=== PATIENT | male | born 1990 | race Caucasian/White ===

== ENCOUNTER 2016-06-08 | Emergency (ER) | payer SELFPAY ==
--- NOTE | 2016-06-08 22:46 | ED ---
General Adult HPI - General Chief complaint: Wound/Laceration Stated complaint: thumb lac Time Seen by Provider: 06/08/16 22:34 Source: patient, RN notes reviewed Mode of arrival: ambulatory Limitations: no limitations - History of Present Illness Initial comments: This is a 25-year-old male who presents with a laceration to the left thumb. Patient states this happened today at work. 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 Patient states he is up-to-date on his tetanus shot. Patient states he was worried because there was a lot of bleeding, but patient was able to get the bleeding to stop. Patient denies any numbness/weakness or tingling. Patient is still able to move the left thumb and complains of mild pain to the tip of the left thumb. Patient denies any recent fever, chills, shortness breath, chest pain, abdominal pain, nausea/vomiting/diarrhea, back pain, hematuria, headache, or visual changes, or any other complaints. - Related Data Home Medications Medication Instructions Recorded Confirmed Cetirizine HCl [Zyrtec] 10 mg PO BID 07/23/15 06/08/16 Previous Rx's Medication Instructions Recorded Albuterol Inhaler [Ventolin Hfa 2 puff INHALATION RT-Q6H PRN #1 02/06/15 Inhaler] inhaler Cephalexin [Keflex] 500 mg PO Q12HR 5 Days 06/08/16 Allergies Allergy/AdvReac Type Severity Reaction Status Date / Time lamotrigine [From Lamictal] Allergy Rash/Hives Verified 06/08/16 22:40 soy Allergy RASH AND Verified 06/08/16 22:40 GI SYMPTOMS Review of Systems ROS Statement: Those systems with pertinent positive or pertinent negative responses have been documented in the HPI. ROS Other: All systems not noted in ROS Statement are negative. Past Medical History Past Medical History: Asthma, GERD/Reflux, Skin Disorder Additional Past Medical History / Comment(s): 07/23/15 Pt presented to [facility] ER with suicidal thoughts and ideation x 2 days. He is admitted with clinical impression of alcohol intoxication, depression, suicidal ideation, acute pancreatitis, pneumonia. 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 He is seen by Dr. Zarco and therapist Brock Gurrola. He lives with his grandparents. He is normally independent. He drives. Smoking Status: Current every day smoker Past Alcohol Use History: None Reported Additional Past Alcohol Use History / Comment(s): He is a smoker of one half to one pack per day for 12 years. He smokes marijuana 2 times a week. He has used cocaine and heroin and other street drugs in the past on a sporadic basis but states none in the past few months. He has had problems with alcohol abuse/ binging but states now he drinks every other month or so. Past Drug Use History: Marijuana Additional Drug Use History / Comment(s): States he smokes marijuana a counple times a week. Hx of cocaine and heroin and other street drug use sporadically but states none in past few months. - Past Family History Father Additional Family Medical History / Comment(s): Father is alive at age 49 with history of alcoholism and drug addiction. Patient does not have any relationship with him. grandfather diabetic. mom and grandfather have HTN. brother htn Mother Additional Family Medical History / Comment(s): Mother is alive at age 44. She has history of coronary artery disease with previous AL, bipolar disorder and borderline personality. Patient has no contact with his mother. Brother(s) Additional Family Medical History / Comment(s): Patient has 1 brother that is 21 years old and one sister 23 years old both have anxiety. Patient does not have any children. General Exam - General Exam Comments Initial Comments: General: The patient is awake and alert, in no distress, and does not appear acutely ill. Neck: The neck is supple, there is no tenderness or JVD. Cardiovascular: There is a regular rate and rhythm. No murmur, rub or gallop is appreciated. Respiratory: Lungs are clear to auscultation, respirations are non-labored, breath sounds are equal. No wheezes, stridor, rales, or rhonchi. Musculoskeletal: Full range of motion, strength 5/5 in Sensation intact. Capillary refill is normal at less than 2 seconds. Radial pulses are 2+ bilaterally. Neurological: A&O x 3. CN II-XII intact, There are no obvious motor or sensory deficits. Coordination appears grossly intact. Speech is normal. Skin: There is an approximately 0.5 cm puncture wound to the tip of the left thumb distal to the DIP joint. Puncture is very superficial. Skin is warm and dry and no rashes or lesions are noted. Psychiatric: Normal mood and affect. Limitations: no limitations Course Vital Signs 06/08/16 22:39 Temperature 98.0 F Pulse Rate 61 Respiratory 18 Rate Blood Pressure 124/78 O2 Sat by Pulse 100 Oximetry Medical Decision Making - Medical Decision Making This is a 25-year-old male presents with puncture wound to the left thumb. On physical exam there is an approximately 0.5 cm puncture wound of the tip of the left thumb distal to the DIP joint. The wound was cleansed with normal saline. There is no foreign body. Patient is up-to-date on his tetanus shot. I discussed x-ray to rule out foreign body or damage to bone, but patient refused x-ray. Patient states scissors came out of the thumb as a whole with no defect noted to the scissors. Discussed that Neosporin can be applied to the wound and to keep the wound clean and dry. Discussed return parameters. Discussed the patient will be put on a short course of Keflex to prevent infection. Discussed [id number] Tylenol or Motrin as needed for any pain. Discussed that patient should follow up with PCP in one to 2 days or return to the [facility] for any worsening symptoms or for any further concerns. Patient was receptive to this plan and patient will be discharged home. Disposition Clinical Impression: Puncture wound of thumb, left Disposition: HOME SELF-CARE Condition: Good Instructions: Puncture Wound (ED) Additional Instructions: Please keep area clean and dry. Please apply Neosporin to the wound and keep wound covered at work. Please finish entire course of antibiotics. Please use [id number] Tylenol and Motrin as needed for any pain. Please use medication as discussed. Please follow-up with family doctor in the next 2 days of symptoms have not improved. Please return to emergency room if the symptoms increase or worsen or for any other concerns. Prescriptions: Cephalexin [Keflex] 500 mg PO Q12HR 5 Days Referrals: Chung Conn DO [Primary Care Provider] - 1-2 days Time of Disposition: 22:51
== END 2016-06-08 22:58 | disposition home or self-care (01) ==
CPT/HCPCS: 99282

== ENCOUNTER 2016-07-04 18:48 | Emergency (ER) | payer SELFPAY ==
[2016-07-04 18:52] VITALS: BP 134/80; PULSE 70; RESP 20; TEMP 98
[2016-07-04] MEDS ORDERED: diphenhydrAMINE 50 MG CAP PO STA (19:02)
[2016-07-04] MEDS ORDERED: predniSONE 50 MG TAB PO STA (19:03)
[2016-07-04] MEDS ORDERED: CEPHALEXIN 500MG STARTER PACK 4 CAP BTL PO STA (19:05)
[2016-07-04] MEDS ORDERED: ACET/COD 300 MG/30 MG STARTER PACK 6 TAB BTL PO STA (19:07)
--- NOTE | 2016-07-04 19:16 | ED ---
Skin/Abscess/FB HPI - General Chief complaint: Skin/Abscess/Foreign Body Stated complaint: rash Time Seen by Provider: 07/04/16 18:53 Source: patient, RN notes reviewed, old records reviewed Mode of arrival: ambulatory Limitations: no limitations - History of Present Illness Initial comments: Patient is a 25 year old male with chief complaint of an acute exacerbation of his chronic eczema for 2 days. Patient reports that he has had eczema for as long as he can remember. He states that his skin is extremely pruritic and it is painful. Patient states that he has received all childhood vaccinations. Patient reports he usually gets 1-2 acute exacerbations a year. He reports that it is over his arms, legs, trunk and back. He also reports that it invades his scalp. Patient states he has not seen a anesthesiologist/physician before and this can usually clear up with systemic steroids, antibiotics, and steroid creams. Patient states he has tried to use Eucerin cream however it is beyond that point at this time. He states he can not afford to go to the anesthesiologist/physician at this time. He denies fever, chills, cough, headache, chest pain, shortness of breath, nausea, vomiting, and abdominal pain. - Related Data Home Medications Medication Instructions Recorded Confirmed Cetirizine HCl [Zyrtec] 10 mg PO BID 07/23/15 07/04/16 Previous Rx's Medication Instructions Recorded Albuterol Inhaler [Ventolin Hfa 2 puff INHALATION RT-Q6H PRN #1 02/06/15 Inhaler] inhaler Cephalexin [Keflex] 500 mg PO Q6HR #40 cap 07/04/16 Triamcinolone 0.1% Cream [Kenalog] 1 applic TOPICAL TID #1 tube 07/04/16 predniSONE 50 mg PO DAILY #7 tab 07/04/16 Allergies Allergy/AdvReac Type Severity Reaction Status Date / Time lamotrigine [From Lamictal] Allergy Rash/Hives Verified 07/04/16 18:52 soy Allergy RASH AND Verified 07/04/16 18:52 GI SYMPTOMS Review of Systems ROS Statement: Those systems with pertinent positive or pertinent negative responses have been documented in the HPI. ROS Other: All systems not noted in ROS Statement are negative. Past Medical History Past Medical History: Asthma, GERD/Reflux, Skin Disorder Additional Past Medical History / Comment(s): 07/23/15 Pt presented to [facility] ER with suicidal thoughts and ideation x 2 days. He is admitted with clinical impression of alcohol intoxication, depression, suicidal ideation, acute pancreatitis, pneumonia. 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 He is seen by Dr. Zarco and therapist Brock Gurrola. He lives with his grandparents. He is normally independent. He drives. Smoking Status: Current every day smoker Past Alcohol Use History: None Reported Additional Past Alcohol Use History / Comment(s): He is a smoker of one half to one pack per day for 12 years. He smokes marijuana 2 times a week. He has used cocaine and heroin and other street drugs in the past on a sporadic basis but states none in the past few months. He has had problems with alcohol abuse/ binging but states now he drinks every other month or so. Past Drug Use History: None Reported Additional Drug Use History / Comment(s): States he smokes marijuana a counple times a week. Hx of cocaine and heroin and other street drug use sporadically but states none in past few months. - Past Family History Father Additional Family Medical History / Comment(s): Father is alive at age 49 with history of alcoholism and drug addiction. Patient does not have any relationship with him. grandfather diabetic. mom and grandfather have HTN. brother htn Mother Additional Family Medical History / Comment(s): Mother is alive at age 44. She has history of coronary artery disease with previous AR, bipolar disorder and borderline personality. Patient has no contact with his mother. Brother(s) Additional Family Medical History / Comment(s): Patient has 1 brother that is 21 years old and one sister 23 years old both have anxiety. Patient does not have any children. General Exam Limitations: no limitations General appearance: alert, in no apparent distress Head exam: Present: atraumatic, normocephalic, normal inspection Eye exam: Present: normal appearance, PERRL, EOMI. Absent: scleral icterus, conjunctival injection, periorbital swelling ENT exam: Present: normal exam, mucous membranes moist Neck exam: Present: normal inspection. Absent: tenderness, meningismus, lymphadenopathy Respiratory exam: Present: normal lung sounds bilaterally. Absent: respiratory distress, wheezes, rales, rhonchi, stridor Cardiovascular Exam: Present: regular rate, normal rhythm, normal heart sounds. Absent: systolic murmur, diastolic murmur, rubs, gallop, clicks GI/Abdominal exam: Present: soft, normal bowel sounds. Absent: distended, tenderness, guarding, rebound, rigid Extremities exam: Present: normal inspection, full ROM, normal capillary refill. Absent: tenderness, pedal edema, joint swelling, calf tenderness Back exam: Present: normal inspection Neurological exam: Present: alert, oriented X3, CN II-XII intact Psychiatric exam: Present: normal affect, normal mood Skin exam: Present: warm, dry, intact, rash ( has significant diffuse eczema throughout entire body.), erythema (erythema over entire trunk abdomen. Patient reports this is a typical flare up for his eczema. ). Absent: normal color Course Vital Signs 07/04/16 18:50 Temperature 98.0 F Pulse Rate 70 Respiratory 20 Rate Blood Pressure 134/80 O2 Sat by Pulse 99 Oximetry Medical Decision Making - Medical Decision Making Patient is a 25 year old male with acute diffuse exacerbation of chronic eczema. Patient has rash over trunk, arms, and legs. Patient will be given steroids, triamicinolone cream, bactroban cream, and keflex. PAtient given initial doses in the EC. PAtient also given benadryl and tylenol 3 starter pack for the pain. Patient reports he has new insurance soon and needs to see the anesthesiologist/physician. Patient advised to follow up with PCP, and to return to the [facility] if alarming signs or symptoms occur. Disposition Clinical Impression: Eczema Disposition: HOME SELF-CARE Condition: Good Instructions: Eczema (ED) Additional Instructions: Patient instructed to complete one week of steroids and use Rich emollient creams. Patient advised to follow up with primary care provider is well as symptoms continue persist. Return to the [facility] if any alarming signs or symptoms occur. Prescriptions: Cephalexin [Keflex] 500 mg PO Q6HR #40 cap Triamcinolone 0.1% Cream [Kenalog] 1 applic TOPICAL TID #1 tube predniSONE 50 mg PO DAILY #7 tab Referrals: Chung Conn DO [Primary Care Provider] - 1-2 days Time of Disposition: 19:08
[2016-07-04] MEDS ORDERED: MUPIROCIN CALCIUM 2% CREAM 15 GM TUBE TOPICAL SCH (20:00)
== END 2016-07-04 19:37 | disposition home or self-care (01) ==
LOC: EC 18:48
DX: L30.9 Dermatitis, unspecified (principal); F17.200 Nicotine dependence, unspecified, uncomplicated; F12.90 Cannabis use, unspecified, uncomplicated; Z88.8 Allergy status to other drugs, medicaments and biological substances; Z91.018 Allergy to other foods; Z79.899 Other long term (current) drug therapy
CPT/HCPCS: 99282; J7512

== ENCOUNTER 2016-08-02 02:58 | Emergency (ER) | payer SELFPAY ==
[2016-08-02 03:08] VITALS: BP 155/63; PULSE 71; RESP 18; TEMP 98.6
[2016-08-02] MEDS ORDERED: predniSONE 50 MG TAB PO STA (03:18)
[2016-08-02] MEDS ORDERED: CEPHALEXIN 500MG STARTER PACK 4 CAP BTL PO STA (03:19)
--- NOTE | 2016-08-02 03:22 | ED ---
Skin/Abscess/FB HPI - General Chief complaint: Skin/Abscess/Foreign Body Stated complaint: rash Time Seen by Provider: 08/02/16 03:06 Source: patient Mode of arrival: ambulatory Limitations: no limitations - History of Present Illness Initial comments: Patient is a 25-year-old male chief complaint of acute exacerbation of chronic eczema for approximately 1 day. Patient reports that he's had eczema for a long as he can remember. He states that his skin is truly pruritic and painful. He states that he is received on vaccinations and reports that he gets a few exacerbations a year. He was treated proximally one month ago for similar exacerbation. He states that is mainly over his back and abdomen at this time. He reports that he does occasionally go up his neck. He states that he is currently seeing a tool and die maker level five in August was also used multiple normally and creams. Patient denies any fever or chills, chest pain, nausea or vomiting. - Related Data Home Medications Medication Instructions Recorded Confirmed Cetirizine HCl [Zyrtec] 10 mg PO BID 07/23/15 08/02/16 Previous Rx's Medication Instructions Recorded Albuterol Inhaler [Ventolin Hfa 2 puff INHALATION RT-Q6H PRN #1 02/06/15 Inhaler] inhaler Cephalexin [Keflex] 500 mg PO Q6HR #28 cap 08/02/16 Triamcinolone 0.5% Cream [Kenalog 1 applic TOPICAL BID #90 gm 08/02/16 0.5% Cream] predniSONE 50 mg PO DAILY #6 tab 08/02/16 Allergies Allergy/AdvReac Type Severity Reaction Status Date / Time lamotrigine [From Lamictal] Allergy Rash/Hives Verified 08/02/16 03:08 soy Allergy RASH AND Verified 08/02/16 03:08 GI SYMPTOMS Review of Systems ROS Statement: Those systems with pertinent positive or pertinent negative responses have been documented in the HPI. ROS Other: All systems not noted in ROS Statement are negative. 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 He is seen by Dr. Zarco and therapist Brock Gurrola. He lives with his grandparents. He is normally independent. He drives. Smoking Status: Current every day smoker Past Alcohol Use History: None Reported Additional Past Alcohol Use History / Comment(s): He is a smoker of one half to one pack per day for 12 years. He smokes marijuana 2 times a week. He has used cocaine and heroin and other street drugs in the past on a sporadic basis but states none in the past few months. He has had problems with alcohol abuse/ binging but states now he drinks every other month or so. Past Drug Use History: None Reported Additional Drug Use History / Comment(s): States he smokes marijuana a counple times a week. Hx of cocaine and heroin and other street drug use sporadically but states none in past few months. - Past Family History Father Additional Family Medical History / Comment(s): Father is alive at age 49 with history of alcoholism and drug addiction. Patient does not have any relationship with him. grandfather diabetic. mom and grandfather have HTN. brother htn Mother Additional Family Medical History / Comment(s): Mother is alive at age 44. She has history of coronary artery disease with previous DC, bipolar disorder and borderline personality. Patient has no contact with his mother. Brother(s) Additional Family Medical History / Comment(s): Patient has 1 brother that is 21 years old and one sister 23 years old both have anxiety. Patient does not have any children. General Exam - General Exam Comments Initial Comments: Pleasant 25-year-old male. No acute distress. Limitations: no limitations General appearance: alert, in no apparent distress Head exam: Present: atraumatic, normocephalic, normal inspection Eye exam: Present: normal appearance, PERRL, EOMI. Absent: scleral icterus, conjunctival injection, periorbital swelling ENT exam: Present: normal exam, mucous membranes moist Neck exam: Present: normal inspection. Absent: tenderness, meningismus, lymphadenopathy Respiratory exam: Present: normal lung sounds bilaterally. Absent: respiratory distress, wheezes, rales, rhonchi, stridor Cardiovascular Exam: Present: regular rate, normal rhythm, normal heart sounds. Absent: systolic murmur, diastolic murmur, rubs, gallop, clicks GI/Abdominal exam: Present: soft, normal bowel sounds. Absent: distended, tenderness, guarding, rebound, rigid Extremities exam: Present: normal inspection, full ROM, normal capillary refill. Absent: tenderness, pedal edema, joint swelling, calf tenderness Back exam: Present: normal inspection Neurological exam: Present: alert, oriented X3, CN II-XII intact Psychiatric exam: Present: normal affect, normal mood Skin exam: Present: warm, dry, intact, normal color, rash (Patient has a significant erythematous. Rash is consistent with his chronic eczema over his back, chest and abdomen.) Course Vital Signs 08/02/16 03:06 Temperature 98.6 F Pulse Rate 71 Respiratory 18 Rate Blood Pressure 155/63 O2 Sat by Pulse 98 Oximetry Medical Decision Making - Medical Decision Making Patient is a 25-year-old male chief complaint of acute exacerbation of chronic eczema. Patient was given a dose of prednisone, and Keflex starter pack in the emergency department. Patient reports to take a Benadryl at home. Patient will be given the prescriptions for Keflex and prednisone. I did advise patient to follow-up soon with the tool and die maker level five. Patient also be given a prescription for 0.5 mg of triamcinolone cream. Patient reports that he will follow-up with primary care provider or return to emergency department if any worsening signs or symptoms occur. Patient understands treatment plan will comply. Disposition Clinical Impression: Eczema Disposition: HOME SELF-CARE Condition: Good Instructions: Eczema (ED) Additional Instructions: Patient advised to continue to dose and Benadryl. Complete antibiotic and steroid prescription as directed. Patient also advised to apply cream instructed. Follow-up with tool and die maker level five as soon as possible. Prescriptions: Cephalexin [Keflex] 500 mg PO Q6HR #28 cap Triamcinolone 0.5% Cream [Kenalog 0.5% Cream] 1 applic TOPICAL BID #90 gm predniSONE 50 mg PO DAILY #6 tab Referrals: Chung Conn DO [Primary Care Provider] - 1-2 days Time of Disposition: 03:19
== END 2016-08-02 03:39 | disposition home or self-care (01) ==
LOC: EC 02:58
DX: L30.9 Dermatitis, unspecified (principal); Z79.899 Other long term (current) drug therapy; Z88.8 Allergy status to other drugs, medicaments and biological substances; Z91.018 Allergy to other foods; F17.200 Nicotine dependence, unspecified, uncomplicated; J30.1 Allergic rhinitis due to pollen
CPT/HCPCS: 99282 ×2; J7512

== ENCOUNTER 2016-09-20 03:19 | Emergency (ER) | payer OTHER ==
[2016-09-20 03:24] VITALS: RESP 18
[2016-09-20] MEDS ORDERED: ALPRAZolam 0.5 MG TAB PO STA (07:22)
[2016-09-20] MEDS: ALBUTEROL NEBULIZED 2.5 MG/3 ML INHALATION STA ×2 (07:31→07:33)
--- NOTE | 2016-09-20 08:15 | ED ---
Psych HPI - General Source: patient, police, EMS Mode of arrival: EMS Limitations: no limitations - History of Present Illness MD Complaint: suicidal ideation, feels depressed -: days(s) Associated Psychiatric Symptoms: depression, suicidal ideation, auditory hallucinations History of same: Yes Quality: getting worse Improves With: none Worsens With: none Associated Symptoms: denies other symptoms <Jabari Fernandez - Last Filed: 09/20/16 08:12> <Kayode Gurrola - Last Filed: 09/20/16 16:40> - General Chief Complaint: Psychiatric Symptoms Stated Complaint: Mental Health Time Seen by Provider: 09/20/16 03:42 - History of Present Illness Initial Comments: Patient is 25-year-old man brought by [employer] [facility] to be evaluated after he expressed to them that he was having suicidal thoughts. The patient admits to same, as well as racing thoughts. (Jabari Fernandez) - Related Data Home Medications Medication Instructions Recorded Confirmed Cetirizine HCl [Zyrtec] 10 mg PO BID 07/23/15 09/20/16 Previous Rx's Medication Instructions Recorded Albuterol Inhaler [Ventolin Hfa 2 puff INHALATION RT-Q6H PRN #1 02/06/15 Inhaler] inhaler Allergies Allergy/AdvReac Type Severity Reaction Status Date / Time lamotrigine [From Lamictal] Allergy Rash/Hives Verified 09/20/16 07:48 soy Allergy RASH AND Verified 09/20/16 07:48 GI SYMPTOMS Review of Systems ROS Other: All systems not noted in ROS Statement are negative. Respiratory: Denies: cough, dyspnea Cardiovascular: Denies: chest pain, palpitations, syncope Gastrointestinal: Denies: abdominal pain, vomiting, diarrhea Genitourinary: Denies: dysuria, hematuria Musculoskeletal: Denies: back pain Skin: Denies: rash Neurological: Denies: headache, weakness, numbness Psychiatric: Reports: depression, auditory hallucinations, suicidal thoughts. Denies: visual hallucinations, homicidal thoughts <Jabari Fernandez - Last Filed: 09/20/16 08:12> ROS Other: All systems not noted in ROS Statement are negative. <Kayode Gurrola - Last Filed: 09/20/16 16:40> ROS Statement: Those systems with pertinent positive or pertinent negative responses have been documented in the HPI. 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 He is seen by Dr. Zarco and therapist Brock Gurrola. He lives with his grandparents. He is normally independent. He drives. Smoking Status: Current every day smoker Past Alcohol Use History: Heavy Additional Past Alcohol Use History / Comment(s): He is a smoker of one half to one pack per day for 12 years. He smokes marijuana 2 times a week. He has used cocaine and heroin and other street drugs in the past on a sporadic basis but states none in the past few months. He has had problems with alcohol abuse/ binging but states now he drinks every other month or so. Past Drug Use History: Cocaine, Marijuana Additional Drug Use History / Comment(s): States he smokes marijuana a counple times a week. Hx of cocaine and heroin and other street drug use sporadically but states none in past few months. - Past Family History Father Additional Family Medical History / Comment(s): Father is alive at age 49 with history of alcoholism and drug addiction. Patient does not have any relationship with him. grandfather diabetic. mom and grandfather have HTN. brother htn Mother Additional Family Medical History / Comment(s): Mother is alive at age 44. She has history of coronary artery disease with previous [place], bipolar disorder and borderline personality. Patient has no contact with his mother. Brother(s) Additional Family Medical History / Comment(s): Patient has 1 brother that is 21 years old and one sister 23 years old both have anxiety. Patient does not have any children. <Jabari Fernandez - Last Filed: 09/20/16 08:12> General Exam Limitations: no limitations General appearance: alert, in no apparent distress Head exam: Present: atraumatic, normocephalic Respiratory exam: Present: normal lung sounds bilaterally. Absent: respiratory distress, wheezes, rales, rhonchi, stridor Cardiovascular Exam: Present: regular rate, normal rhythm, normal heart sounds. Absent: systolic murmur, diastolic murmur, rubs, gallop GI/Abdominal exam: Present: soft. Absent: distended, tenderness, guarding, rebound Back exam: Present: normal inspection. Absent: CVA tenderness (R), CVA tenderness (L) Neurological exam: Present: alert, normal gait Psychiatric exam: Present: depressed, suicidal ideation. Absent: agitated, anxious, flat affect, manic, homicidal ideation Skin exam: Present: warm, dry, intact, normal color. Absent: rash <Jabari Fernandez - Last Filed: 09/20/16 08:12> Medical Decision Making <Jabari Fernandez - Last Filed: 09/20/16 08:12> - Lab Data Result diagrams: 09/20/16 10:46 09/20/16 10:46 <Kayode Gurrola - Last Filed: 09/20/16 16:40> - Medical Decision Making Patient was seen again by mental health services and now recommends discharge. They did arrange follow-up for him. Patient reevaluated by myself, Dr. Gurrola. Patient resting comfortably in bed. Patient does contract for safety and denies suicidal ideation. Patient is comfortable with discharge. (Kayode Gurrola) - Lab Data Lab Results 09/20/16 09/20/16 09/20/16 Range/Units 03:29 03:29 10:46 WBC (3.8-10.6) k/uL RBC (4.30-5.90) m/uL Hgb (13.0-17.5) gm/dL Hct (39.0-53.0) % MCV (80.0-100.0) fL MCH (25.0-35.0) pg MCHC (31.0-37.0) g/dL RDW (11.5-15.5) % Plt Count (150-450) k/uL Neutrophils % % Lymphocytes % % Monocytes % % Eosinophils % % Basophils % % Neutrophils # (1.3-7.7) k/uL Lymphocytes # (1.0-4.8) k/uL Monocytes # (0-1.0) k/uL Eosinophils # (0-0.7) k/uL Basophils # (0-0.2) k/uL Sodium 145 (137-145) mmol/L Potassium 4.1 (3.5-5.1) mmol/L Chloride 108 H (98-107) mmol/L Carbon Dioxide 28 (22-30) mmol/L Anion Gap 9 mmol/L BUN 9 (9-20) mg/dL Creatinine 0.77 (0.66-1.25) mg/dL Est GFR (MDRD) Af Amer >60 (>60 ml/min/1.73 sqM) Est GFR (MDRD) Non-Af >60 (>60 ml/min/1.73 sqM) Glucose 99 (74-99) mg/dL Calcium 9.6 (8.4-10.2) mg/dL Total Bilirubin 0.4 (0.2-1.3) mg/dL AST 24 (17-59) U/L ALT 25 (21-72) U/L Alkaline Phosphatase 69 (38-126) U/L Total Protein 6.5 (6.3-8.2) g/dL Albumin 4.0 (3.5-5.0) g/dL Urine Color Light Yellow Urine Appearance Clear (Clear) Urine pH 5.0 (5.0-8.0) Ur Specific Alex 1.005 (1.001-1.035) Urine Protein Negative (Negative) Urine Glucose (UA) Negative (Negative) Urine Ketones Negative (Negative) Urine Blood Negative (Negative) Urine Nitrite Negative (Negative) Urine Bilirubin Negative (Negative) Urine Urobilinogen <2.0 (<2.0) mg/dL Ur Leukocyte Esterase Negative (Negative) Urine Opiates Screen Not Detected (NotDetected) Ur Oxycodone Screen Not Detected (NotDetected) Urine Methadone Screen Not Detected (NotDetected) Ur Propoxyphene Screen Not Detected (NotDetected) Ur Barbiturates Screen Not Detected (NotDetected) U Tricyclic Antidepress Not Detected (NotDetected) Ur Phencyclidine Scrn Not Detected (NotDetected) Ur Amphetamines Screen Not Detected (NotDetected) U Methamphetamines Scrn Not Detected (NotDetected) U Benzodiazepines Scrn Not Detected (NotDetected) Urine Cocaine Screen Detected H (NotDetected) U Marijuana (THC) Screen Detected H (NotDetected) 09/20/16 Range/Units 10:46 WBC 7.9 (3.8-10.6) k/uL RBC 4.55 (4.30-5.90) m/uL Hgb 14.7 (13.0-17.5) gm/dL Hct 43.0 (39.0-53.0) % MCV 94.4 (80.0-100.0) fL MCH 32.3 (25.0-35.0) pg MCHC 34.2 (31.0-37.0) g/dL RDW 12.8 (11.5-15.5) % Plt Count 246 (150-450) k/uL Neutrophils % 65 % Lymphocytes % 22 % Monocytes % 6 % Eosinophils % 3 % Basophils % 1 % Neutrophils # 5.2 (1.3-7.7) k/uL Lymphocytes # 1.8 (1.0-4.8) k/uL Monocytes # 0.5 (0-1.0) k/uL Eosinophils # 0.3 (0-0.7) k/uL Basophils # 0.1 (0-0.2) k/uL Sodium (137-145) mmol/L Potassium (3.5-5.1) mmol/L Chloride (98-107) mmol/L Carbon Dioxide (22-30) mmol/L Anion Gap mmol/L BUN (9-20) mg/dL Creatinine (0.66-1.25) mg/dL Est GFR (MDRD) Af Amer (>60 ml/min/1.73 sqM) Est GFR (MDRD) Non-Af (>60 ml/min/1.73 sqM) Glucose (74-99) mg/dL Calcium (8.4-10.2) mg/dL Total Bilirubin (0.2-1.3) mg/dL AST (17-59) U/L ALT (21-72) U/L Alkaline Phosphatase (38-126) U/L Total Protein (6.3-8.2) g/dL Albumin (3.5-5.0) g/dL Urine Color Urine Appearance (Clear) Urine pH (5.0-8.0) Ur Specific Alex (1.001-1.035) Urine Protein (Negative) Urine Glucose (UA) (Negative) Urine Ketones (Negative) Urine Blood (Negative) Urine Nitrite (Negative) Urine Bilirubin (Negative) Urine Urobilinogen (<2.0) mg/dL Ur Leukocyte Esterase (Negative) Urine Opiates Screen (NotDetected) Ur Oxycodone Screen (NotDetected) Urine Methadone Screen (NotDetected) Ur Propoxyphene Screen (NotDetected) Ur Barbiturates Screen (NotDetected) U Tricyclic Antidepress (NotDetected) Ur Phencyclidine Scrn (NotDetected) Ur Amphetamines Screen (NotDetected) U Methamphetamines Scrn (NotDetected) U Benzodiazepines Scrn (NotDetected) Urine Cocaine Screen (NotDetected) U Marijuana (THC) Screen (NotDetected) Disposition <Jabari Fernandez - Last Filed: 09/20/16 08:12> <Kayode Gurrola - Last Filed: 09/20/16 16:40> Clinical Impression: Depression Disposition: HOME SELF-CARE Condition: Stable Instructions: Depression (ED), Suicide Prevention for Adults (ED) Additional Instructions: Follow up with [facility] as planned. Follow-up with your primary care physician in the next day or 2 for recheck. Return for thoughts of harming yourself, worsening symptoms or other concerns. Referrals: Chung Conn DO [Primary Care Provider] - 1-2 days
[2016-09-20 11:00] LABS: Basophils # (A) 0.1 k/uL (0-0.2); Basophils % (A) 1 %; CH 32.4; CHCM 34.4; Eosinophils # (A) 0.3 k/uL (0-0.7); Eosinophils % (A) 3 %; HDW 2.26; HGB 14.7 gm/dL (13.0-17.5); Luc # (Auto) 0.18; Luc % (Auto) 2; Lymphocytes # (A) 1.8 k/uL (1.0-4.8); Lymphocytes % (A) 22 %; MCH 32.3 pg (25.0-35.0); MCHC 34.2 g/dL (31.0-37.0); MCV 94.4 fL (80.0-100.0); Mean Platelet Volume 7.3; Monocytes # (A) 0.5 k/uL (0-1.0); Monocytes % (A) 6 %; Neutrophils # (A) 5.2 k/uL (1.3-7.7); Neutrophils % (A) 65 %; RBC 4.55 m/uL (4.30-5.90); RDW 12.8 % (11.5-15.5); WBC 7.9 k/uL (3.8-10.6); WBC (Perox) 8.13
[2016-09-20 11:06] LABS: Appearance,Urine Clear (Clear); Bilirubin,Urine Negative (Negative); Glucose,Urine (UA) Negative (Negative); Ketones,Urine Negative (Negative); Leukocyte Esterase,Urine Negative (Negative); Nitrite,Urine Negative (Negative); Protein,Urine Negative (Negative); Specific Gravity,Urine 1.005 (1.001-1.035); UA Billing (MACRO vs. MICRO) CHEM; Urobilinogen,Urine <2.0 mg/dL (<2.0)
[2016-09-20 11:17] LABS: ALT 25 U/L (21-72); AST 24 U/L (17-59); Alkaline Phosphatase 69 U/L (38-126); Anion Gap 9 mmol/L; Blood Urea Nitrogen 9 mg/dL (9-20); Calcium 9.6 mg/dL (8.4-10.2); Carbon Dioxide 28 mmol/L (22-30); Chloride 108 mmol/L (98-107); Glucose 99 mg/dL (74-99); Non-African American GFR(MDRD) >60 (>60 ml/min/1.73 sqM); Potassium 4.1 mmol/L (3.5-5.1); Sodium 145 mmol/L (137-145); Total Bilirubin 0.4 mg/dL (0.2-1.3); Total Protein 6.5 g/dL (6.3-8.2)
[2016-09-20 16:44] VITALS: BP 147/87; PULSE 88; TEMP 98.4
== END 2016-09-20 16:45 | disposition home or self-care (01) ==
LOC: EC 03:19
DX: F31.9 Bipolar disorder, unspecified (principal); F60.3 Borderline personality disorder; F41.9 Anxiety disorder, unspecified; F17.200 Nicotine dependence, unspecified, uncomplicated; Z79.899 Other long term (current) drug therapy; Z91.018 Allergy to other foods; Z88.8 Allergy status to other drugs, medicaments and biological substances; Z87.2 Personal history of diseases of the skin and subcutaneous tissue
CPT/HCPCS: 36415; 80053; 80306; 81003; 82075; 85025; 94640; 99285

== ENCOUNTER 2017-01-16 20:43 | Inpatient (IN) | payer OTHER ==
--- NOTE | 2017-01-16 21:56 | ED ---
General Adult HPI - General Chief complaint: Psychiatric Symptoms Stated complaint: Mental Health Time Seen by Provider: 01/16/17 21:55 Source: patient, RN notes reviewed, old records reviewed Mode of arrival: ambulatory Limitations: no limitations - History of Present Illness Initial comments: This is a 18-year-old male ER for evaluation. This patient presents for evaluation and second himself desires. Patient has not attempted suicide. No drugs or alcohol abuse - Related Data Home Medications Medication Instructions Recorded Confirmed Cetirizine HCl [Zyrtec] 10 mg PO BID 07/23/15 01/16/17 Albuterol Inhaler [Ventolin Hfa 2 puff INHALATION RT-Q6H PRN 01/16/17 01/16/17 Inhaler] Triamcinolone 0.1% Ointment 1 applic TOPICAL TID PRN 01/16/17 01/16/17 [Kenalog 0.1% Ointment] Allergies Allergy/AdvReac Type Severity Reaction Status Date / Time lamotrigine [From Lamictal] Allergy Rash/Hives Verified 09/20/16 07:48 soy Allergy RASH AND Verified 09/20/16 07:48 GI SYMPTOMS Review of Systems ROS Statement: Those systems with pertinent positive or pertinent negative responses have been documented in the HPI. ROS Other: All systems not noted in ROS Statement are negative. Past Medical History Past Medical History: Asthma, GERD/Reflux, Skin Disorder Additional Past Medical History / Comment(s): Other HX: Eczema, hayfever, left cornea ulcer healed, gastric ulcer History of Any Multi-Drug Resistant Organisms: None Reported Additional Past Surgical History / Comment(s): EGD, corneal biopsy left - Past Anesthesia/Blood Transfusion Reactions: No Reported Reaction Past Psychological History: Anxiety, Bipolar, Depression Smoking Status: Current every day smoker Past Alcohol Use History: Heavy Past Drug Use History: Cocaine, Marijuana - Past Family History Father Additional Family Medical History / Comment(s): Father is alive at age 49 with history of alcoholism and drug addiction. Patient does not have any relationship with him. grandfather diabetic. mom and grandfather have HTN. brother htn Mother Additional Family Medical History / Comment(s): Mother is alive at age 44. She has history of coronary artery disease with previous [place], bipolar disorder and borderline personality. Patient has no contact with his mother. Brother(s) Additional Family Medical History / Comment(s): Patient has 1 brother that is 21 years old and one sister 23 years old both have anxiety. Patient does not have any children. General Exam Limitations: no limitations General appearance: alert, in no apparent distress Head exam: Present: atraumatic, normocephalic, normal inspection Eye exam: Present: normal appearance, PERRL, EOMI. Absent: scleral icterus, conjunctival injection, periorbital swelling ENT exam: Present: normal exam, mucous membranes moist Neck exam: Present: normal inspection. Absent: tenderness, meningismus, lymphadenopathy Respiratory exam: Present: normal lung sounds bilaterally. Absent: respiratory distress, wheezes, rales, rhonchi, stridor Cardiovascular Exam: Present: regular rate, normal rhythm, normal heart sounds. Absent: systolic murmur, diastolic murmur, rubs, gallop, clicks GI/Abdominal exam: Present: soft, normal bowel sounds. Absent: distended, tenderness, guarding, rebound, rigid Extremities exam: Present: normal inspection, full ROM, normal capillary refill. Absent: tenderness, pedal edema, joint swelling, calf tenderness Back exam: Present: normal inspection Neurological exam: Present: alert, oriented X3, CN II-XII intact Psychiatric exam: Present: normal affect, normal mood Skin exam: Present: warm, dry, intact, normal color. Absent: rash Course Vital Signs 01/16/17 01/17/17 21:45 00:54 Temperature 98.5 F Pulse Rate 75 95 Respiratory 18 18 Rate Blood Pressure 147/93 137/89 O2 Sat by Pulse 100 96 Oximetry - Reevaluation(s) Reevaluation #1: 01/16/17 21:56 Patient medically clear for psychiatric evaluation Medical Decision Making - Medical Decision Making 26 male to the ED for evaluation of psychiatric disease, patient will be admitted for psychiatric evaluation and treatment - Lab Data Result diagrams: 01/17/17 08:43 01/17/17 08:43 Lab Results 01/16/17 Range/Units 23:34 Urine Opiates Screen Not Detected (NotDetected) Ur Oxycodone Screen Not Detected (NotDetected) Urine Methadone Screen Not Detected (NotDetected) Ur Propoxyphene Screen Not Detected (NotDetected) Ur Barbiturates Screen Not Detected (NotDetected) U Tricyclic Antidepress Not Detected (NotDetected) Ur Phencyclidine Scrn Not Detected (NotDetected) Ur Amphetamines Screen Not Detected (NotDetected) U Methamphetamines Scrn Not Detected (NotDetected) U Benzodiazepines Scrn Not Detected (NotDetected) Urine Cocaine Screen Not Detected (NotDetected) U Marijuana (THC) Screen Not Detected (NotDetected) Disposition Clinical Impression: Alcohol intoxication, Suicidal ideation Disposition: TRANSFER TO PSYCH HOSP/UNIT Condition: Fair
[2017-01-16] MEDS ORDERED: LORazepam 1 MG TAB PO STA (23:34)
[2017-01-17] MEDS ORDERED: MAGNESIUM HYDROXIDE 2,400 MG/10 ML CUP PO PRN (01:12)
[2017-01-17] MEDS ORDERED: MAG HYDROX/AL HYDROX/SIMETH 30 ML CUP PO PRN (01:12)
[2017-01-17] MEDS ORDERED: ACETAMINOPHEN TAB 325 MG TAB PO PRN (01:12)
[2017-01-17] MEDS ORDERED: LORATADINE 10 MG TAB PO PRN (01:23)
[2017-01-17] MEDS: NICOTINE 14MG/24HR PATCH TRANSDERM SCH ×2 (08:17→10:30)
[2017-01-17] MEDS: LORazepam 1 MG TAB PO SCH ×2 (08:18→20:36)
[2017-01-17] MEDS: TRIAMCINOLONE ACET 0.1% OINTMENT 15 GM TUBE TOPICAL PRN ×2 (08:29→14:45)
[2017-01-17] MEDS: ALBUTEROL INHALER 60 PUFF/8 GM INHALER INHALATION PRN ×4 (09:14→21:08)
[2017-01-17 09:49] LABS: Basophils # (A) 0.1 k/uL (0-0.2); Basophils % (A) 1 %; CH 33.2; CHCM 33.7; Eosinophils # (A) 0.4 k/uL (0-0.7); Eosinophils % (A) 6 %; HDW 2.18; HGB 15.7 gm/dL (13.0-17.5); Luc % (Auto) 2; Lymphocytes # (A) 1.2 k/uL (1.0-4.8); Lymphocytes % (A) 22 %; MCH 31.7 pg (25.0-35.0); MCV 99.1 fL (80.0-100.0); Mean Platelet Volume 8.1; Monocytes # (A) 0.3 k/uL (0-1.0); Monocytes % (A) 6 %; Neutrophils # (A) 3.5 k/uL (1.3-7.7); Neutrophils % (A) 63 %; RBC 4.95 m/uL (4.30-5.90); WBC 5.7 k/uL (3.8-10.6); WBC (Perox) 5.45
[2017-01-17 09:51] LABS: ALT 34 U/L (21-72); AST 28 U/L (17-59); Alkaline Phosphatase 73 U/L (38-126); Anion Gap 8 mmol/L; Blood Urea Nitrogen 6 mg/dL (9-20); Calcium 8.8 mg/dL (8.4-10.2); Carbon Dioxide 27 mmol/L (22-30); Chloride 102 mmol/L (98-107); Glucose 107 mg/dL (74-99); Non-African American GFR(MDRD) >60 (>60 ml/min/1.73 sqM); Potassium 4.2 mmol/L (3.5-5.1); Sodium 137 mmol/L (137-145); Total Bilirubin 0.6 mg/dL (0.2-1.3); Total Protein 6.4 g/dL (6.3-8.2)
[2017-01-17 09:58] LABS: Appearance,Urine Clear (Clear); Bilirubin,Urine Negative (Negative); Glucose,Urine (UA) Negative (Negative); Ketones,Urine Negative (Negative); Leukocyte Esterase,Urine Negative (Negative); Nitrite,Urine Negative (Negative); PH, Urine 7.5 (5.0-8.0); Protein,Urine Trace (Negative); Specific Gravity,Urine 1.016 (1.001-1.035); UA Billing (MACRO vs. MICRO) CHEM; Urobilinogen,Urine <2.0 mg/dL (<2.0)
[2017-01-17] MEDS: buPROPion XL 300 MG TAB.ER.24H PO SCH (13:31)
[2017-01-17] MEDS: OLANZapine 2.5 MG TAB PO SCH ×3 (13:31→20:36)
[2017-01-17] MEDS: PRAZOSIN 1 MG CAP PO SCH ×2 (13:31→20:36)
--- NOTE | 2017-01-17 14:51 | P.MDCNMH ---
History of Present Illness H&P Date: 01/17/17 Chief Complaint: Suicidal ideation 26-year-old male with past medical history significant for mild persistent asthma, GERD, bipolar disorder. Patient presented to the emergency department due to overwhelming emotions and suicidal ideation. He reported that he is going through a breakup quit his job and has been drinking heavily for the past month or 2. Then he decided to quit "cold turkey" 5 days ago. He reported going through withdrawal symptoms he was shaky and had a seizure 2 days after his last drink. However due to the overwhelming emotions and suicidal ideations with a plan on overdosing on the old pills he decided to perform his grandfather who brought him to the hospital seeking help. He reports some history of suicidal ideation in the past with multiple attempts usually with overdosing and he did not want to go through that again. Otherwise, currently he reports no symptoms of alcohol withdrawal, he feels that he is more stable now. Patient also reports history of mild persistent asthma for which he uses nebulized albuterol every day and night. He is not on any other inhalers. He denies any emergency department visits for asthma exacerbations. He denies any history of intubation, denies any chronic cough. He also reports self mutilating behavior which usually distract him and help him focus instead of having the suicidal ideation and the overwhelming emotions. He used to hit objects to inflict pain or even cut his skin, but now always doing as using cigarettes to burn his skin. Review of Systems Constitutional: Patient reports no fever, no chills, no night sweating, no significant weight changes Eyes: Patient reports no visual changes, no eye pain ENT: Patient reports no ear pain, no rhinorrhea, no sore throat Cardiovascular: Patient reports no chest pain, no exertional dyspnea, no peripheral leg edema, no orthopnea, no paroxysmal nocturnal dyspnea Respiratory:Patient reports no cough, no shortness of breath. Occasional wheezing for which he uses albuterol inhaler Gastrointestinal: Patient reports no diarrhea, no constipation, no nausea no vomiting, no abdominal pain Genitourinary: Patient reports no dysuria, no hematuria, no changes in urinary habits, no genital lesions Musculoskeletal: Patient reports no muscle pain, no joint pain Psychiatric: Patient reports depressed mood , suicidal ideation, and anxiety Endocrine: Patient reports no heat intolerance, no cold intolerance, no excessive thirst, no polyuria Neurological: Patient reports no focal neurologic deficits, no weakness, no numbness, no tingling Hem/Lymphatic: Patient reports no bleeding tendency, no bruising, no swollen lymph glands Allergic/Immun: Patient reports no recent allergic reactions Skin: Patient reports no ulcers. Patient reports flareup of his eczema Past Medical History Past Medical History: Asthma, GERD/Reflux, Skin Disorder Additional Past Medical History / Comment(s): Other HX: Eczema, hayfever, left cornea ulcer healed, gastric ulcer History of Any Multi-Drug Resistant Organisms: None Reported Additional Past Surgical History / Comment(s): EGD, corneal biopsy left - Past Anesthesia/Blood Transfusion Reactions: No Reported Reaction Past Psychological History: Anxiety, Bipolar, Depression Smoking Status: Current every day smoker Past Alcohol Use History: Heavy Additional Past Alcohol Use History / Comment(s): Most recent drink was 5 days ago where he decided to quit "cold turkey" Past Drug Use History: Cocaine, Marijuana Additional Drug Use History / Comment(s): Admits to current marijuana use. He also admits to using cocaine and other drugs in the past but nothing recent - Past Family History Father Additional Family Medical History / Comment(s): Father is alive at age 49 with history of alcoholism and drug addiction. Patient does not have any relationship with him. grandfather diabetic. mom and grandfather have HTN. brother htn Mother Additional Family Medical History / Comment(s): Mother is alive at age 44. She has history of coronary artery disease with previous [place], bipolar disorder and borderline personality. Patient has no contact with his mother. Brother(s) Additional Family Medical History / Comment(s): Patient has 1 brother that is 21 years old and one sister 23 years old both have anxiety. Patient does not have any children. Medications and Allergies Home Medications and Allergies Comment(s): He reports that he's been off psych medications for over a year now and he's been doing well Home Medications Medication Instructions Recorded Confirmed Type Cetirizine HCl [Zyrtec] 10 mg PO BID 07/23/15 01/16/17 History Albuterol Inhaler [Ventolin Hfa 2 puff INHALATION RT-Q6H PRN 01/16/17 01/16/17 History Inhaler] Triamcinolone 0.1% Ointment 1 applic TOPICAL TID PRN 01/16/17 01/16/17 History [Kenalog 0.1% Ointment] Allergies Allergy/AdvReac Type Severity Reaction Status Date / Time lamotrigine [From Lamictal] Allergy Rash/Hives Verified 09/20/16 07:48 soy Allergy RASH AND Verified 09/20/16 07:48 GI SYMPTOMS Physical Exam Vitals: Vital Signs Temp Pulse Pulse Resp BP BP Pulse Ox 01/17/17 01:36 97.5 F L 90 16 153/73 97 01/17/17 00:54 95 18 137/89 96 01/16/17 21:45 98.5 F 75 18 147/93 100 Intake and Output 01/16/17 01/17/17 01/17/17 22:59 06:59 14:59 Other: Weight 65.771 kg 71.532 kg Constitutional: Not in acute distress, pleasant, conversant, vital signs stable Eyes: Pupils equal round reactive to light, anicteric sclerae, moist conjunctivae ENMT: Normocephalic, atraumatic, oropharynx clear, no erythema/exudate Neck: Supple, FORM, no palpable thyromegally Lymphatics: no palpable cervical or supraclavicular lymph nodes Respiratory: Clear to auscultation bilaterally, no wheezes, no crackles, no rhonchi, clear to percussion, normal respiratory effort without use of accessory muscles Cardiovascular: Regular rate and rhythm, no murmurs, no gallops, no rubs, no peripheral edema , no JVD, no carotid bruits, peripheral pulses palpable and equal over bilateral radial arteries and dorsalis pedis arteries Abdomen: Bowel sounds positive, soft, no tenderness to palpation, no palpable masses, no palpable hepatosplenomegally, no abdominal wall hernias Skin: Unremarkable temperature, tone, and turgor, no induration or subcutaneous nodule. there is diffuse erythematus rash and skin dryness over the right forearm and upper chest, there are multiple (counted 3) cigarette burning lesions over his left forearm (self inflicted injuries) Extremities: No digital cyanosis, ischemia or clubbing, no calf muscle tenderness bilaterally, unremarkable gait , grossly intact active range of motion of both upper and lower extremities Psych: Alert, oriented to place, person and date, recent and remote memory intact, appropriate mood and affect, intact judgment , patient has good insight of his problems Neurologic: Cranial nerves II-XII grossly intact, no focal sensory deficits to touch, Deep tendon reflexes brisk over bilateral knees Cranial Nerve Examination - Cranial Nerves Cranial Nerve II- Optic: Intact Cranial Nerve III- Oculomotor: Intact Cranial Nerve IV- Trochlear: Intact Cranial Nerve V- Trigeminal: Intact Cranial Nerve - Abducens: Intact Cranial Nerve VII- Facial: Intact Cranial Nerve VIII- Auditory: Intact Cranial Nerve IX- Glossopharyngeal: Intact Cranial Nerve X- Vagus: Intact Cranial Nerve XI- Accessory: Intact Cranial Nerve XII- Hypoglossal: Intact Results Results: labs reviewed CBC & Chem 7: 01/17/17 08:43 01/17/17 08:43 Labs: Abnormal Lab Results - Last 24 Hours (Table) 01/17/17 01/17/17 Range/Units 08:43 09:20 BUN 6 L (9-20) mg/dL Glucose 107 H (74-99) mg/dL Urine Protein Trace H (Negative) Assessment and Plan (1) Mild persistent asthma Narrative/Plan: Duonebs PRN counseled to avoid smoking and smoke exposure Status: Chronic (2) Eczema Narrative/Plan: Acute flare up triamcinolone 0.1% PRN TID Status: Acute (3) Tobacco dependence Narrative/Plan: counseled to quit smoking patient indicated that he is not ready for that Nicotine replacement therapy offered Status: Chronic (4) Alcohol abuse Narrative/Plan: Patient admits to heavy ingestion of alcohol over the past 2 months on a daily basis for at least 12 X12 ounce beers , or a pint of liquor Patient decided to quit without seeking medical help. His last drink was 5 days ago Patient went through withdrawal symptoms at home and he reports convulsive seizure once 2 days after his most recent drink Alcohol withdrawal symptoms usually last for 4-5 days after last drink Continue with monitoring with seizure precautions and CIWA scale Patient counseled to abstain from alcohol Status: Acute (5) Depression Narrative/Plan: management per psych Status: Acute (6) Suicidal ideation Narrative/Plan: Management per psych, suicide precautions Status: Acute (7) DVT prophylaxis Narrative/Plan: low risk patient is ambulatory Status: Acute (8) GERD (gastroesophageal reflux disease) Narrative/Plan: Patient reports no active symptoms of acid reflux Status: Chronic
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
[2017-01-18] MEDS: buPROPion XL 300 MG TAB.ER.24H PO SCH (09:40)
[2017-01-18] MEDS: NICOTINE 14MG/24HR PATCH TRANSDERM SCH (09:40)
[2017-01-18] MEDS: OLANZapine 2.5 MG TAB PO SCH ×3 (09:40→20:46)
[2017-01-18] MEDS: LORazepam 1 MG TAB PO SCH ×2 (09:40→21:45)
[2017-01-18] MEDS: PRAZOSIN 1 MG CAP PO SCH ×2 (09:40→21:45)
[2017-01-18] MEDS: TRIAMCINOLONE ACET 0.1% OINTMENT 80 GM TUBE TOPICAL PRN ×3 (09:41→22:24)
[2017-01-18] MEDS: ALBUTEROL INHALER 60 PUFF/8 GM INHALER INHALATION PRN ×3 (09:43→19:22)
[2017-01-18] MEDS: LORATADINE 10 MG TAB PO PRN (12:11)
--- NOTE | 2017-01-18 16:04 | PN ---
DATE OF SERVICE: 01/18/17 CHIEF COMPLAINT: The patient was distressed. He had suicide thoughts with a plan to overdose. He had been drinking regularly until five days prior to admission. INTERVAL HISTORY: The patient has been doing fair. He had a quiet evening last night. The patient says that he slept fair. He slept only about three or four hours last night. He wondered about an increase in his medications. Today he has been up and about. He has been attending groups and has been appropriate. He will socialize with others. He says today that his mood is better and he feels a little calmer. He says though that he still has quite a bit of anxiety and he wonders though if his medications could be adjusted. The patient says that he is more hopeful. He has not had change in his general health. He tolerates psychotropic medications. MENTAL STATUS: The patient gave fairly good eye contact. He was a little restless. Speech was clear He answered questions with direct responses. He had a somewhat anxious affect though not significantly so. His mood was quiet. He did not appear to be significantly distress. ASSESSMENT: We will continue the current diagnosis and treatment plan. We will continue psychotropic medications the same. I discussed with the patient that he needs to give medications more time. In addition, we discussed that he should use the walking program to help calm some of the anxiety that he does have. We discussed that as he has done better in the day with better control of anxiety, it is likely to help him get into a better sleep pattern at night. We will continue to focus on stabilization and discharge planning. LOLY
[2017-01-19 06:33] VITALS: RESP 16
[2017-01-19] MEDS: ALBUTEROL INHALER 60 PUFF/8 GM INHALER INHALATION PRN ×3 (08:54→21:00)
[2017-01-19] MEDS: NICOTINE 14MG/24HR PATCH TRANSDERM SCH (09:20)
[2017-01-19] MEDS: buPROPion XL 300 MG TAB.ER.24H PO SCH (09:20)
[2017-01-19] MEDS: LORazepam 1 MG TAB PO SCH (09:20)
[2017-01-19] MEDS: PRAZOSIN 1 MG CAP PO SCH ×2 (09:20→20:48)
[2017-01-19] MEDS: OLANZapine 2.5 MG TAB PO SCH (09:20)
[2017-01-19] MEDS ORDERED: BACITRACIN OINT 1 EACH PACKET TOPICAL ONE (09:23)
[2017-01-19] MEDS: LORATADINE 10 MG TAB PO PRN (10:16)
[2017-01-19] MEDS: OLANZapine 5 MG TAB PO SCH ×2 (16:15→20:48)
[2017-01-19] MEDS: TRIAMCINOLONE ACET 0.1% OINTMENT 80 GM TUBE TOPICAL PRN (21:55)
[2017-01-19] MEDS ORDERED: hydrOXYzine PAMOATE 25 MG CAP PO STA (22:10)
[2017-01-20 06:37] VITALS: BP 121/71; PULSE 73; TEMP 97.8
[2017-01-20] MEDS ORDERED: predniSONE 50 MG TAB PO STA (08:52)
[2017-01-20] MEDS: ALBUTEROL INHALER 60 PUFF/8 GM INHALER INHALATION PRN (08:57)
[2017-01-20] MEDS ORDERED: SULFAMETHOX-TMP 800-160MG 1 EACH TAB PO SCH (09:00)
[2017-01-20] MEDS: OLANZapine 5 MG TAB PO SCH (09:20)
[2017-01-20] MEDS: buPROPion XL 300 MG TAB.ER.24H PO SCH (09:20)
[2017-01-20] MEDS: PRAZOSIN 1 MG CAP PO SCH (09:21)
[2017-01-20] MEDS: NICOTINE 14MG/24HR PATCH TRANSDERM SCH (09:22)
--- NOTE | 2017-01-20 09:43 | PN ---
DATE OF SERVICE: 01/19/2017 CHIEF COMPLAINT: The patient was distressed. He had suicide thoughts with a plan to overdose. He had been drinking regularly and fell five days prior to admission. INTERVAL HISTORY: The patient has been doing fair. He had a quiet evening last night. He slept fairly well. Today he has been up and about. He presents at times in a superficially bright mood. He will interact with others. On the other hand, he acknowledges mood swings with periods where he gets quite down and distressed. He has some insight into the idea that he likely continue to struggle with early withdrawal symptoms. He feels that he has gained benefit and feels supported in the group session. He acknowledges feeling a lot of stress around the idea of discharge and mainly with what he needs to do to get back into better function. He is not able to continue job and left that recently because of the distress he was experiencing. He does seem to have gained some insight around the idea that he needs to maintain abstinence from alcohol. He has been cooperative. He has not had change in his general health. He tolerates his psychotropic medications. MENTAL STATUS: The patient gives fair eye contact. Psychomotor activity was restless. Speech was clear. He answered questions with brief responses. His affect was somewhat anxious. His mood was quiet. He did not appear to be significantly depressed or distress. ASSESSMENT: I will continue the current diagnosis and treatment plan. I will continue psychotropic medications the same. The patient has been making progress. We had extensive discussion regarding discharge planning and will aim to discharge the patient Tuesday. LOLY
--- NOTE | 2017-01-20 11:14 | P.PN ---
Subjective Principal diagnosis: Rash Patient is a 26-year-old male with past medical history mild persistent asthma, eczema, and depression the treated in the mental health unit for suicidal ideation. We're asked to reevaluate the patient for worsening rash. Patient states that he had been drinking prior to coming to the hospital and had bumped his left lower extremity, he is concerned with an area of swelling and redness. He states started a couple of days ago. He complains of pain that is worse with walking. He believes his area that he bumped. He also complains that his eczema is worsening and spreading. Involving his torso and eat. He states limits typically this that he is a dose of oral steroids with a taper of over 2 weeks' duration. He states that he is having an increase in itch with this rash. Objective - Vital Signs Vital signs: Vital Signs Temp 97.8 F 01/20/17 06:36 Pulse 73 01/20/17 06:36 Resp 16 01/20/17 06:36 BP 121/71 01/20/17 06:36 Pulse Ox 97 01/17/17 01:36 - Exam General: non toxic, no distress, appears at stated age Derm: Multiple areas of erythematous slightly raised lesion with convalescent and scale and crust over chest, back, arms and lower extremities, left calf with area of erythema and induration associated with warmth and swelling, no fluctuant area noted no lesions Head: atraumatic, normocephalic, symmetric Eyes: EOMI, no lid lag, anicteric sclera ENT: no post nasal drip, no thrush Mouth: no lip lesion, mucus membranes moist Cardiovascular: S1S2 reg, no murmur, positive posterior tibial pulse bilateral, Lungs: CTA bilateral, no rhonchi, no rales , no accessory muscle use Ext: no gross muscle atrophy, no edema, no contractures Neuro: CN II-XI grossly intact, no focal neuro deficits Psych: Alert, oriented, appropriate affect - Labs CBC & Chem 7: 01/17/17 08:43 01/17/17 08:43 Assessment and Plan (1) Cellulitis and abscess of left leg Narrative/Plan: Bactrim DS twice daily for 5 days, first dose here and prescription for duration left on chart, follow with PCP in 3-5 days Status: Acute (2) Acute eczema Narrative/Plan: Steroid taper over 15 days. Start with prednisone 50 mg daily the patient states this is his typical dose, he will follow with his primary care physician or acid plant helper should this not resolve his acute flair of eczema Status: Acute (3) Acute eczema Status: Deleted
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
== END 2017-01-20 10:42 | disposition home or self-care (01) | DRG 885 ==
LOC: EC 20:43 → 3MHU 01-17 00:46
PROVIDERS: ADMIT Psychiatry & Neurology Psychiatry; ATTEND Psychiatry & Neurology Psychiatry
DX: F33.2 Major depressive disorder, recurrent severe without psychotic features (principal); R45.851 Suicidal ideations; L02.416 Cutaneous abscess of left lower limb; F10.239 Alcohol dependence with withdrawal, unspecified; L03.116 Cellulitis of left lower limb; G40.409 Other generalized epilepsy and epileptic syndromes, not intractable, without status epilepticus; F17.200 Nicotine dependence, unspecified, uncomplicated; F12.90 Cannabis use, unspecified, uncomplicated; K21.9 Gastro-esophageal reflux disease without esophagitis; F43.10 Post-traumatic stress disorder, unspecified; J45.30 Mild persistent asthma, uncomplicated; J30.1 Allergic rhinitis due to pollen; L30.9 Dermatitis, unspecified; Z79.899 Other long term (current) drug therapy; Z87.11 Personal history of peptic ulcer disease; Z91.5 Personal history of self-harm; Z62.810 Personal history of physical and sexual abuse in childhood; Z88.8 Allergy status to other drugs, medicaments and biological substances; Z91.018 Allergy to other foods
CPT/HCPCS: 80053; 80306; 81003; 82075; 84443; 85025; 94640; 99285

== ENCOUNTER 2018-11-03 16:59 | Emergency (ER) | payer OTHER ==
[2018-11-03 17:09] VITALS: BP 141/82; PULSE 79; RESP 18; TEMP 99
--- NOTE | 2018-11-03 17:50 | ED ---
General Adult HPI - General Chief complaint: Upper Respiratory Infection Stated complaint: congestion Time Seen by Provider: 11/03/18 17:16 Source: patient Mode of arrival: ambulatory Limitations: no limitations - History of Present Illness Initial comments: Patient is a 27-year-old male presenting to emergency department with a cough. Patient reports he was treated 3 weeks ago for pneumonia with a Z-Jose Angel which he finished a about 12 days ago. Patient reports improvement in his cough except the last 2 days he noticed a dry cough. Patient reports having ALLERGIES causing nasal congestion, eczema and asthma flareup. Patient reports not using an inhaler for his asthma because he can't afford it. Patient denies any nausea, vomiting, diarrhea, headaches, fever, night sweats or chills. Patient denies taking any medication to alleviate the symptoms. Patient has continued smoking through his illness - Related Data Home Medications Medication Instructions Recorded Confirmed Cetirizine HCl [Zyrtec] 10 mg PO BID 07/23/15 01/16/17 Albuterol Inhaler [Ventolin Hfa 2 puff INHALATION RT-Q6H PRN 01/16/17 01/16/17 Inhaler] Triamcinolone 0.1% Ointment 1 applic TOPICAL TID PRN 01/16/17 01/16/17 [Kenalog 0.1% Ointment] Previous Rx's Medication Instructions Recorded Nicotine 14Mg/24Hr Patch [Habitrol] 1 patch TRANSDERM DAILY patch 01/20/17 OLANZapine [ZyPREXA] 5 mg PO TID #90 tab 01/20/17 Prazosin [Minipress] 1 mg PO BID #60 cap 01/20/17 Sulfamethox-Tmp 800-160Mg [Bactrim 1 each PO BID #60 tab 01/20/17 DS 800-160 mg] buPROPion XL [Wellbutrin XL] 300 mg PO DAILY #30 tab 01/20/17 Albuterol Nebulized [Ventolin 2.5 mg INHALATION Q4H PRN #25 nebu 11/03/18 Nebulized] Azithromycin [Zithromax] 500 mg PO DAILY #5 tab 11/03/18 Triamcinolone 0.1% Cream [Kenalog 1 applicatio TOPICAL BID #15 gram 11/03/18 0.1% Cream] methylPREDNISolone [Medrol Dose 4 mg PO DIRECTED #1 pack 11/03/18 Pack] Allergies Allergy/AdvReac Type Severity Reaction Status Date / Time lamotrigine [From Lamictal] Allergy Rash/Hives Verified 11/03/18 17:10 peanut Allergy Rash/Hives Verified 11/03/18 17:10 eggs Allergy Rash/Hives Uncoded 11/03/18 17:10 Review of Systems ROS Statement: Those systems with pertinent positive or pertinent negative responses have been documented in the HPI. ROS Other: All systems not noted in ROS Statement are negative. Past Medical History Past Medical History: Asthma, GERD/Reflux, Skin Disorder Additional Past Medical History / Comment(s): Other HX: Eczema, hayfever, left cornea ulcer healed, gastric ulcer History of Any Multi-Drug Resistant Organisms: None Reported Additional Past Surgical History / Comment(s): EGD, corneal biopsy left - Past Anesthesia/Blood Transfusion Reactions: No Reported Reaction Past Psychological History: Anxiety, Bipolar, Depression Smoking Status: Current every day smoker Past Alcohol Use History: Occasional Past Drug Use History: Cocaine, Marijuana - Past Family History Father Additional Family Medical History / Comment(s): Father is alive at age 49 with history of alcoholism and drug addiction. Patient does not have any relationship with him. grandfather diabetic. mom and grandfather have HTN. brother htn Mother Additional Family Medical History / Comment(s): Mother is alive at age 44. She has history of coronary artery disease with previous [place], bipolar disorder and borderline personality. Patient has no contact with his mother. Brother(s) Additional Family Medical History / Comment(s): Patient has 1 brother that is 21 years old and one sister 23 years old both have anxiety. Patient does not have any children. General Exam Limitations: no limitations General appearance: alert, in no apparent distress Head exam: Present: atraumatic, normocephalic, normal inspection Eye exam: Present: normal appearance, PERRL, EOMI Pupils: Present: normal accommodation ENT exam: Present: mucous membranes moist, TM's normal bilaterally, normal external ear exam Neck exam: Present: normal inspection, full ROM. Absent: tenderness, lymphadenopathy Respiratory exam: Present: wheezes (Bilateral in all lung mireles) Cardiovascular Exam: Present: regular rate, normal rhythm, normal heart sounds Extremities exam: Present: normal inspection, full ROM Neurological exam: Present: alert, oriented X3 Psychiatric exam: Present: normal affect, normal mood Skin exam: Present: warm, dry, other (Eczema on forehead upper and lower extremities.) Course Vital Signs 11/03/18 17:07 Temperature 99.0 F Pulse Rate 79 Respiratory 18 Rate Blood Pressure 141/82 O2 Sat by Pulse 98 Oximetry Medical Decision Making - Medical Decision Making Patient is a 27-year-old male presenting to emergency Department with a cough. Chest x-ray shows clearing of lungs compares to previous imaging. Patient will be discharged with a Z-Jose Angel, Medrol Dosepak, albuterol and topical steroids for eczema. Patient advised to follow with primary care. Patient advised to return to emergency department if symptoms worsen. Case discussed with physician.I counseled the patient for smoking cessation for greater than 3 minutes Disposition Clinical Impression: Common cold Disposition: HOME SELF-CARE Condition: Stable Additional Instructions: Please take prescribed medication as directed. Please follow up primary care. Please return to emergency department if symptoms worsen. Please stop smoking. Prescriptions: Triamcinolone 0.1% Cream [Kenalog 0.1% Cream] 1 applicatio TOPICAL BID #15 gram methylPREDNISolone [Medrol Dose Pack] 4 mg PO DIRECTED #1 pack Albuterol Nebulized [Ventolin Nebulized] 2.5 mg INHALATION Q4H PRN #25 nebu PRN Reason: difficulty in breathing Azithromycin [Zithromax] 500 mg PO DAILY #5 tab Is patient prescribed a controlled substance at d/c from ED?: No Referrals: None,Stated [Primary Care Provider] - 1-2 days Time of Disposition: 19:04
--- NOTE | 2018-11-03 18:13 | XR ---
EXAMINATION TYPE: XR chest 2V DATE OF EXAM: 11/03/2018 COMPARISON: 07/23/2015 HISTORY: Cough TECHNIQUE: Frontal and lateral views of the chest are obtained. FINDINGS: Heart and mediastinum are normal. Lungs are clear. Diaphragm is normal. Bony thorax is int act. IMPRESSION: Normal chest. There is clearing of the minimal density lateral right lung base compared to old exam.
== END 2018-11-03 19:14 | disposition home or self-care (01) ==
LOC: EC 16:59
DX: J00 Acute nasopharyngitis [common cold] (principal); J45.909 Unspecified asthma, uncomplicated; F17.200 Nicotine dependence, unspecified, uncomplicated; Z79.899 Other long term (current) drug therapy; Z88.8 Allergy status to other drugs, medicaments and biological substances; Z91.010 Allergy to peanuts; Z91.012 Allergy to eggs
CPT/HCPCS: 71046; 99283

== ENCOUNTER 2018-11-03 22:38 | Emergency (ER) | payer OTHER ==
[2018-11-03 22:45] VITALS: RESP 18
--- NOTE | 2018-11-03 23:00 | ED ---
Overdose HPI - General Chief Complaint: Overdose Stated Complaint: Overdose Time Seen by Provider: 11/03/18 22:46 Source: EMS, RN notes reviewed, old records reviewed Mode of arrival: EMS Limitations: no limitations - History of Present Illness Initial Comments: This is a 27-year-old male the ER for evaluation for overdose, patient's girlfriend did give him aerosol or inhaled Narcan, patient awake and alert upon arrival. Patient's brought in by EMS, and other drug or alcohol abuse. Patient has had history of heroin use, states she's recently relapsed. Denies thoughts of suicide or homicide MD Complaint: accidental overdose -: minutes(s) Intent: other (Wanted to get high) How Overdose Was Discovered: family/friend present at time Context: Intentional Overdose: drug/ETOH problems Context: Accidental Overdose: wanted to get high Treatments Prior to Arrival: narcan - Related Data Home Medications Medication Instructions Recorded Confirmed Cetirizine HCl [Zyrtec] 10 mg PO BID 07/23/11/03/18 Albuterol Inhaler [Ventolin Hfa 2 puff INHALATION RT-Q6H PRN 01/16/17 11/03/18 Inhaler] Albuterol Nebulized [Ventolin 2.5 mg INHALATION RT-Q4H PRN 11/03/18 11/03/18 Nebulized] Previous Rx's Medication Instructions Recorded Azithromycin [Zithromax] 500 mg PO DAILY #5 tab 11/03/18 methylPREDNISolone [Medrol Dose 4 mg PO DIRECTED #1 pack 11/03/18 Pack] Allergies Allergy/AdvReac Type Severity Reaction Status Date / Time lamotrigine [From Lamictal] Allergy Rash/Hives Verified 11/03/18 23:10 peanut Allergy Rash/Hives Verified 11/03/18 23:10 eggs Allergy Rash/Hives Uncoded 11/03/18 17:10 Review of Systems ROS Statement: Those systems with pertinent positive or pertinent negative responses have been documented in the HPI. ROS Other: All systems not noted in ROS Statement are negative. Past Medical History Past Medical History: Asthma, Dialysis, GERD/Reflux, Pneumonia, Skin Disorder Additional Past Medical History / Comment(s): Other HX: Eczema, hayfever, left cornea ulcer healed, gastric ulcer History of Any Multi-Drug Resistant Organisms: None Reported Additional Past Surgical History / Comment(s): EGD, corneal biopsy left - Past Anesthesia/Blood Transfusion Reactions: No Reported Reaction Past Psychological History: Anxiety, Bipolar, Depression Smoking Status: Current every day smoker Past Alcohol Use History: Occasional Past Drug Use History: Cocaine, Heroin, Marijuana - Past Family History Father Additional Family Medical History / Comment(s): Father is alive at age 49 with history of alcoholism and drug addiction. Patient does not have any relationship with him. grandfather diabetic. mom and grandfather have HTN. brother htn Mother Additional Family Medical History / Comment(s): Mother is alive at age 44. She has history of coronary artery disease with previous [place], bipolar disorder and borderline personality. Patient has no contact with his mother. Brother(s) Additional Family Medical History / Comment(s): Patient has 1 brother that is 21 years old and one sister 23 years old both have anxiety. Patient does not have any children. General Exam Limitations: no limitations General appearance: alert, in no apparent distress Head exam: Present: atraumatic, normocephalic, normal inspection Eye exam: Present: normal appearance, PERRL, EOMI. Absent: scleral icterus, conjunctival injection, periorbital swelling ENT exam: Present: normal exam, mucous membranes moist Neck exam: Present: normal inspection. Absent: tenderness, meningismus, lymphadenopathy Respiratory exam: Present: normal lung sounds bilaterally. Absent: respiratory distress, wheezes, rales, rhonchi, stridor Cardiovascular Exam: Present: regular rate, normal rhythm, normal heart sounds. Absent: systolic murmur, diastolic murmur, rubs, gallop, clicks GI/Abdominal exam: Present: soft, normal bowel sounds. Absent: distended, tenderness, guarding, rebound, rigid Extremities exam: Present: normal inspection, full ROM, normal capillary refill. Absent: tenderness, pedal edema, joint swelling, calf tenderness Back exam: Present: normal inspection Neurological exam: Present: alert, oriented X3, CN II-XII intact Psychiatric exam: Present: normal affect, normal mood Skin exam: Present: warm, dry, intact, normal color. Absent: rash Course Vital Signs 11/03/18 11/03/18 22:40 23:29 Temperature 98.8 F 97.9 F Pulse Rate 104 H 89 Respiratory 18 18 Rate Blood Pressure 117/82 94/64 O2 Sat by Pulse 94 L 95 Oximetry - Reevaluation(s) Reevaluation #1: Medical records reviewed Patient remains awake alert without difficulty Medical Decision Making - Medical Decision Making 27 male the ER for evaluation of heroin overdose which was resolved by patient's girlfriend. Patient still with no symptoms. Awake and alert without complaint. Patient can be discharged home Disposition Clinical Impression: Drug ingestion, Drug overdose, Poisoning by opiate or related narcotic Disposition: HOME SELF-CARE Condition: Good Instructions (If sedation given, give patient instructions): Opioid Use Disorder (ED) Is patient prescribed a controlled substance at d/c from ED?: No Referrals: None,Stated [Primary Care Provider] - 1-2 days
[2018-11-03] MEDS ORDERED: ONDANSETRON 4 MG/2 ML VIAL IVP STA (23:11)
[2018-11-03 23:31] VITALS: BP 94/64; PULSE 89; TEMP 97.9
== END 2018-11-03 23:35 | disposition home or self-care (01) ==
LOC: EC 22:38
DX: T40.601A Poisoning by unspecified narcotics, accidental (unintentional), initial encounter (principal); J45.909 Unspecified asthma, uncomplicated; F17.200 Nicotine dependence, unspecified, uncomplicated; Z79.899 Other long term (current) drug therapy; Z88.8 Allergy status to other drugs, medicaments and biological substances; Z91.010 Allergy to peanuts; Z91.012 Allergy to eggs
CPT/HCPCS: 99284 ×2; 96374 ×2; 99283; 71046; J2405

== ENCOUNTER 2019-01-11 23:54 | Emergency (ER) | payer OTHER ==
[2019-01-12] MEDS ORDERED: LORazepam 2 MG/ML INJ IM STA (00:34)
[2019-01-12] MEDS: ZIPRASIDONE 20 MG VIAL IM STA ×2 (00:41→00:44)
[2019-01-12 00:42] LABS: Amphetamine Screen,Urine Not Detected (NotDetected); Barbiturate Screen,Urine Not Detected (NotDetected); Benzodiazepines Screen,Urine Not Detected (NotDetected); Cocaine Screen,Urine Not Detected (NotDetected); Methadone Screen, Urine Not Detected (NotDetected); Opiate Screen,Urine Not Detected (NotDetected); Oxycodone Screen, Urine Not Detected (NotDetected); Phencyclidine Screen,Urine Not Detected (NotDetected); Tricyclic Antidepressant,Urine Not Detected (NotDetected); Urn Cannabinoid Scrn Not Detected (NotDetected)
--- NOTE | 2019-01-12 00:50 | ED ---
Psych HPI - General Source: patient, police, RN notes reviewed Mode of arrival: ambulatory - History of Present Illness MD Complaint: suicidal ideation, feels depressed, other <Tito Cash - Last Filed: 01/12/19 00:50> <Richard Dill - Last Filed: 01/12/19 11:09> - General Chief Complaint: Psychiatric Symptoms Stated Complaint: Mental Health Time Seen by Provider: 01/11/19 23:56 - History of Present Illness Initial Comments: This is a 28-year-old male history depression who was brought in by police because of depression and suicidal ideation. Patient admitted to drinking a couple beers tonight. He states she's been feeling very depressed over last week or so he is seeking help. He does not seem to have a plan for how he would hurt himself he does state he is suicidal. No reports of trauma no fevers chills nausea vomiting sweats or other symptoms patient denies any drugs other than alcohol use. (Tito Cash) - Related Data Home Medications Medication Instructions Recorded Confirmed Triamcinolone 0.1% Ointment 1 applic TOPICAL BID 01/12/19 01/12/19 [Kenalog 0.1% Ointment] Allergies Allergy/AdvReac Type Severity Reaction Status Date / Time egg Allergy Rash/Hives Verified 01/12/19 07:46 lamotrigine [From Lamictal] Allergy Rash/Hives Verified 01/12/19 07:46 peanut Allergy Rash/Hives Verified 01/12/19 07:46 ziprasidone [From Geodon] Allergy Rash/Hives Verified 01/12/19 07:46 Review of Systems ROS Other: All systems not noted in ROS Statement are negative. <Tito Cash - Last Filed: 01/12/19 00:50> ROS Other: All systems not noted in ROS Statement are negative. <Richard Dill - Last Filed: 01/12/19 11:09> ROS Statement: Those systems with pertinent positive or pertinent negative responses have been documented in the HPI. Past Medical History Past Medical History: Asthma, Dialysis, GERD/Reflux, Pneumonia, Skin Disorder Additional Past Medical History / Comment(s): Other HX: Eczema, hayfever, left cornea ulcer healed, gastric ulcer History of Any Multi-Drug Resistant Organisms: None Reported Additional Past Surgical History / Comment(s): EGD, corneal biopsy left - Past Anesthesia/Blood Transfusion Reactions: No Reported Reaction Past Psychological History: Anxiety, Bipolar, Depression Smoking Status: Current every day smoker Past Alcohol Use History: Occasional Past Drug Use History: Cocaine, Heroin, Marijuana - Past Family History Father Additional Family Medical History / Comment(s): Father is alive at age 49 with history of alcoholism and drug addiction. Patient does not have any relationship with him. grandfather diabetic. mom and grandfather have HTN. brother htn Mother Additional Family Medical History / Comment(s): Mother is alive at age 44. She has history of coronary artery disease with previous [place], bipolar disorder and borderline personality. Patient has no contact with his mother. Brother(s) Additional Family Medical History / Comment(s): Patient has 1 brother that is 21 years old and one sister 23 years old both have anxiety. Patient does not have any children. <Tito Cash - Last Filed: 01/12/19 00:50> General Exam Limitations: no limitations General appearance: alert, appears intoxicated Head exam: Present: atraumatic, normocephalic, normal inspection Eye exam: Present: normal appearance, PERRL, EOMI. Absent: scleral icterus, conjunctival injection, periorbital swelling ENT exam: Present: normal exam, mucous membranes moist Neck exam: Present: normal inspection. Absent: tenderness, meningismus, lymphadenopathy Respiratory exam: Present: normal lung sounds bilaterally. Absent: respiratory distress, wheezes, rales, rhonchi, stridor Cardiovascular Exam: Present: normal rhythm, tachycardia, normal heart sounds. Absent: systolic murmur, diastolic murmur, rubs, gallop, clicks GI/Abdominal exam: Present: soft, normal bowel sounds. Absent: distended, tenderness, guarding, rebound, rigid Extremities exam: Present: normal inspection, full ROM, normal capillary refill. Absent: tenderness, pedal edema, joint swelling, calf tenderness Back exam: Present: normal inspection Neurological exam: Present: alert, oriented X3, CN II-XII intact. Absent: motor sensory deficit Psychiatric exam: Present: depressed, manic, suicidal ideation Skin exam: Present: warm, dry, intact, normal color. Absent: rash <Tito Cash Filed: 01/12/19 00:50> - General Exam Comments Initial Comments: This a well-developed sec appearing male who is awake alert with the smell of alcohol conjoiners on his breath (Tito Cash) Course <ShaileshTito - Last Filed: 01/12/19 00:50> Vital Signs 01/11/19 01/12/19 01/12/19 23:59 03:00 04:00 Temperature 96.3 F L Pulse Rate 109 H Respiratory 18 16 17 Rate Blood Pressure 174/109 O2 Sat by Pulse 96 Oximetry 01/12/19 01/12/19 06:00 07:00 Temperature 97.2 F L Pulse Rate 92 Respiratory 15 16 Rate Blood Pressure 114/78 O2 Sat by Pulse 97 Oximetry - Reevaluation(s) Reevaluation #1: 01/12/19 00:51 the patient is endorsed to Dr. Lopez at our shift change (Tito Cash) Medical Decision Making <Richard Dill - Last Filed: 01/12/19 11:09> - Medical Decision Making 28 male to be admitted for psychiatric evaluation and treatment (Richard Dill) - Lab Data Lab Results 01/12/19 Range/Units 00:04 Urine Opiates Screen Not Detected (NotDetected) Ur Oxycodone Screen Not Detected (NotDetected) Urine Methadone Screen Not Detected (NotDetected) Ur Propoxyphene Screen Not Detected (NotDetected) Ur Barbiturates Screen Not Detected (NotDetected) U Tricyclic Antidepress Not Detected (NotDetected) Ur Phencyclidine Scrn Not Detected (NotDetected) Ur Amphetamines Screen Not Detected (NotDetected) U Methamphetamines Scrn Not Detected (NotDetected) U Benzodiazepines Scrn Not Detected (NotDetected) Urine Cocaine Screen Not Detected (NotDetected) U Marijuana (THC) Screen Not Detected (NotDetected) Disposition <Tito Cash - Last Filed: 01/12/19 00:50> Is patient prescribed a controlled substance at d/c from ED?: No <Richard Dill - Last Filed: 01/12/19 11:09> Clinical Impression: Alcohol intoxication, Depression, Suicidal ideation Disposition: TRANSFER TO PSYCH HOSP/UNIT Condition: Fair Referrals: None,Stated [Primary Care Provider] - 1-2 days
[2019-01-12 07:03] VITALS: TEMP 97.2
[2019-01-12 12:43] LABS: Appearance,Urine Clear (Clear); Bilirubin,Urine Negative (Negative); Blood,Urine Negative (Negative); Color,Urine Colorless; Glucose,Urine (UA) Negative (Negative); Ketones,Urine Negative (Negative); Leukocyte Esterase,Urine Negative (Negative); Nitrite,Urine Negative (Negative); PH, Urine 5.5 (5.0-8.0); Protein,Urine Negative (Negative); Specific Gravity,Urine 1.004 (1.001-1.035); Urobilinogen,Urine <2.0 mg/dL (<2.0)
[2019-01-12 12:48] LABS: HCT 48.5 % (39.0-53.0); HGB 16.4 gm/dL (13.0-17.5); MCH 32.2 pg (25.0-35.0); MCHC 33.8 g/dL (31.0-37.0); MCV 95.1 fL (80.0-100.0); Mean Platelet Volume 7.2; Platelet Count 291 k/uL (150-450); RDW 12.1 % (11.5-15.5); WBC 6.1 k/uL (3.8-10.6)
[2019-01-12 13:09] LABS: ALT 24 U/L (21-72); AST 33 U/L (17-59); African American GFR (CKD) >90 (>60 ml/min/1.73 sqM); Albumin 4.6 g/dL (3.5-5.0); Alkaline Phosphatase 67 U/L (38-126); Anion Gap 10 mmol/L; Blood Urea Nitrogen 9 mg/dL (9-20); Calcium 9.6 mg/dL (8.4-10.2); Carbon Dioxide 24 mmol/L (22-30); Chloride 108 mmol/L (98-107); Glucose 111 mg/dL (74-99); Potassium 4.5 mmol/L (3.5-5.1); Sodium 142 mmol/L (137-145); Total Bilirubin 0.4 mg/dL (0.2-1.3); Total Protein 7.3 g/dL (6.3-8.2)
[2019-01-12] MEDS ORDERED: LORazepam 1 MG TAB PO STA (17:41)
[2019-01-12 17:51] VITALS: BP 128/79; PULSE 78; RESP 18
== END 2019-01-12 17:49 ==
LOC: EC 23:54
DX: F31.30 Bipolar disorder, current episode depressed, mild or moderate severity, unspecified (principal); R45.851 Suicidal ideations; F10.129 Alcohol abuse with intoxication, unspecified; R00.0 Tachycardia, unspecified; F17.200 Nicotine dependence, unspecified, uncomplicated; Z88.8 Allergy status to other drugs, medicaments and biological substances; Z91.010 Allergy to peanuts; Z91.012 Allergy to eggs; Z79.52 Long term (current) use of systemic steroids; Z87.2 Personal history of diseases of the skin and subcutaneous tissue; Z81.8 Family history of other mental and behavioral disorders; Z81.1 Family history of alcohol abuse and dependence; Z53.20 Procedure and treatment not carried out because of patient's decision for unspecified reasons
CPT/HCPCS: 82075; 36415; 80053; 85027; 81003; 80306; 99285; 96372; J2060

== ENCOUNTER 2019-01-26 19:40 | Emergency (ER) | payer OTHER ==
--- NOTE | 2019-01-26 20:02 | ED ---
Psych HPI - General Source: patient, EMS, RN notes reviewed Mode of arrival: EMS Limitations: no limitations <Wilman Dent - Last Filed: 01/26/19 20:00> <Richard Forman - Last Filed: 01/27/19 10:29> - General Stated Complaint: Mental Health Time Seen by Provider: 01/26/19 19:43 - History of Present Illness Initial Comments: 28-year-old male presents emergency Department with chief complaint of depression, suicidal patient. Patient states she's been drinking alcohol today. Patient states that he has a history of depression. He does not want to discuss his plan to harm herself. Patient denies any physical complaints. Patient does have a history of psychiatric disorders. Patient denies any current drug use. Patient has a history of drug use. (Wilman Dent) - Related Data Home Medications Medication Instructions Recorded Confirmed Triamcinolone 0.1% Ointment 1 applic TOPICAL BID 01/12/19 01/26/19 [Kenalog 0.1% Ointment] Albuterol Inhaler [Ventolin Hfa 2 puff INHALATION RT-Q4H PRN 01/26/19 01/26/19 Inhaler] Asenapine Maleate [Saphris] 10 mg SL BID 01/26/19 01/26/19 Gabapentin [Neurontin] 300 mg PO TID 01/26/19 01/26/19 Melatonin 5 mg PO HS 01/26/19 01/26/19 amLODIPine [Norvasc] 5 mg PO DAILY 01/26/19 01/26/19 Allergies Allergy/AdvReac Type Severity Reaction Status Date / Time egg Allergy Rash/Hives Verified 01/12/19 07:46 lamotrigine [From Lamictal] Allergy Rash/Hives Verified 01/12/19 07:46 peanut Allergy Rash/Hives Verified 01/12/19 07:46 ziprasidone [From Geodon] Allergy Rash/Hives Verified 01/12/19 07:46 Review of Systems ROS Other: All systems not noted in ROS Statement are negative. <Wilman Dent - Last Filed: 01/26/19 20:00> ROS Other: All systems not noted in ROS Statement are negative. <Richard Forman - Last Filed: 01/27/19 10:29> ROS Statement: Those systems with pertinent positive or pertinent negative responses have been documented in the HPI. Past Medical History Past Medical History: Asthma, Dialysis, GERD/Reflux, Pneumonia, Skin Disorder Additional Past Medical History / Comment(s): Other HX: Eczema, hayfever, left cornea ulcer healed, gastric ulcer History of Any Multi-Drug Resistant Organisms: None Reported Additional Past Surgical History / Comment(s): EGD, corneal biopsy left - Past Anesthesia/Blood Transfusion Reactions: No Reported Reaction Past Psychological History: Anxiety, Bipolar, Depression Smoking Status: Current every day smoker Past Alcohol Use History: Occasional Past Drug Use History: Cocaine, Heroin, Marijuana - Past Family History Father Additional Family Medical History / Comment(s): Father is alive at age 49 with history of alcoholism and drug addiction. Patient does not have any relationship with him. grandfather diabetic. mom and grandfather have HTN. brother htn Mother Additional Family Medical History / Comment(s): Mother is alive at age 44. She has history of coronary artery disease with previous [place], bipolar disorder and borderline personality. Patient has no contact with his mother. Brother(s) Additional Family Medical History / Comment(s): Patient has 1 brother that is 21 years old and one sister 23 years old both have anxiety. Patient does not have any children. <Wilman Dent M - Last Filed: 01/26/19 20:00> General Exam General appearance: alert, in no apparent distress Head exam: Present: atraumatic, normocephalic, normal inspection Eye exam: Present: normal appearance, PERRL, EOMI. Absent: scleral icterus, conjunctival injection, periorbital swelling ENT exam: Present: normal exam, mucous membranes moist Neck exam: Present: normal inspection. Absent: tenderness, meningismus, lymphadenopathy Respiratory exam: Present: normal lung sounds bilaterally. Absent: respiratory distress, wheezes, rales, rhonchi, stridor Cardiovascular Exam: Present: regular rate, normal rhythm, normal heart sounds. Absent: systolic murmur, diastolic murmur, rubs, gallop, clicks GI/Abdominal exam: Present: soft, normal bowel sounds. Absent: distended, tenderness, guarding, rebound, rigid Neurological exam: Present: alert, oriented X3, CN II-XII intact Skin exam: Present: warm, dry, intact, normal color. Absent: rash <Wilman Dent - Last Filed: 01/26/19 20:00> Course Vital Signs 01/26/19 01/27/19 19:56 04:19 Temperature 97.9 F 98.1 F Pulse Rate 94 99 Respiratory 18 19 Rate Blood Pressure 118/75 129/80 O2 Sat by Pulse 94 L 96 Oximetry Medical Decision Making <Richard Forman - Last Filed: 01/27/19 10:29> - Medical Decision Making EPS evaluated the patient and determined that the patient could follow-up as an outpatient. Patient agreed with this. (Richard Forman) - Lab Data Lab Results 01/26/19 Range/Units Unknown Urine Opiates Screen Not Detected (NotDetected) Ur Oxycodone Screen Not Detected (NotDetected) Urine Methadone Screen Not Detected (NotDetected) Ur Propoxyphene Screen Not Detected (NotDetected) Ur Barbiturates Screen Not Detected (NotDetected) U Tricyclic Antidepress Not Detected (NotDetected) Ur Phencyclidine Scrn Not Detected (NotDetected) Ur Amphetamines Screen Not Detected (NotDetected) U Methamphetamines Scrn Not Detected (NotDetected) U Benzodiazepines Scrn Not Detected (NotDetected) Urine Cocaine Screen Not Detected (NotDetected) U Marijuana (THC) Screen Not Detected (NotDetected) Disposition <Wilman Dent Allison - Last Filed: 01/26/19 20:00> Is patient prescribed a controlled substance at d/c from ED?: No Time of Disposition: 10:29 <Richard Forman - Last Filed: 01/27/19 10:29> Clinical Impression: Situational depression Disposition: HOME SELF-CARE Condition: Good Instructions (If sedation given, give patient instructions): Depression (ED) Referrals: None,Stated [Primary Care Provider] - 1-2 days
[2019-01-26 20:44] LABS: Amphetamine Screen,Urine Not Detected (NotDetected); Barbiturate Screen,Urine Not Detected (NotDetected); Benzodiazepines Screen,Urine Not Detected (NotDetected); Cocaine Screen,Urine Not Detected (NotDetected); Methadone Screen, Urine Not Detected (NotDetected); Opiate Screen,Urine Not Detected (NotDetected); Oxycodone Screen, Urine Not Detected (NotDetected); Phencyclidine Screen,Urine Not Detected (NotDetected); Tricyclic Antidepressant,Urine Not Detected (NotDetected); Urn Cannabinoid Scrn Not Detected (NotDetected)
[2019-01-27 10:36] VITALS: BP 123/68; PULSE 73; RESP 16; TEMP 97.9
== END 2019-01-27 10:34 | disposition home or self-care (01) ==
LOC: EC 19:40
DX: F43.21 Adjustment disorder with depressed mood (principal); R45.851 Suicidal ideations; J45.909 Unspecified asthma, uncomplicated; F31.9 Bipolar disorder, unspecified; F41.9 Anxiety disorder, unspecified; F17.200 Nicotine dependence, unspecified, uncomplicated; Z88.8 Allergy status to other drugs, medicaments and biological substances; Z91.010 Allergy to peanuts; Z91.012 Allergy to eggs; Z79.52 Long term (current) use of systemic steroids; Z79.899 Other long term (current) drug therapy; Z87.2 Personal history of diseases of the skin and subcutaneous tissue; Z81.8 Family history of other mental and behavioral disorders
CPT/HCPCS: 80306; 82075; 99285

== ENCOUNTER 2019-03-13 21:55 | Inpatient (IN) | payer MEDICAID, OTHER ==
[~2019-03-13 21:55] MED LIST: THIAMINE 100 MG TAB PO SCH
[2019-03-13] MEDS ORDERED: NICOTINE 21MG/24HR PATCH TRANSDERM STA (22:31)
[2019-03-13] MEDS ORDERED: LORazepam 2 MG/ML INJ IV PRN ×3 (22:40)
[2019-03-13] MEDS ORDERED: THIAMINE 100 MG/ML 2 ML VIAL IM STA (22:40)
[2019-03-13] MEDS ORDERED: LORazepam 2 MG/ML INJ IM PRN ×3 (22:43)
--- NOTE | 2019-03-13 23:13 | ED ---
Psych HPI - General Chief Complaint: Psychiatric Symptoms Stated Complaint: suicidal Time Seen by Provider: 03/13/19 22:08 Source: patient Mode of arrival: ambulatory - History of Present Illness Initial Comments: This patient is a 28-year-old man who presents with complaint that he is feeling very depressed and having suicidal thoughts. The patient states that he has had issues with depression going back for years. He states he had been released from the hospital earlier this summer and was doing well for a number of weeks but now is off his medications and feels like he is getting worse. In addition he has had some stressors related the family. MD Complaint: suicidal ideation, feels depressed -: year(s) Associated Psychiatric Symptoms: depression, suicidal ideation History of same: Yes Quality: getting worse Improves With: medication Worsens With: none Context: recent alcohol abuse, not taking psychiatric medications Associated Symptoms: denies other symptoms - Related Data Home Medications Medication Instructions Recorded Confirmed Albuterol Inhaler [Ventolin Hfa 2 puff INHALATION RT-Q4H PRN 01/26/19 03/14/19 Inhaler] Cetirizine HCl [Zyrtec] 10 mg PO DAILY 03/13/19 03/14/19 Allergies Allergy/AdvReac Type Severity Reaction Status Date / Time lamotrigine [From Lamictal] Allergy Rash/Hives Verified 03/14/19 07:54 ziprasidone [From Geodon] Allergy Rash/Hives Verified 03/14/19 07:54 Review of Systems ROS Statement: Those systems with pertinent positive or pertinent negative responses have been documented in the HPI. ROS Other: All systems not noted in ROS Statement are negative. Constitutional: Denies: fever, chills Respiratory: Denies: cough, dyspnea Cardiovascular: Denies: chest pain, palpitations, edema Gastrointestinal: Denies: abdominal pain, nausea, vomiting Genitourinary: Denies: dysuria, hematuria Musculoskeletal: Denies: back pain Skin: Denies: rash Neurological: Denies: headache Psychiatric: Reports: depression, suicidal thoughts. Denies: auditory hallucinations, visual hallucinations, homicidal thoughts Past Medical History Past Medical History: Asthma, Dialysis, GERD/Reflux, Pneumonia, Skin Disorder Additional Past Medical History / Comment(s): Other HX: Eczema, hayfever, left cornea ulcer healed, gastric ulcer History of Any Multi-Drug Resistant Organisms: None Reported Additional Past Surgical History / Comment(s): EGD, corneal biopsy left - Past Anesthesia/Blood Transfusion Reactions: No Reported Reaction Past Psychological History: Anxiety, Bipolar, Depression Smoking Status: Current every day smoker Past Alcohol Use History: Occasional Past Drug Use History: Cocaine, Heroin, Marijuana - Past Family History Father Additional Family Medical History / Comment(s): Father is alive at age 49 with history of alcoholism and drug addiction. Patient does not have any relationship with him. grandfather diabetic. mom and grandfather have HTN. brother htn Mother Additional Family Medical History / Comment(s): Mother is alive at age 44. She has history of coronary artery disease with previous [place], bipolar disorder and borderline personality. Patient has no contact with his mother. Brother(s) Additional Family Medical History / Comment(s): Patient has 1 brother that is 21 years old and one sister 23 years old both have anxiety. Patient does not have any children. General Exam Limitations: no limitations General appearance: alert, appears intoxicated, anxious Head exam: Present: atraumatic, normocephalic Eye exam: Present: normal appearance. Absent: scleral icterus, conjunctival injection Respiratory exam: Present: normal lung sounds bilaterally. Absent: respiratory distress, wheezes, rales, rhonchi, stridor Cardiovascular Exam: Present: normal rhythm, tachycardia, normal heart sounds. Absent: systolic murmur, diastolic murmur, rubs, gallop GI/Abdominal exam: Present: soft. Absent: distended, tenderness, guarding, rebound, rigid, mass Extremities exam: Present: normal inspection, normal capillary refill. Absent: pedal edema, calf tenderness Neurological exam: Present: alert Psychiatric exam: Present: depressed, anxious, suicidal ideation. Absent: agitated, flat affect, manic, homicidal ideation Skin exam: Present: warm, dry, intact Course Vital Signs 03/13/19 03/14/19 22:01 07:16 Temperature 97.8 F 97.6 F Pulse Rate 115 H 98 Respiratory 22 18 Rate Blood Pressure 119/66 120/68 O2 Sat by Pulse 97 99 Oximetry Medical Decision Making - Lab Data Result diagrams: 03/14/19 08:03 03/14/19 08:03 Disposition Clinical Impression: Suicidal ideation, Mood disorder Disposition: TRANSFER TO PSYCH HOSP/UNIT Condition: Fair
[2019-03-14] MEDS ORDERED: predniSONE 50 MG TAB PO STA (06:53)
[2019-03-14] MEDS ORDERED: LORATADINE 10 MG TAB PO STA (06:53)
[2019-03-14] MEDS ORDERED: MAG HYDROX/AL HYDROX/SIMETH 30 ML CUP PO PRN (07:20)
[2019-03-14] MEDS ORDERED: MAGNESIUM HYDROXIDE 2,400 MG/10 ML CUP PO PRN (07:20)
[2019-03-14] MEDS ORDERED: LORazepam 2 MG/ML INJ IM PRN (07:26)
[2019-03-14 07:54] VITALS: BMI 28.2
[2019-03-14] MEDS ORDERED: diphenhydrAMINE 25 MG CAP PO PRN (08:13)
[2019-03-14 08:48] LABS: Basophils # (A) 0.1 k/uL (0-0.2); Basophils % (A) 2 %; Eosinophils # (A) 0.3 k/uL (0-0.7); Eosinophils % (A) 6 %; HCT 47.7 % (39.0-53.0); HGB 15.5 gm/dL (13.0-17.5); Lymphocytes # (A) 1.5 k/uL (1.0-4.8); Lymphocytes % (A) 27 %; MCHC 32.5 g/dL (31.0-37.0); MCV 98.7 fL (80.0-100.0); Mean Platelet Volume 7.6; Monocytes # (A) 0.4 k/uL (0-1.0); Monocytes % (A) 8 %; Neutrophils # (A) 3.2 k/uL (1.3-7.7); Neutrophils % (A) 56 %; Platelet Count 264 k/uL (150-450); RBC 4.84 m/uL (4.30-5.90); RDW 12.3 % (11.5-15.5); WBC 5.7 k/uL (3.8-10.6)
[2019-03-14 08:49] LABS: ALT 27 U/L (21-72); AST 30 U/L (17-59); African American GFR (CKD) >90 (>60 ml/min/1.73 sqM); Albumin 4.4 g/dL (3.5-5.0); Alkaline Phosphatase 78 U/L (38-126); Anion Gap 7 mmol/L; Bilirubin, Delta 0.1 mg/dL (0.0-0.2); Bilirubin,Unconjugated 0.3 mg/dL (0.0-1.1); Blood Urea Nitrogen 13 mg/dL (9-20); Calcium 9.5 mg/dL (8.4-10.2); Carbon Dioxide 29 mmol/L (22-30); Chloride 105 mmol/L (98-107); Cholesterol 164 mg/dL (<200); Glucose 93 mg/dL (74-99); HDL Cholesterol 69 mg/dL (40-60); LDL Cholesterol,Calculated 78 mg/dL (0-99); Potassium 4.5 mmol/L (3.5-5.1); Sodium 141 mmol/L (137-145); Total Bilirubin 0.4 mg/dL (0.2-1.3); Total Protein 7.1 g/dL (6.3-8.2); Triglycerides 86 mg/dL (<150)
[2019-03-14] MEDS: NICOTINE 21MG/24HR PATCH TRANSDERM SCH (08:58)
[2019-03-14] MEDS ORDERED: LORazepam 1 MG TAB PO SCH (09:00)
[2019-03-14] MEDS ORDERED: hydrOXYzine PAMOATE 25 MG CAP PO PRN (11:55)
[2019-03-14] MEDS: FAMOTIDINE 20 MG TAB PO SCH (12:41)
[2019-03-14] MEDS: predniSONE 20 MG TAB PO SCH (12:42)
[2019-03-14] MEDS: ALBUTEROL INHALER 60 PUFF/8 GM INHALER INHALATION PRN (12:42)
[2019-03-14] MEDS: THIAMINE 100 MG TAB PO SCH (12:42)
[2019-03-14] MEDS: HYDROCORTISONE 1% CREAM 30 GM TUBE TOPICAL PRN ×2 (12:43→20:47)
[2019-03-14] MEDS: LORazepam 1 MG TAB PO PRN ×4 (12:48→20:47)
--- NOTE | 2019-03-14 15:18 | P.HP ---
Psychiatric H&P - . H&P Date: 03/14/19 History & Physical: Allergies Allergy/AdvReac Type Severity Reaction Status Date / Time lamotrigine From Lamictal Allergy Rash/Hives Verified 03/14/19 07:54 ziprasidone From Geodon Allergy Rash/Hives Verified 03/14/19 07:54 Vital Signs Temp 97.9 F 03/14/19 07:40 Pulse 104 H 03/14/19 13:00 Resp 16 03/14/19 07:40 BP 132/87 03/14/19 13:00 Pulse Ox 99 03/14/19 07:16 Intake & Output 03/13/19 03/14/19 03/14/19 18:59 06:59 18:59 Weight 90.718 kg Laboratory Last Values WBC 5.7 k/uL (3.8-10.6) 03/14/19 08:03 RBC 4.84 m/uL (4.30-5.90) 03/14/19 08:03 Hgb 15.5 gm/dL (13.0-17.5) 03/14/19 08:03 Hct 47.7 % (39.0-53.0) 03/14/19 08:03 MCV 98.7 fL (80.0-100.0) 03/14/19 08:03 MCH 32.0 pg (25.0-35.0) 03/14/19 08:03 MCHC 32.5 g/dL (31.0-37.0) 03/14/19 08:03 RDW 12.3 % (11.5-15.5) 03/14/19 08:03 Plt Count 264 k/uL (150-450) 03/14/19 08:03 Neutrophils % 56 % 03/14/19 08:03 Lymphocytes % 27 % 03/14/19 08:03 Monocytes % 8 % 03/14/19 08:03 Eosinophils % 6 % 03/14/19 08:03 Basophils % 2 % 03/14/19 08:03 Neutrophils # 3.2 k/uL (1.3-7.7) 03/14/19 08:03 Lymphocytes # 1.5 k/uL (1.0-4.8) 03/14/19 08:03 Monocytes # 0.4 k/uL (0-1.0) 03/14/19 08:03 Eosinophils # 0.3 k/uL (0-0.7) 03/14/19 08:03 Basophils # 0.1 k/uL (0-0.2) 03/14/19 08:03 Sodium 141 mmol/L (137-145) 03/14/19 08:03 Potassium 4.5 mmol/L (3.5-5.1) 03/14/19 08:03 Chloride 105 mmol/L (98-107) 03/14/19 08:03 Carbon Dioxide 29 mmol/L (22-30) 03/14/19 08:03 Anion Gap 7 mmol/L 03/14/19 08:03 BUN 13 mg/dL (9-20) 03/14/19 08:03 Creatinine 0.78 mg/dL (0.66-1.25) 03/14/19 08:03 Est GFR (CKD-EPI)AfAm >90 (>60 ml/min/1.73 sqM) 03/14/19 08:03 Est GFR (CKD-EPI)NonAf >90 (>60 ml/min/1.73 sqM) 03/14/19 08:03 Glucose 93 mg/dL (74-99) 03/14/19 08:03 Calcium 9.5 mg/dL (8.4-10.2) 03/14/19 08:03 Total Bilirubin 0.4 mg/dL (0.2-1.3) 03/14/19 08:03 Conjugated Bilirubin 0.0 mg/dL (0.0-0.3) 03/14/19 08:03 Unconjugated Bilirubin 0.3 mg/dL (0.0-1.1) 03/14/19 08:03 Delta Bilirubin 0.1 mg/dL (0.0-0.2) 03/14/19 08:03 AST 30 U/L (17-59) 03/14/19 08:03 ALT 27 U/L (21-72) 03/14/19 08:03 Alkaline Phosphatase 78 U/L (38-126) 03/14/19 08:03 Total Protein 7.1 g/dL (6.3-8.2) 03/14/19 08:03 Albumin 4.4 g/dL (3.5-5.0) 03/14/19 08:03 Triglycerides 86 mg/dL (<150) 03/14/19 08:03 Cholesterol 164 mg/dL (<200) 03/14/19 08:03 LDL Cholesterol, Calc 78 mg/dL (0-99) 03/14/19 08:03 HDL Cholesterol 69 mg/dL (40-60) H 03/14/19 08:03 TSH 1.360 mIU/L (0.465-4.680) 03/14/19 08:03 03/14/19 15:05 IDENTIFYING DATA: Patient is a 28-year-old male who has a history of bipolar disorder and chronic alcohol use who currently lives with his grandparents is and 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 for mental health reasons related to depression. Patient states that shortly after being discharged after running out of his medications he did not fill them again and began becoming suicidal and an increase in his depression. Patient stated that he had plans to overdose or drown himself in the river. He states that he's been having multiple stressors in the family recently. He states that he's been "self-medicating with alcohol" and claims to be drinking approximately 10 beers a day with 1 pint or a fifth of whiskey at night for sleep. He states that he has gone through alcohol withdrawals in the past and has had seizures, and even experience visual hallucinations. He states that at this time he has mild tremors and some anxiety related to the alcohol withdrawal. He claims that he's been diagnosed w ith borderline and bipolar disorder in the past and when asked about previous manic history he states that he has had several including risk taking behavior, promiscuity,'s excessive spending. Patient claims that this time his sleep is decreased sleeping approximately 3-4 hours a night which are broken. She admits to ongoing depression for many years. Patient denies any suicidal or homicidal ideations intent or plan. At this time patient denies any auditory or visual hallucinations. Patient denies any flight of ideas racing thoughts and increased in goal directed behavior. Patient admits to using occasional cocaine approximately one time a month. He states that he smokes cigarettes approximately 2 packs per day. PAST PSYCHIATRIC HISTORY: Patient states that he states that he's been diagnosed with borderline and bipolar disorder. Patient has had multiple hospitalizations in the past was previously discharged from [facility] in [place] in January of this summer. Patient's last admission to the mental health unit was on 01/20. He states that he was supposed to follow-up with [facility] however did not go to his appointments. Patient claims that he has been on Abilify which caused him to be compulsive, also tried work salty which also did not help him. He states that he's been on Seroquel which has not helped him. Patient admitted to overdosing on lithium a year ago and also hanging himself at age 9. PMH: Asthma, eczema and GERD ALLERGIES: as per EMR CHEMICAL DEPENDENCY HISTORY: as per HPI FAMILY PSYCHIATRIC/SUBSTANCE USE HISTORY: He states that his mother had schizophrenia and his father suffer from depression SOCIAL HISTORY: Claims that he was born and raised in [facility] and was raised by his grandparents. He states that his mom could not care for him. He claims that he did finish high school and did some college. 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 MENTAL STATUS EXAM: General Appearance: Patient appears to be stated age is alert, pleasant, and cooperative. Patient appears anxious, poor hygiene and poor grooming. Behavior: Patient is seated however appears to be restless and anxious Speech: Patient's speech is fluent and nonpressured. Mood/Affect: Patient reports their mood is depressed, affect is congruent and constricted. Suicidality/Homicidality: Patient denies having any suicidal or homicidal ideation intent or plan. Perceptions: Patient denies any auditory or visual hallucinations. Though content/process: There is no evidence of any delusional thought content and thought process is linear and goal-directed. Memory and concentration: AOX3, grossly intact for the purposes of this session. Can spell "WORLD" backwards Judgment and insight: Poor STRENGTHS/WEAKNESSES: strength is that patient has a job and stable housing. Weaknesses that patient has poor insight is impulsive INTELLECT: average IMPRESSIONS: Bipolar disorder, currently depressed History of borderline personality disorder Alcohol use disorder moderate-severe, currently in withdrawal Cocaine abuse Nicotine dependence PLAN: -Patient is admitted under voluntary status to MHU for stabilization of psychiatric symptoms and safety. Patient signed adult voluntary form and medication consent and is placed in patient's chart. -Medications : Will start patient on with 40 mg nightly with dinner for mood stabilization/depression. Will start patient on scheduled Librium 25 mg 4 times a day for alcohol withdrawal. Trazodone 100 mg nightly for insomnia and mood. -Ativan PRN for alcohol withdrawal. CIWA every 4 hours. -Started thiamine, MVM for etoh use -Patient was counselled on substance abuse and desired to cut back on use -Patient was informed of the risks, benefits and side effects of the medication and patient verbally consented to taking the medications. Patient signed med consent form and was placed in chart. -NRT - nicotine patch - on board for discharge planning 03/14/19 15:17
[2019-03-14] MEDS: chlordiazePOXIDE 25 MG CAP PO SCH ×3 (15:19→20:47)
[2019-03-14] MEDS: MULTIVITAMINS, THERA 1 EACH TAB PO SCH (15:19)
--- NOTE | 2019-03-14 16:26 | P.HPMEDMHU ---
History of Present Illness H&P Date: 03/14/19 (delayed charting seen at 1140) Chief Complaint: depression Patient is a 28-year-old male past medical history of eczema, gastritis, and asthma as well as depression and bipolar disorder who presented to the ER with suicidal ideation. He was subsequently admitted to the mental health unit and we are asked to perform history and physical. Patient seen and examined at bedside. He reports that his eczema has flared. He typically takes triamcinolone cream twice a day. He often requires prednisone taper starting at 50 mg and slowly tapering down. He reports that he has no taper he gets rebound eczema that is worse. He also reports some wheezing and shortness of breath that got better after he laid down. He typically uses albuterol inhaler once the morning and once at night at home. He has a history of gastritis and typically takes Zantac, although he has not been taking it recently. He denies any fevers, runny nose, stuffy nose, or cough. He denies any unusual nausea, vomiting, or diarrhea. He reports daily alcohol intake of 10-13 beers with 1 pint or fifth of hard alcohol daily. He does have a history of alcohol withdrawals and reports that he had alcohol withdrawal seizure approximately 8-12 months ago. He denies ever needing to be in the ICU or on life support for his alcohol withdrawals. He reports that he's been treated with Precedex, serax, and Librium in the past for alcohol withdrawals. He deneis any other illicit substances. He has depression and insomnia. He also reports that he has needed dialysis in the past secondary to lithium overdose. Review of Systems Pertinent positives and negatives as discussed in HPI, a complete review of systems was performed and all other systems are negative. Past Medical History Past Medical History: Asthma, Dialysis, GERD/Reflux, Skin Disorder Additional Past Medical History / Comment(s): Other HX: Eczema, hayfever, left cornea ulcer healed, gastric ulcer History of Any Multi-Drug Resistant Organisms: None Reported Additional Past Surgical History / Comment(s): EGD, corneal biopsy left - Past Anesthesia/Blood Transfusion Reactions: No Reported Reaction Past Psychological History: Anxiety, Bipolar, Depression Additional Psychological History / Comment(s): Borderline personality disorder and was told yesterday that he has schizotypal which he states then made him start thinking about suicide. He is seen by Dr. Zarco and therapist Brock Gurrola. He lives with his grandparents. He is normally independent. He drives. Smoking Status: Current every day smoker Past Alcohol Use History: Abuse Additional Drug Use History / Comment(s): hx of marajuana, heroin, and cocaine - Past Family History Father Additional Family Medical History / Comment(s): Father is alive at age 49 with history of alcoholism and drug addiction. Patient does not have any relationship with him. grandfather diabetic. mom and grandfather have HTN. brother htn Mother Additional Family Medical History / Comment(s): Mother is alive at age 44. She has history of coronary artery disease with previous SC, bipolar disorder and borderline personality. Patient has no contact with his mother. Brother(s) Additional Family Medical History / Comment(s): Patient has 1 brother that is 21 years old and one sister 23 years old both have anxiety. Patient does not have any children. Medications and Allergies Home Medications Medication Instructions Recorded Confirmed Type Albuterol Inhaler [Ventolin Hfa 2 puff INHALATION RT-Q4H PRN 01/26/19 03/14/19 History Inhaler] Cetirizine HCl [Zyrtec] 10 mg PO DAILY 03/13/19 03/14/19 History Allergies Allergy/AdvReac Type Severity Reaction Status Date / Time lamotrigine [From Lamictal] Allergy Rash/Hives Verified 03/14/19 07:54 ziprasidone [From Geodon] Allergy Rash/Hives Verified 03/14/19 07:54 Physical Exam Osteopathic Statement: *. No significant issues noted on an osteopathic structural exam other than those noted in the History and Physical/Consult. Vitals: Vital Signs Temp Pulse Pulse Resp BP BP Pulse Ox 03/14/19 15:15 95 139/87 03/14/19 13:00 104 H 132/87 03/14/19 09:00 97 140/89 03/14/19 07:40 97.9 F 86 16 129/95 03/14/19 07:16 97.6 F 98 18 120/68 99 03/13/19 22:01 97.8 F 115 H 22 119/66 97 General: non toxic, no distress, appears at stated age, normal weight Derm: multiple area of erythema with excoriation with skin sloughing and pealing no drainage- over neck/arm/shins/chest/back. no unusual ecchymoses, warm, dry Head: atraumatic, normocephalic, symmetric Eyes: EOMI, no lid lag, anicteric sclera, pupils equal round reactive to light ENT: Nose and ears atraumatic, no thrush, no pharyngeal erythema Neck: No thyromegaly, no cervical lymphadenopathy, trachea midline, supple Mouth: no lip lesion, mucus membranes moist Cardiovascular: S1S2 reg, no murmur, positive posterior tibial pulse bilateral, no edema, capillary refill less than 2 seconds Lungs: CTA bilateral, no rhonchi, no rales , no accessory muscle use Abdominal: soft, nontender to palpation, no guarding, no appreciable organomegaly, normal bowel sounds Ext: no gross muscle atrophy, muscle strength 5 out of 5 in all 4 extremities grossly, no contractures, Neuro: CN II-XI grossly intact, light touch intact all 4 extremities, finger to nose within normal limits, Psych: Alert, oriented, anxious unable sit still, difficulty concentrating Cranial Nerve Examination - Cranial Nerves Cranial Nerve II- Optic: Intact Cranial Nerve III- Oculomotor: Intact Cranial Nerve IV- Trochlear: Intact Cranial Nerve V- Trigeminal: Intact Cranial Nerve - Abducens: Intact Cranial Nerve VII- Facial: Intact Cranial Nerve VIII- Auditory: Intact Cranial Nerve IX- Glossopharyngeal: Intact Cranial Nerve X- Vagus: Intact Cranial Nerve XI- Accessory: Intact Cranial Nerve XII- Hypoglossal: Intact Results CBC & Chem 7: 03/14/19 08:03 03/14/19 08:03 Labs: Abnormal Lab Results - Last 24 Hours (Table) 03/14/19 Range/Units 08:03 HDL Cholesterol 69 H (40-60) mg/dL Thrombosis Risk Factor Assmnt - DVT/VTE Prophylaxis DVT/VTE Prophylaxis: Low risk, early ambulation encouraged - Choose All That Apply Any of the Below Risk Factors Present?: No Other Risk Factors: No Other congenital or acquired thrombophilia - If yes, enter type in comment: No Thrombosis Risk Factor Assessment Level: Very Low Risk Assessment and Plan Assessment: Severe eczema - prednisone oral, hydrocortisone topical - benadryl for itching, patient asking for Vistaril to help instead, nursing will check with psych Alcohol abuse with impending withdrawal -Continue with Ativan -Thiamine, folic acid Tobacco abuse -Cessation -Nicotine replacement Asthma - resume home albuterol GERD with hx of ulcer - pepcid Depression, bipolar disorder - your psych management Thank you for allowing us to participate in the care of this patient. We will follow peripherally. Do not hesitate to contact us with questions. Someone can be reached from the [facility] hospitalist group at all hours of the day at [phone].
[2019-03-14] MEDS: LURASIDONE 40 MG TAB PO SCH (17:04)
[2019-03-14] MEDS: traZODone HCL 100 MG TAB PO SCH (20:47)
[2019-03-15] MEDS: LORazepam 1 MG TAB PO PRN ×2 (04:18→10:41)
[2019-03-15] MEDS: NICOTINE 21MG/24HR PATCH TRANSDERM SCH (07:50)
[2019-03-15] MEDS: FAMOTIDINE 20 MG TAB PO SCH (07:50)
[2019-03-15] MEDS: predniSONE 20 MG TAB PO SCH (07:51)
[2019-03-15] MEDS: chlordiazePOXIDE 25 MG CAP PO SCH ×4 (07:51→20:43)
[2019-03-15] MEDS: THIAMINE 100 MG TAB PO SCH (07:51)
[2019-03-15] MEDS: MULTIVITAMINS, THERA 1 EACH TAB PO SCH (07:51)
[2019-03-15] MEDS: FOLIC ACID 1 MG TAB PO SCH (07:52)
[2019-03-15] MEDS: LORATADINE 10 MG TAB PO SCH (07:52)
[2019-03-15] MEDS: HYDROCORTISONE 1% CREAM 30 GM TUBE TOPICAL PRN (09:28)
[2019-03-15] MEDS ORDERED: LORazepam 1 MG TAB PO PRN (11:19)
[2019-03-15] MEDS ORDERED: LORazepam 2 MG/ML INJ IM PRN (11:19)
--- NOTE | 2019-03-15 11:22 | P.PN ---
Progress Note - Text Progress Note Date: 03/15/19 Interval History: Patient was seen today during group and was agreeable to speak to tag writer in the office. Patient states that his anxiety has improved while being on the Librium and denies any tremors at this time however does state that he continues to crave alcohol. He states that he continues to feel overwhelmed and depressed and claims that he feels hopeless about his medications and his outlook on life. Patient claims that she's had lots of trials of different medications and states that "I just go out and drink again" which starts his downward spiral. 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 Patient states that he has been struggling with suicidal thoughts and impulse problems for many years and claims that he feels only ECT can help him. Patient states that he slept better last night on the trazodone and thanks tag writer. At this time patient denies any suicidal or homical ideations, intent or plan. Patient denies any auditory, visual hallucinations and denies any paranoia or delusions. Patient denies any side effects from the medications and has been compliant with meds. Mental Status Exam: General Appearance: Patient appears to be stated age is alert, pleasant, and cooperative. Patient appears less anxious today, poor hygiene and poor grooming. Behavior: Patient is seated however appears to be less restless and anxious Speech: Patient's speech is fluent and nonpressured. Mood/Affect: Patient reports their mood is depressed, affect is congruent and constricted. Suicidality/Homicidality: Patient denies having any suicidal or homicidal ideation intent or plan. Perceptions: Patient denies any auditory or visual hallucinations. Though content/process: There is no evidence of any delusional thought content and thought process is linear and goal-directed. Memory and concentration: AOX3, grossly intact for the purposes of this session. Judgment and insight: Poor, improving mildly Assessment Bipolar disorder, currently depressed History of borderline personality disorder Alcohol use disorder moderate-severe, currently in withdrawal Cocaine abuse Nicotine dependence Plan: -Patient continues to meet criteria for inpatient psychiatric admission for symptom stabilization and safety. Patient has signed adult voluntary form and medication consent and was placed in patient's chart. -Medications: We'll continue with Latuda 40 mg nightly with dinner for mood stabilization/depression with plan to titrate up. Continue with scheduled Librium 25 mg 4 times a day for alcohol withdrawal. Continue with trazodone 100 mg nightly for insomnia and mood. -thiamine, MVM for etoh use -Ativan PRN for alcohol withdrawal. CIWA every 4 hours. Vital signs were stable except for tachycardia this morning. We'll continue to monitor. -NRT - nicotine patch -SW on board for discharge planning. We'll encourage substance use rehab upon discharge.
[2019-03-15] MEDS ORDERED: hydrOXYzine PAMOATE 25 MG CAP PO PRN (14:23)
[2019-03-15] MEDS: LURASIDONE 40 MG TAB PO SCH (17:35)
[2019-03-15] MEDS: traZODone HCL 100 MG TAB PO SCH (20:43)
[2019-03-15] MEDS: TRIAMCINOLONE 0.1% CREAM 80 GM TUBE TOPICAL SCH (20:44)
[2019-03-15] MEDS: ALBUTEROL INHALER 60 PUFF/8 GM INHALER INHALATION PRN (21:04)
[2019-03-16] MEDS: ALBUTEROL INHALER 60 PUFF/8 GM INHALER INHALATION PRN (06:00)
[2019-03-16] MEDS: FAMOTIDINE 20 MG TAB PO SCH (09:07)
[2019-03-16] MEDS: NICOTINE 21MG/24HR PATCH TRANSDERM SCH (09:07)
[2019-03-16] MEDS: chlordiazePOXIDE 25 MG CAP PO SCH (09:07)
[2019-03-16] MEDS: TRIAMCINOLONE 0.1% CREAM 80 GM TUBE TOPICAL SCH ×2 (09:08→21:15)
[2019-03-16] MEDS: predniSONE 20 MG TAB PO SCH (09:08)
[2019-03-16] MEDS: MULTIVITAMINS, THERA 1 EACH TAB PO SCH (09:08)
[2019-03-16] MEDS: THIAMINE 100 MG TAB PO SCH (09:08)
[2019-03-16] MEDS: LORATADINE 10 MG TAB PO SCH (09:08)
[2019-03-16] MEDS: FOLIC ACID 1 MG TAB PO SCH (09:08)
[2019-03-16] MEDS ORDERED: traZODone HCL 100 MG TAB PO PRN (09:47)
[2019-03-16] MEDS ORDERED: LORazepam 1 MG TAB PO PRN (09:49)
[2019-03-16] MEDS ORDERED: LORazepam 2 MG/ML INJ IM PRN (09:49)
[2019-03-16] MEDS ORDERED: hydrOXYzine PAMOATE 25 MG CAP PO PRN (11:53)
--- NOTE | 2019-03-16 11:57 | P.PN ---
Progress Note - Text Progress Note Date: 03/16/19 Interval History: Patient was seen today wandering the hallways near the nurse's station and was agreeable to speak to rewriter in the office. Patient states that his anxiety and depression are continuing to persist. Patient states that "I'm over the alcohol" however now states that his anxiety and mood from his bipolar and borderline personality "is coming out". Patient states that he feels hopeless about his medications and his outlook on his life and states that "I just need to play a game to get out of here of telling you that I feel better" patient claims that he would like to have his medications changed and states that the Latuda is not helping him. Patient claimed that she would like to be put back on Seroquel and lithium which helped him in the past. He states that he continues to feel overwhelmed being on the unit and would rather go home at times and "keep on drinking". Patient continues to think in absolutes and is concrete, often catastrophizing. Patient states that he did not sleep well last night. At this time patient denies any suicidal or homical ideations, intent or plan. Patient denies any auditory, visual hallucinations and denies any paranoia or delusions. Patient denies any side effects from the medications and has been compliant with meds. Mental Status Exam: General Appearance: Patient appears to be stated age is alert, directable. Patient appears to be more anxious today and irritable, poor hygiene and poor grooming. Behavior: Patient is seated however appears to be more restless and anxious. Speech: Patient's speech is fluent and nonpressured. Mood/Affect: Patient reports their mood is depressed, affect is congruent and constricted. Suicidality/Homicidality: Patient denies having any suicidal or homicidal ideation intent or plan. Perceptions: Patient denies any auditory or visual hallucinations. Though content/process: There is no evidence of any delusional thought content and thought process is linear and goal-directed. Catastrophizing, all or none thinking. Memory and concentration: AOX3, grossly intact for the purposes of this session. Judgment and insight: Poor, improving mildly Assessment Bipolar disorder, currently depressed History of borderline personality disorder Alcohol use disorder moderate-severe, currently in withdrawal Cocaine abuse Nicotine dependence Plan: -Patient continues to meet criteria for inpatient psychiatric admission for symptom stabilization and safety. Patient has signed adult voluntary form and medication consent and was placed in patient's chart. -Medications: We'll discontinue Latuda at patient's request. We'll start Seroquel 150 mg daily at bedtime for mood stabilization/insomnia. Will start lithium 300 mg twice a day for mood stabilization/suicidality. Will decrease scheduled Librium 20 mg 3 times a day for alcohol withdrawal, with plan to titrate down to 20 mg daily on Tuesday and discontinue after that. Switched trazodone to 100 mg PRN nightly for insomnia and mood. -thiamine, MVM for etoh use -Added ropinirole 0.25 mg daily at bedtime for restless leg syndrome -Ativan PRN for alcohol withdrawal. CIWA every 8 hours. Vital signs were stable. We'll continue to monitor and this can be discontinued over the weekend. -NRT - nicotine patch -SW on board for discharge planning. We'll encourage substance use rehab upon discharge.
[2019-03-16] MEDS ORDERED: QUEtiapine 50 MG TAB PO SCH (21:00)
[2019-03-16] MEDS: LITHIUM CARBONATE 300 MG CAP PO SCH (21:14)
[2019-03-17] MEDS: FAMOTIDINE 20 MG TAB PO SCH (09:22)
[2019-03-17] MEDS: NICOTINE 21MG/24HR PATCH TRANSDERM SCH (09:22)
[2019-03-17] MEDS: predniSONE 20 MG TAB PO SCH (09:23)
[2019-03-17] MEDS: LORATADINE 10 MG TAB PO SCH (09:23)
[2019-03-17] MEDS: FOLIC ACID 1 MG TAB PO SCH (09:23)
[2019-03-17] MEDS: LITHIUM CARBONATE 300 MG CAP PO SCH ×2 (09:23→21:00)
[2019-03-17] MEDS: THIAMINE 100 MG TAB PO SCH (09:23)
[2019-03-17] MEDS: MULTIVITAMINS, THERA 1 EACH TAB PO SCH (09:23)
[2019-03-17] MEDS: TRIAMCINOLONE 0.1% CREAM 80 GM TUBE TOPICAL SCH ×2 (09:26→21:01)
[2019-03-17] MEDS: ALBUTEROL INHALER 60 PUFF/8 GM INHALER INHALATION PRN (09:26)
--- NOTE | 2019-03-17 18:54 | P.PN ---
Progress Note - Text Progress Note Date: 03/17/19 IDENTIFICATION DATA: 28-year-old male admitted to MHU with worsening symptoms of depression. INTERVAL HISTORY: Patient was seen today. He reports feeling sad, with low energy levels and low motivation. He also reports poor sleep and claims he needs higher doses of seroq uel. He reports being complaint with his prescribed medications. Denies side effects. MENTAL STATUS EXAMINATION: 28-year old male, appears stated age in fair grooming and hygine. Is alert and oriented 4. Mood is reported as sad and affect is constricted. Speech and thought processes are linear and goal directed. thought content is negative for suicidal or homicidal ideation. Denies auditory and visual hallucinations. insight and judgment are improving Assessment Bipolar disorder, currently depressed History of borderline personality disorder Alcohol use disorder moderate-severe, currently in withdrawal Cocaine abuse Nicotine dependence Plan: Will increase the dose of seroquel from 150mg po qhs to 200mg po qhs for insomnia Will start him on wellbutrin 100mg po qdaily for depression. Continue lithium 300mg po bid for mood instability Continue with Librium taper Patient meets criteria for inpatient hospitalization due to his severity of depression and mood instability
[2019-03-17] MEDS: QUEtiapine 200 MG TAB PO SCH (21:00)
[2019-03-18] MEDS: NICOTINE 21MG/24HR PATCH TRANSDERM SCH (08:45)
[2019-03-18] MEDS: buPROPion SR 100 MG TABLET.ER PO SCH (08:46)
[2019-03-18] MEDS: FAMOTIDINE 20 MG TAB PO SCH (08:47)
[2019-03-18] MEDS: MULTIVITAMINS, THERA 1 EACH TAB PO SCH (08:47)
[2019-03-18] MEDS: LITHIUM CARBONATE 300 MG CAP PO SCH ×2 (08:47→22:53)
[2019-03-18] MEDS: predniSONE 20 MG TAB PO SCH (08:47)
[2019-03-18] MEDS: FOLIC ACID 1 MG TAB PO SCH (08:47)
[2019-03-18] MEDS: LORATADINE 10 MG TAB PO SCH (08:47)
[2019-03-18] MEDS: THIAMINE 100 MG TAB PO SCH (08:47)
[2019-03-18] MEDS: TRIAMCINOLONE 0.1% CREAM 80 GM TUBE TOPICAL SCH ×2 (10:04→22:53)
--- NOTE | 2019-03-18 15:08 | P.PN ---
Progress Note - Text Progress Note Date: 03/18/19 IDENTIFICATION DATA: 28-year-old male admitted to MHU with worsening symptoms of depression. INTERVAL HISTORY: Patient was seen today. He rates his depression as 6/10, but says he is hopeful that things will get better for him. He reports feeling anxious at times and c laims to have left the group due to feeling anxious. He reports tolerating medications well with out any side effects. MENTAL STATUS EXAMINATION: 28-year old male, appears stated age in fair grooming and hygine. Is alert and oriented 4. Mood is reported as sad and affect is constricted. Speech and thought processes are linear and goal directed. thought content is negative for suicidal or homicidal ideation. Denies auditory and visual hallucinations. insight and judgment are improving Assessment Bipolar disorder, currently depressed History of borderline personality disorder Alcohol use disorder moderate-severe, currently in withdrawal Cocaine abuse Nicotine dependence Plan: Continue seroquel 200mg po qhs for insomnia Continue wellbutrin 100mg po qdaily for depression. Continue lithium 300mg po bid for mood instability Continue with Librium taper Patient meets criteria for inpatient treatment for depression and anxiety
[2019-03-18] MEDS: QUEtiapine 200 MG TAB PO SCH (22:53)
[2019-03-19] MEDS: FAMOTIDINE 20 MG TAB PO SCH (09:18)
[2019-03-19] MEDS: NICOTINE 21MG/24HR PATCH TRANSDERM SCH (09:18)
[2019-03-19] MEDS: buPROPion SR 100 MG TABLET.ER PO SCH (09:18)
[2019-03-19] MEDS: TRIAMCINOLONE 0.1% CREAM 80 GM TUBE TOPICAL SCH ×2 (09:19→21:15)
[2019-03-19] MEDS: THIAMINE 100 MG TAB PO SCH (09:19)
[2019-03-19] MEDS: MULTIVITAMINS, THERA 1 EACH TAB PO SCH (09:19)
[2019-03-19] MEDS: LORATADINE 10 MG TAB PO SCH (09:19)
[2019-03-19] MEDS: predniSONE 20 MG TAB PO SCH (09:19)
[2019-03-19] MEDS: LITHIUM CARBONATE 300 MG CAP PO SCH ×2 (09:19→21:14)
[2019-03-19] MEDS: FOLIC ACID 1 MG TAB PO SCH (09:19)
--- NOTE | 2019-03-19 11:55 | P.PN ---
Progress Note - Text Progress Note Date: 03/19/19 Interval History: Patient was seen today participating in group and was agreeable to speak to shira paulino in the office. Patient states that his anxiety and depression are starting to improve and he feels more "calm" today. Patient states that he had a fair weekend and claims that the medication are started to help him. He states that the Wellbutrin has really helped him in the past and he has been on 150 mg daily. He also stated that he is sleeping really well on Seroquel 200 mg and would like to continue this dose. Patient claims that he feels more hopeful for the future. He denies any irritability today. Patient is thinking in absolutes less often and however catastrophizing at times. At this time patient denies any suicidal or homical ideations, intent or plan. Patient denies any auditory, visual hallucinations and denies any paranoia or delusions. Patient denies any side effects from the medications and has been compliant with meds. Mental Status Exam: General Appearance: Patient appears to be stated age is alert, directable. Patient appears to be less anxious and irritable today, fair hygiene and poor grooming. Behavior: Patient is seated calmly, no agitation. Speech: Patient's speech is fluent and nonpressured. Mood/Affect: Patient reports their mood is mildly improving, affect is congruent and constricted. Suicidality/Homicidality: Patient denies having any suicidal or homicidal ideation intent or plan. Perceptions: Patient denies any auditory or visual hallucinations. Though content/process: There is no evidence of any delusional thought content and thought process is linear and goal-directed. Memory and concentration: AOX3, grossly intact for the purposes of this session. Judgment and insight: Poor, improving mildly Assessment Bipolar disorder, currently depressed History of borderline personality disorder Alcohol use disorder moderate-severe, currently in withdrawal Cocaine abuse Nicotine dependence Plan: -Patient continues to meet criteria for inpatient psychiatric admission for symptom stabilization and safety. Patient has signed adult voluntary form and medication consent and was placed in patient's chart. -Medications: We'll continue with Seroquel 200 mg daily at bedtime for mood stabilization/insomnia. Will continue with lithium 300 mg twice a day for mood stabilization/suicidality. [place] level tomorrow morning before a.m. dose. Discontinued all CIWA and withdrawal medications. Continue with trazodone to 100 mg PRN nightly for insomnia and mood. Increased Wellbutrin to 150 mg daily for mood. -thiamine, MVM for etoh use -Continue with ropinirole 0.25 mg daily at bedtime for restless leg syndrome -NRT - nicotine patch -SW on board for discharge planning. We'll encourage substance use rehab upon discharge. Likely discharge in 1-2 days.
[2019-03-19] MEDS: ALBUTEROL INHALER 60 PUFF/8 GM INHALER INHALATION PRN (19:06)
[2019-03-19] MEDS: QUEtiapine 200 MG TAB PO SCH (21:14)
[2019-03-20 07:06] VITALS: BP 109/59; PULSE 67; RESP 18; TEMP 97.6
[2019-03-20] MEDS: FAMOTIDINE 20 MG TAB PO SCH (08:09)
[2019-03-20] MEDS: buPROPion SR 150 MG TABLET.ER PO SCH (08:09)
[2019-03-20] MEDS: THIAMINE 100 MG TAB PO SCH ×2 (08:09→08:10)
[2019-03-20] MEDS: LORATADINE 10 MG TAB PO SCH (08:09)
[2019-03-20] MEDS: NICOTINE 21MG/24HR PATCH TRANSDERM SCH (08:09)
[2019-03-20] MEDS: predniSONE 10 MG TAB PO SCH (08:09)
[2019-03-20] MEDS: MULTIVITAMINS, THERA 1 EACH TAB PO SCH (08:10)
[2019-03-20] MEDS: TRIAMCINOLONE 0.1% CREAM 80 GM TUBE TOPICAL SCH ×2 (08:10→21:43)
[2019-03-20] MEDS: FOLIC ACID 1 MG TAB PO SCH (08:10)
[2019-03-20] MEDS: LITHIUM CARBONATE 300 MG CAP PO SCH ×2 (08:10→20:15)
--- NOTE | 2019-03-20 10:28 | P.PN ---
Progress Note - Text Progress Note Date: 03/20/19 Interval History: Patient was seen today participating in group and was agreeable to speak to shira paulino in the office. Patient states that his anxiety and depression improving and he feels more "stable" today and appeared to be more future oriented. 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 Patient also claimed that he has been to rehab before and claims that did not help him and states that when he is on his medications he does not feel the need to drink alcohol. Patient states that he has no overnight complaints claims of the medications are helping him. He also stated that he is sleeping well on Seroquel 200 mg and would like to continue this dose. He denies any irritability today. At this time patient denies any suicidal or homical ideations, intent or plan. Patient denies any auditory, visual hallucinations and denies any paranoia or delusions. Patient denies any side effects from the medications and has been compliant with meds. Mental Status Exam: General Appearance: Patient appears to be stated age is alert, directable. Patient appears to be less anxious and irritable today, fair hygiene and poor grooming. Behavior: Patient is seated calmly, no agitation. Speech: Patient's speech is fluent and nonpressured. Mood/Affect: Patient reports their mood is mildly improving, affect is congruent Suicidality/Homicidality: Patient denies having any suicidal or homicidal ideation intent or plan. Perceptions: Patient denies any auditory or visual hallucinations. Though content/process: There is no evidence of any delusional thought content and thought process is linear and goal-directed. Memory and concentration: AOX3, grossly intact for the purposes of this session. Judgment and insight: Fair, improving mildly Assessment Bipolar disorder, currently depressed History of borderline personality disorder Alcohol use disorder moderate-severe, currently in withdrawal Cocaine abuse Nicotine dependence Plan: -Patient continues to meet criteria for inpatient psychiatric admission for symptom stabilization and safety. Patient has signed adult voluntary form and medication consent and was placed in patient's chart. -Medications: We'll continue with Seroquel 200 mg daily at bedtime for mood stabilization/insomnia. Will continue with lithium 300 mg twice a day for mood stabilization/suicidality. [place] level 0.2 today. Discontinued trazodone. Continue with Wellbutrin to 150 mg daily for mood. Started on naltrexone 50 mg daily for alcohol cravings. -thiamine, MVM for etoh use -Continue with ropinirole 0.25 mg daily at bedtime for restless leg syndrome -NRT - nicotine patch -SW on board for discharge planning. Patient declined substance use rehab at this time. Likely discharge tomorrow.
[2019-03-20] MEDS: NALTREXONE HCL 50 MG TAB PO SCH (10:32)
[2019-03-20 10:54] LABS: Appearance,Urine Clear (Clear); Bilirubin,Urine Negative (Negative); Blood,Urine Negative (Negative); Color,Urine Yellow; Glucose,Urine (UA) Negative (Negative); Ketones,Urine Negative (Negative); Leukocyte Esterase,Urine Negative (Negative); Nitrite,Urine Negative (Negative); PH, Urine 6.5 (5.0-8.0); Protein,Urine Negative (Negative); Specific Gravity,Urine 1.015 (1.001-1.035); Urobilinogen,Urine <2.0 mg/dL (<2.0)
[2019-03-20] MEDS ORDERED: predniSONE 20 MG TAB PO SCH (11:52)
[2019-03-20 17:58] LABS: Urine Alcohol Negative (Negative); Urine Barbiturate Negative (Negative); Urine Cocaine Negative (Negative); Urine Methadone Negative (Negative); Urine Opiates Negative (Negative); Urine Phencyclidine Negative (Negative)
[2019-03-20] MEDS: QUEtiapine 200 MG TAB PO SCH (20:15)
[2019-03-20] MEDS: ALBUTEROL INHALER 60 PUFF/8 GM INHALER INHALATION PRN (21:43)
[2019-03-21] MEDS: NICOTINE 21MG/24HR PATCH TRANSDERM SCH (08:54)
[2019-03-21] MEDS: FAMOTIDINE 20 MG TAB PO SCH (08:55)
[2019-03-21] MEDS: LORATADINE 10 MG TAB PO SCH (08:55)
[2019-03-21] MEDS: FOLIC ACID 1 MG TAB PO SCH (08:55)
[2019-03-21] MEDS: LITHIUM CARBONATE 300 MG CAP PO SCH (08:55)
[2019-03-21] MEDS: NALTREXONE HCL 50 MG TAB PO SCH (08:56)
[2019-03-21] MEDS: buPROPion SR 150 MG TABLET.ER PO SCH (08:56)
[2019-03-21] MEDS: TRIAMCINOLONE 0.1% CREAM 80 GM TUBE TOPICAL SCH (08:56)
[2019-03-21] MEDS: MULTIVITAMINS, THERA 1 EACH TAB PO SCH (08:56)
[2019-03-21] MEDS: predniSONE 10 MG TAB PO SCH (08:56)
--- NOTE | 2019-03-21 09:57 | P.DS ---
Providers Date of admission: 03/14/19 07:08 Expected date of discharge: 03/21/19 Attending physician: Chung Norton MD Consults: 03/14/19 07:20 Consult Physician Routine Consulting Provider: Merlin Anglin Consult Reason/Comments: H&P and medical managment Do you want consulting provider notified?: Already Contacted Primary care physician: Stated None - Discharge Diagnosis(es) (1) Bipolar depression Current Visit: Yes Status: Acute Priority: High (2) Borderline personality disorder Current Visit: Yes Status: Acute Priority: Medium (3) Alcohol use disorder, severe, dependence Current Visit: Yes Status: Acute Priority: Medium (4) Cocaine abuse Current Visit: Yes Status: Acute Priority: Medium (5) Nicotine dependence Current Visit: Yes Status: Acute Priority: Low Hospital Course: Admission HPI: Patient is a 28-year-old male who has a history of bipolar disorder and chronic alcohol use who currently lives with his grandparents is and 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 Patient presented to the hospital after recently being discharged in January [facility] for mental health reasons related to depression. Patient states that shortly after being discharged after running out of his medications he did not fill them again and began becoming suicidal and an increase in his depression. Patient stated that he had plans to overdose or drown himself in the river. He states that he's been having multiple stressors in the family recently. He states that he's been "self- medicating with alcohol" and claims to be drinking approximately 10 beers a day with 1 pint or a fifth of whiskey at night for sleep. He states that he has gone through alcohol withdrawals in the past and has had seizures, and even experience visual hallucinations. He states that at this time he has mild tremors and some anxiety related to the alcohol withdrawal. He claims that he's been diagnosed with borderline and bipolar disorder in the past and when asked about previous manic history he states that he has had several including risk taking behavior, promiscuity,'s excessive spending. Patient claims that this time his sleep is decreased sleeping approximately 3-4 hours a night which are broken. She admits to ongoing depression for many years. Patient denies any suicidal or homicidal ideations intent or plan. At this time patient denies any auditory or visual hallucinations. Patient denies any flight of ideas racing thoughts and increased in goal directed behavior. Patient admits to using occasional cocaine approximately one time a month. He states that he smokes cigarettes approximately 2 packs per day. Hospital course: Upon admission to the unit patient was initially anxious, depressed and having suicidal ideations. Patient was however directable and agreeable to commence treatment. Patient got along well with other patients on the unit and followed unit protocol. Patient was initially going through alcohol detoxification and required Librium taper along with CIWA and Ativan when necessary. Patient was compliant with the medications and denied any side effects throughout hospital course. Patient was started on Latuda however after 2 days of taking 40 mg, patient claimed that he felt the medication was not helping him and making him feel more anxious and requested to have this medication discontinued. Patient was then started on Seroquel and titrated up to 200 mg daily at bedtime for mood stabilization/insomnia. Patient was also started on lithium and titrated up to 300 mg every morning +600 mg nightly for mood stabilization. Patient did have a lithium level drawn prior to the dose increase and was 0.2. Patient was on trazodone however that medication was discontinued as patient preferred Seroquel. Patient was also started on Wellbutrin and titrated up to 150 mg daily for mood. Patient was also started on naltrexone 50 mg daily for alcohol cravings. Patient spoke of his stressors and engaged in therapy both group and individual. Patient was also seen by medical team for history and physical exam. Throughout the course of the hospitalization patient gradually improved with regards to mood, anxiety, sleep and became future oriented with improved insight and judgment. On the day of discharge patient denied any suicidal or homicidal ideations intent or plan denied any auditory or visual hallucinations. Patient endorsed wanting to live for his health and family. 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 Patient denied any paranoia and did not endorse any delusions. Patient does have a significant history of substance abuse and was counseled on abstaining from all substances including alcohol and marijuana. Patient declined wanting to go to substance use rehab and elected to continue on naltrexone by mouth until being seen by [facility] and wanted to be put on the Vivitrol injections which she claimed has helped him the most in the past along with therapy. Patient was also counseled on the medications and need for regular compliance and was encouraged to follow-up with their outpatient appointment for mental health and also for primary care. Prior to discharge a family meeting will be arranged by clinical social work therapist to answer any questions and ensure safety upon discharge. Mental status exam: General Appearance: Patient appears to be stated age is alert, pleasant, and cooperative. Patient is in no acute distress and has fair hygiene and grooming Behavior: Patient is calmly seated without any agitated behavior. Speech: Patient's speech is fluent and nonpressured. Mood/Affect: Patient reports their mood is "much better", affect is congruent and euthymic. Suicidality/Homicidality: Patient denies having any suicidal or homicidal ideation intent or plan. Perceptions: Patient denies any auditory or visual hallucinations. Though content/process: There is no evidence of any delusional thought content and thought process is linear and goal-directed. Memory and concentration: AOX3, grossly intact for the purposes of this session. Can spell "WORLD" backwards correctly. Judgment and insight: fair, improved Impression: Bipolar disorder, currently depressed Borderline personality disorder Alcohol use disorder, severe Cocaine abuse Nicotine dependence Plan: -Continue with discharge today as patient has improved and stabilized psychiatrically and is not currently an imminent threat to himself and/or others. -Continue medications: Seroquel 200 mg nightly for mood stabilization/insomnia, lithium 300 mg daily +600 mg nightly for mood stabilization/suicidality, Wellbutrin 150 mg daily for mood, naltrexone 50 mg daily for alcohol cravings. -Patient was counseled on the need for medication compliance and appropriate follow-up at mental health and also primary care for medical issues. Patient verbalized understanding and agreed. -Social work to arrange for and conduct family meeting to ensure safety upon discharge and answer any questions/concerns. Social work also to arrange for patients follow up appointments with [facility] along with follow up with primary care provider. -Patient counseled on abstaining from recreational drugs and marijuana and alcohol. Was informed/educated on the adverse effects on their physical and mental health. Patient verbally understood and agreed. Patient elected not to go to rehab and wanted to continue on oral naltrexone for alcohol cravings and to be switched onto the Vivitrol injections by his doctor at [facility]. -Patient was instructed to return to the hospital or seek immediate medical care if their psychiatric or medical systems do worsen or reoccur. Patient Condition at Discharge: Stable Plan - Discharge Summary Discharge Rx Participant: No New Discharge Prescriptions: New Folic Acid 1 mg PO DAILY tab Nicotine 21Mg/24Hr Patch [Habitrol] 1 patch TRANSDERM DAILY 14 Days patch Triamcinolone 0.1% Cream [Kenalog 0.1% Cream] 1 applic TOPICAL BID applic [place] Carbonate 300 mg PO DAILY [address] [place] Carbonate 600 mg PO HS 28 Days capsule Multivitamins, Thera [Multivitamin (formulary)] 1 each PO DAILY tab Famotidine [Pepcid] 40 mg PO DAILY tab rOPINIRole HCL [Requip] 0.25 mg PO HS 28 Days tab Naltrexone HCl [Revia] 50 mg PO DAILY 28 Days tab QUEtiapine [SEROquel] 200 mg PO HS 28 Days tab Thiamine [Vitamin B-1] 100 mg PO DAILY tab buPROPion SR [Wellbutrin SR] 150 mg PO DAILY 28 Days tablet.er Continue Albuterol Inhaler [Ventolin Hfa Inhaler] 2 puff INHALATION RT-Q4H PRN PRN Reason: Shortness Of Breath Cetirizine HCl [Zyrtec] 10 mg PO DAILY Discharge Medication List Albuterol Inhaler [Ventolin Hfa Inhaler] 2 puff INHALATION RT-Q4H PRN 01/26/19 [History] Cetirizine HCl [Zyrtec] 10 mg PO DAILY 03/13/19 [History] Famotidine [Pepcid] 40 mg PO DAILY tab 03/21/19 [Rx] Folic Acid 1 mg PO DAILY tab 03/21/19 [Rx] [place] Carbonate 300 mg PO DAILY 28 Days cap 03/21/19 [Rx] [place] Carbonate 600 mg PO HS 28 Days capsule 03/21/19 [Rx] Multivitamins, Thera [Multivitamin (formulary)] 1 each PO DAILY tab 03/21/19 [Rx] Naltrexone HCl [Revia] 50 mg PO DAILY 28 Days tab 03/21/19 [Rx] Nicotine 21Mg/24Hr Patch [Habitrol] 1 patch TRANSDERM DAILY 14 Days patch 03/21/19 [Rx] QUEtiapine [SEROquel] 200 mg PO HS 28 Days tab 03/21/19 [Rx] Thiamine [Vitamin B-1] 100 mg PO DAILY tab 03/21/19 [Rx] Triamcinolone 0.1% Cream [Kenalog 0.1% Cream] 1 applic TOPICAL BID applic 03/21/19 [Rx] buPROPion SR [Wellbutrin SR] 150 mg PO DAILY 28 Days tablet.er 03/21/19 [Rx] rOPINIRole HCL [Requip] 0.25 mg PO HS 28 Days tab 03/21/19 [Rx] Follow up Appointment(s)/Referral(s): [facility] [Outside] - 03/27/19 11:15 am (03-27-19 @ 11:15 with Ade Denton 04-03-19 @ 3:15 (2 hour appointment) with Ade Denton 04-06-19 @ 1:[address] Padron ) [facility]] - 1 Week Patient Instructions/Handouts: Suicide Prevention (DC) Activity/Diet/Wound Care/Special Instructions: Activity and diet as tolerated. No guns or weapons in the home. Refrain from Alcohol and street drugs not prescribed by your physician/s. Take all medications as prescribed, and attend your scheduled follow up appointments for psychiatric after care. If in need of medication refills, please to your primary care physician, or your out patient psychiatric provider. If in crisis please call , or go the nearest ER for an evaluation. Discharge Disposition: HOME SELF-CARE
[2019-03-23] MEDS ORDERED: predniSONE 10 MG TAB PO SCH (11:52)
== END 2019-03-21 12:38 | disposition home or self-care (01) | DRG 897 ==
LOC: EC 21:55 → 3MHU 03-14 07:08
PROVIDERS: ADMIT Psychiatry & Neurology Psychiatry; ATTEND Psychiatry & Neurology Psychiatry
DX: F10.239 Alcohol dependence with withdrawal, unspecified (principal); F31.30 Bipolar disorder, current episode depressed, mild or moderate severity, unspecified; R45.851 Suicidal ideations; F14.10 Cocaine abuse, uncomplicated; F17.210 Nicotine dependence, cigarettes, uncomplicated; F60.3 Borderline personality disorder; F41.9 Anxiety disorder, unspecified; G47.00 Insomnia, unspecified; J45.909 Unspecified asthma, uncomplicated; K21.9 Gastro-esophageal reflux disease without esophagitis; Z79.899 Other long term (current) drug therapy; Z81.3 Family history of other psychoactive substance abuse and dependence; Z81.8 Family history of other mental and behavioral disorders; Z82.49 Family history of ischemic heart disease and other diseases of the circulatory system; Z87.11 Personal history of peptic ulcer disease; L30.9 Dermatitis, unspecified
CPT/HCPCS: 80053; 80061; 80178; 80306; 81003; 82075; 82248; 83036; 84443; 85025; 96372; 99285

== ENCOUNTER → 2019-06-07 | Outpatient (CLI) | payer OTHER ==
[2019-06-07 14:36] LABS: Basophils # (A) 0.1 k/uL (0-0.2); Basophils % (A) 1 %; Eosinophils # (A) 0.1 k/uL (0-0.7); Eosinophils % (A) 2 %; HCT 44.7 % (39.0-53.0); HGB 15.3 gm/dL (13.0-17.5); Lymphocytes # (A) 1.5 k/uL (1.0-4.8); Lymphocytes % (A) 17 %; MCH 32.1 pg (25.0-35.0); MCHC 34.1 g/dL (31.0-37.0); Mean Platelet Volume 8.3; Monocytes # (A) 0.4 k/uL (0-1.0); Monocytes % (A) 4 %; Neutrophils # (A) 6.8 k/uL (1.3-7.7); Neutrophils % (A) 76 %; Platelet Count 268 k/uL (150-450); RBC 4.76 m/uL (4.30-5.90); RDW 11.4 % (11.5-15.5)
[2019-06-07 18:40] LABS: T4, Free (Free Thyroxine) 1.1 ng/dL (0.80-1.80)
[2019-06-07 18:43] LABS: Anion Gap 4.7 mmol/L (4.00-12.00); Carbon Dioxide 25.3 mmol/L (21.6-31.8); Lithium 0.4 mmol/L (0.5-1.2); Potassium 4.6 mmol/L (3.5-5.5)
== END | disposition home or self-care (01) ==
LOC: LABWHC1 13:37
PROVIDERS: ATTEND Psychiatry & Neurology Psychiatry
DX: F31.81 Bipolar II disorder (principal)
CPT/HCPCS: 36415; 80051; 80178; 84439; 84443; 85025

== ENCOUNTER → 2019-06-20 | Outpatient (CLI) | payer OTHER ==
[2019-06-20 13:05] LABS: Basophils # (A) 0.1 k/uL (0-0.2); Basophils % (A) 3 %; Eosinophils % (A) 1 %; HCT 44.8 % (39.0-53.0); HGB 15.1 gm/dL (13.0-17.5); Lymphocytes # (A) 0.8 k/uL (1.0-4.8); Lymphocytes % (A) 14 %; MCH 31.9 pg (25.0-35.0); MCHC 33.7 g/dL (31.0-37.0); MCV 94.9 fL (80.0-100.0); Monocytes # (A) 0.4 k/uL (0-1.0); Monocytes % (A) 8 %; Neutrophils % (A) 73 %; Platelet Count 199 k/uL (150-450); RBC 4.72 m/uL (4.30-5.90); RDW 11.5 % (11.5-15.5); WBC 5.5 k/uL (3.8-10.6)
[2019-06-20 18:42] LABS: African American GFR (CKD) 93.5 (60.0-200.0); Non-African American GFR(CKD) 80.7 (60.0-200.0)
[2019-06-20 20:30] LABS: Hepatitis B Surface AB- Quant 3.5 mIU/mL; Hepatitis B Surface Antibody Non-Reactive (Non-Reactive); Hepatitis B Surface Antigen Non-Reactive (Non-Reactive); Hepatitis C IgG Antibody Non-Reactive (Non-Reactive)
== END | disposition home or self-care (01) ==
LOC: LABWHC1 12:25
PROVIDERS: ATTEND Nurse Practitioner Family
DX: L20.89 Other atopic dermatitis (principal)
CPT/HCPCS: 36415; 82565; 84450; 84460; 84520; 85025; 86480; 86706; 86803; 87340

== ENCOUNTER 2019-11-22 22:35 | Inpatient (IN) | payer MEDICAID, OTHER ==
[2019-11-22] MEDS ORDERED: NICOTINE 21MG/24HR PATCH TRANSDERM STA (23:11)
[2019-11-22 23:19] LABS: Amphetamine Screen,Urine Not Detected (NotDetected); Barbiturate Screen,Urine Not Detected (NotDetected); Benzodiazepines Screen,Urine Not Detected (NotDetected); Cocaine Screen,Urine Not Detected (NotDetected); Methadone Screen, Urine Not Detected (NotDetected); Opiate Screen,Urine Not Detected (NotDetected); Oxycodone Screen, Urine Not Detected (NotDetected); Phencyclidine Screen,Urine Not Detected (NotDetected); Tricyclic Antidepressant,Urine Not Detected (NotDetected); Urn Cannabinoid Scrn Not Detected (NotDetected)
--- NOTE | 2019-11-22 23:58 | ED ---
Psych HPI <Jabari Fernandez - Last Filed: 11/23/19 02:14> - General Source: patient Mode of arrival: ambulatory <Amairani Brennan - Last Filed: 11/26/19 16:05> - General Chief Complaint: Psychiatric Symptoms Stated Complaint: Mental Health Time Seen by Provider: 11/22/19 22:40 - History of Present Illness Initial Comments: Patient is a 29-year-old male past medical history of bipolar disorder, depression and presents emergency Department with reported suicidal ideations. Patient states that for the past several weeks he has been extremely depressed and constipating suicide. He has a plan to take a bunch of his medications. States that he has not a. He has been drinking daily and abusing benzodiazepines. Also reports to burning himself in his groin as a form of self-harm. He follows up with [facility] however has not seen them in some time. Does report multiple hospitalizations for psychiatric stabilization. Denies basilia icidal ideations or hallucinations (Amairani Brennan) - Related Data Home Medications Medication Instructions Recorded Confirmed Albuterol Inhaler (Mhu) [Ventolin 2 puff INHALATION RT-Q4H PRN 01/26/19 11/23/19 Hfa Inhaler (Mhu)] Cetirizine HCl [Zyrtec] 10 mg PO DAILY 03/13/19 11/23/19 Dupilumab [Dupixent] 11/24/19 Previous Rx's Medication Instructions Recorded Famotidine [Pepcid] 40 mg PO DAILY tab 03/21/19 Folic Acid 1 mg PO DAILY tab 03/21/19 [place] Carbonate 300 mg PO DAILY 28 Days cap 03/21/19 [place] Carbonate 600 mg PO HS 28 Days capsule 03/21/19 Multivitamins, Thera [Multivitamin 1 each PO DAILY tab 03/21/19 (formulary)] Naltrexone HCl [Revia] 50 mg PO DAILY 28 Days tab 03/21/19 Nicotine 21Mg/24Hr Patch [Habitrol] 1 patch TRANSDERM DAILY 14 Days 03/21/19 patch QUEtiapine [SEROquel] 200 mg PO HS 28 Days tab 03/21/19 Thiamine [Vitamin B-1] 100 mg PO DAILY tab 03/21/19 Triamcinolone 0.1% Cream [Kenalog 1 applic TOPICAL BID applic 10/16/19 0.1% Cream] buPROPion SR [Wellbutrin SR] 150 mg PO DAILY 28 Days tablet.er 03/21/19 rOPINIRole HCL [Requip] 0.25 mg PO HS 28 Days tab 03/21/19 Allergies Allergy/AdvReac Type Severity Reaction Status Date / Time lamotrigine [From Lamictal] Allergy Unknown Rash/Hives Verified 11/23/19 04:25 ziprasidone [From Geodon] Allergy Unknown Rash/Hives Verified 11/23/19 04:25 peanut Allergy Rash/Hives Verified 11/23/19 11:25 egg AdvReac Nausea & Verified 11/23/19 11:25 Vomiting & Diarrhea Review of Systems ROS Other: All systems not noted in ROS Statement are negative. <Jabari Fernandez - Last Filed: 11/23/19 02:14> ROS Other: All systems not noted in ROS Statement are negative. <Amairani Brennan - Last Filed: 11/26/19 16:05> ROS Statement: Those systems with pertinent positive or pertinent negative responses have been documented in the HPI. Past Medical History Past Medical History: Asthma, Dialysis, GERD/Reflux, Pneumonia, Skin Disorder Additional Past Medical History / Comment(s): Other HX: Eczema, hayfever, left cornea ulcer healed, gastric ulcer History of Any Multi-Drug Resistant Organisms: None Reported Additional Past Surgical History / Comment(s): EGD, corneal biopsy left - Past Anesthesia/Blood Transfusion Reactions: No Reported Reaction Past Psychological History: Anxiety, Bipolar, Depression Smoking Status: Current every day smoker Past Alcohol Use History: Occasional Past Drug Use History: Cocaine, Heroin, Marijuana - Past Family History Father Additional Family Medical History / Comment(s): Father is alive at age 49 with history of alcoholism and drug addiction. Patient does not have any rela tionship with him. grandfather diabetic. mom and grandfather have HTN. brother htn Mother Additional Family Medical History / Comment(s): Mother is alive at age 44. She has history of coronary artery disease with previous OK, bipolar disorder and borderline personality. Patient has no contact with his mother. Brother(s) Additional Family Medical History / Comment(s): Patient has 1 brother that is 21 years old and one sister 23 years old both have anxiety. Patient does not have any children. <Amairani Brennan - Last Filed: 11/26/19 16:05> General Exam Limitations: no limitations General appearance: alert, in no apparent distress Head exam: Present: atraumatic, normocephalic, normal inspection Eye exam: Present: normal appearance, PERRL, EOMI. Absent: scleral icterus, conjunctival injection, periorbital swelling ENT exam: Present: normal exam, mucous membranes moist Neck exam: Present: normal inspection. Absent: tenderness, meningismus, lymphadenopathy Respiratory exam: Present: normal lung sounds bilaterally. Absent: respiratory distress, wheezes, rales, rhonchi, stridor Cardiovascular Exam: Present: regular rate, normal rhythm, normal heart sounds. Absent: systolic murmur, diastolic murmur, rubs, gallop, clicks GI/Abdominal exam: Present: soft, normal bowel sounds. Absent: distended, tenderness, guarding, rebound, rigid Extremities exam: Present: normal inspection, full ROM, normal capillary refill. Absent: tenderness, pedal edema, joint swelling, calf tenderness Back exam: Present: normal inspection Neurological exam: Present: alert, oriented X3, CN II-XII intact Psychiatric exam: Present: depressed, other (Pressure and anxious speech) Skin exam: Present: warm, dry, normal color, other (1.5 cm circular wound right groin consistent with burn). Absent: rash <Amairani Brennan - Last Filed: 11/26/19 16:05> Course <Jabari Fernandez - Last Filed: 11/23/19 02:14> Vital Signs 11/22/19 11/23/19 22:38 03:30 Temperature 98.4 F 98.3 F Pulse Rate 98 77 Respiratory 20 16 Rate Blood Pressure 156/98 167/99 O2 Sat by Pulse 97 99 Oximetry - Reevaluation(s) Reevaluation #1: 11/23/19 02:14 I saw the patient and interviewed him for the purpose of filing the clinical certification. (Jabari Fernandez) Medical Decision Making - Lab Data Result diagrams: 11/23/19 01:34 11/23/19 01:34 <Jabari Fernandez - Last Filed: 11/23/19 02:14> - Lab Data Result diagrams: 11/23/19 01:34 11/23/19 01:34 <Amairani Brennan - Last Filed: 11/26/19 16:05> - Medical Decision Making Upon arrival the patient is placed in room 13. A thorough history and physical exam is performed. Patient's alcohol level of 0.042. He does provide a urine sample. Patient is medically cleared for EPS evaluation. We are currently awaiting the recommendations (Amairani Brennan) - Lab Data Lab Results 11/22/19 11/22/19 11/23/19 Range/Units 22:50 22:50 01:34 WBC 9.2 (3.8-10.6) k/uL RBC 5.14 (4.30-5.90) m/uL Hgb 16.2 (13.0-17.5) gm/dL Hct 50.4 (39.0-53.0) % MCV 98.0 (80.0-100.0) fL MCH 31.6 (25.0-35.0) pg MCHC 32.2 (31.0-37.0) g/dL RDW 12.1 (11.5-15.5) % Plt Count 278 (150-450) k/uL Neutrophils % 80 % Lymphocytes % 14 % Monocytes % 4 % Eosinophils % 2 % Basophils % 1 % Neutrophils # 7.3 (1.3-7.7) k/uL Lymphocytes # 1.3 (1.0-4.8) k/uL Monocytes # 0.3 (0-1.0) k/uL Eosinophils # 0.1 (0-0.7) k/uL Basophils # 0.1 (0-0.2) k/uL Sodium (137-145) mmol/L Potassium (3.5-5.1) mmol/L Chloride (98-107) mmol/L Carbon Dioxide (22-30) mmol/L Anion Gap mmol/L BUN (9-20) mg/dL Creatinine (0.66-1.25) mg/dL Est GFR (CKD-EPI)AfAm (>60 ml/min/1.73 sqM) Est GFR (CKD-EPI)NonAf (>60 ml/min/1.73 sqM) Glucose (74-99) mg/dL Calcium (8.4-10.2) mg/dL Urine Color Colorless Urine Appearance Clear (Clear) Urine pH 5.5 (5.0-8.0) Ur Specific [place] 1.004 (1.001-1.035) Urine Protein Negative (Negative) Urine Glucose (UA) Negative (Negative) Urine Ketones Negative (Negative) Urine Blood Negative (Negative) Urine Nitrite Negative (Negative) Urine Bilirubin Negative (Negative) Urine Urobilinogen <2.0 (<2.0) mg/dL Ur Leukocyte Esterase Negative (Negative) Urine Opiates Screen Not Detected (NotDetected) Ur Oxycodone Screen Not Detected (NotDetected) Urine Methadone Screen Not Detected (NotDetected) Ur Propoxyphene Screen Not Detected (NotDetected) Ur Barbiturates Screen Not Detected (NotDetected) U Tricyclic Antidepress Not Detected (NotDetected) Ur Phencyclidine Scrn Not Detected (NotDetected) Ur Amphetamines Screen Not Detected (NotDetected) U Methamphetamines Scrn Not Detected (NotDetected) U Benzodiazepines Scrn Not Detected (NotDetected) Urine Cocaine Screen Not Detected (NotDetected) U Marijuana (THC) Screen Not Detected (NotDetected) 11/23/19 Range/Units 01:34 WBC (3.8-10.6) k/uL RBC (4.30-5.90) m/uL Hgb (13.0-17.5) gm/dL Hct (39.0-53.0) % MCV (80.0-100.0) fL MCH (25.0-35.0) pg MCHC (31.0-37.0) g/dL RDW (11.5-15.5) % Plt Count (150-450) k/uL Neutrophils % % Lymphocytes % % Monocytes % % Eosinophils % % Basophils % % Neutrophils # (1.3-7.7) k/uL Lymphocytes # (1.0-4.8) k/uL Monocytes # (0-1.0) k/uL Eosinophils # (0-0.7) k/uL Basophils # (0-0.2) k/uL Sodium 137 (137-145) mmol/L Potassium 4.1 (3.5-5.1) mmol/L Chloride 106 (98-107) mmol/L Carbon Dioxide 19 L (22-30) mmol/L Anion Gap 12 mmol/L BUN 8 L (9-20) mg/dL Creatinine 0.63 L (0.66-1.25) mg/dL Est GFR (CKD-EPI)AfAm >90 (>60 ml/min/1.73 sqM) Est GFR (CKD-EPI)NonAf >90 (>60 ml/min/1.73 sqM) Glucose 106 H (74-99) mg/dL Calcium 10.1 (8.4-10.2) mg/dL Urine Color Urine Appearance (Clear) Urine pH (5.0-8.0) Ur Specific [place] (1.001-1.035) Urine Protein (Negative) Urine Glucose (UA) (Negative) Urine Ketones (Negative) Urine Blood (Negative) Urine Nitrite (Negative) Urine Bilirubin (Negative) Urine Urobilinogen (<2.0) mg/dL Ur Leukocyte Esterase (Negative) Urine Opiates Screen (NotDetected) Ur Oxycodone Screen (NotDetected) Urine Methadone Screen (NotDetected) Ur Propoxyphene Screen (NotDetected) Ur Barbiturates Screen (NotDetected) U Tricyclic Antidepress (NotDetected) Ur Phencyclidine Scrn (NotDetected) Ur Amphetamines Screen (NotDetected) U Methamphetamines Scrn (NotDetected) U Benzodiazepines Scrn (NotDetected) Urine Cocaine Screen (NotDetected) U Marijuana (THC) Screen (NotDetected) Disposition <Jabari Fernandez - Last Filed: 11/23/19 02:14> <Amairani Brennan - Last Filed: 11/26/19 16:05> Clinical Impression: Suicidal ideation, Tobacco dependence, Mood disorder Disposition: ADMITTED IP TO THIS HOSP Condition: Fair
[2019-11-23 01:41] LABS: Basophils # (A) 0.1 k/uL (0-0.2); Basophils % (A) 1 %; Eosinophils # (A) 0.1 k/uL (0-0.7); Eosinophils % (A) 2 %; HCT 50.4 % (39.0-53.0); HGB 16.2 gm/dL (13.0-17.5); Lymphocytes # (A) 1.3 k/uL (1.0-4.8); Lymphocytes % (A) 14 %; MCH 31.6 pg (25.0-35.0); MCHC 32.2 g/dL (31.0-37.0); Mean Platelet Volume 8.3; Monocytes # (A) 0.3 k/uL (0-1.0); Monocytes % (A) 4 %; Neutrophils # (A) 7.3 k/uL (1.3-7.7); Neutrophils % (A) 80 %; Platelet Count 278 k/uL (150-450); RBC 5.14 m/uL (4.30-5.90); RDW 12.1 % (11.5-15.5); WBC 9.2 k/uL (3.8-10.6)
[2019-11-23 01:42] LABS: Appearance,Urine Clear (Clear); Bilirubin,Urine Negative (Negative); Blood,Urine Negative (Negative); Color,Urine Colorless; Glucose,Urine (UA) Negative (Negative); Ketones,Urine Negative (Negative); Leukocyte Esterase,Urine Negative (Negative); Nitrite,Urine Negative (Negative); PH, Urine 5.5 (5.0-8.0); Protein,Urine Negative (Negative); Specific Gravity,Urine 1.004 (1.001-1.035); Urobilinogen,Urine <2.0 mg/dL (<2.0)
[2019-11-23 01:53] LABS: African American GFR (CKD) >90 (>60 ml/min/1.73 sqM); Anion Gap 12 mmol/L; Blood Urea Nitrogen 8 mg/dL (9-20); Calcium 10.1 mg/dL (8.4-10.2); Carbon Dioxide 19 mmol/L (22-30); Chloride 106 mmol/L (98-107); Glucose 106 mg/dL (74-99); Non-African American GFR(CKD) >90 (>60 ml/min/1.73 sqM); Potassium 4.1 mmol/L (3.5-5.1); Sodium 137 mmol/L (137-145)
[2019-11-23] MEDS ORDERED: LORazepam 1 MG TAB PO STA (02:40)
[2019-11-23] MEDS ORDERED: MAG HYDROX/AL HYDROX/SIMETH 30 ML CUP PO PRN (04:15)
[2019-11-23] MEDS ORDERED: ZIPRASIDONE 20 MG VIAL IM PRN (04:15)
[2019-11-23] MEDS ORDERED: LORazepam 1 MG TAB PO PRN (04:15)
[2019-11-23] MEDS ORDERED: MAGNESIUM HYDROXIDE 2,400 MG/10 ML CUP PO PRN (04:15)
[2019-11-23] MEDS ORDERED: LORazepam 2 MG/ML INJ IM PRN (04:42)
[2019-11-23 07:44] LABS: Albumin 4.6 g/dL (3.5-5.0); Bilirubin,Unconjugated 0.8 mg/dL (0.0-1.1); Total Bilirubin 0.8 mg/dL (0.2-1.3); Total Protein 7.4 g/dL (6.3-8.2)
[2019-11-23] MEDS: ALBUTEROL INHALER 60 PUFF/8 GM INHALER (MHU) INHALATION PRN (08:49)
[2019-11-23] MEDS ORDERED: NICOTINE 7MG/24HR PATCH TRANSDERM SCH (09:00)
[2019-11-23 10:57] LABS: Hemoglobin A1C 5.1 % (4.0-6.0)
[2019-11-23] MEDS: buPROPion XL 150 MG TAB.ER.24H PO SCH (11:24)
[2019-11-23] MEDS: LORATADINE 10 MG TAB PO SCH (11:48)
--- NOTE | 2019-11-23 11:52 | P.HP ---
Psychiatric H&P - . H&P Date: 11/23/19 History & Physical: Allergies Allergy/AdvReac Type Severity Reaction Status Date / Time lamotrigine From Lamictal Allergy Unknown Rash/Hives Verified 11/23/19 04:25 ziprasidone From Geodon Allergy Unknown Rash/Hives Verified 11/23/19 04:25 Vital Signs Temp 98.6 F 11/23/19 03:47 Pulse 77 11/23/19 03:30 Resp 18 11/23/19 03:47 BP 150/101 11/23/19 03:47 Pulse Ox 98 11/23/19 03:47 Intake & Output 11/22/19 11/23/19 11/23/19 18:59 06:59 18:59 Weight 98.293 kg Laboratory Last Values WBC 9.2 k/uL (3.8-10.6) 11/23/19 01:34 RBC 5.14 m/uL (4.30-5.90) 11/23/19 01:34 Hgb 16.2 gm/dL (13.0-17.5) 11/23/19 01:34 Hct 50.4 % (39.0-53.0) 11/23/19 01:34 MCV 98.0 fL (80.0-100.0) 11/23/19 01:34 MCH 31.6 pg (25.0-35.0) 11/23/19 01:34 MCHC 32.2 g/dL (31.0-37.0) 11/23/19 01:34 RDW 12.1 % (11.5-15.5) 11/23/19 01:34 Plt Count 278 k/uL (150-450) 11/23/19 01:34 Neutrophils % 80 % 11/23/19 01:34 Lymphocytes % 14 % 11/23/19 01:34 Monocytes % 4 % 11/23/19 01:34 Eosinophils % 2 % 11/23/19 01:34 Basophils % 1 % 11/23/19 01:34 Neutrophils # 7.3 k/uL (1.3-7.7) 11/23/19 01:34 Lymphocytes # 1.3 k/uL (1.0-4.8) 11/23/19 01:34 Monocytes # 0.3 k/uL (0-1.0) 11/23/19 01:34 Eosinophils # 0.1 k/uL (0-0.7) 11/23/19 01:34 Basophils # 0.1 k/uL (0-0.2) 11/23/19 01:34 Sodium 137 mmol/L (137-145) 11/23/19 01:34 Potassium 4.1 mmol/L (3.5-5.1) 11/23/19 01:34 Chloride 106 mmol/L (98-107) 11/23/19 01:34 Carbon Dioxide 19 mmol/L (22-30) L 11/23/19 01:34 Anion Gap 12 mmol/L 11/23/19 01:34 BUN 8 mg/dL (9-20) L 11/23/19 01:34 Creatinine 0.63 mg/dL (0.66-1.25) L 11/23/19 01:34 Est GFR (CKD-EPI)AfAm >90 (>60 ml/min/1.73 sqM) 11/23/19 01:34 Est GFR (CKD-EPI)NonAf >90 (>60 ml/min/1.73 sqM) 11/23/19 01:34 Glucose 106 mg/dL (74-99) H 11/23/19 01:34 Calcium 10.1 mg/dL (8.4-10.2) 11/23/19 01:34 Total Bilirubin 0.8 mg/dL (0.2-1.3) 11/23/19 07:13 Conjugated Bilirubin 0.0 mg/dL (0.0-0.3) 11/23/19 07:13 Unconjugated Bilirubin 0.8 mg/dL (0.0-1.1) 11/23/19 07:13 Delta Bilirubin 0.0 mg/dL (0.0-0.2) 11/23/19 07:13 AST 112 U/L (17-59) H 11/23/19 07:13 ALT 187 U/L (4-49) H 11/23/19 07:13 Alkaline Phosphatase 72 U/L (38-126) 11/23/19 07:13 Total Protein 7.4 g/dL (6.3-8.2) 11/23/19 07:13 Albumin 4.6 g/dL (3.5-5.0) 11/23/19 07:13 Triglycerides 60 mg/dL (<150) 11/23/19 07:13 Cholesterol 247 mg/dL (<200) H 11/23/19 07:13 LDL Cholesterol, Calc 92 mg/dL (0-99) 11/23/19 07:13 HDL Cholesterol 143 mg/dL (40-60) H 11/23/19 07:13 TSH 3.690 mIU/L (0.465-4.680) 11/23/19 07:13 Urine Color Colorless 11/22/19 22:50 Urine Appearance Clear (Clear) 11/22/19 22:50 Urine pH 5.5 (5.0-8.0) 11/22/19 22:50 Ur Specific [place] 1.004 (1.001-1.035) 11/22/19 22:50 Urine Protein Negative (Negative) 11/22/19 22:50 Urine Glucose (UA) Negative (Negative) 11/22/19 22:50 Urine Ketones Negative (Negative) 11/22/19 22:50 Urine Blood Negative (Negative) 11/22/19 22:50 Urine Nitrite Negative (Negative) 11/22/19 22:50 Urine Bilirubin Negative (Negative) 11/22/19 22:50 Urine Urobilinogen <2.0 mg/dL (<2.0) 11/22/19 22:50 Ur Leukocyte Esterase Negative (Negative) 11/22/19 22:50 Urine Opiates Screen Not Detected (NotDetected) 11/22/19 22:50 Ur Oxycodone Screen Not Detected (NotDetected) 11/22/19 22:50 Urine Methadone Screen Not Detected (NotDetected) 11/22/19 22:50 Ur Propoxyphene Screen Not Detected (NotDetected) 11/22/19 22:50 Ur Barbiturates Screen Not Detected (NotDetected) 11/22/19 22:50 U Tricyclic Antidepress Not Detected (NotDetected) 11/22/19 22:50 Ur Phencyclidine Scrn Not Detected (NotDetected) 11/22/19 22:50 Ur Amphetamines Screen Not Detected (NotDetected) 11/22/19 22:50 U Methamphetamines Scrn Not Detected (NotDetected) 11/22/19 22:50 U Benzodiazepines Scrn Not Detected (NotDetected) 11/22/19 22:50 Urine Cocaine Screen Not Detected (NotDetected) 11/22/19 22:50 U Marijuana (THC) Screen Not Detected (NotDetected) 11/22/19 22:50 11/23/19 10:35 IDENTIFYING DATA: Patient is a 29-year-old male who has a history of bipolar disorder, BPD and chronic polysubstance abuse who currently lives with his grandparents is and 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 HPI: Patient presented to the hospital yesterday with complaints of suicidal thoughts depression for the past few weeks. Patient apparently had a plan to overdose on medications and claims that he's been drinking daily and abusing benzodiazepines as per ER report. Patient also spoke about burning himself and is growing as a form of self-harm. Patient had a negative UDS and liver function tests were elevated prior to admission to the mental health unit. Patient was agreeable to speak with sql report writer in the office today and appeared to have a expansive affect and was somewhat irritable and hyperverbal during conversation. He states that he relapsed on drinking in August 2019 and states that he was drinking up to a 12 pack of beer or a half gallon of liquor daily. He states that the main trigger was due to the virus pandemic as he was fu rloughed as a toll service observer and was not working. He claims that he tried to follow-up at [facility] however states that he didn't like their advice to help him with detox and attempted to search for other ways to detox himself off of alcohol and began abusing benzodiazepines and buying them off the street. He states that he has been trying to get sober since then and has been impulsive and labile and having "long bouts of susannah" where he describes spending a lot of money on Botox and juvederm. He claims that his sleep is poor approximately 2 hours a night and states that he would wake up crying at times. He states that his mood is "all over the place". At this time he denies any suicidal or homicidal ideations intent or plan and denies any auditory or visual hallucinations. He does not endorse any paranoia. He states that he is drinking alcohol as noted above, smoking marijuana occasionally and abusing Ativan, Klonopin and Xanax off the street almost daily. He states that he smokes cigarettes daily. PAST PSYCHIATRIC HISTORY: Patient states that he states that he's been diagnosed with borderline and bipolar disorder. Patient has had multiple hospitalizations in the past and was last admitted to the mental health unit in 03/2019. He states that he was supposed to follow-up with [facility] however did not go to his appointments. Patient has been on several different mood stabilizing medic ations in the past and has been off of his medications for several weeks now. Patient admitted to overdosing and other suicide attempts approximately 2-3 times in the past. PMH: Asthma, eczema and GERD ALLERGIES: as per EMR CHEMICAL DEPENDENCY HISTORY: as per HPI FAMILY PSYCHIATRIC/SUBSTANCE USE HISTORY: He states that his mother had schizophrenia and his father suffer from depression SOCIAL HISTORY: Claims that he was born and raised in [facility] and was raised by his grandparents. He states that his mom could not care for him. He claims that he did finish high school and did some college. 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 MENTAL STATUS EXAM: General Appearance: Patient appears to be stated age is alert, directable and attempts to be cooperative. Patient appears anxious, poor hygiene and poor grooming. Behavior: Patient is seated however appears to be restless and anxious. Her level at times. Speech: Patient's speech is fluent and nonpressured. Mood/Affect: Patient reports their mood is "all over the place", affect is congruent and labile Suicidality/Homicidality: Patient denies having any suicidal or homicidal ideation intent or plan. Perceptions: Patient denies any auditory or visual hallucinations. Though content/process: There is no evidence of any delusional thought content and thought process is linear and goal-directed. Memory and concentration: AOX3, grossly intact for the purposes of this session. Can spell "WORLD" backwards Judgment and insight: Poor STRENGTHS/WEAKNESSES: strength is that patient has a job and stable housing. Weaknesses that patient has poor insight is impulsive INTELLECT: average IMPRESSIONS: Bipolar disorder, mixed features Borderline personality disorder Alcohol use disorder moderate-severe, currently in withdrawal Cannabis use disorder Benzodiazepine abuse Nicotine dependence PLAN: -Patient is admitted under involuntary status to [facility]HU for stabilization of psychiatric symptoms and safety. A second certification was completed and along with petition will be filed for court. -Medications : Will start patient on Librium taper 20 mg 3 times a day for alcohol withdrawal and plan to titrate down. Patient was agreeable to take trazodone 100 mg daily at bedtime for insomnia/mood, this can be titrated up as needed over the weekend. Patient also agreeable to start lithium 450 mg daily with plan to titrate up as needed for mood stabilization. Wellbutrin 150 mg daily for mood. -Ativan and Geodon PRN for agitation/aggression -Started thiamine, MVM for etoh use -CIWA protocol with Ativan PRN for ETOH withdrawal -Patient was counselled on substance abuse and desired to cut back on use. Patient states that he is considering inpatient rehab at this time -Patient was informed of the risks, benefits and side effects of the medication and patient verbally consented to taking the medications. Patient signed med consent form and was placed in chart. -Internal Medicine consult to perform medical evaluation and physical. -NRT - nicotine patch -SW on board for discharge planning. Encourage patient to participate in groups to work on coping skills. farmworker bulbs to give patient number for inpatient rehab. 11/23/19 11:42
[2019-11-23] MEDS: LITHIUM CARBONATE ER 450 MG TABLET.ER PO SCH (12:32)
[2019-11-23] MEDS: FOLIC ACID 1 MG TAB PO SCH (12:32)
[2019-11-23] MEDS: THIAMINE 100 MG TAB PO SCH (12:33)
[2019-11-23] MEDS: MULTIVITAMINS, THERA 1 EACH TAB PO SCH (12:33)
--- NOTE | 2019-11-23 14:23 | P.HPMEDMHU ---
History of Present Illness H&P Date: 11/23/19 Chief Complaint: depression Patient is a 29 yo CM with eczema, tobacco abuse, and GERD who was admitted to the [facility] for depression. Patient seen and examined at bedside. He c/o worsening of his eczema. itching and stuffy nose sine admission. No other complaints at this time and has been eating and drinking normally. He reports that he has been drinking up to 0.5 L of alcohol daily and has been having to drink to treat withdrawal symptoms. Review of Systems All systems: negative Ears, nose, mouth and throat: Reports nasal congestion, Reports sinus pressure Past Medical History Past Medical History: Asthma, GERD/Reflux, Pneumonia, Skin Disorder Additional Past Medical History / Comment(s): Other HX: Eczema, hayfever, left cornea ulcer healed, gastric ulcer, dailysis X 1 due to overdose no hx of kidney failure History of Any Multi-Drug Resistant Organisms: None Reported Additional Past Surgical History / Comment(s): EGD, corneal biopsy left - Past Anesthesia/Blood Transfusion Reactions: No Reported Reaction Past Psychological History: Anxiety, Bipolar, Depression Additional Psychological History / Comment(s): Borderline personality disorder and was told yesterday that he has schizotypal which he states then made him start thinking about suicide. He is seen by Dr. Zarco and therapist Brock Gurrola. He lives with his grandparents. He is normally independent. He drives. Smoking Status: Current every day smoker Past Alcohol Use History: Occasional Additional Past Alcohol Use History / Comment(s): Most recent drink was 5 days ago where he decided to quit "cold turkey" Past Drug Use History: Cocaine, Heroin, Marijuana Additional Drug Use History / Comment(s): hx of marajuana, heroin, and cocaine Additional History: Smokes 1 pack daily, ETOH daily from up to 1/2 gallon of hard alcohol daily, - Past Family History Father Additional Family Medical History / Comment(s): Father is alive at age 49 with history of alcoholism and drug addiction. Patient does not have any relationsh ip with him. grandfather diabetic. mom and grandfather have HTN. brother htn Mother Additional Family Medical History / Comment(s): Mother is alive at age 44. She has history of coronary artery disease with previous MO, bipolar disorder and borderline personality. Patient has no contact with his mother. Brother(s) Additional Family Medical History / Comment(s): Patient has 1 brother that is 21 years old and one sister 23 years old both have anxiety. Patient does not have any children. Medications and Allergies Home Medications Medication Instructions Recorded Confirmed Type Albuterol Inhaler (Mhu) [Ventolin 2 puff INHALATION RT-Q4H PRN 01/26/19 11/23/19 History Hfa Inhaler (Mhu)] Cetirizine HCl [Zyrtec] 10 mg PO DAILY 03/13/19 11/23/19 History Famotidine [Pepcid] 40 mg PO DAILY tab 03/21/19 11/23/19 Rx Folic Acid 1 mg PO DAILY tab 03/21/19 11/23/19 Rx Beatty Carbonate 300 mg PO DAILY 28 Days cap 03/21/19 11/23/19 Rx Beatty Carbonate 600 mg PO HS 28 Days capsule 03/21/19 11/23/19 Rx Multivitamins, Thera [Multivitamin 1 each PO DAILY tab 03/21/19 11/23/19 Rx (formulary)] Naltrexone HCl [Revia] 50 mg PO DAILY 28 Days tab 03/21/19 11/23/19 Rx Nicotine 21Mg/24Hr Patch [Habitrol] 1 patch TRANSDERM DAILY 14 Days 03/21/19 11/23/19 Rx patch QUEtiapine [SEROquel] 200 mg PO HS 28 Days tab 03/21/19 11/23/19 Rx Thiamine [Vitamin B-1] 100 mg PO DAILY tab 03/21/19 11/23/19 Rx Triamcinolone 0.1% Cream [Kenalog 1 applic TOPICAL BID applic 03/21/19 11/23/19 Rx 0.1% Cream] buPROPion SR [Wellbutrin SR] 150 mg PO DAILY 28 Days tablet.er 03/21/19 11/23/19 Rx rOPINIRole HCL [Requip] 0.25 mg PO HS 28 Days tab 03/21/19 11/23/19 Rx Allergies Allergy/AdvReac Type Severity Reaction Status Date / Time lamotrigine [From Lamictal] Allergy Unknown Rash/Hives Verified 11/23/19 04:25 ziprasidone [From Geodon] Allergy Unknown Rash/Hives Verified 11/23/19 04:25 peanut Allergy Rash/Hives Verified 11/23/19 11:25 egg AdvReac Nausea & Verified 11/23/19 11:25 Vomiting & Diarrhea Physical Exam Osteopathic Statement: *. No significant issues noted on an osteopathic structural exam other than those noted in the History and Physical/Consult. Vitals: Vital Signs Temp Pulse Pulse Resp BP BP BP 11/23/19 11:30 95 20 149/93 11/23/19 03:47 98.6 F 18 150/101 11/23/19 03:30 98.3 F 77 16 167/99 11/22/19 22:38 98.4 F 98 20 156/98 Pulse Ox 11/23/19 11:30 11/23/19 03:47 98 11/23/19 03:30 99 11/22/19 22:38 97 Intake and Output 11/22/19 11/23/19 11/23/19 22:59 06:59 14:59 Other: Weight 95.254 kg 98.293 kg General: non toxic, no distress, disheveled, appears at stated age Derm: warm, dry Head: atraumatic, normocephalic, symmetric Eyes: EOMI, no lid lag, anicteric sclera, pupils equal round reactive to light ENT: Nose and ears atraumatic, no thrush, no pharyngeal erythema Neck: No thyromegaly, no cervical lymphadenopathy, trachea midline, supple Mouth: no lip lesion, mucus membranes moist Cardiovascular: S1S2 reg, no murmur, positive posterior tibial pulse bilateral, no edema, capillary refill less than 2 seconds Lungs: CTA bilateral, no rhonchi, no rales , no accessory muscle use Abdominal: soft, nontender to palpation, no guarding, no appreciable organomegally, normal bowel sounds Ext: no gross muscle atrophy, muscle strength 5 out of 5 in all 4 extremities grossly, no contractures, Neuro: CN II-XI grossly intact, light touch intact all 4 extremities Psych: Alert, oriented, normal affect Cranial Nerve Examination - Cranial Nerves Cranial Nerve II- Optic: Intact Cranial Nerve III- Oculomotor: Intact Cranial Nerve IV- Trochlear: Intact Cranial Nerve V- Trigeminal: Intact Cranial Nerve - Abducens: Intact Cranial Nerve VII- Facial: Intact Cranial Nerve VIII- Auditory: Intact Cranial Nerve IX- Glossopharyngeal: Intact Cranial Nerve X- Vagus: Intact Cranial Nerve XI- Accessory: Intact Cranial Nerve XII- Hypoglossal: Intact Results CBC & Chem 7: 11/23/19 01:34 11/23/19 01:34 Labs: Abnormal Lab Results - Last 24 Hours (Table) 11/23/19 11/23/19 Range/Units 01:34 07:13 Carbon Dioxide 19 L (22-30) mmol/L BUN 8 L (9-20) mg/dL Creatinine 0.63 L (0.66-1.25) mg/dL Glucose 106 H (74-99) mg/dL AST 112 H (17-59) U/L ALT 187 H (4-49) U/L Cholesterol 247 H (<200) mg/dL HDL Cholesterol 143 H (40-60) mg/dL Assessment and Plan Assessment: Allergic rhinitis - flonase - claritin ETOH abuse - Ativan and librium - Thiamine, folate Tobacco abuse - cessation - nicotine replacement Bipolar disorder - your psych management
[2019-11-23] MEDS ORDERED: QUEtiapine 200 MG TAB PO SCH (21:00)
[2019-11-23] MEDS: traZODone HCL 100 MG TAB PO SCH (21:14)
[2019-11-24] MEDS: LORazepam 1 MG TAB PO PRN (00:27)
[2019-11-24] MEDS: ACETAMINOPHEN TAB 325 MG TAB PO PRN ×2 (03:32→12:21)
[2019-11-24] MEDS ORDERED: LITHIUM CARBONATE ER 450 MG TABLET.ER PO SCH (09:00)
[2019-11-24] MEDS: LORATADINE 10 MG TAB PO SCH (09:17)
[2019-11-24] MEDS: LITHIUM CARBONATE ER 450 MG TABLET.ER PO SCH (09:17)
[2019-11-24] MEDS: buPROPion XL 150 MG TAB.ER.24H PO SCH (09:17)
[2019-11-24] MEDS: FOLIC ACID 1 MG TAB PO SCH (09:17)
[2019-11-24] MEDS: THIAMINE 100 MG TAB PO SCH (09:18)
[2019-11-24] MEDS: NICOTINE 21MG/24HR PATCH TRANSDERM SCH (09:18)
[2019-11-24] MEDS: MULTIVITAMINS, THERA 1 EACH TAB PO SCH (09:18)
[2019-11-24] MEDS ORDERED: FOLIC ACID 1 MG TAB PO SCH (12:00)
[2019-11-24] MEDS ORDERED: THIAMINE 100 MG TAB PO SCH (12:00)
--- NOTE | 2019-11-24 16:43 | P.PN ---
Progress Note - Text Progress Note Date: 11/24/19 Interval history: Patient reports that he didn't even sleep an hour last night. States he was just transitioned from Seroquel to trazodone starting last night. He feels like his withdrawal symptoms are doing even better and it's just very mild right now. He describes his mood is doing pretty good. Mental status exam: He is alert and cooperative with the interview. His speech is fluent, not rapid or pressured. His thought processes are organized. His mood he describes as "pretty good." He does not verbalize any thoughts of harm to self or others. No evidence of psychosis or agitation. Plan: We'll add melatonin to see if this can help with sleep at night. Maintain other current psychotropic medications. We'll continue to monitor for any medication side effects and monitor his ongoing response to treatment.
[2019-11-24] MEDS: traZODone HCL 100 MG TAB PO SCH (23:41)
[2019-11-24] MEDS: MELATONIN 3 MG TABLET PO SCH (23:41)
[2019-11-25] MEDS ORDERED: DUPILUMAB 300 MG SQ SCH ×2 (09:00)
[2019-11-25] MEDS: buPROPion XL 150 MG TAB.ER.24H PO SCH (09:21)
[2019-11-25] MEDS: NICOTINE 21MG/24HR PATCH TRANSDERM SCH (09:21)
[2019-11-25] MEDS: LITHIUM CARBONATE ER 450 MG TABLET.ER PO SCH (09:22)
[2019-11-25] MEDS: THIAMINE 100 MG TAB PO SCH (09:22)
[2019-11-25] MEDS: LORATADINE 10 MG TAB PO SCH (09:22)
[2019-11-25] MEDS: FOLIC ACID 1 MG TAB PO SCH (09:22)
[2019-11-25] MEDS: MULTIVITAMINS, THERA 1 EACH TAB PO SCH (09:22)
--- NOTE | 2019-11-25 13:15 | P.PN ---
Progress Note - Text Progress Note Date: 11/25/19 Interval history: Patient seen in [facility] [place] today. He reports that he slept about 6 hours last night which was better. He does not seem to verbalize any adverse psychotropic medication side effects. As noted today that his AST and ALT were elevated on 11/23/2019. Patient makes reference to being interested in starting back on Antabuse and naltrexone. He does describe mood improvement. Mental status exam: He is alert and cooperative with the interview. His speech is fluent, not rapid or pressured. Thought processes are organized. His mood he describes is doing better. He does not verbalize any thoughts of harm to self or others. No evidence of psychosis or agitation. Plan: Patient will be maintained on current psychotropic medication regimen. Continue to monitor for any medication side effects monitor his ongoing response to treatment. We'll recheck ALT and AST tomorrow.
[2019-11-25] MEDS: ALBUTEROL INHALER 60 PUFF/8 GM INHALER (MHU) INHALATION PRN (16:54)
[2019-11-26] MEDS: LORazepam 1 MG TAB PO PRN (00:24)
[2019-11-26] MEDS: MELATONIN 3 MG TABLET PO SCH ×2 (00:24→21:52)
[2019-11-26] MEDS: traZODone HCL 100 MG TAB PO SCH ×2 (00:24→21:52)
[2019-11-26 06:40] VITALS: RESP 16
[2019-11-26 08:47] LABS: ALT 189 U/L (4-49); AST 71 U/L (17-59)
[2019-11-26] MEDS: NICOTINE 21MG/24HR PATCH TRANSDERM SCH (08:54)
[2019-11-26] MEDS: LORATADINE 10 MG TAB PO SCH (08:55)
[2019-11-26] MEDS: THIAMINE 100 MG TAB PO SCH (08:55)
[2019-11-26] MEDS: MULTIVITAMINS, THERA 1 EACH TAB PO SCH (08:55)
[2019-11-26] MEDS: buPROPion XL 150 MG TAB.ER.24H PO SCH (08:55)
[2019-11-26] MEDS: LITHIUM CARBONATE ER 450 MG TABLET.ER PO SCH ×2 (08:55→19:59)
[2019-11-26] MEDS: FOLIC ACID 1 MG TAB PO SCH (08:55)
[2019-11-26] MEDS ORDERED: NALTREXONE HCL 50 MG TAB PO SCH (09:15)
--- NOTE | 2019-11-26 09:23 | P.PN ---
Progress Note - Text Progress Note Date: 11/26/19 Interval History: Patient was seen wandering the hallways and was directable and agreeable to elisa guerra with rfp writer in the office. Patient claims that he is still having some seasonal ALLERGIES and was requesting to be on Zyrtec however claims that is not available in the hospital. He claims that he is awaiting the Flonase that was prescribed to him. He states that he is feeling better with regards his mood and feeling less "all over the place". He was requesting to go up higher on his lithium today and also his trazodone. Patient and rfp writer also discussed his results of his hepatic function tests showing minimal improvement and the need for repeat testing tomorrow. He states that he stopped mildly better yesterday however the day before did not sleep much at all. He states that he is going to some groups and trying to participate as best as he can. He continues to decline rehab however would like to be on naltrexone and Antabuse eventually for his alcohol use disorder. At this time patient denies any suicidal or homical ideations, intent or plan. Patient denies any auditory, visual hallucinations and denies any paranoia or delusions. Patient denies any side effects from the medications and has been compliant with meds. Mental Status Exam: General Appearance: Patient appears to be stated age is alert, directable and attempts to be cooperative. Patient has improving hygiene and grooming. Behavior: Patient is seated however appears to be cooperative today. Speech: Patient's speech is fluent and nonpressured. Mood/Affect: Patient reports their mood is "a bit better", affect is congruent and labile Suicidality/Homicidality: Patient denies having any suicidal or homicidal ideation intent or plan. Perceptions: Patient denies any auditory or visual hallucinations. Though content/process: There is no evidence of any delusional thought content and thought process is linear and goal-directed. More future oriented. Memory and concentration: AOX3, grossly intact for the purposes of this session. Judgment and insight: Poor, improving mildly. Assessment Bipolar disorder, mixed features Borderline personality disorder Alcohol use disorder moderate-severe, currently in withdrawal Cannabis use disorder Benzodiazepine abuse Nicotine dependence Plan: -Patient continues to meet criteria for inpatient psychiatric admission for symptom stabilization and safety. Patient is currently under involuntary status and awaiting deferral and court date. Patient has signed a medication consent form and placed in chart. -Medications: We'll discontinue Librium at this time. Increase trazodone to 200 mg nightly for insomnia/mood. Continue with melatonin 3 mg at night for sleep. Increased lithium to 450 mg twice a day for mood stabilization. Continue with Wellbutrin 150 mg daily for mood. -CIWA protocol with Ativan PRN for ETOH withdrawal -When necessary Ativan and Geodon for agitation/aggression. -NRT - nicotine patch -SW on board for discharge planning. Encouraged the patient to participate in milieu. At this time patient is declining inpatient substance rehab and wants to go home with outpatient follow-up and a meetings in the community.
[2019-11-26] MEDS: FLUTICASONE 50MCG/SPRAY NASAL 16GM EA NOSTRIL PRN (11:18)
[2019-11-27] MEDS: NICOTINE 21MG/24HR PATCH TRANSDERM SCH (08:35)
[2019-11-27] MEDS: LORATADINE 10 MG TAB PO SCH (08:35)
[2019-11-27] MEDS: MULTIVITAMINS, THERA 1 EACH TAB PO SCH (08:36)
[2019-11-27] MEDS: LITHIUM CARBONATE ER 450 MG TABLET.ER PO SCH ×2 (08:36→21:02)
[2019-11-27] MEDS: THIAMINE 100 MG TAB PO SCH (08:36)
[2019-11-27] MEDS: FOLIC ACID 1 MG TAB PO SCH (08:36)
[2019-11-27] MEDS: buPROPion XL 150 MG TAB.ER.24H PO SCH (08:36)
[2019-11-27 09:14] LABS: Albumin 4.6 g/dL (3.5-5.0); Bilirubin, Delta 0.1 mg/dL (0.0-0.2); Bilirubin,Unconjugated 0.7 mg/dL (0.0-1.1); Total Bilirubin 0.8 mg/dL (0.2-1.3); Total Protein 7.2 g/dL (6.3-8.2)
--- NOTE | 2019-11-27 10:18 | P.PN ---
Progress Note - Text Progress Note Date: 11/27/19 Interval History: Patient was seen in group this morning and was directable and agreeable to speak with show card writer in the office. Patient claims that he is feeling better on the current medications and states that he does not have any more anxiety at this time. He spoke about his new partner who he spends most of his time with an claims that he does not drink or do any drugs at all which is a good influence on him. He states that his mood has been getting better on the current medications and was thankful for them. We reviewed patient's liver function tests which came back this morning which showed an improvement in his AST/ALT. \\He claims that he has been going to groups and trying to participate as best as he can and claims that he is getting good feedback from others. He states that he was able to sleep much better last night on the increased dose of trazodone. At this time patient denies any suicidal or homical ideations, intent or plan. Patient denies any auditory, visual hallucinations and denies any paranoia or delusions. Patient denies any side effects from the medications and has been compliant with meds. Mental Status Exam: General Appearance: Patient appears to be stated age is alert, directable and attempts to be cooperative. Patient has improving hygiene and grooming. Behavior: Patient is seated however appears to be cooperative today. Speech: Patient's speech is fluent and nonpressured. Mood/Affect: Patient reports their mood is "better", affect is congruent Suicidality/Homicidality: Patient denies having any suicidal or homicidal ideation intent or plan. Perceptions: Patient denies any auditory or visual hallucinations. Though content/process: There is no evidence of any delusional thought content and thought process is linear and goal-directed. More future oriented. Memory and concentration: AOX3, grossly intact for the purposes of this session. Judgment and insight: improving mildly. Assessment Bipolar disorder, mixed features Borderline personality disorder Alcohol use disorder moderate-severe, currently in withdrawal Cannabis use disorder Benzodiazepine abuse Nicotine dependence Plan: -Patient continues to meet criteria for inpatient psychiatric admission for symptom stabilization and safety. Patient is currently under involuntary status and awaiting deferral and court date. Patient has signed a medication consent form and placed in chart. -Medications: Continue with trazodone to 200 mg nightly for insomnia/mood. Continue with melatonin 3 mg at night for sleep. Continue with lithium to 450 mg twice a day for mood stabilization. Continue with Wellbutrin 150 mg daily for mood. -Will check lithium level tomorrow morning prior to discharge. -When necessary Jackeline and Riccardo for agitation/aggression. -NRT - nicotine patch -SW on board for discharge planning. Encouraged the patient to participate in milieu. At this time patient is declining inpatient substance rehab and wants to go home with outpatient follow-up and a meetings in the community. Likely discharge tomorrow morning after lithium level is checked.
[2019-11-27] MEDS: FLUTICASONE 50MCG/SPRAY NASAL 16GM EA NOSTRIL PRN (19:52)
[2019-11-27] MEDS: MELATONIN 3 MG TABLET PO SCH (23:03)
[2019-11-27] MEDS: traZODone HCL 100 MG TAB PO SCH (23:03)
[2019-11-28 06:51] VITALS: BP 102/60; PULSE 67; TEMP 97.7
[2019-11-28] MEDS: buPROPion XL 150 MG TAB.ER.24H PO SCH (08:23)
[2019-11-28] MEDS: LORATADINE 10 MG TAB PO SCH (08:23)
[2019-11-28] MEDS: FOLIC ACID 1 MG TAB PO SCH (08:23)
[2019-11-28] MEDS: LITHIUM CARBONATE ER 450 MG TABLET.ER PO SCH (08:23)
[2019-11-28] MEDS: MULTIVITAMINS, THERA 1 EACH TAB PO SCH (08:23)
[2019-11-28] MEDS: NICOTINE 21MG/24HR PATCH TRANSDERM SCH (08:23)
[2019-11-28] MEDS: THIAMINE 100 MG TAB PO SCH (08:24)
--- NOTE | 2019-11-28 09:25 | P.DS ---
Providers Date of admission: 11/23/19 03:19 Expected date of discharge: 11/28/19 Attending physician: Chung Norton MD Consults: 11/23/19 04:15 Consult Physician Routine Consulting Provider: Merlin Anglin Consult Reason/Comments: For H & P for Medical Follow Up Do you want consulting provider notified?: Yes Primary care physician: [facility] Diagnosis(es) (1) Bipolar disorder, curr episode mixed, severe, w/o psychotic features Current Visit: Yes Status: Acute Priority: High (2) Borderline personality disorder Current Visit: Yes Status: Acute Priority: Medium (3) Alcohol use disorder, severe, dependence Current Visit: Yes Status: Acute Priority: Medium (4) Cannabis abuse Current Visit: Yes Status: Acute Priority: Low (5) Benzodiazepine abuse Current Visit: Yes Status: Acute Priority: Medium (6) Nicotine dependence Current Visit: Yes Status: Acute Priority: Low Hospital Course: Admission HPI: Patient is a 29-year-old male who has a history of bipolar disorder, BPD and chronic polysubstance abuse who currently lives with his grandparents is and 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 Patient presented to the hospital yesterday with complaints of suicidal thoughts depression for the past few weeks. Patient apparently had a plan to overdose on medications and claims that he's been drinking daily and abusing benzodiazepines as per ER report. Patient also spoke about burning himself and is growing as a form of self-harm. Patient had a negative UDS and liver function tests were elevated prior to admission to the mental health unit. Patient was agreeable to speak with ad writer in the office today and appeared to have a expansive affect and was somewhat irritable and hyperverbal during conversation. He states that he relapsed on drinking in August 2019 and states that he was drinking up to a 12 pack of beer or a half gallon of liquor daily. 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 He claims that he tried to follow-up at [facility] however states that he didn't like their advice to help him with detox and attempted to search for other ways to detox himself off of alcohol and began abusing benzodiazepines and buying them off the street. He states that he has been trying to get sober since then and has been impulsive and labile and having "long bouts of susannah" where he describes spending a lot of money on Botox and juvederm. He claims that his sleep is poor approximately 2 hours a night and states that he would wake up crying at times. He states that his mood is "all over the place". At this time he denies any suicidal or homicidal ideations intent or plan and denies any auditory or visual hallucinations. He does not endorse any paranoia. He states that he is drinking alcohol as noted above, smoking marijuana occasionally and abusing Ativan, Klonopin and Xanax off the street almost daily. He states that he smokes cigarettes daily. Hospital course: Upon admission to the unit patient was initially exhibiting signs of susannah or anxiety and emotional lability. Patient was brought in on a petition and certification and second certification was completed by ad writer and patient ended up deferring court and agreeing to treatment. Patient got along well with other patients on the unit and followed unit protocol. Patient was compliant with the medications and denied any side effects throughout hospital course. Patient was started on trazodone and titrate up to a dose of 20 mg nightly for insomnia/mood, melatonin 3 mg nightly for sleep, lithium was increased to a dose of 450 mg twice a day for mood stabilization, Wellbutrin was continued at 150 mg daily for mood. Patient was previously on naltrexone 50 mg by mouth daily for alcohol cravings and wanted to be restarted on it. Patient was placed on a Librium taper and CIWA protocol for alcohol withdrawal. Patient spoke of his stressors and engaged in therapy both group and individual. Patient was also seen by medical team for history and physical exam. Patient initially had elevated liver functions tests which were repeated and showed steady improvem ent. Patient's lithium level on day of discharge 11/28/2019 was 0.3. Throughout the course of the hospitalization patient gradually improved with regards to mood lability, anxiety, sleep and became future oriented with improved insight and judgment. On the day of discharge patient denied any suicidal or homicidal ideations intent or plan denied any auditory or visual hallucinations. Patient endorsed wanting to live for his future and his family. The patient denied any access to guns or weapons. Patient denied any paranoia and did not endorse any delusions. Patient does have a significant history of substance abuse and was counseled on abstaining from all substances including alcohol and marijuana. Patient was offered however declined inpatient substance-abuse rehab as patient wanted to go back on naltrexone for alcohol cravings and go to AA meetings in the community and follow up with [facility]. Patient was also counseled on the medications and need for regular compliance and was encouraged to follow-up with their outpatient appointment for mental health and also for primary care. Prior to discharge a family meeting will be arranged by web content & social media manager to answer any questions and ensure safety upon discharge. Mental status exam: General Appearance: Patient appears to be stated age is alert, pleasant, and cooperative. Patient is in no acute distress and has fair hygiene and grooming Behavior: Patient is calmly seated without any agitated behavior. Cooperative. Speech: Patient's speech is fluent and nonpressured. Mood/Affect: Patient reports their mood is "much better", affect is congruent and euthymic. Suicidality/Homicidality: Patient denies having any suicidal or homicidal ideation intent or plan. Perceptions: Patient denies any auditory or visual hallucinations. Though content/process: There is no evidence of any delusional thought content and thought process is linear and goal-directed. more future oriented Memory and concentration: AOX3, grossly intact for the purposes of this session. Can spell "WORLD" backwards correctly. Judgment and insight: Improved with guarded prognosis Impression: Bipolar disorder, mixed episode without psychotic features Borderline personality disorder Alcohol use disorder, severe dependence Cannabis abuse Benzodiazepine abuse Nicotine dependence Plan: -Continue with discharge today as patient has improved and stabilized psychiatrically and is not currently an imminent threat to himself and/or others. Due to patient's impulsivity, and polysubstance abuse patient will remain a high risk for potential self-harm or harm to others chronically. -Continue medications: Continue with lithium 450 mg twice a day for mood stabilization, naltrexone 50 mg daily for alcohol cravings, trazodone 200 mg nightly for insomnia/mood, melatonin 3 mg nightly for sleep, Wellbutrin 150 mg daily for mood. -Patient to follow-up with [facility] for a repeat lithium level in 1-2 weeks and also repeat liver functions tests in 1 to 2 weeks as an outpatient. -Patient was counseled on the need for medication compliance and appropriate follow-up at mental health and also primary care for medical issues. Patient verbalized understanding and agreed. -Social work to arrange for and conduct family meeting to ensure safety upon discharge and answer any questions/concerns. Social work also to arrange for patients follow up appointments with [facility] for psychiatric care along with follow up with primary care provider. -Patient counseled on abstaining from recreational drugs and marijuana and alcohol. Was informed/educated on the adverse effects on their physical and mental health. Patient verbally agreed and understood. Patient was offered substance abuse treatment however declined at this time. -Patient was instructed to return to the hospital or seek immediate medical care if their psychiatric or medical symptoms do worsen or reoccur. Allergies Allergy/AdvReac Type Severity Reaction Status Date / Time lamotrigine [From Lamictal] Allergy Unknown Rash/Hives Verified 11/23/19 04:25 ziprasidone [From Geodon] Allergy Unknown Rash/Hives Verified 11/23/19 04:25 peanut Allergy Rash/Hives Verified 11/23/19 11:25 egg AdvReac Nausea & Verified 11/23/19 11:25 Vomiting & Diarrhea Laboratory Results WBC 9.2 k/uL (3.8-10.6) 11/23/19 01:34 RBC 5.14 m/uL (4.30-5.90) 11/23/19 01:34 Hgb 16.2 gm/dL (13.0-17.5) 11/23/19 01:34 Hct 50.4 % (39.0-53.0) 11/23/19 01:34 MCV 98.0 fL (80.0-100.0) 11/23/19 01:34 MCH 31.6 pg (25.0-35.0) 11/23/19 01:34 MCHC 32.2 g/dL (31.0-37.0) 11/23/19 01:34 RDW 12.1 % (11.5-15.5) 11/23/19 01:34 Plt Count 278 k/uL (150-450) 11/23/19 01:34 Neutrophils % 80 % 11/23/19 01:34 Lymphocytes % 14 % 11/23/19 01:34 Monocytes % 4 % 11/23/19 01:34 Eosinophils % 2 % 11/23/19 01:34 Basophils % 1 % 11/23/19 01:34 Neutrophils # 7.3 k/uL (1.3-7.7) 11/23/19 01:34 Lymphocytes # 1.3 k/uL (1.0-4.8) 11/23/19 01:34 Monocytes # 0.3 k/uL (0-1.0) 11/23/19 01:34 Eosinophils # 0.1 k/uL (0-0.7) 11/23/19 01:34 Basophils # 0.1 k/uL (0-0.2) 11/23/19 01:34 Sodium 137 mmol/L (137-145) 11/23/19 01:34 Potassium 4.1 mmol/L (3.5-5.1) 11/23/19 01:34 Chloride 106 mmol/L (98-107) 11/23/19 01:34 Carbon Dioxide 19 mmol/L (22-30) L 11/23/19 01:34 Anion Gap 12 mmol/L 11/23/19 01:34 BUN 8 mg/dL (9-20) L 11/23/19 01:34 Creatinine 0.63 mg/dL (0.66-1.25) L 11/23/19 01:34 Est GFR (CKD-EPI)AfAm >90 (>60 ml/min/1.73 sqM) 11/23/19 01:34 Est GFR (CKD-EPI)NonAf >90 (>60 ml/min/1.73 sqM) 11/23/19 01:34 Glucose 106 mg/dL (74-99) H 11/23/19 01:[address] Glu mg/dL 100 11/23/19 07:13 Hemoglobin A1c 5.1 % (4.0-6.0) 11/23/19 07:13 Calcium 10.1 mg/dL (8.4-10.2) 11/23/19 01:34 Total Bilirubin 0.8 mg/dL (0.2-1.3) 11/27/19 08:33 Conjugated Bilirubin 0.0 mg/dL (0.0-0.3) 11/27/19 08:33 Unconjugated Bilirubin 0.7 mg/dL (0.0-1.1) 11/27/19 08:33 Delta Bilirubin 0.1 mg/dL (0.0-0.2) 11/27/19 08:33 AST 47 U/L (17-59) 11/27/19 08:33 ALT 145 U/L (4-49) H 11/27/19 08:33 Alkaline Phosphatase 63 U/L (38-126) 11/27/19 08:33 Total Protein 7.2 g/dL (6.3-8.2) 11/27/19 08:33 Albumin 4.6 g/dL (3.5-5.0) 11/27/19 08:33 Triglycerides 60 mg/dL (<150) 11/23/19 07:13 Cholesterol 247 mg/dL (<200) H 11/23/19 07:13 LDL Cholesterol, Calc 92 mg/dL (0-99) 11/23/19 07:13 HDL Cholesterol 143 mg/dL (40-60) H 11/23/19 07:13 Vitamin D 25-Hydroxy 13.7 ng/mL (30.0-100.0) L 11/23/19 07:13 TSH 3.690 mIU/L (0.465-4.680) 11/23/19 07:13 Urine Color Colorless 11/22/19 22:50 Urine Appearance Clear (Clear) 11/22/19 22:50 Urine pH 5.5 (5.0-8.0) 11/22/19 22:50 Ur Specific Girard 1.004 (1.001-1.035) 11/22/19 22:50 Urine Protein Negative (Negative) 11/22/19 22:50 Urine Glucose (UA) Negative (Negative) 11/22/19 22:50 Urine Ketones Negative (Negative) 11/22/19 22:50 Urine Blood Negative (Negative) 11/22/19 22:50 Urine Nitrite Negative (Negative) 11/22/19 22:50 Urine Bilirubin Negative (Negative) 11/22/19 22:50 Urine Urobilinogen <2.0 mg/dL (<2.0) 11/22/19 22:50 Ur Leukocyte Esterase Negative (Negative) 11/22/19 22:50 Urine Opiates Screen Not Detected (NotDetected) 11/22/19 22:50 Ur Oxycodone Screen Not Detected (NotDetected) 11/22/19 22:50 Urine Methadone Screen Not Detected (NotDetected) 11/22/19 22:50 Ur Propoxyphene Screen Not Detected (NotDetected) 11/22/19 22:50 Ur Barbiturates Screen Not Detected (NotDetected) 11/22/19 22:50 U Tricyclic Antidepress Not Detected (NotDetected) 11/22/19 22:50 Ur Phencyclidine Scrn Not Detected (NotDetected) 11/22/19 22:50 Ur Amphetamines Screen Not Detected (NotDetected) 11/22/19 22:50 U Methamphetamines Scrn Not Detected (NotDetected) 11/22/19 22:50 U Benzodiazepines Scrn Not Detected (NotDetected) 11/22/19 22:50 Urine Cocaine Screen Not Detected (NotDetected) 11/22/19 22:50 U Marijuana (THC) Screen Not Detected (NotDetected) 11/22/19 22:50 Vital Signs Temp 97.7 F 11/28/19 06:24 Pulse 67 11/28/19 06:24 Resp 16 11/28/19 06:24 BP 102/60 11/28/19 06:24 Pulse Ox 97 11/26/19 15:53 Patient Condition at Discharge: Stable Plan - Discharge Summary New Discharge Prescriptions: New Fluticasone Nasal [place] [Flonase Nasal [place]] 2 spray EA NOSTRIL DAILY PRN 30 Days spr PRN Reason: Allergy Symptoms Folic Acid 1 mg PO DAILY 30 Days tab Nicotine 21Mg/24Hr Patch [Habitrol] 1 patch TRANSDERM DAILY 14 Days patch Melatonin 3 mg PO HS 30 Days tablet Multivitamins, Thera [Multivitamin (formulary)] 1 each PO DAILY 30 Days tab traZODone HCL 200 mg PO HS 30 Days tab Acetaminophen Tab [Tylenol] 650 mg PO Q4HR PRN tab PRN Reason: Pain/Discomfort buPROPion XL [Wellbutrin XL] 150 mg PO DAILY 30 Days tab.er.24h [place] Carbonate ER [Lithobid] 450 mg PO BID 30 Days tablet.er Continue Albuterol Inhaler (Mhu) [Ventolin Hfa Inhaler (Mhu)] 2 puff INHALATION RT-Q4H PRN PRN Reason: Shortness Of Breath Cetirizine HCl [Zyrtec] 10 mg PO DAILY Dupilumab [Dupixent] Naltrexone HCl [Revia] 50 mg PO DAILY 30 Days tab Thiamine [Vitamin B-1] 100 mg PO DAILY 30 Days tab Discontinued Folic Acid 1 mg PO DAILY tab Nicotine 21Mg/24Hr Patch [Habitrol] 1 patch TRANSDERM DAILY 14 Days patch Triamcinolone 0.1% Cream [Kenalog 0.1% Cream] 1 applic TOPICAL BID applic [place] Carbonate 300 mg PO DAILY 28 Days cap [place] Carbonate 600 mg PO HS 28 Days capsule Multivitamins, Thera [Multivitamin (formulary)] 1 each PO DAILY tab Famotidine [Pepcid] 40 mg PO DAILY tab rOPINIRole HCL [Requip] 0.25 mg PO HS 28 Days tab QUEtiapine [SEROquel] 200 mg PO HS 28 Days tab buPROPion SR [Wellbutrin SR] 150 mg PO DAILY 28 Days tablet.er Discharge Medication List Albuterol Inhaler (Mhu) [Ventolin Hfa Inhaler (u)] 2 puff INHALATION RT-Q4H PRN 01/26/19 [History] Cetirizine HCl [Zyrtec] 10 mg PO DAILY 03/13/19 [History] Dupilumab [Dupixent] 11/24/19 [History] Acetaminophen Tab [Tylenol] 650 mg PO Q4HR PRN tab 11/28/19 [Rx] Fluticasone Nasal [place] [Flonase Nasal [place]] 2 spray EA NOSTRIL DAILY PRN 30 Days spr 11/28/19 [Rx] Folic Acid 1 mg PO DAILY 30 Days tab 11/28/19 [Rx] [place] Carbonate ER [Lithobid] 450 mg PO BID 30 Days tablet.er 11/28/19 [Rx] Melatonin 3 mg PO HS 30 Days tablet 11/28/19 [Rx] Multivitamins, Thera [Multivitamin (formulary)] 1 each PO DAILY 30 Days tab 11/28/19 [Rx] Naltrexone HCl [Revia] 50 mg PO DAILY 30 Days tab 11/28/19 [Rx] Nicotine 21Mg/24Hr Patch [Habitrol] 1 patch TRANSDERM DAILY 14 Days patch 11/28/19 [Rx] Thiamine [Vitamin B-1] 100 mg PO DAILY 30 Days tab 11/28/19 [Rx] buPROPion XL [Wellbutrin XL] 150 mg PO DAILY 30 Days tab.er.24h 11/28/19 [Rx] traZODone HCL 200 mg PO HS 30 Days tab 11/28/19 [Rx] Follow up Appointment(s)/Referral(s): [facility] [Outside] - 11/30/19 9:00 am (w/ [place] by phone ) [facility] [Primary Care Provider] - 1-2 days Patient Instructions/Handouts: Mood Disorders (DC), Help Prevent Suicide (DC) Activity/Diet/Wound Care/Special Instructions: Activity and diet as tolerated. Avoid the use of street drugs and alcohol. Take all medications as prescribed. When you are in need of refills on your medications please contact your medical provider and/or outpatient psychiatrist to have this done. Please go to scheduled outpatient appointment for aftercare treatment. If symptoms return or become worse, call the crisis line at and/or go to the nearest emergency room for evaluation. Discharge Disposition: HOME SELF-CARE
== END 2019-11-28 12:31 | disposition home or self-care (01) | DRG 885 ==
LOC: EC 22:35 → 3MHU 11-23 03:19
PROVIDERS: ADMIT Psychiatry & Neurology Psychiatry; ATTEND Psychiatry & Neurology Psychiatry
DX: F31.63 Bipolar disorder, current episode mixed, severe, without psychotic features (principal); R45.851 Suicidal ideations; F10.239 Alcohol dependence with withdrawal, unspecified; F41.9 Anxiety disorder, unspecified; F60.3 Borderline personality disorder; G47.00 Insomnia, unspecified; J45.909 Unspecified asthma, uncomplicated; F12.10 Cannabis abuse, uncomplicated; F13.10 Sedative, hypnotic or anxiolytic abuse, uncomplicated; F17.210 Nicotine dependence, cigarettes, uncomplicated; Y90.2 Blood alcohol level of 40-59 mg/100 ml; Z79.899 Other long term (current) drug therapy; Z81.3 Family history of other psychoactive substance abuse and dependence; Z81.8 Family history of other mental and behavioral disorders; Z82.49 Family history of ischemic heart disease and other diseases of the circulatory system; Z87.11 Personal history of peptic ulcer disease; F11.11 Opioid abuse, in remission; F14.11 Cocaine abuse, in remission; L30.9 Dermatitis, unspecified; Z87.01 Personal history of pneumonia (recurrent); Z81.1 Family history of alcohol abuse and dependence; Z83.3 Family history of diabetes mellitus; Z88.8 Allergy status to other drugs, medicaments and biological substances; Z91.012 Allergy to eggs; Z91.010 Allergy to peanuts
CPT/HCPCS: 36415; 80048; 80061; 80076; 80178; 80306; 81003; 82075; 82306; 83036; 84443; 84450; 84460; 85025; 99285

== ENCOUNTER 2020-02-09 16:12 | Emergency (ER) | payer OTHER ==
[2020-02-09 16:20] VITALS: BP 168/95; PULSE 64; RESP 18; TEMP 98.5
--- NOTE | 2020-02-09 16:48 | ED ---
URI HPI - General Chief Complaint: Upper Respiratory Infection Stated Complaint: SOB Time Seen by Provider: 02/09/20 16:15 Source: patient Mode of arrival: ambulatory Limitations: no limitations - History of Present Illness Initial Comments: Patient is a 29-year-old male with past medical history of asthma who presents emergency Department with reported cough, shortness of breath and sore throat for the past day. Patient states he's been using his inhaler as directed and reports he is kept his symptoms under control however he followed up at 2 of his coworkers tested positive for Covid and therefore he wanted to be safe and be tested. He denies any fevers. No nausea or vomiting. Denies any chest pain. No abdominal pain. No changes in his bowel or bladder habits. Has never been on life support for his breathing. Patient recently finished a steroid taper. 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 - Related Data Home Medications Medication Instructions Recorded Confirmed Albuterol Inhaler (Mhu) [Ventolin 2 puff INHALATION RT-Q4H PRN 01/26/19 11/23/19 Hfa Inhaler (Mhu)] Cetirizine HCl [Zyrtec] 10 mg PO DAILY 03/13/19 11/23/19 Dupilumab [Dupixent Syringe] 11/24/19 Previous Rx's Medication Instructions Recorded Acetaminophen Tab [Tylenol] 650 mg PO Q4HR PRN tab 11/28/19 Fluticasone Nasal [place] [Flonase 2 spray EA NOSTRIL DAILY PRN 30 11/28/19 Nasal [place]] Days spr Folic Acid 1 mg PO DAILY 30 Days tab 11/28/19 [place] Carbonate ER [Lithobid] 450 mg PO BID 30 Days tablet.er 11/28/19 Melatonin 3 mg PO HS 30 Days tablet 11/28/19 Multivitamins, Thera [Multivitamin 1 each PO DAILY 30 Days tab 11/28/19 (formulary)] Naltrexone HCl [Revia] 50 mg PO DAILY 30 Days tab 11/28/19 Nicotine 21Mg/24Hr Patch [Habitrol] 1 patch TRANSDERM DAILY 14 Days 11/28/19 patch Thiamine [Vitamin B-1] 100 mg PO DAILY 30 Days tab 11/28/19 buPROPion XL [Wellbutrin XL] 150 mg PO DAILY 30 Days tab.er.24h 11/28/19 traZODone HCL 200 mg PO HS 30 Days tab 11/28/19 Allergies Allergy/AdvReac Type Severity Reaction Status Date / Time lamotrigine [From Lamictal] Allergy Unknown Rash/Hives Verified 02/09/20 16:17 ziprasidone [From Geodon] Allergy Unknown Rash/Hives Verified 02/09/20 16:17 peanut Allergy Rash/Hives Verified 02/09/20 16:17 egg AdvReac Nausea & Verified 02/09/20 16:17 Vomiting & Diarrhea Review of Systems ROS Statement: Those systems with pertinent positive or pertinent negative responses have been documented in the HPI. ROS Other: All systems not noted in ROS Statement are negative. Past Medical History Past Medical History: Asthma, Dialysis, GERD/Reflux, Pneumonia, Skin Disorder Additional Past Medical History / Comment(s): Other HX: Eczema, hayfever, left cornea ulcer healed, gastric ulcer History of Any Multi-Drug Resistant Organisms: None Reported Additional Past Surgical History / Comment(s): EGD, corneal biopsy left - Past Anesthesia/Blood Transfusion Reactions: No Reported Reaction Past Psychological History: Anxiety, Bipolar, Depression Smoking Status: Current every day smoker Past Alcohol Use History: None Reported Past Drug Use History: None Reported, Cocaine, Heroin, Marijuana - Past Family History Father Additional Family Medical History / Comment(s): Father is alive at age 49 with history of alcoholism and drug addiction. Patient does not have any relationship with him. grandfather diabetic. mom and grandfather have HTN. brother htn Mother Additional Family Medical History / Comment(s): Mother is alive at age 44. She has history of coronary artery disease with previous HI, bipolar disorder and borderline personality. Patient has no contact with his mother. Brother(s) Additional Family Medical History / Comment(s): Patient has 1 brother that is 21 years old and one sister 23 years old both have anxiety. Patient does not have any children. General Exam Limitations: no limitations General appearance: alert, in no apparent distress Head exam: Present: atraumatic, normocephalic, normal inspection Eye exam: Present: normal appearance, PERRL, EOMI. Absent: scleral icterus, conjunctival injection, periorbital swelling ENT exam: Present: normal exam, mucous membranes moist Neck exam: Present: normal inspection. Absent: tenderness, meningismus, lymphadenopathy Respiratory exam: Present: wheezes (mild wheeze at the apex of both lungs). Absent: respiratory distress, rales, rhonchi, stridor Cardiovascular Exam: Present: regular rate, normal rhythm, normal heart sounds. Absent: systolic murmur, diastolic murmur, rubs, gallop, clicks GI/Abdominal exam: Present: soft, normal bowel sounds. Absent: distended, tenderness, guarding, rebound, rigid Extremities exam: Present: normal inspection, full ROM, normal capillary refill. Absent: tenderness, pedal edema, joint swelling, calf tenderness Back exam: Present: normal inspection Neurological exam: Present: alert, oriented X3, CN II-XII intact Psychiatric exam: Present: normal affect, normal mood Skin exam: Present: warm, dry, intact, normal color. Absent: rash Course Vital Signs 02/09/20 16:17 Temperature 98.5 F Pulse Rate 64 Respiratory 18 Rate Blood Pressure 168/95 O2 Sat by Pulse 98 Oximetry Medical Decision Making - Medical Decision Making Upon arrival patient is placed into room 24. Thorough history and physical exam was performed. patient does have some mild wheezing in his lung. I did recommend a chest x-ray however patient refused. Patient is only requesting a Covid test. Swab was performed. I did recommend patient quarentine until his test results come back. Keep using his inhaler. Follow-up with his doctor within 2-4 days. Return him for any new or worsening symptoms. Patient agreed and was discharged home in stable condition - Lab Data Lab Results 02/09/20 Range/Units 16:46 Coronavirus (PCR) Not Detected (Not Detected) Disposition Clinical Impression: Cough Disposition: HOME SELF-CARE Condition: Stable Instructions (If sedation given, give patient instructions): Upper Respiratory Infection (ED) Additional Instructions: Please quarantine until the results of your Covid come back. Return to the ER for any new or worsening symptoms Is patient prescribed a controlled substance at d/c from ED?: No Referrals: [facility] [Primary Care Provider] - 1-2 days Time of Disposition: 16:48
== END 2020-02-09 16:57 | disposition home or self-care (01) ==
LOC: EC 16:12
DX: R05 Cough (principal); R06.2 Wheezing; R06.02 Shortness of breath; F17.200 Nicotine dependence, unspecified, uncomplicated; Z20.828 Contact with and (suspected) exposure to other viral communicable diseases; Z79.51 Long term (current) use of inhaled steroids; Z88.8 Allergy status to other drugs, medicaments and biological substances; Z91.010 Allergy to peanuts; Z91.012 Allergy to eggs; Z87.09 Personal history of other diseases of the respiratory system
CPT/HCPCS: 99284; U0003

== ENCOUNTER → 2021-09-02 | Outpatient (CLI) | payer OTHER ==
--- NOTE | 2021-09-03 08:56 | US ---
EXAMINATION TYPE: US venous doppler duplex UE BI DATE OF EXAM: 09/02/2021 COMPARISON: NONE CLINICAL HISTORY: 30-year-old male M79.629 PAIN IN UPPER ARM. Bilateral pain for the past 2-3 weeks SIDE PERFORMED: Bilateral arms TECHNIQUE: Grayscale, color doppler, spectral doppler imaging performed of the deep veins of the upp er extremities. FINDINGS: There is normal flow, compressibility and vascular waveforms. Right Arm: Negative for DVT Left Arm: Negative for DVT IMPRESSION: No evidence for DVT within the bilateral upper extremities.
== END | disposition home or self-care (01) ==
LOC: RADUSWWP 15:35
PROVIDERS: ATTEND Family Medicine
DX: M79.629 Pain in unspecified upper arm (principal)
CPT/HCPCS: 93970

== ENCOUNTER 2022-10-31 19:22 | Inpatient (IN) | payer MEDICAID, OTHER ==
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
[2022-10-31 20:33] LABS: Basophils % (A) 0 %; Eosinophils # (A) 0.4 k/uL (0-0.7); Eosinophils % (A) 3 %; HCT 43.9 % (39.0-53.0); HGB 14.8 gm/dL (13.0-17.5); Lymphocytes # (A) 1.3 k/uL (1.0-4.8); Lymphocytes % (A) 12 %; MCH 31.8 pg (25.0-35.0); MCHC 33.7 g/dL (31.0-37.0); MCV 94.4 fL (80.0-100.0); Monocytes # (A) 0.7 k/uL (0-1.0); Monocytes % (A) 7 %; Neutrophils # (A) 7.9 k/uL (1.3-7.7); Neutrophils % (A) 75 %; Platelet Count 234 k/uL (150-450); RBC 4.65 m/uL (4.30-5.90); RDW 12.3 % (11.5-15.5); WBC 10.5 k/uL (3.8-10.6)
[2022-10-31 20:42] LABS: ALT 23 U/L (4-49); AST 27 U/L (17-59); African American GFR (CKD) >90 (>60 ml/min/1.73 sqM); Albumin 4.1 g/dL (3.5-5.0); Alkaline Phosphatase 70 U/L (38-126); Anion Gap 10 mmol/L; Blood Urea Nitrogen 8 mg/dL (9-20); Calcium 9.3 mg/dL (8.4-10.2); Carbon Dioxide 25 mmol/L (22-30); Chloride 102 mmol/L (98-107); Glucose 96 mg/dL (74-99); Lithium 0.2 mmol/L; Non-African American GFR(CKD) >90 (>60 ml/min/1.73 sqM); Potassium 4.6 mmol/L (3.5-5.1); Sodium 137 mmol/L (137-145); Total Bilirubin 0.3 mg/dL (0.2-1.3); Total Protein 6.7 g/dL (6.3-8.2)
[2022-10-31] MEDS ORDERED: SULFAMETHOX-TMP 800-160MG 1 EACH TAB PO STA (20:45)
[2022-10-31] MEDS ORDERED: IBUPROFEN 600 MG TAB PO STA (20:46)
[2022-10-31 20:47] LABS: Amphetamine Screen,Urine Not Detected (NotDetected); Barbiturate Screen,Urine Not Detected (NotDetected); Benzodiazepines Screen,Urine Detected (NotDetected); Cocaine Screen,Urine Not Detected (NotDetected); Methadone Screen, Urine Not Detected (NotDetected); Opiate Screen,Urine Not Detected (NotDetected); Oxycodone Screen, Urine Not Detected (NotDetected); Phencyclidine Screen,Urine Not Detected (NotDetected); Tricyclic Antidepressant,Urine Not Detected (NotDetected); Urn Cannabinoid Scrn Not Detected (NotDetected)
[2022-10-31] MEDS ORDERED: NICOTINE 21MG/24HR PATCH TRANSDERM STA (22:18)
[2022-11-01] MEDS ORDERED: QUEtiapine 100 MG TAB PO STA (00:26)
[2022-11-01] MEDS ORDERED: QUEtiapine 25 MG TAB PO STA (00:26)
[2022-11-01] MEDS: SULFAMETHOX-TMP 800-160MG 1 EACH TAB PO SCH ×2 (08:22→20:38)
[2022-11-01] MEDS ORDERED: LORazepam 1 MG TAB PO STA (11:51)
[2022-11-01] MEDS ORDERED: ALBUTEROL HFA INHALER INHALATION PRN (14:37)
[2022-11-01] MEDS ORDERED: LORazepam 2 MG/ML INJ IM PRN (14:38)
[2022-11-01] MEDS ORDERED: MAGNESIUM HYDROXIDE 2,400 MG/10 ML CUP PO PRN (14:38)
[2022-11-01] MEDS ORDERED: LORazepam 1 MG TAB PO PRN (14:38)
[2022-11-01] MEDS ORDERED: MAG HYDROX/AL HYDROX/SIMETH 30 ML CUP PO PRN (14:38)
[2022-11-01] MEDS ORDERED: IBUPROFEN 600 MG TAB PO PRN (14:38)
[2022-11-01] MEDS ORDERED: ACETAMINOPHEN TAB 325 MG TAB PO PRN (14:38)
--- NOTE | 2022-11-01 19:10 | P.MDCNMH ---
<Mani Vazquez - Last Filed: 11/01/22 18:58> History of Present Illness H&P Date: 11/01/22 History of Presenting Illness: Patient is a very pleasant 31-year-old male with a past medical history of asthm a, eczema, alcoholism, anxiety, depression, and bipolar disorder. Patient also reports history of IV drug abuse with cocaine last used 2 years ago and heroin last used 5 years ago. Patient reports recent use of marijuana and methamphetamines but reports being clean for 57 days and last used alcohol 5 days ago. Patient currently admitted to inpatient psychiatric unit secondary to suicidal ideations and we have been consulted for medical H&P. Patient seen and fully evaluated in mental health unit. Patient ambulatory with a steady gait without any noted difficulties. Patient with dressings to bilateral biceps covering crusted over lesions/blisters and patient has small boil in right axillary region as well. Patient reports history of MRSA and did have a wound culture obtained in the emergency department and was started on Bactrim 800/160 mg tablets twice daily. Otherwise patient reports eczema flareup on arms and denies having any other complaints at this time. Patient currently denies having any headache, lightheadedness, dizziness, chest pain, palpitations, shortness of breath, abdominal pain, nausea, vomiting, or experiencing any numbness/tingling/weakness in his extremities. Patient reports smoking 2 packs of cigarettes daily. Review of systems: Pertinent positives and negatives as discussed in HPI, a complete review of systems was performed and all other systems are negative. Physical exam: Vital signs reviewed and stable. General: Nontoxic, no distress and appears stated age. Derm: Skin warm and dry, normal coloration for ethnicity. Crusted over lesions/b listers and patient has small boil in right axillary region as well. Head: Atraumatic, normocephalic and symmetric. Eyes: EOMs intact, no lid lag, and anicteric sclera Mouth: no lip lesions, mucus membranes moist Cardiovascular: regular rate and rhythm with normal S1S2, no murmur, positive posterior tibial pulses bilaterally, and cap refill < 2 seconds. Lungs: Respirations even, regular, and unlabored on room air. Lungs CTA bilaterally, no rhonchi, no rales, no wheezing, and no accessory muscle usage. Abdominal: soft, nontender to palpation, no guarding, no appreciable organomegaly Ext: ROM intact. No gross muscle atrophy, no edema, no contractures Neuro: Speech clear, face symmetrical and CN II-XII grossly intact with no noted focal neuro deficits Psych: Alert and oriented to person, place, time, and situation. Appropriate and pleasant affect. Assessment and Plan of Care: Skin lesions -Wound cultures obtained currently pending. Recommend continuing with Bactrim 800/160 mg tablets every 12 hours 10 days pending culture and sensitivity report. Wound care Symptomatic care and pain management. Eczema flare Order placed for Triacinolone cream 3 times daily. Asthma Continue with Ventolin inhaler 4 times daily as needed for shortness of breath and/or wheezing. Suicidal ideations Anxiety and depression Bipolar disorder Provide safe and supportive care. Suicide precautions to be in place. Management per primary admitting psychiatric team. Thank you for allowing us to participate in the care of this pleasant patient. Do not hesitate to contact us with questions. Someone can be reached from the [facility] all hours of the day at [phone] or via [employer]. Patient was seen independently by Nurse Practitioner. This document was prepared using [employer] dictation software. Please allow for errors in family practice md while rare they do occur. Past Medical History Past Medical History: Asthma, Dialysis, GERD/Reflux, Pneumonia, Skin Disorder Additional Past Medical History / Comment(s): Other HX: Eczema, hayfever, left cornea ulcer healed, gastric ulcer History of Any Multi-Drug Resistant Organisms: None Reported Additional Past Surgical History / Comment(s): EGD, corneal biopsy left - Past Anesthesia/Blood Transfusion Reactions: No Reported Reaction Past Psychological History: Anxiety, Bipolar, Depression Additional Psychological History / Comment(s): Borderline personality disorder and was told yesterday that he has schizotypal which he states then made him start thinking about suicide. He is seen by Dr. Zarco and therapist Brock Gurrola. He lives with his grandparents. He is normally independent. He drives. Smoking Status: Current every day smoker Past Alcohol Use History: None Reported Additional Past Alcohol Use History / Comment(s): Most recent drink was 5 days ago where he decided to quit "cold turkey" Past Drug Use History: None Reported, Cocaine, Heroin, Marijuana Additional Drug Use History / Comment(s): hx of marajuana, heroin, and cocaine - Past Family History Father Additional Family Medical History / Comment(s): Father is alive at age 49 with history of alcoholism and drug addiction. Patient does not have any relationship with him. grandfather diabetic. mom and grandfather have HTN. brother htn Mother Additional Family Medical History / Comment(s): Mother is alive at age 44. She has history of coronary artery disease with previous PR, bipolar disorder and borderline personality. Patient has no contact with his mother. Brother(s) Additional Family Medical History / Comment(s): Patient has 1 brother that is 21 years old and one sister 23 years old both have anxiety. Patient does not have any children. Medications and Allergies Home Medications Medication Instructions Recorded Confirmed Type Albuterol Inhaler [Ventolin Hfa 2 puff INHALATION RT-QID PRN 01/26/19 10/31/22 History Inhaler] Folic Acid 1 mg PO DAILY 30 Days tab 11/28/19 10/31/22 Rx ARIPiprazole [Abilify] 10 mg PO HS 10/31/22 10/31/22 History [place] Carbonate ER [Lithobid] 450 mg PO DAILY 10/31/22 10/31/22 History Multivitamins, Thera [Multivitamin 1 tab PO DAILY 10/31/22 10/31/22 History (formulary)] QUEtiapine [SEROquel] 25 mg PO HS 10/31/22 10/31/22 History QUEtiapine [SEROquel] 100 mg PO HS 10/31/22 10/31/22 History Vortioxetine Hydrobromide 20 mg PO DAILY 10/31/22 10/31/22 History [Trintellix] traZODone HCL [Desyrel] 100 mg PO HS 10/31/22 10/31/22 History Allergies Allergy/AdvReac Type Severity Reaction Status Date / Time lamotrigine [From Lamictal] Allergy Unknown Rash/Hives Verified 11/01/22 16:05 ziprasidone [From Geodon] Allergy Unknown Rash/Hives Verified 11/01/22 16:05 peanut Allergy Rash/Hives Verified 11/01/22 16:05 egg AdvReac Nausea & Verified 11/01/22 16:05 Vomiting & Diarrhea Physical Exam Vitals: Vital Signs Temp Pulse Pulse Resp BP BP Pulse Ox 11/01/22 15:45 98.1 F 70 20 128/94 11/01/22 07:46 97.9 F 84 16 134/76 98 10/31/22 19:43 98.4 F 90 20 141/64 98 Intake and Output 11/01/22 11/01/22 11/01/22 06:59 14:59 22:59 Other: Weight 69.4 kg Cranial Nerve Examination - Cranial Nerves Cranial Nerve II- Optic: Intact Cranial Nerve III- Oculomotor: Intact Cranial Nerve IV- Trochlear: Intact Cranial Nerve V- Trigeminal: Intact Cranial Nerve - Abducens: Intact Cranial Nerve VII- Facial: Intact Cranial Nerve VIII- Auditory: Intact Cranial Nerve IX- Glossopharyngeal: Intact Cranial Nerve X- Vagus: Intact Cranial Nerve XI- Accessory: Intact Cranial Nerve XII- Hypoglossal: Intact Results CBC & Chem 7: 10/31/22 20:22 10/31/22 20:22 Labs: Abnormal Lab Results - Last 24 Hours (Table) 10/31/22 10/31/22 10/31/22 Range/Units 20:22 20:22 20:22 Neutrophils # 7.9 H (1.3-7.7) k/uL BUN 8 L (9-20) mg/dL U Benzodiazepines Scrn Detected H (NotDetected) Microbiology - Last 24 Hours (Table) 10/31/22 20:20 Wound Culture - Preliminary Arm - Right 10/31/22 20:20 Anaerobic Culture - Preliminary Arm - Right <Purnima Graves A - Last Filed: 11/02/22 07:42> History of Present Illness Mani Vazquez NP rendered care for this patient independently, reviewed the findings and plan as documented in the note above. I did not physically speak with or examine the patient on this date. Physical Exam Osteopathic Statement: *. No significant issues noted on an osteopathic structural exam other than those noted in the History and Physical/Consult. Vitals: Vital Signs Temp Pulse Pulse Resp BP BP Pulse Ox 11/01/22 15:45 98.1 F 70 20 128/94 11/01/22 07:46 97.9 F 84 16 134/76 98 Intake and Output 11/01/22 11/02/22 11/02/22 22:59 06:59 14:59 Other: Weight 69.4 kg Results CBC & Chem 7: 10/31/22 20:22 05/28/23 20:22 Labs: Microbiology - Last 24 Hours (Table) 10/31/22 20:20 Wound Culture - Preliminary Arm - Right 10/31/22 20:20 Anaerobic Culture - Preliminary Arm - Right
[2022-11-01] MEDS: TRIAMCINOLONE 0.1% CREAM 80 GM TUBE TOPICAL SCH (20:22)
[2022-11-01] MEDS: QUEtiapine 100 MG TAB PO SCH (20:38)
[2022-11-01] MEDS: traZODone HCL 100 MG TAB PO SCH (20:39)
[2022-11-01] MEDS ORDERED: ARIPiprazole 10 MG TAB PO SCH (21:00)
[2022-11-01] MEDS ORDERED: QUEtiapine 25 MG TAB PO SCH (21:00)
[2022-11-02] MEDS: LITHIUM CARBONATE ER 450 MG TABLET.ER PO SCH (08:26)
[2022-11-02] MEDS: TRIAMCINOLONE 0.1% CREAM 80 GM TUBE TOPICAL SCH ×3 (08:26→20:48)
[2022-11-02] MEDS: NICOTINE 14MG/24HR PATCH TRANSDERM SCH (08:26)
[2022-11-02] MEDS: FOLIC ACID 1 MG TAB PO SCH (08:26)
[2022-11-02] MEDS: MULTIVITAMINS, THERA 1 EACH TAB PO SCH (08:26)
[2022-11-02] MEDS: SULFAMETHOX-TMP 800-160MG 1 EACH TAB PO SCH ×2 (08:26→20:32)
[2022-11-02] MEDS ORDERED: VORTIOXETINE HYDROBROMIDE 20 MG TABLET PO SCH (09:00)
--- NOTE | 2022-11-02 13:04 | P.HP ---
Psychiatric H&P - . H&P Date: 11/02/22 History & Physical: Allergies Allergy/AdvReac Type Severity Reaction Status Date / Time lamotrigine [From Lamictal] Allergy Unknown Rash/Hives Verified 11/01/22 16:05 ziprasidone [From Geodon] Allergy Unknown Rash/Hives Verified 11/01/22 16:05 peanut Allergy Rash/Hives Verified 11/01/22 16:05 egg AdvReac Nausea & Verified 11/01/22 16:05 Vomiting & Diarrhea Vital Signs Temp 98.1 F 11/01/22 15:45 Pulse 70 11/01/22 15:45 Resp 20 11/01/22 15:45 BP 128/94 11/01/22 15:45 Pulse Ox 98 11/01/22 07:46 FiO2 Intake & Output 11/01/22 11/02/22 11/02/22 18:59 06:59 18:59 Weight 69.4 kg Laboratory Last Values WBC 10.5 k/uL (3.8-10.6) 10/31/22 20:22 RBC 4.65 m/uL (4.30-5.90) 10/31/22 20:22 Hgb 14.8 gm/dL (13.0-17.5) 10/31/22 20:22 Hct 43.9 % (39.0-53.0) 10/31/22 20:22 MCV 94.4 fL (80.0-100.0) 10/31/22 20:22 MCH 31.8 pg (25.0-35.0) 10/31/22 20:22 MCHC 33.7 g/dL (31.0-37.0) 10/31/22 20:22 RDW 12.3 % (11.5-15.5) 10/31/22 20:22 Plt Count 234 k/uL (150-450) 10/31/22 20:22 MPV 8.0 10/31/22 20:22 Neutrophils % 75 % 10/31/22 20:22 Lymphocytes % 12 % 10/31/22 20:22 Monocytes % 7 % 10/31/22 20:22 Eosinophils % 3 % 10/31/22 20: Basophils % 0 % 10/31/22 20:22 Neutrophils # 7.9 k/uL (1.3-7.7) H 10/31/22 20:22 Lymphocytes # 1.3 k/uL (1.0-4.8) 10/31/22 20:22 Monocytes # 0.7 k/uL (0-1.0) 10/31/22 20:22 Eosinophils # 0.4 k/uL (0-0.7) 10/31/22 20:22 Basophils # 0.0 k/uL (0-0.2) 10/31/22 20:22 Sodium 137 mmol/L (137-145) 10/31/22 20:22 Potassium 4.6 mmol/L (3.5-5.1) 10/31/22 20:22 Chloride 102 mmol/L (98-107) 10/31/22 20:22 Carbon Dioxide 25 mmol/L (22-30) 10/31/22 20:22 Anion Gap 10 mmol/L 10/31/22 20:22 BUN 8 mg/dL (9-20) L 10/31/22 20:22 Creatinine 0.82 mg/dL (0.66-1.25) 10/31/22 20:22 Est GFR (CKD-EPI)AfAm >90 (>60 ml/min/1.73 sqM) 10/31/22 20:22 Est GFR (CKD-EPI)NonAf >90 (>60 ml/min/1.73 sqM) 10/31/22 20:22 Glucose 96 mg/dL (74-99) 10/31/22 20:22 Calcium 9.3 mg/dL (8.4-10.2) 10/31/22 20:22 Total Bilirubin 0.3 mg/dL (0.2-1.3) 10/31/22 20:22 AST 27 U/L (17-59) 10/31/22 20:22 ALT 23 U/L (4-49) 10/31/22 20:22 Alkaline Phosphatase 70 U/L (38-126) 10/31/22 20:22 Total Protein 6.7 g/dL (6.3-8.2) 10/31/22 20:22 Albumin 4.1 g/dL (3.5-5.0) 10/31/22 20:22 TSH 0.792 mIU/L (0.465-4.680) 11/02/22 11:13 Urine Opiates Screen Not Detected (NotDetected) 10/31/22 20:22 Ur Oxycodone Screen Not Detected (NotDetected) 10/31/22 20:22 Urine Methadone Screen Not Detected (NotDetected) 10/31/22 20:22 Ur Propoxyphene Screen Not Detected (NotDetected) 10/31/22 20:22 Ur Barbiturates Screen Not Detected (NotDetected) 10/31/22 20:22 U Tricyclic Antidepress Not Detected (NotDetected) 10/31/22 20:22 Ur Phencyclidine Scrn Not Detected (NotDetected) 10/31/22 20:22 Ur Amphetamines Screen Not Detected (NotDetected) 10/31/22 20:22 U Methamphetamines Scrn Not Detected (NotDetected) 10/31/22 20:22 U Benzodiazepines Scrn Detected (NotDetected) H 10/31/22 20:22 Harrod 0.2 mmol/L 10/31/22 20:22 Urine Cocaine Screen Not Detected (NotDetected) 10/31/22 20:22 U Marijuana (THC) Screen Not Detected (NotDetected) 10/31/22 20:22 Influenza Type A (PCR) Not Detected (Not Detectd) 10/31/22 22:21 Influenza Type B (PCR) Not Detected (Not Detectd) 10/31/22 22:21 RSV (PCR) Not Detected (Not Detectd) 10/31/22 22:21 SARS-CoV-2 (PCR) Not Detected (Not Detectd) 10/31/22 22:21 11/02/22 13:04 IDENTIFYING DATA: Patient is a , unemployed, 31-year-old male with significant history of bipolar disorder, borderline personality disorder, and methamphetamine use disorder presented to her hospital on 10/31/2022 for bipolar symptoms. HPI: Patient presented to the hospital on 10/23/2022, presenting to the hospital for worsening bipolar symptoms and medication adjustments. The patient states that he was at [facility] for inpatient substance use rehabilitation from 09/05 to 10/09 in order to stop using methamphetamines. He states that during his rehab stay, he did experience significant symptoms of depression and hypomania and felt that his medications were not "working for me." The patient reports that he has been experiencing significant symptoms of depression including frequent crying spells, anhedonia, decreased appetite, decreased sexual drive, and suicidal ideation. He does report a previous attempt at suicide back by overdosing on Tylenol. He also reports worsening sleep and anxiety. The patient does report significant symptoms of hypomania including excessive energy (3 days no sleep), hypersexual episodes, impulsivity, aggressiveness, and pressured speech. The patient does not report any significant history of auditory or visual hallucinations. He denies any paranoia or other delusions. He does report general suspicion of others but attributes this to his PTSD and borderline personality disorder. Currently, he is denying any suicidal or homicidal ideation, intention, and/or plan. PAST PSYCHIATRIC HISTORY: Patient states that he has previous diagnoses of borderline personality disorder, bipolar 2 disorder, alcohol abuse, and methamphetamine use disorder. His current home medications include Abilify, Seroquel, trazodone, lithium, and Trintellix. The patient's last inpatient psychiatric admission was in November 2019. He is currently not open with any outpatient treatment however states that he plans to continue treatment with [facility]. He reports one prior attempt at suicide by overdose. PMH: Eczema and asthma ALLERGIES: Allergies Allergy/AdvReac Type Severity Reaction Status Date / Time lamotrigine [From Lamictal] Allergy Unknown Rash/Hives Verified 11/01/22 16:05 ziprasidone [From Geodon] Allergy Unknown Rash/Hives Verified 11/01/22 16:05 peanut Allergy Rash/Hives Verified 11/01/22 16:05 egg AdvReac Nausea & Verified 11/01/22 16:05 Vomiting & Diarrhea CHEMICAL DEPENDENCY HISTORY: The patient reports that he smokes 2 packs per day of tobacco. He states that he has been sober from alcohol since this past Tuesday however he has binge episodes of "benders." He reports that he would be sober for many months then have a week of drinking excessively up to 24 beers per day. He denies any history of withdrawal. The patient does report a history of methamphetamine abuse with his last use being in September of this year. He was using IV methamphetamines. He denies any marijuana use. FAMILY PSYCHIATRIC/SUBSTANCE USE HISTORY: No reported history SOCIAL HISTORY: Patient was born and raised in [place], [place]. He is however his currently lives insomnia. He was deported from [place]. He has no children. He currently lives with his grandparents in [place]. He denies any current legal issues aside from being on probation [place] however he is unable to return to [place] anyway. He reports nauseous of income. He attended [employer]. MENTAL STATUS EXAM: General Appearance: Patient appears to be stated age is alert, directable, and attempts to cooperate. Patient appears to have fair hygiene and grooming. Dyed blonde hair. Nose ring. Behavior: Patient is seated without any agitated behavior. Eye contact is appropriate. Speech: Patient's speech is fluent and nonpressured. Hyperverbal and slightly pressured. Mood/Affect: Patient reports their mood is "all over the place," affect is congruent and expansive. Suicidality/Homicidality: Patient reports no current suicidal or homicidal ideation. Perceptions: Patient denies any visual hallucinations and denies any auditory hallucinations Though content/process: Flight of ideas. Memory and concentration: AOX3, grossly intact for the purposes of this session. Can spell "WORLD" backwards Judgment and insight: Fair STRENGTHS/WEAKNESSES: Strength is that the patient is resilient. Weakness is that the patient has a history of substance abuse, prior attempts at suicide, and is impulsive. INTELLECT: average IMPRESSIONS: Bipolar 2 disorder, mixed episode Borderline personality disorder Methamphetamine use disorder, in early remission Alcohol use disorder Tobacco use disorder PLAN: -Patient is admitted under voluntary status to [facility] for stabilization of psychiatric symptoms and safety. Patient signed adult voluntary form and medication consent and is placed in patient's chart. -Medications : Discontinue Abilify and decrease Seroquel to 100 mg at bedtime. We will start the patient on Clozaril 25 mg by mouth at bedtime as per patient preference in order to address treatment resistant bipolar disorder, suicidal thoughts, mood. The risks, benefits, and treatment alternatives were discussed with the patient at length. He wishes to be on Clozaril. Continue lithium 450 mg by mouth daily for mood stabilization Continue trazodone 100 mg by mouth at bedtime for insomnia Discontinue Trintellix -ENROLLED IN CLOZAPINE REMS -Ativan PRN for agitation/aggression -Patient was counselled on substance abuse and desired to cut back on use -Patient was informed of the risks, benefits and side effects of the medication and patient verbally consented to taking the medications. Patient signed med consent form and was placed in chart. -Internal Medicine consult to perform medical evaluation and physical. -NRT - nicotine patch -EKG ordered. CBC with differential was reviewed and is appropriate. -SW on board for discharge planning. Encourage patient to participate in groups to work on coping skills.
[2022-11-02 15:59] LABS: Chol/HDL Ratio 2.49 Ratio; LDL Cholesterol,Calculated 68.8 mg/dL (0.0-131.0); VLDL Calculation 16.82 mg/dL (5.00-40.00)
[2022-11-02] MEDS: traZODone HCL 100 MG TAB PO SCH (20:31)
[2022-11-02] MEDS: QUEtiapine 100 MG TAB PO SCH (20:48)
[2022-11-02] MEDS ORDERED: cloZAPine 25 MG TAB PO SCH (21:00)
[2022-11-03] MEDS: NICOTINE 14MG/24HR PATCH TRANSDERM SCH ×2 (07:56→18:10)
[2022-11-03] MEDS: FOLIC ACID 1 MG TAB PO SCH (07:57)
[2022-11-03] MEDS: MULTIVITAMINS, THERA 1 EACH TAB PO SCH (07:57)
[2022-11-03] MEDS: LITHIUM CARBONATE ER 450 MG TABLET.ER PO SCH (07:57)
[2022-11-03] MEDS: TRIAMCINOLONE 0.1% CREAM 80 GM TUBE TOPICAL SCH ×3 (07:58→20:39)
[2022-11-03] MEDS: SULFAMETHOX-TMP 800-160MG 1 EACH TAB PO SCH ×2 (07:59→20:10)
[2022-11-03] MEDS ORDERED: buPROPion XL 150 MG TAB.ER.24H PO STA (09:40)
--- NOTE | 2022-11-03 10:21 | P.PN ---
Progress Note - Text Progress Note Date: 11/03/22 Interval History: Patient was seen wandering the hallways and was directable and agreeable to speak with ghost writer in the office. Patient reports that he is feeling better and is tolerating his Clozaril well. He is currently denying any suicidal or homicidal ideation, intention,/or plan. He does not report any auditory or visual hallucinations. He denies any paranoia or other delusions. He has been in adherent with his medications and is not endorsing any significant side effects at this time. He reports no self harming urges. He reports no medical issues or concerns. Mental Status Exam: General Appearance: Patient appears to be stated age is alert, directable, and cooperative. Behavior: Patient is calmly seated without any agitated behavior. Speech: Patient's speech is fluent and nonpressured. Mood/Affect: Mood is improving mildly, affect is congruent and constricted. Suicidality/Homicidality: Patient denies having any suicidal or homicidal ideation intent or plan. Perceptions: Patient denies any visual hallucinations and denies any auditory hallucinations Though content/process: There is no evidence of any delusional thought content and thought process is linear and goal-directed. Memory and concentration: AOX3, grossly intact for the purposes of this session Judgment and insight: Improving mildly Vital Signs Temp 98.1 F 11/03/22 06:32 Pulse 90 11/03/22 06:32 Resp 13 11/03/22 06:32 BP 119/65 11/03/22 06:32 Pulse Ox 98 11/01/22 07:46 FiO2 Laboratory Results - Last 24 Hours 11/02/22 11/02/22 11:13 11:[address] Glu mg/dL 108 Hemoglobin A1c 5.4 Triglycerides 84.10 Cholesterol 143.00 LDL Cholesterol, Calc 68.8 VLDL Cholesterol, Calc 16.82 HDL Cholesterol 57.40 Cholesterol/HDL Ratio 2.49 TSH 0.792 Assessment Bipolar 2 disorder, mixed episode Borderline personality disorder Methamphetamine use disorder, in early remission Alcohol use disorder Tobacco use disorder Plan: -Patient continues to meet criteria for inpatient psychiatric admission for symptom stabilization and safety. Patient has signed adult voluntary form and medication consent and was placed in patient's chart. -Medications: Discontinue Seroquel. Increase Clozaril to 50 mg at bedtime for mood stabilization. Continue lithium 450 mg by mouth daily for mood stabilization Continue trazodone 100 mg by mouth at bedtime for insomnia -When necessary Ativan for agitation/aggression. -NRT - nicotine patch -SW on board for discharge planning. Encouraged the patient to participate in milieu.
[2022-11-03] MEDS: traZODone HCL 100 MG TAB PO SCH (20:10)
[2022-11-03] MEDS ORDERED: cloZAPine 25 MG TAB PO SCH (21:00)
[2022-11-04 07:00] VITALS: BP 110/62; PULSE 71; RESP 16; TEMP 97.5
[2022-11-04] MEDS: NICOTINE 14MG/24HR PATCH TRANSDERM SCH (08:12)
[2022-11-04] MEDS: SULFAMETHOX-TMP 800-160MG 1 EACH TAB PO SCH (08:13)
[2022-11-04] MEDS: LITHIUM CARBONATE ER 450 MG TABLET.ER PO SCH (08:13)
[2022-11-04] MEDS: FOLIC ACID 1 MG TAB PO SCH (08:13)
[2022-11-04] MEDS: MULTIVITAMINS, THERA 1 EACH TAB PO SCH (08:13)
[2022-11-04] MEDS: TRIAMCINOLONE 0.1% CREAM 80 GM TUBE TOPICAL SCH (08:14)
[2022-11-04] MEDS ORDERED: buPROPion XL 150 MG TAB.ER.24H PO SCH (09:00)
--- NOTE | 2022-11-04 11:36 | P.DS ---
Providers Date of admission: 11/01/22 14:23 He was seen today November 04, 2022 prior to his discharge. He was seen on Nov [address] Ortiz yesterday. He has mintained his progress after his medications were adjuted He admitted he has had an alcohol dependence problem and wanted to have Vivitrol (naltrexone ) depot Rx prior to his dischage. He talked about how he benefited from the Rehabilitation program for his alcohol use. He did not se sporadic MDMA as his problem. He was adherent to his current Rx: wellbutrin, Trazodone, clozaril and lithium. [place] and Clozaril were emphased during the discharge session. Rx medications were reconciled for his discharge package. MSE: he was pleasant and slightly restless over his discharge: he indicated he had a transportation arranged at 11 am. and reassured me that [facility] would continue to follow him upon discharge. His d/c plan was discussed at the team meeting. Affect: slightly anxious, congruent with though content. range of affect: normal range No hallucinations or deluson, no suicidal or homicidal ideation. Cog. oriented. intact judgement Discharge Diagnosis: schizoaffective disorder in partial remission . Discharge Plan as [facility] clinic follow up. Rx given Attending physician: Shailesh Ortiz MD Consults: 11/01/22 14:38 Consult Physician Routine Consulting Provider: [facility] Consult Reason/Comments: H&P and medical and wounds on bilateral upper arms Do you want consulting provider notified?: Yes Primary care physician: Stated None Patient Condition at Discharge: Stable Plan - Discharge Summary Discharge Rx Participant: No New Discharge Prescriptions: New traZODone HCL [Desyrel] 100 mg PO HS 30 Days #30 tab cloZAPine [Clozaril] 50 mg PO HS 30 Days #60 tab Changed [place] Carbonate ER [Lithobid] 450 mg PO DAILY 30 Days #30 tab Discontinued Albuterol Inhaler [Ventolin Hfa Inhaler] 2 puff INHALATION RT-QID PRN PRN Reason: Shortness Of Breath Folic Acid 1 mg PO DAILY 30 Days tab Vortioxetine Hydrobromide [Trintellix] 20 mg PO DAILY ARIPiprazole [Abilify] 10 mg PO HS QUEtiapine [SEROquel] 100 mg PO HS QUEtiapine [SEROquel] 25 mg PO HS traZODone HCL [Desyrel] 100 mg PO HS Multivitamins, Thera [Multivitamin (formulary)] 1 tab PO DAILY Discharge Medication List [place] Carbonate ER [Lithobid] 450 mg PO DAILY 30 Days #30 tab 11/04/22 [Rx] cloZAPine [Clozaril] 50 mg PO HS 30 Days #60 tab 11/04/22 [Rx] traZODone HCL [Desyrel] 100 mg PO HS 30 Days #30 tab 11/04/22 [Rx] Follow up Appointment(s)/Referral(s): [facility] [Outside] - 11/05/22 2:00 pm (11/05/2022 2:00PM - 3:00PM ANILA CEDILLO 11/08/2022 8:00AM - 8:30AM TISH LEON ) None,Stated [Primary Care Provider] - 1-2 days Activity/Diet/Wound Care/Special Instructions: Avoid the use of street drugs and alcohol. Take all medications as prescribed. When you are in need of refills on your medications, please contact your medical provider and/or outpatient psychiatrist to have this done. Please go to scheduled outpatient appointments for aftercare treatment. If symptoms return or become worse, call the crisis line at and/or go to the nearest emergency room for evaluation. Discharge/Stand Alone Forms: BRITTANI Kendall
== END 2022-11-04 12:08 | disposition home or self-care (01) | DRG 753 ==
LOC: EC 19:22 → 3MHU 11-01 14:23
PROVIDERS: ADMIT Psychiatry & Neurology Psychiatry; ATTEND Psychiatry & Neurology Psychiatry
DX: F31.81 Bipolar II disorder (principal); F60.3 Borderline personality disorder; F90.9 Attention-deficit hyperactivity disorder, unspecified type; F15.11 Other stimulant abuse, in remission; B95.62 Methicillin resistant Staphylococcus aureus infection as the cause of diseases classified elsewhere; I10 Essential (primary) hypertension; L02.411 Cutaneous abscess of right axilla; L02.212 Cutaneous abscess of back [any part, except buttock and flank]; L02.414 Cutaneous abscess of left upper limb; L02.413 Cutaneous abscess of right upper limb; F17.210 Nicotine dependence, cigarettes, uncomplicated; L30.9 Dermatitis, unspecified; Z20.822 Contact with and (suspected) exposure to COVID-19; J45.909 Unspecified asthma, uncomplicated; F43.10 Post-traumatic stress disorder, unspecified; R45.851 Suicidal ideations; Z81.3 Family history of other psychoactive substance abuse and dependence; Z87.11 Personal history of peptic ulcer disease; Z87.01 Personal history of pneumonia (recurrent); K21.9 Gastro-esophageal reflux disease without esophagitis; Z87.19 Personal history of other diseases of the digestive system; Z63.72 Alcoholism and drug addiction in family; Z91.012 Allergy to eggs; Z91.010 Allergy to peanuts; T22.012A Burn of unspecified degree of left forearm, initial encounter; X08.8XXA Exposure to other specified smoke, fire and flames, initial encounter
CPT/HCPCS: 36415; 80053; 80061; 80178; 80306; 82075; 83036; 84443; 85025; 87070; 87075; 87077; 87186; 87205; 87636; 93005; 99285

== ENCOUNTER 2023-09-25 17:39 | Emergency (ER) | payer OTHER ==
[2023-09-25 18:18] VITALS: RESP 18; TEMP 96
[2023-09-25 19:10] LABS: Appearance,Urine Clear (Clear); Bilirubin,Urine Negative (Negative); Blood,Urine Negative (Negative); Color,Urine Colorless; Glucose,Urine (UA) Negative (Negative); Ketones,Urine Negative (Negative); Leukocyte Esterase,Urine Negative (Negative); Nitrite,Urine Negative (Negative); PH, Urine 5.5 (5.0-8.0); Protein,Urine Negative (Negative); Specific Gravity,Urine 1.005 (1.001-1.035); Urobilinogen,Urine <2.0 mg/dL (<2.0)
[2023-09-25 19:11] LABS: Basophils # (A) 0.1 k/uL (0-0.2); Basophils % (A) 1 %; Eosinophils # (A) 0.2 k/uL (0-0.7); Eosinophils % (A) 2 %; HCT 45.3 % (39.0-53.0); HGB 15.1 gm/dL (13.0-17.5); Lymphocytes # (A) 1.9 k/uL (1.0-4.8); Lymphocytes % (A) 24 %; MCHC 33.4 g/dL (31.0-37.0); MCV 98.8 fL (80.0-100.0); Mean Platelet Volume 7.7; Monocytes # (A) 0.4 k/uL (0-1.0); Monocytes % (A) 5 %; Neutrophils # (A) 5.4 k/uL (1.3-7.7); Neutrophils % (A) 67 %; Platelet Count 317 k/uL (150-450); RBC 4.58 m/uL (4.30-5.90); RDW 11.6 % (11.5-15.5); WBC 8.1 k/uL (3.8-10.6)
--- NOTE | 2023-09-25 19:22 | ED ---
General Adult HPI - General Chief complaint: Abdominal Pain Stated complaint: Abd pain Source: patient, RN notes reviewed, old records reviewed Mode of arrival: ambulatory Limitations: no limitations - History of Present Illness Initial comments: 32-year-old presenting for evaluation of fatigue. Patient was sent from urgent care for evaluation of light-colored stool and concern for liver issue. Patient is abstaining from methamphetamine. He states he has been sober for jorge luis roximately 1 month. He had symptoms of fatigue since that time. No fever. No vomiting. He reports 1 month history of right upper quadrant discomfort. He also admits to drinking vodka daily. - Related Data Previous Rx's Medication Instructions Recorded Hydrocortisone Cream 1 applic TOPICAL BID PRN each 08/10/22 [Hydrocortisone 1% Cream] ARIPiprazole [Abilify] 10 mg PO HS 14 Days #14 tab 08/17/22 Albuterol Inhaler [Ventolin Hfa 2 puff INHALATION RT-QID PRN #1 08/17/22 Inhaler] each Folic Acid 1 mg PO DAILY 14 Days #14 tab 08/17/22 Penrose Carbonate ER [Lithobid] 450 mg PO DAILY 14 Days #14 tab 08/17/22 Loratadine [Claritin] 10 mg PO DAILY PRN tab 08/17/22 Multivitamins, Thera [Multivitamin 1 each PO DAILY 14 Days #14 tab 08/17/22 (formulary)] Naltrexone Microspheres [Vivitrol] 380 mg IM QMONTHLY #1 08/17/22 Nicotine 14Mg/24Hr Patch [Habitrol] 1 patch TRANSDERM DAILY 14 Days 08/17/22 #14 patch QUEtiapine [SEROquel] 25 mg PO HS 14 Days #14 tab 08/17/22 QUEtiapine [SEROquel] 100 mg PO HS 14 Days #14 tab 08/17/22 Thiamine [Vitamin B-1] 100 mg PO DAILY 14 Days #14 tab 08/17/22 Triamcinolone 0.1% Cream [Kenalog 1 applic TOPICAL BID 30 Days #1 08/17/22 0.1% Cream] each Vortioxetine Hydrobromide 20 mg PO DAILY 14 Days #14 tab 08/17/22 [Trintellix] hydrOXYzine pamoate [Vistaril] 50 mg PO BID PRN 14 Days #56 cap 08/17/22 Penrose Carbonate ER [Lithobid] 450 mg PO DAILY 30 Days #30 tab 11/04/22 buPROPion XL [Wellbutrin XL] 150 mg PO DAILY 30 Days #30 tab 11/04/22 cloZAPine [Clozaril] 50 mg PO HS 30 Days #60 tab 11/04/22 traZODone HCL [Desyrel] 100 mg PO HS 30 Days #30 tab 11/04/22 Allergies Allergy/AdvReac Type Severity Reaction Status Date / Time lamotrigine [From Lamictal] Allergy Unknown Rash/Hives Verified 09/25/23 18:15 ziprasidone [From Geodon] Allergy Unknown Rash/Hives Verified 09/25/23 18:15 peanut Allergy Rash/Hives Verified 09/25/23 18:15 egg AdvReac Nausea & Verified 09/25/23 18:15 Vomiting & Diarrhea Review of Systems ROS Statement: Those systems with pertinent positive or pertinent negative responses have been documented in the HPI. ROS Other: All systems not noted in ROS Statement are negative. Past Medical History Past Medical History: Asthma, Dialysis, GERD/Reflux, Pneumonia, Skin Disorder Additional Past Medical History / Comment(s): Other HX: Eczema, hayfever, left cornea ulcer healed, gastric ulcer History of Any Multi-Drug Resistant Organisms: None Reported Past Surgical History: No Surgical Hx Reported Additional Past Surgical History / Comment(s): EGD, corneal biopsy left - Past Anesthesia/Blood Transfusion Reactions: No Reported Reaction Past Psychological History: ADD/ADHD, Anxiety, Bipolar, Depression, Panic Dis order, PTSD Past Alcohol Use History: Heavy, None Reported, Occasional Past Drug Use History: Cocaine, Heroin, Marijuana, Methamphetamine, None Report ed - Past Family History Father Additional Family Medical History / Comment(s): Father is alive at age 49 with history of alcoholism and drug addiction. Patient does not have any relationship with him. grandfather diabetic. mom and grandfather have HTN. brother htn Mother Additional Family Medical History / Comment(s): Mother is alive at age 44. She has history of coronary artery disease with previous [place], bipolar disorder and borderline personality. Patient has no contact with his mother. Brother(s) Additional Family Medical History / Comment(s): Patient has 1 brother that is 21 years old and one sister 23 years old both have anxiety. Patient does not have any children. General Exam Limitations: no limitations General appearance: alert, in no apparent distress Head exam: Present: atraumatic, normocephalic Eye exam: Present: normal appearance, PERRL ENT exam: Present: normal exam Respiratory exam: Present: normal lung sounds bilaterally. Absent: respiratory distress, wheezes Cardiovascular Exam: Present: regular rate, normal rhythm GI/Abdominal exam: Present: soft. Absent: distended, tenderness, guarding, rebound Neurological exam: Present: alert, oriented X3 Skin exam: Present: warm, dry, intact Course Vital Signs 09/25/23 18:09 Temperature 96 F L Pulse Rate 102 H Respiratory 18 Rate Blood Pressure 147/87 O2 Sat by Pulse 99 Oximetry Medical Decision Making - Medical Decision Making Was pt. sent in by a medical professional or institution (, [facility], COMPLIANCE REVIEWER, urgent care, hospital, or detention...) When possible be specific @ -No Did you speak to anyone other than the patient for history (EMS, parent, family, police, friend...)? What history was obtained from this source @ -No Did you review nursing and triage notes (agree or disagree)? Why? @ -I reviewed and agree with nursing and triage notes Were old charts reviewed (outside hosp., previous admission, EMS record, old EKG, old radiological studies, urgent care reports/EKG's, detention records)? Report findings @ -No old charts were reviewed Differential Diagnosis (differential Abdominal Pain Men: Appendicitis, cholecystitis, diverticulosis, ischemic bowel, pancreatitis, hepatitis, UTI, gastroenteritis, AAA, incarcerated hernia, bowel obstruction, constipation, inflammatory bowel, hepatitis, peptic ulcer disease, splenic infarction, perforated viscus, testicular torsion, this is not meant to be an all-inclusive list EKG interpreted by me (3pts min.). @ -As above X-rays interpreted by me (1pt min.). @ -None done CT interpreted by me (1pt min.). @ -None done U/S interpreted by me (1pt. min.). @ -None done What testing was considered but not performed or refused? (CT, X-rays, U/S, labs)? Why? @ -None What meds were considered but not given or refused? Why? @ -None Did you discuss the management of the patient with other professionals (professionals i.e. Dr., PA, COMPLIANCE REVIEWER, lab, RT, psych nurse, child welfare social worker, revenue agent, teacher, staff weapons officer, casework manager)? Give summary @ -No Was smoking cessation discussed for >3mins.? @ -No Was critical care preformed (if so, how long)? @ -No Were there social determinants of health that impacted care today? How? (Homelessness, low income, unemployed, alcoholism, drug addiction, transportation, low edu. Level, literacy, decrease access to med. care, nursing home, rehab)? @ -No Was there de-escalation of care discussed even if they declined (Discuss DNR or withdrawal of care, Hospice)? DNR status @ -No What co-morbidities impacted this encounter? (DM, HTN, Smoking, COPD, CAD, Cancer, CVA, ARF, Chemo, Hep., AIDS, mental health diagnosis, sleep apnea, morbid obesity)? @ -[Alcohol abuse, methamphetamine abuse Was patient admitted / discharged? Hospital course, mention meds given and route, prescriptions, significant lab abnormalities, going to OR and other pertinent info. @ -32-year-old male with chief complaint of fatigue and abnormal stool color. Patient is a daily drinker. He has a normal CBC, normal CMP, no hyperbilirubinemia, normal liver enzymes, normal urinalysis. I do feel this patient is stable for outpatient workup regarding his complaints with primary care provider. Parameters discussed. Undiagnosed new problem with uncertain prognosis? @ -No Drug Therapy requiring intensive monitoring for toxicity (Heparin, Nitro, Insulin, Cardizem)? @ -No Were any procedures done? @ -No Diagnosis/symptom? @ -Fatigue Acute, or Chronic, or Acute on Chronic? @ -Chronic Uncomplicated (without systemic symptoms) or Complicated (systemic symptoms)? @ -Default Side effects of treatment? @ -No Exacerbation, Progression, or Severe Exacerbation? @ -No Poses a threat to life or bodily function? How? (Chest pain, [place], [place], pneumonia, PE, COPD, DKA, ARF, appy, cholecystitis, CVA, Diverticulitis, Homicidal, Suicidal, threat to staff... and all critical care pts) @ -No - Lab Data Result diagrams: 09/25/23 18:50 09/25/23 18:50 Lab Results 09/25/23 09/25/23 09/25/23 Range/Units 18:50 18:50 18:50 WBC 8.1 (3.8-10.6) k/uL RBC 4.58 (4.30-5.90) m/uL Hgb 15.1 (13.0-17.5) gm/dL Hct 45.3 (39.0-53.0) % MCV 98.8 (80.0-100.0) fL MCH 33.0 (25.0-35.0) pg MCHC 33.4 (31.0-37.0) g/dL RDW 11.6 (11.5-15.5) % Plt Count 317 (150-450) k/uL MPV 7.7 Neutrophils % 67 % Lymphocytes % 24 % Monocytes % 5 % Eosinophils % 2 % Basophils % 1 % Neutrophils # 5.4 (1.3-7.7) k/uL Lymphocytes # 1.9 (1.0-4.8) k/uL Monocytes # 0.4 (0-1.0) k/uL Eosinophils # 0.2 (0-0.7) k/uL Basophils # 0.1 (0-0.2) k/uL PT 9.6 L (10.0-12.5) sec INR 0.8 (<1.2) APTT 21.8 L (22.0-30.0) sec Sodium (137-145) mmol/L Potassium (3.5-5.1) mmol/L Chloride (98-107) mmol/L Carbon Dioxide (22-30) mmol/L Anion Gap mmol/L BUN (9-20) mg/dL Creatinine (0.66-1.25) mg/dL Est GFR (CKD-EPI)AfAm (>60 ml/min/1.73 sqM) Est GFR (CKD-EPI)NonAf (>60 ml/min/1.73 sqM) Glucose (74-99) mg/dL Calcium (8.4-10.2) mg/dL Magnesium (1.6-2.3) mg/dL Total Bilirubin (0.2-1.3) mg/dL AST (17-59) U/L ALT (4-49) U/L Alkaline Phosphatase (38-126) U/L Total Protein (6.3-8.2) g/dL Albumin (3.5-5.0) g/dL Urine Color Colorless Urine Appearance Clear (Clear) Urine pH 5.5 (5.0-8.0) Ur Specific [place] 1.005 (1.001-1.035) Urine Protein Negative (Negative) Urine Glucose (UA) Negative (Negative) Urine Ketones Negative (Negative) Urine Blood Negative (Negative) Urine Nitrite Negative (Negative) Urine Bilirubin Negative (Negative) Urine Urobilinogen <2.0 (<2.0) mg/dL Ur Leukocyte Esterase Negative (Negative) 09/25/23 Range/Units 18:50 WBC (3.8-10.6) k/uL RBC (4.30-5.90) m/uL Hgb (13.0-17.5) gm/dL Hct (39.0-53.0) % MCV (80.0-100.0) fL MCH (25.0-35.0) pg MCHC (31.0-37.0) g/dL RDW (11.5-15.5) % Plt Count (150-450) k/uL MPV Neutrophils % % Lymphocytes % % Monocytes % % Eosinophils % % Basophils % % Neutrophils # (1.3-7.7) k/uL Lymphocytes # (1.0-4.8) k/uL Monocytes # (0-1.0) k/uL Eosinophils # (0-0.7) k/uL Basophils # (0-0.2) k/uL PT (10.0-12.5) sec INR (<1.2) APTT (22.0-30.0) sec Sodium 140 (137-145) mmol/L Potassium 4.1 (3.5-5.1) mmol/L Chloride 108 H (98-107) mmol/L Carbon Dioxide 23 (22-30) mmol/L Anion Gap 9 mmol/L BUN 14 (9-20) mg/dL Creatinine 0.83 (0.66-1.25) mg/dL Est GFR (CKD-EPI)AfAm >90 (>60 ml/min/1.73 sqM) Est GFR (CKD-EPI)NonAf >90 (>60 ml/min/1.73 sqM) Glucose 75 (74-99) mg/dL Calcium 10.1 (8.4-10.2) mg/dL Magnesium 2.0 (1.6-2.3) mg/dL Total Bilirubin 0.3 (0.2-1.3) mg/dL AST 49 (17-59) U/L ALT 43 (4-49) U/L Alkaline Phosphatase 85 (38-126) U/L Total Protein 7.0 (6.3-8.2) g/dL Albumin 4.5 (3.5-5.0) g/dL Urine Color Urine Appearance (Clear) Urine pH (5.0-8.0) Ur Specific [place] (1.001-1.035) Urine Protein (Negative) Urine Glucose (UA) (Negative) Urine Ketones (Negative) Urine Blood (Negative) Urine Nitrite (Negative) Urine Bilirubin (Negative) Urine Urobilinogen (<2.0) mg/dL Ur Leukocyte Esterase (Negative) Disposition Clinical Impression: Methamphetamine abuse, Fatigue Disposition: HOME SELF-CARE Condition: Fair Instructions (If sedation given, give patient instructions): Fatigue (ED) Is patient prescribed a controlled substance at d/c from ED?: No Referrals: [facility] [Primary Care Provider] - 1-2 days Time of Disposition: 20:32
[2023-09-25 19:28] LABS: ALT 43 U/L (4-49); AST 49 U/L (17-59); African American GFR (CKD) >90 (>60 ml/min/1.73 sqM); Albumin 4.5 g/dL (3.5-5.0); Alkaline Phosphatase 85 U/L (38-126); Anion Gap 9 mmol/L; Blood Urea Nitrogen 14 mg/dL (9-20); Calcium 10.1 mg/dL (8.4-10.2); Carbon Dioxide 23 mmol/L (22-30); Chloride 108 mmol/L (98-107); Glucose 75 mg/dL (74-99); Non-African American GFR(CKD) >90 (>60 ml/min/1.73 sqM); Potassium 4.1 mmol/L (3.5-5.1); Sodium 140 mmol/L (137-145); Total Bilirubin 0.3 mg/dL (0.2-1.3)
[2023-09-25 19:39] LABS: INR 0.8 (<1.2); Prothrombin Time 9.6 sec (10.0-12.5)
[2023-09-25 19:55] LABS: Partial Thromboplastin Time 21.8 sec (22.0-30.0)
[2023-09-25 20:47] VITALS: BP 134/87; PULSE 95
== END 2023-09-25 20:49 | disposition home or self-care (01) ==
LOC: EC 17:39
DX: R53.83 Other fatigue (principal); F15.10 Other stimulant abuse, uncomplicated; F12.90 Cannabis use, unspecified, uncomplicated; F14.90 Cocaine use, unspecified, uncomplicated; Z91.010 Allergy to peanuts; Z91.012 Allergy to eggs; Z88.8 Allergy status to other drugs, medicaments and biological substances
CPT/HCPCS: 36415; 80053; 81003; 83735; 85025; 85610; 85730; 99284

== ENCOUNTER 2024-06-04 11:09 | Inpatient (IN) | payer MEDICAID, OTHER ==
--- NOTE | 2024-06-04 11:31 | ED ---
Psych HPI - General Source: patient, RN notes reviewed Mode of arrival: ambulatory <Esperanza Christine - Last Filed: 06/04/24 11:28> <Amairani Brennan - Last Filed: 06/05/24 17:57> - General Chief Complaint: Psychiatric Symptoms Stated Complaint: Mental health eval Time Seen by Provider: 06/04/24 11:28 - History of Present Illness Initial Comments: Quick [id number] male presenting for mental health evaluation. States he is withdrawing from meth, last use was 4 days ago. States he is experiencing depression, anxiety, agitation, and several episodes of psychosis. States when his symptoms get severe, he does have suicidal ideation. Denies homicidal ideation. Denies hallucination. States he usually takes Zyprexa and clonidine however is out of these medications. (Esperanza Christine) 33-year-old male presents the emergency department reporting to depression, agitation and suicidal ideations. Patient states that he is withdrawing from methamphetamines. He last used 4 days ago. Since he stopped using he is now hearing voices, feeling depressed and having thoughts of self-harm. Patient denies attempting to harm himself. No homicidal ideations. Patient has been on several regimens for medication for his history of mental health and substance abuse. Reports that he felt clonidine and Zyprexa helped him the most. He did have a couple tablets of this medication left over for which she took but now he is completely out. He does admit to some hard lumps in his left upper extremity which have been there for significant period of time. He denies any acute redness or swelling. 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, precipitating or modifying factors (Amairani Brennan) - Related Data Home Medications Medication Instructions Recorded Confirmed Cetirizine HCl [Zyrtec] 10 mg PO DAILY 06/04/24 06/04/24 cloNIDine HCL [Catapres] 0.1 mg PO DAILY PRN 06/04/24 06/04/24 Allergies Allergy/AdvReac Type Severity Reaction Status Date / Time lamotrigine [From Lamictal] Allergy Unknown Rash/Hives Verified 06/04/24 22:44 ziprasidone [From Geodon] Allergy Unknown Rash/Hives Verified 06/04/24 22:44 peanut Allergy Rash/Hives Verified 06/04/24 22:44 egg AdvReac Nausea & Verified 06/04/24 22:44 Vomiting & Diarrhea haloperidol [From Haldol] AdvReac tardive Verified 06/04/24 22:44 dyskinesia Review of Systems ROS Other: All systems not noted in ROS Statement are negative. <Esperanza Christine - Last Filed: 06/04/24 11:28> ROS Other: All systems not noted in ROS Statement are negative. <Amairani Brennan - Last Filed: 06/05/24 17:57> ROS Statement: Those systems with pertinent positive or pertinent negative responses have been documented in the HPI. Past Medical History Past Medical History: Asthma, Dialysis, GERD/Reflux, Pneumonia, Skin Disorder Additional Past Medical History / Comment(s): Other HX: Eczema, hayfever, left cornea ulcer healed, gastric ulcer History of Any Multi-Drug Resistant Organisms: None Reported Past Surgical History: No Surgical Hx Reported Additional Past Surgical History / Comment(s): EGD, corneal biopsy left - Past Anesthesia/Blood Transfusion Reactions: No Reported Reaction Past Psychological History: ADD/ADHD, Anxiety, Bipolar, Depression, Panic Diso rder, PTSD Smoking Status: Current every day smoker Past Alcohol Use History: None Reported Past Drug Use History: None Reported - Past Family History Father Additional Family Medical History / Comment(s): Father is alive at age 49 with history of alcoholism and drug addiction. Patient does not have any relationship with him. grandfather diabetic. mom and grandfather have HTN. brother htn Mother Additional Family Medical History / Comment(s): Mother is alive at age 44. She has history of coronary artery disease with previous [place], bipolar disorder and borderline personality. Patient has no contact with his mother. Brother(s) Additional Family Medical History / Comment(s): Patient has 1 brother that is 21 years old and one sister 23 years old both have anxiety. Patient does not have any children. <Esperanza Christine - Last Filed: 06/04/24 11:28> General Exam Limitations: no limitations <ChristineEsperanza - Last Filed: 06/04/24 11:28> General appearance: alert, in no apparent distress Head exam: Present: atraumatic, normocephalic, normal inspection Eye exam: Present: normal appearance, PERRL, EOMI. Absent: scleral icterus, conjunctival injection, periorbital swelling ENT exam: Present: normal exam, mucous membranes moist Neck exam: Present: normal inspection. Absent: tenderness, meningismus, lymphadenopathy Respiratory exam: Present: normal lung sounds bilaterally. Absent: respiratory distress, wheezes, rales, rhonchi, stridor Cardiovascular Exam: Present: regular rate, normal rhythm, normal heart sounds. Absent: systolic murmur, diastolic murmur, rubs, gallop, clicks GI/Abdominal exam: Present: soft, normal bowel sounds. Absent: distended, tenderness, guarding, rebound, rigid Extremities exam: Present: normal inspection, full ROM, normal capillary refill. Absent: tenderness, pedal edema, joint swelling, calf tenderness Back exam: Present: normal inspection Neurological exam: Present: alert, oriented X3, CN II-XII intact Psychiatric exam: Present: anxious Skin exam: Present: warm, dry, intact, normal color. Absent: rash <Amairani Brennan - Last Filed: 06/05/24 17:57> - General Exam Comments Initial Comments: Visual Physical Exam Vital signs reviewed General: Well-appearing, nontoxic, no acute distress. Head: Normocephalic, atraumatic Eyes: PERRLA, EOMI ENT: Airway patent Chest: Nonlabored breathing Skin: No visual rash, normal skin tone Neuro: Alert and oriented 3 Musculoskeletal: No gross abnormalities (Esperanza Christine) Course Vital Signs 06/04/24 11:12 Temperature 98.2 F Pulse Rate 87 Respiratory 16 Rate Blood Pressure 124/77 O2 Sat by Pulse 98 Oximetry Medical Decision Making <Esperanza Christine - Last Filed: 06/04/24 11:28> - Lab Data Result diagrams: 06/04/24 13:10 06/04/24 13:10 <Amairani Brennan - Last Filed: 06/05/24 17:57> - Medical Decision Making I completed the quick note portion of this chart signed Esperanza Christine PA-C (Esperanza Christine) Was pt. sent in by a medical professional or institution (KINDRA Celis, APPLICATIONS PROGRAMMER ANALYST, urgent care, hospital, or custodial...) When possible be specific @ -No Did you speak to anyone other than the patient for history (EMS, parent, family, police, friend...)? What history was obtained from this source @ -No Did you review nursing and triage notes (agree or disagree)? Why? @ -I reviewed and agree with nursing and triage notes Were old charts reviewed (outside hosp., previous admission, EMS record, old EKG, old radiological studies, urgent care reports/EKG's, custodial records)? Report findings @ -No old charts were reviewed Differential Diagnosis (chest pain, altered mental status, abdominal pain women, abdominal pain men, vaginal bleeding, weakness, fever, dyspnea, syncope, headache, dizziness, GI bleed, back pain, seizure, CVA, palpatations, mental health, musculoskeletal)? @ -Differential Mental Health Depression, anxiety, bipolar, psychosis, schizophrenia, borderline personality, situational depression, adjustment disorder, behavioral disorder, brain tumor, malingering, substance abuse, encephalopathy, medication reaction, dementia, hypothyroidism, degenerative neurologic disorder, lupus.... This is not meant to be all-inclusive list EKG interpreted by me (3pts min.). @ -Not done X-rays interpreted by me (1pt min.). @ -None done CT interpreted by me (1pt min.). @ -None done U/S interpreted by me (1pt. min.). @ -Yes and demonstrates superficial thrombophlebitis What testing was considered but not performed or refused? (CT, X-rays, U/S, labs)? Why? @ -None What meds were considered but not given or refused? Why? @ -None Did you discuss the management of the patient with other professionals (professionals i.e. , PA, APPLICATIONS PROGRAMMER ANALYST, lab, RT, psych nurse, social studies teacher, hot mill observer, teacher, juvenile corrections officer, case reviewer)? Give summary @ -Spoke with EPS nurse who does want to admit the patient Was smoking cessation discussed for >3mins.? @ -No Was critical care preformed (if so, how long)? @ -No Were there social determinants of health that impacted care today? How? (Homelessness, low income, unemployed, alcoholism, drug addiction, transportation, low edu. Level, literacy, decrease access to med. care, care home, rehab)? @ -No Was there de-escalation of care discussed even if they declined (Discuss DNR or withdrawal of care, Hospice)? DNR status @ -No What co-morbidities impacted this encounter? (DM, HTN, Smoking, COPD, CAD, Cancer, CVA, ARF, Chemo, Hep., AIDS, mental health diagnosis, sleep apnea, morbid obesity)? @ -Methamphetamine abuse Was patient admitted / discharged? Hospital course, mention meds given and route, prescriptions, significant lab abnormalities, going to OR and other pertinent info. @ -Upon arrival patient seen and evaluated in hallway 20. Thorough history and physical exam was performed. Laboratory studies are conducted. Ultrasound was performed. Patient is medically cleared. He is evaluated by EPS. They do want to admit the patient. Patient will be admitted to 3 . He was agreeable to admission Undiagnosed new problem with uncertain prognosis? @ -No Drug Therapy requiring intensive monitoring for toxicity (Heparin, Nitro, Insulin, Cardizem)? @ -No Were any procedures done? @ -No Diagnosis/symptom? @ -Acute depression with suicidal ideations, methamphetamine withdrawal, history of depression, superficial thrombophlebitis left upper extremity Acute, or Chronic, or Acute on Chronic? @ -Acute Uncomplicated (without systemic symptoms) or Complicated (systemic symptoms)? @ -Complicated Side effects of treatment? @ -No Exacerbation, Progression, or Severe Exacerbation? @ -No Poses a threat to life or bodily function? How? (Chest pain, [place], [place], pneumonia, PE, COPD, DKA, ARF, appy, cholecystitis, CVA, Diverticulitis, Homicidal, Suicidal, threat to staff... and all critical care pts) @ -Yes as patient is feeling suicidal (Amairani Brennan) - Lab Data Lab Results 06/04/24 06/04/24 06/04/24 Range/Units 13:10 13:10 13:37 WBC 9.7 (3.8-10.6) k/uL RBC 5.08 (4.30-5.90) m/uL Hgb 16.0 (13.0-17.5) gm/dL Hct 47.7 (39.0-53.0) % MCV 94.0 (80.0-100.0) fL MCH 31.5 (25.0-35.0) pg MCHC 33.6 (31.0-37.0) g/dL RDW 12.4 (11.5-15.5) % Plt Count 291 (150-450) k/uL MPV 7.4 Neutrophils % 71 % Lymphocytes % 16 % Monocytes % 4 % Eosinophils % 8 % Basophils % 1 % Neutrophils # 6.9 (1.3-7.7) k/uL Lymphocytes # 1.6 (1.0-4.8) k/uL Monocytes # 0.4 (0-1.0) k/uL Eosinophils # 0.7 (0-0.7) k/uL Basophils # 0.1 (0-0.2) k/uL Sodium 136 L (137-145) mmol/L Potassium 4.1 (3.5-5.1) mmol/L Chloride 103 (98-107) mmol/L Carbon Dioxide 25 (22-30) mmol/L Anion Gap 8 mmol/L BUN 13 (9-20) mg/dL Creatinine 0.83 (0.66-1.25) mg/dL Est GFR (CKD-EPI)AfAm >90 (>60 ml/min/1.73 sqM) Est GFR (CKD-EPI)NonAf >90 (>60 ml/min/1.73 sqM) Glucose 128 H (74-99) mg/dL Calcium 9.4 (8.4-10.2) mg/dL Total Bilirubin 0.1 L (0.2-1.3) mg/dL AST 25 (17-59) U/L ALT 27 (4-49) U/L Alkaline Phosphatase 81 (38-126) U/L Total Protein 6.6 (6.3-8.2) g/dL Albumin 4.5 (3.5-5.0) g/dL Urine Opiates Screen Not Detected (NotDetected) Ur Oxycodone Screen Not Detected (NotDetected) Urine Methadone Screen Not Detected (NotDetected) Ur Barbiturates Screen Not Detected (NotDetected) U Tricyclic Antidepress Not Detected (NotDetected) Ur Phencyclidine Scrn Not Detected (NotDetected) Ur Amphetamines Screen Detected H (NotDetected) U Methamphetamines Scrn Detected H (NotDetected) U Benzodiazepines Scrn Not Detected (NotDetected) Urine Cocaine Screen Not Detected (NotDetected) U Marijuana (THC) Screen Not Detected (NotDetected) SARS-CoV-2 (PCR) (Not Detectd) 06/04/24 Range/Units 21:14 WBC (3.8-10.6) k/uL RBC (4.30-5.90) m/uL Hgb (13.0-17.5) gm/dL Hct (39.0-53.0) % MCV (80.0-100.0) fL MCH (25.0-35.0) pg MCHC (31.0-37.0) g/dL RDW (11.5-15.5) % Plt Count (150-450) k/uL MPV Neutrophils % % Lymphocytes % % Monocytes % % Eosinophils % % Basophils % % Neutrophils # (1.3-7.7) k/uL Lymphocytes # (1.0-4.8) k/uL Monocytes # (0-1.0) k/uL Eosinophils # (0-0.7) k/uL Basophils # (0-0.2) k/uL Sodium (137-145) mmol/L Potassium (3.5-5.1) mmol/L Chloride (98-107) mmol/L Carbon Dioxide (22-30) mmol/L Anion Gap mmol/L BUN (9-20) mg/dL Creatinine (0.66-1.25) mg/dL Est GFR (CKD-EPI)AfAm (>60 ml/min/1.73 sqM) Est GFR (CKD-EPI)NonAf (>60 ml/min/1.73 sqM) Glucose (74-99) mg/dL Calcium (8.4-10.2) mg/dL Total Bilirubin (0.2-1.3) mg/dL AST (17-59) U/L ALT (4-49) U/L Alkaline Phosphatase (38-126) U/L Total Protein (6.3-8.2) g/dL Albumin (3.5-5.0) g/dL Urine Opiates Screen (NotDetected) Ur Oxycodone Screen (NotDetected) Urine Methadone Screen (NotDetected) Ur Barbiturates Screen (NotDetected) U Tricyclic Antidepress (NotDetected) Ur Phencyclidine Scrn (NotDetected) Ur Amphetamines Screen (NotDetected) U Methamphetamines Scrn (NotDetected) U Benzodiazepines Scrn (NotDetected) Urine Cocaine Screen (NotDetected) U Marijuana (THC) Screen (NotDetected) SARS-CoV-2 (PCR) Not Detected (Not Detectd) Disposition <Esperanza Christine - Last Filed: 06/04/24 11:28> Is patient prescribed a controlled substance at d/c from ED?: No Time of Disposition: 21:09 Decision to Admit Reason: Admit from EC Decision Date: 06/04/24 Decision Time: 21:09 <Amairani Brennan - Last Filed: 06/05/24 17:57> Clinical Impression: Methamphetamine abuse, Depression Disposition: TRANSFER TO PSYCH HOSP/UNIT Condition: Stable
[2024-06-04 13:43] LABS: Basophils # (A) 0.1 k/uL (0-0.2); Basophils % (A) 1 %; Eosinophils # (A) 0.7 k/uL (0-0.7); Eosinophils % (A) 8 %; HCT 47.7 % (39.0-53.0); Lymphocytes # (A) 1.6 k/uL (1.0-4.8); Lymphocytes % (A) 16 %; MCH 31.5 pg (25.0-35.0); MCHC 33.6 g/dL (31.0-37.0); Mean Platelet Volume 7.4; Monocytes # (A) 0.4 k/uL (0-1.0); Monocytes % (A) 4 %; Neutrophils # (A) 6.9 k/uL (1.3-7.7); Neutrophils % (A) 71 %; Platelet Count 291 k/uL (150-450); RBC 5.08 m/uL (4.30-5.90); RDW 12.4 % (11.5-15.5); WBC 9.7 k/uL (3.8-10.6)
[2024-06-04 13:56] LABS: ALT 27 U/L (4-49); AST 25 U/L (17-59); African American GFR (CKD) >90 (>60 ml/min/1.73 sqM); Albumin 4.5 g/dL (3.5-5.0); Alkaline Phosphatase 81 U/L (38-126); Anion Gap 8 mmol/L; Blood Urea Nitrogen 13 mg/dL (9-20); Calcium 9.4 mg/dL (8.4-10.2); Carbon Dioxide 25 mmol/L (22-30); Chloride 103 mmol/L (98-107); Glucose 128 mg/dL (74-99); Non-African American GFR(CKD) >90 (>60 ml/min/1.73 sqM); Potassium 4.1 mmol/L (3.5-5.1); Sodium 136 mmol/L (137-145); Total Bilirubin 0.1 mg/dL (0.2-1.3); Total Protein 6.6 g/dL (6.3-8.2)
[2024-06-04] MEDS: LORazepam 1 MG TAB PO STA ×2 (14:22→19:09)
[2024-06-04] MEDS: ONDANSETRON ODT 4 MG TAB PO STA (14:22)
[2024-06-04 14:44] LABS: Amphetamine Screen,Urine Detected (NotDetected); Barbiturate Screen,Urine Not Detected (NotDetected); Benzodiazepines Screen,Urine Not Detected (NotDetected); Cocaine Screen,Urine Not Detected (NotDetected); Methadone Screen, Urine Not Detected (NotDetected); Opiate Screen,Urine Not Detected (NotDetected); Oxycodone Screen, Urine Not Detected (NotDetected); Phencyclidine Screen,Urine Not Detected (NotDetected); Tricyclic Antidepressant,Urine Not Detected (NotDetected); Urn Cannabinoid Scrn Not Detected (NotDetected)
--- NOTE | 2024-06-04 17:49 | US ---
EXAMINATION TYPE: US venous doppler duplex UE LT DATE OF EXAM: 06/04/2024 COMPARISON: US 2021 CLINICAL INDICATION: Male, 33 years old with history of injection site pain; Patient states injection site pain. No hx DVT. not on thinners TECHNIQUE: Grayscale, color Doppler and spectral Doppler imaging of the upper extremity. SIDE PERFORMED: Left FINDINGS: Left Arm: No evidence of DVT. There are echoes seen within the cephalic vein within the forearm. This area is not compressible Grayscale, color doppler, spectral doppler imaging performed of the deep veins of the upper extremiti es. IMPRESSION: 1. No deep venous thrombosis left upper extremity. 2. Note is made of superficial thrombus within the cephalic vein is noncompressible. [facility], , 06/04/2024 5:46 PM
[2024-06-04] MEDS ORDERED: MAG HYDROX/AL HYDROX/SIMETH 355 ML BOTTLE PO PRN (22:37)
[2024-06-04] MEDS ORDERED: IBUPROFEN 600 MG TAB PO PRN (22:37)
[2024-06-04] MEDS ORDERED: MAGNESIUM HYDROXIDE 2,400 MG/30 ML CUP PO PRN (22:37)
[2024-06-04] MEDS ORDERED: LORazepam 2 MG/ML INJ IM PRN (22:37)
[2024-06-04] MEDS ORDERED: ACETAMINOPHEN TAB 325 MG TAB PO PRN (22:37)
[2024-06-04 23:00] LABS: Appearance,Urine Clear (Clear); Bilirubin,Urine Negative (Negative); Blood,Urine Negative (Negative); Color,Urine Colorless; Glucose,Urine (UA) Negative (Negative); Ketones,Urine Negative (Negative); Leukocyte Esterase,Urine Negative (Negative); Nitrite,Urine Negative (Negative); PH, Urine 6.5 (5.0-8.0); Protein,Urine Negative (Negative); Specific Gravity,Urine 1.011 (1.001-1.035); Urobilinogen,Urine <2.0 mg/dL (<2.0)
[2024-06-05] MEDS: diphenhydrAMINE 50 MG CAP PO PRN (00:03)
[2024-06-05] MEDS: ALBUTEROL INHALER 60 PUFF/8 GM INHALER (MHU) INHALATION PRN (00:04)
[2024-06-05] MEDS: NICOTINE 14MG/24HR PATCH TRANSDERM SCH (08:13)
[2024-06-05 09:57] LABS: ALT 31 U/L (4-49); AST 29 U/L (17-59); Albumin 4.2 g/dL (3.5-5.0); Alkaline Phosphatase 58 U/L (38-126); Bilirubin,Unconjugated 0.3 mg/dL (0.0-1.1); Total Bilirubin 0.3 mg/dL (0.2-1.3); Total Protein 6.4 g/dL (6.3-8.2)
[2024-06-05] MEDS: OLANZapine 5 MG TAB PO SCH (10:34)
[2024-06-05] MEDS: cloNIDine HCL 0.1 MG TAB PO SCH (10:34)
--- NOTE | 2024-06-05 13:57 | P.HP ---
Psychiatric H&P - . History & Physical: IDENTIFYING DATA: Patient is a 33 year old man with a history of borderline p ersonality disorder and methamphetamine abuse who presented to the ER with suicidal ideation. HPI: Per EPS Assessment: "Pt presents voluntary to EC /c c/o suicidal ideation /c a plan to overdose on methamphetamine "if I don't get help." Pt denies HI and no delusional thoughts verbalized. Pt states he does have visual hallucinations; "I see red lights and ghosts." Pt states "I'm having paranoia, anxiety and psychomotor agitation. I feel like I'm having grief on steroids. I'm having suicidal thoughts because of my symptoms of withdrawal. If I don't get help my only options are committing suicide or relapsing on meth and dying. Using meth is exacerbating my mental health symptoms and it's scary." Pt states he cannot contract for safety if discharged from EC. Pt is willing to sign in AFV." Piotr Niño is a 33 year old man with a history of borderline personality disorder, methamphetamine abuse, history of alcohol use disorder, and history of bipolar disorder who presented to the ER with suicidal ideation. Mr. Niño shared that he has been withdrawing from methamphetamine since his last use on 05/31/2024 and has experienced an increase in depression, anxiety, and paranoia during that time. The intensity of the symptoms was worsening which contributed to the suicidal ideation that he had on presentation and led him to come into the emergency department. His longest period of sobriety was 5 months and took place this year following inpatient treatment in [place] ([facility]; 30 day program) and was discharged on 12/09/23 to a three-quarter [place] in [place]. He left that program after one month but remained in [place]. He returned to [place] in March 2024 and subsequently relapsed and returned to daily methamphetamine use. He reports using approximately 1 g of methamphetamine per day. He denies current use of other illicit substances or drinking alcohol but alcohol has been an issue in the past, and of note, April [facility] note suggests he was drinking 1 pint every 2-3 days. He smokes 2 packs of cigarettes per day. Regarding his symptoms he notes having difficulty sleeping feeling lots of guilty feelings, decreased energy, increased appetite, and hallucinations. Hallucinations tend to occur during withdrawal and he reports experiencing auditory and visual hallucinations, though he did not want to elaborate on the details. In addition to the symptoms he describes having nightmares and intrusive thoughts of previously distressing experiences. He does at times feel he is re-experiencing previous traumas. He has had several panic attacks in the last few days and describes experiencing anxiety which for him is restlessness, rumination, and over thinking. Per review of [facility] records he has previously had a history of manic symptoms where he was "productive, restless, and impulsive." Mr. Niño has previously found the combination of Zyprexa and Remeron helpful. While he did experience weight gain on Zyprexa he felt that it has been most effective in addressing the paranoia that he experiences during withdrawal and at times after. Additionally he was on Wellbutrin at 1 point but this medication made him feel more anxious. And we discussed that he found more benefit from clonidine than he did propranolol. He has not been on his medication recently. He is still engaged with [facility] his last appointment there was in April 2024. PAST PSYCHIATRIC HISTORY: Patient has a history of borderline personality disorder, bipolar disorder, methamphetamine abuse, alcohol use disorder. Multiple prior inpatient admissions, last at this hospital was in October 2022 following an intentional overdose with acetaminophen. He has had four total suicide attempts (3 intentional OD and 1 hanging; this was interrupted). He is presently engaged in care through [facility], last seen on 04/26/24. Recently prescribed Rexulti and Clonidine but discontinued the Rexulti due to not being effective and has not been taking clonidine. Feels olanzapine, mirtazapine, and clonidine are helpful. Wellbutrin contributed to more anxiety. Has previously been in CBT and DBT and found therapy helpful. PMH: Denies having any chronic medical problems. CHEMICAL DEPENDENCY HISTORY: Methamphetamine (1 gram/day), tobacco (2ppd), alcohol (denies current use but April 2024 [facility] note suggests 1 pint every 2-3 days) FAMILY PSYCHIATRIC/SUBSTANCE USE HISTORY: Denies family history of suicide. SOCIAL HISTORY: Completed 10th grade and a [employer] program. Presently resides with his grandparents and works part-time at [employer]. Briefly worked in the [employer] industry. Currently from partner who resides in [place]. Patient has a history of charges related to IPV in [place] and was deported, unable to return. Denies having access to firearms. Allergies Allergy/AdvReac Type Severity Reaction Status Date / Time lamotrigine from Lamictal Allergy Unknown Rash/Hives Verified 06/04/24 22:44 ziprasidone from Geodon Allergy Unknown Rash/Hives Verified 06/04/24 22:44 peanut Allergy Rash/Hives Verified 06/04/24 22:44 egg AdvReac Nausea & Verified 06/04/24 22:44 Vomiting & Diarrhea haloperidol from Haldol AdvReac tardive Verified 06/04/24 22:44 dyskinesia Vital Signs Temp 97.9 F 06/04/24 23:50 Pulse 91 06/04/24 23:50 Resp 16 06/04/24 23:50 BP 125/77 06/04/24 23:50 Pulse Ox 95 06/04/24 23:50 FiO2 Intake & Output 06/04/24 06/05/24 06/05/24 18:59 06:59 18:59 Weight 86.183 kg 86.183 kg Laboratory Last Values WBC 9.7 k/uL (3.8-10.6) 06/04/24 13:10 RBC 5.08 m/uL (4.30-5.90) 06/04/24 13:10 Hgb 16.0 gm/dL (13.0-17.5) 06/04/24 13:10 Hct 47.7 % (39.0-53.0) 06/04/24 13:10 MCV 94.0 fL (80.0-100.0) 06/04/24 13:10 MCH 31.5 pg (25.0-35.0) 06/04/24 13:10 MCHC 33.6 g/dL (31.0-37.0) 06/04/24 13:10 RDW 12.4 % (11.5-15.5) 06/04/24 13:10 Plt Count 291 k/uL (150-450) 06/04/24 13:10 MPV 7.4 06/04/24 13:10 Neutrophils % 71 % 06/04/24 13:10 Lymphocytes % 16 % 06/04/24 13:10 Monocytes % 4 % 06/04/24 13:10 Eosinophils % 8 % 06/04/24 13:10 Basophils % 1 % 06/04/24 13:10 Neutrophils # 6.9 k/uL (1.3-7.7) 06/04/24 13:10 Lymphocytes # 1.6 k/uL (1.0-4.8) 06/04/24 13:10 Monocytes # 0.4 k/uL (0-1.0) 06/04/24 13:10 Eosinophils # 0.7 k/uL (0-0.7) 06/04/24 13:10 Basophils # 0.1 k/uL (0-0.2) 06/04/24 13:10 Sodium 136 mmol/L (137-145) L 06/04/24 13:10 Potassium 4.1 mmol/L (3.5-5.1) 06/04/24 13:10 Chloride 103 mmol/L (98-107) 06/04/24 13:10 Carbon Dioxide 25 mmol/L (22-30) 06/04/24 13:10 Anion Gap 8 mmol/L 06/04/24 13:10 BUN 13 mg/dL (9-20) 06/04/24 13:10 Creatinine 0.83 mg/dL (0.66-1.25) 06/04/24 13:10 Est GFR (CKD-EPI)AfAm >90 (>60 ml/min/1.73 sqM) 06/04/24 13:10 Est GFR (CKD-EPI)NonAf >90 (>60 ml/min/1.73 sqM) 06/04/24 13:10 Glucose 128 mg/dL (74-99) H 06/04/24 13:10 Calcium 9.4 mg/dL (8.4-10.2) 06/04/24 13:10 Total Bilirubin 0.1 mg/dL (0.2-1.3) L 06/04/24 13:10 AST 25 U/L (17-59) 06/04/24 13:10 ALT 27 U/L (4-49) 06/04/24 13:10 Alkaline Phosphatase 81 U/L (38-126) 06/04/24 13:10 Total Protein 6.6 g/dL (6.3-8.2) 06/04/24 13:10 Albumin 4.5 g/dL (3.5-5.0) 06/04/24 13:10 Urine Color Colorless 06/04/24 22:49 Urine Appearance Clear (Clear) 06/04/24 22:49 Urine pH 6.5 (5.0-8.0) 06/04/24 22:49 Ur Specific [place] 1.011 (1.001-1.035) 06/04/24 22:49 Urine Protein Negative (Negative) 06/04/24 22:49 Urine Glucose (UA) Negative (Negative) 06/04/24 22:49 Urine Ketones Negative (Negative) 06/04/24 22:49 Urine Blood Negative (Negative) 06/04/24 22:49 Urine Nitrite Negative (Negative) 06/04/24 22:49 Urine Bilirubin Negative (Negative) 06/04/24 22:49 Urine Urobilinogen <2.0 mg/dL (<2.0) 06/04/24 22:49 Ur Leukocyte Esterase Negative (Negative) 06/04/24 22:49 Urine Opiates Screen Not Detected (NotDetected) 06/04/24 13:37 Ur Oxycodone Screen Not Detected (NotDetected) 06/04/24 13:37 Urine Methadone Screen Not Detected (NotDetected) 06/04/24 13:37 Ur Barbiturates Screen Not Detected (NotDetected) 06/04/24 13:37 U Tricyclic Antidepress Not Detected (NotDetected) 06/04/24 13:37 Ur Phencyclidine Scrn Not Detected (NotDetected) 06/04/24 13:37 Ur Amphetamines Screen Detected (NotDetected) H 06/04/24 13:37 U Methamphetamines Scrn Detected (NotDetected) H 06/04/24 13:37 U Benzodiazepines Scrn Not Detected (NotDetected) 06/04/24 13:37 Urine Cocaine Screen Not Detected (NotDetected) 06/04/24 13:37 U Marijuana (THC) Screen Not Detected (NotDetected) 06/04/24 13:37 SARS-CoV-2 (PCR) Not Detected (Not Detectd) 06/04/24 21:14 MENTAL STATUS EXAM: General Appearance: Patient appears to be stated age is alert, directable, and attempts to cooperate. Patient appears to have fair hygiene and grooming. Very little eye contact; eyes remain closed during visit. Wearing glasses. Multiple tattoos on extremities. Behavior: Patient is seated without any aggressive behavior. Some fidgeting and restlessness, psychomotor agitation. Speech: Patient's speech is fluent and nonpressured. Mood/Affect: Patient reports their mood is "depressed, anxious, paranoid", affect is congruent and constricted. Suicidality/Homicidality: Patient denies having any homicidal ideation, intent, or plan. Denies any suicidal ideation, intent, or plan at present. Perceptions: Patient endorses visual hallucinations and auditory hallucinations Though content/process: There is no evidence of any overtly delusional thought content and thought process is linear and goal-directed. Memory and concentration: AOX3, grossly intact for the purposes of this session. Able to recall recent and remote events with reasonable accuracy. Judgment and insight: Impaired STRENGTHS/WEAKNESSES: strength is that patient is resilient. Weakness is that patient has poor judgment and is impulsive INTELLECT: Average IMPRESSIONS: Piotr Niño is a 33 year old man with a history of methamphetamine abuse, borderline PD, bipolar disorder, and prior suicide attempts who presented to the ER with suicidal ideation and worsening mood/anxiety symptoms in the context of methamphetamine withdrawal. He last used several days ago and has been off psychiatric medication for an extended period of time. We discussed his experiences with medication and identified a plan of care to adequately address his current symptoms. Additionally, we will continue to explore inpatient rehab, though at present Mr. Niño desires to return home after this admission. Will continue to evaluate. - Borderline personality disorder - Unspecified bipolar disorder - Stimulant use disorder, severe, amphetamine type - History of alcohol use disorder - Nicotine dependence PLAN: -Patient is admitted under voluntary status to MHU for stabilization of psychiatric symptoms and safety. Patient has signed adult voluntary form and medication consent and is placed in patient's chart. -Medications : - Olanzapine 5 mg daily for paranoia and mood stability - Mirtazapine 15 mg at bedtime for depression/anxiety - Clonidine 0.1 mg BID for agitation related to withdrawal; will monitor BP -Ativan and Olanzapine PRN for agitation/aggression -Patient was counselled on substance abuse and desired to cut back on use -Will offer patient subtance use rehab -Patient was informed of the risks, benefits and side effects of the medication and patient verbally consented to taking the medications. Patient signed med consent form and was placed in chart. -Internal Medicine consult to perform medical evaluation and physical. -NRT -nicotine patch ordered -SW on board for discharge planning. Encourage patient to participate in groups to work on coping skills. Patient presently plans to return home after discharge. 06/05/24 13:56 06/05/24 13:56
[2024-06-05] MEDS: LORazepam 1 MG TAB PO PRN (16:31)
[2024-06-05] MEDS: MIRTAZAPINE 15 MG TAB PO SCH (20:26)
[2024-06-05] MEDS: traZODone HCL 50 MG TAB PO PRN (20:27)
[2024-06-06 00:04] LABS: Chol/HDL Ratio 3.67 Ratio; LDL Cholesterol,Calculated 133.8 mg/dL (0.0-131.0)
--- NOTE | 2024-06-06 13:37 | P.PN ---
Progress Note - Text Interval History: Patient was seen in the hallway and was directable and agreeable to speak with financial writer in the office. [He described his mood as "anxious" today. He continues to feel tired and notices that this seems to be part of the withdrawal experience for him as he did not sleep for several days prior to coming to the hospital. He is not experiencing as much paranoia as he was yesterday; this symptom seems to be okay for now. The auditory and visual hallucinations that he had been experiencing have improved; they are no longer present. We explored his desire to return home after this admission and not pursue rehab. He explained that he has been to rehab several times before and is unsure what an additional stay would offer him. However he is interested in engaging in support groups and other recovery oriented activities in the community. One thing that has made it difficult for him to discontinue using meth, as compared to opioids and alcohol, is he notices a lack of laura in his life that ultimately becomes a trigger to use meth. Additionally, when he feels paranoid or anxious, two symptoms he recognizes as residual symptoms from prior meth use this also acts as a trigger and encourages his further use]. At this time patient denies any suicidal or homicidal ideations, intent, or plan. Patient denies any au ditory or visual hallucinations and denies any paranoia or delusions. Patient denies any side effects from the medications and has been compliant with meds. MENTAL STATUS EXAM: General Appearance: Patient appears to be stated age is alert, directable, and attempts to cooperate. Patient appears to have improved hygiene and grooming. Improved eye contact. Wearing glasses. Multiple tattoos on extremities. Behavior: Patient is seated without any aggressive behavior. Notably less fidgeting and restlessness, psychomotor agitation, as compared to yesterday. Speech: Patient's speech is fluent and nonpressured. Mood/Affect: Patient reports their mood is "anxious", affect is congruent and constricted. Suicidality/Homicidality: Patient denies having any homicidal ideation, intent, or plan. Denies any suicidal ideation, intent, or plan at present. Perceptions: Patient denies visual hallucinations and auditory hallucinations Though content/process: There is no evidence of any overtly delusional thought content and thought process is linear and goal-directed. Memory and concentration: AOX3, grossly intact for the purposes of this session. Able to recall recent and remote events with reasonable accuracy. Judgment and insight: Improving mildly STRENGTHS/WEAKNESSES: strength is that patient is resilient. Weakness is that patient has poor judgment and is impulsive INTELLECT: Average IMPRESSIONS: - Borderline personality disorder - Unspecified bipolar disorder - Stimulant use disorder, severe, amphetamine type - History of alcohol use disorder - Nicotine dependence PLAN: -Patient is admitted under voluntary status to MHU for stabilization of psychiatric symptoms and safety. Patient has signed adult voluntary form and medication consent and is placed in patient's chart. -Medications : - Olanzapine 5 mg daily for paranoia and mood stability - Mirtazapine 15 mg at bedtime for depression/anxiety - Clonidine 0.1 mg BID for agitation related to withdrawal; will monitor BP - Start Claritin 10 mg daily for seasonal allergies - Will plan for Vivitrol prior to discharge -Ativan and Olanzapine PRN for agitation/aggression -NRT - Continue nicotine patch -SW to support discharge planning. Will encourage patient to attend groups and engage in milieu. Additionally, we discussed the offer of inpatient substance rehab today, and patient declined. He has been to rehab several times before and is unsure what another admission would offer. He is interested in participating in AA and other support groups, returning to home and work.
[2024-06-06] MEDS: LORATADINE 10 MG TAB PO SCH (14:39)
[2024-06-06] MEDS: OLANZapine 5 MG TAB PO PRN (18:12)
--- NOTE | 2024-06-07 11:43 | P.PN ---
Progress Note - Text Interval History: Patient was seen at the bedside and was and was directable and agreeable to speak with filing writer. [He described his mood as "low" today. He has been experiencing ongoing tiredness and generally not feeling like doing much. He did require a Zyprexa as needed once yesterday due to agitation and received two Ativan PRNs due to an increase in anxiety. He notes that he was feeling paranoid at one point yesterday which then led to some suicidal ideation, however he has not felt these feelings today so far. He does feel that he still navigating withdrawal symptoms, particularly the anxiety and low mood that he has felt in the past. He is interested in talking to his family about potential to return home after he leaves the hospital and remains eager to go back to work.]. At this time patient denies any suicidal or homicidal ideations, intent, or plan. Patient denies any auditory or visual hallucinations and denies any current paranoia or delusions. He does feel the mirtazapine may have energized him some last night which resulted in him needing trazodone to help with sleep overnight. MENTAL STATUS EXAM: General Appearance: Patient appears to be stated age is alert, directable, and attempts to cooperate. Patient appears to have appropriate hygiene and grooming. Behavior: Patient is lying down without any aggressive behavior. No psychomotor agitation or retardation. Speech: Patient's speech is fluent and nonpressured. Mood/Affect: Patient reports their mood is "low", affect is congruent and constr icted. Suicidality/Homicidality: Patient denies having any homicidal ideation, intent, or plan. Denies any suicidal ideation, intent, or plan at present. Perceptions: Patient denies visual hallucinations and auditory hallucinations Though content/process: There is no evidence of any overtly delusional thought content and thought process is linear and goal-directed. Memory and concentration: AOX3, grossly intact for the purposes of this session. Able to recall recent and remote events with reasonable accuracy. Judgment and insight: Improving mildly STRENGTHS/WEAKNESSES: strength is that patient is resilient. Weakness is that patient has poor judgment and is impulsive INTELLECT: Average IMPRESSIONS: - Borderline personality disorder - Unspecified bipolar disorder - Stimulant use disorder, severe, amphetamine type - History of alcohol use disorder - Nicotine dependence PLAN: -Patient is admitted under voluntary status to MHU for stabilization of psychiatric symptoms and safety. Patient continues to experience anxiety, intermittent agitation, and some paranoia related to withdrawal. Will adjust timing and dose of his medications to help mitigate these symptoms. Patient has signed adult voluntary form and medication consent; forms are placed in patient's chart. -Medications : - Continue Olanzapine 5 mg daily for paranoia and mood stability; will move to bedtime to prevent excessive daytime sedation and improve nighttime sleep - Increase Mirtazapine to 30 mg at bedtime for depression/anxiety - Increase Clonidine to 0.1 mg TID for agitation/anxiety related to withd gumaro; will continue to monitor BP - Continue Claritin 10 mg daily for seasonal allergies - Will plan for Vivitrol prior to discharge -Ativan and Olanzapine PRN for agitation/aggression -NRT - Continue nicotine patch -SW to support discharge planning. Will encourage patient to attend groups and engage in milieu. Additionally, we discussed the offer of inpatient substance rehab, and patient declined. He has been to rehab several times before and is unsure what another admission would offer. He is interested in participating in AA and other support groups, returning to home and work. He receives outpatient care through [facility].
[2024-06-07] MEDS: cloNIDine HCL 0.1 MG TAB PO SCH (16:21)
[2024-06-07] MEDS: MIRTAZAPINE 15 MG TAB PO SCH (19:59)
--- NOTE | 2024-06-08 01:44 | P.PN ---
Progress Note - Text Progress Note Date: 06/08/24 Attempted to see the patient in the MHU on 06/07 at 2100. The patient refused to be seen or be evaluated.
--- NOTE | 2024-06-08 13:20 | P.PN ---
Progress Note - Text Interval History: Patient was seen at the bedside and was and was directable and agreeable to speak with technical writer and editor. He describes his mood as "blue" today and is feeling a bit down. He had ongoing anxiety yesterday particularly "worries about home" though talking to his family seem to alleviate this a bit. He does find clonidine helpful with decreasing his internal level of anxiety and distress. We discussed increasing this as his blood pressure has been stable. He did have some paranoia yesterday but this has not been present today; he is also not had any auditory or visual hallucinations. Per review of nursing records he slept about 6 hours overnight. He is planning to get up and do some hygiene and self- care today in an effort to get moving. He noticed that each time he experiences a relapse that it takes him a bit longer to get back to his baseline and then into the time before. Additionally he has a history of blepharitis and requested some eye drops and warm compresses to assist with the symptom management. At this time patient denies any suicidal or homicidal ideations, intent, or plan. Patient denies any auditory or visual hallucinations. MENTAL STATUS EXAM: General Appearance: Patient appears to be stated age is alert, directable, and attempts to cooperate. Patient appears to have appropriate hygiene and grooming. Behavior: Patient is lying down without any aggressive behavior but sits up in bed to talk. No psychomotor agitation or retardation. Speech: Patient's speech is fluent and nonpressured. Mood/Affect: Patient reports their mood is "blue", affect is congruent and constricted. Suicidality/Homicidality: Patient denies having any homicidal ideation, intent, or plan. Denies any suicidal ideation, intent, or plan at present. Perceptions: Patient denies visual hallucinations and auditory hallucinations Though content/process: There is no evidence of any overtly delusional thought content and thought process is linear and goal-directed. Memory and concentration: AOX3, grossly intact for the purposes of this session. Able to recall recent and remote events with reasonable accuracy. Judgment and insight: Improving mildly STRENGTHS/WEAKNESSES: strength is that patient is resilient. Weakness is that patient has poor judgment and is impulsive INTELLECT: Average IMPRESSIONS: - Borderline personality disorder - Unspecified bipolar disorder - Stimulant use disorder, severe, amphetamine type - History of alcohol use disorder - Nicotine dependence PLAN: -Patient is admitted under voluntary status to MHU for stabilization of psychiatric symptoms and safety. Patient continues to experience anxiety and intermittent agitatio related to withdrawal. Will adjust timing and dose of his medications to help mitigate these symptoms. Patient has signed adult voluntary form and medication consent; forms are placed in patient's chart. -Medications : - Continue Olanzapine 5 mg at bedtime for paranoia and mood stability - Continue Mirtazapine 30 mg at bedtime for depression/anxiety - Increase Clonidine to 0.2 mg TID for agitation/anxiety related to stimulant withdrawal; will continue to monitor BP - Will add hydroxyzine 25 mg TID PRN anxiety; discussed with patient this is an option in lieu of using Lorazepam as a first option when they experience anxiety symptoms as they will not be discharged on Lorazepam - Continue Claritin 10 mg daily for seasonal allergies - Will plan for Vivitrol prior to discharge -Ativan and Olanzapine PRN for agitation/aggression -NRT - Continue nicotine patch -SW to support discharge planning. Will encourage patient to attend groups and engage in milieu. Additionally, we discussed the offer of inpatient substance rehab, and patient declined. He has been to rehab several times before and is unsure what another admission would offer. He is interested in participating in AA and other support groups, returning to home and work. He receives outpatient care through [facility].
[2024-06-08] MEDS: ARTIFICIAL TEARS-HYPROMELLOSE DROPS 15 ML BTL BOTH EYES PRN (15:12)
[2024-06-08] MEDS: cloNIDine HCL 0.2 MG TAB PO SCH (15:12)
[2024-06-08] MEDS: OLANZapine 5 MG TAB PO SCH (20:07)
--- NOTE | 2024-06-09 11:59 | P.PN ---
Progress Note - Text Progress Note Date: 06/09/24 Dictation was produced using [employer] dictation software. Please excuse any grammatical, word or spelling errors. Interval history: Patient was seen in the hallway and was directable and agreeable to speak with the show card writer in the office for psychiatric follow-up. He states that he is a little sleepy today, reported that his mood is "good" today, reported that he had episodes of anxiety yesterday, and reported that it happened before when he was trying to stop using meth, he states that his last use was on 05/31. He denied any current SI/HI intention or plan. He reported that he has been hearing voices yesterday, however reported that he was able to control it. He states that he has been taking his medication, and denied any current side effects. He states that he slept well overnight, and reported that he is happy that he was able to sleep, and reported that with meth use find it hard to sleep at times. He states that he think along well with everyone in the unit, he was encouraged to attend participate in groups. Reported that he has a history of blepharitis and reported he is waiting to see the medical doctor. Mental status exam: General Appearance: Patient appears to be stated age is alert, directable, and attempts to cooperate. Patient appears to have appropriate hygiene and grooming. Behavior: Patient is seated without aggressive behavior. No psychomotor agitation or retardation. Speech: Patient's speech is fluent and nonpressured. Mood/Affect: Patient reports their mood is "good", affect is congruent and constricted. Suicidality/Homicidality: Patient denies having any homicidal ideation, intent, or plan. Denies any suicidal ideation, intent, or plan at present. Perceptions: Patient denies visual hallucinations, or auditory hallucinations, he reported hearing some voices yesterday and elaborate mostly related to substance use. Though content/process: There is no evidence of any overtly delusional thought content and thought process is linear and goal-directed. Memory and concentration: AOX3, grossly intact for the purposes of this session. Able to recall recent and remote events with reasonable accuracy. Judgment and insight: Improving mildly IMPRESSIONS: - Borderline personality disorder - Unspecified bipolar disorder - Stimulant use disorder, severe, amphetamine type - History of alcohol use disorder - Nicotine dependence Assessment/Plan: Continue with current diagnosis. Patient continues to meet criteria for inpatient psychiatric admission for symptom stabilization and safety. Patient will be maintained on current psychotropic medication regimen. Monitor for medication compliance and for any psychotropic medication side effects. Will continue to monitor ongoing response to treatment. Encouraged participation in milieu.
[2024-06-09] MEDS: HYDROCORTISONE 1% CREAM 30 GM TUBE TOPICAL PRN (12:25)
--- NOTE | 2024-06-10 11:37 | P.PN ---
Progress Note - Text Progress Note Date: 06/10/24 Dictation was produced using [employer] dictation software. Please excuse any grammatical, word or spelling errors. Interval history: Patient was seen in his room, and was directable and agreeable to speak with the appeals writer for psychiatric follow-up. Pt states that he is feeling well today, reported his mood is "good." He states that he slept well last night. He denied any current depression, reported that he had some anxiety last night, and asked for prn medication which was helpful. He reported that he was hearing some voices last night, reported a male voice, however did elaborate on it. Reported that he usually get the voices at times and it is not new. He states that he has been taking his medications, he denied any current side effects, he denied any muscle stiffness, rigidity, abnormal movement or drooling. He states that he think along well with everyone in the unit, he was encouraged to attend participate in groups. Mental status exam: General Appearance: Patient appears to be stated age is alert, directable, and attempts to cooperate. Patient appears to have appropriate hygiene and grooming. Behavior: Patient is laying in bed without aggressive behavior. No psychomotor agitation or retardation. Speech: Patient's speech is fluent and nonpressured. Mood/Affect: Patient reports their mood is "good", affect is congruent and constricted. Suicidality/Homicidality: Patient denies having any homicidal ideation, intent, or plan. Denies any suicidal ideation, intent, or plan at present. Perceptions: Patient denies visual hallucinations, or auditory hallucinations, he reported hearing some voices last night and elaborate mostly related to substance use. Though content/process: There is no evidence of any overtly delusional thought content and thought process is linear and goal-directed. Memory and concentration: AOX3, grossly intact for the purposes of this session. Able to recall recent and remote events with reasonable accuracy. Judgment and insight: Improving mildly IMPRESSIONS: - Borderline personality disorder - Unspecified bipolar disorder - Stimulant use disorder, severe, amphetamine type - History of alcohol use disorder - Nicotine dependence Assessment/Plan: Continue with current diagnosis. Patient continues to meet criteria for inpatient psychiatric admission for symptom stabilization and safety. Patient will be maintained on current psychotropic medication regimen. Monitor for medication compliance and for any psychotropic medication side effects. Will continue to monitor ongoing response to treatment. Encouraged participation in milieu.
[2024-06-11] MEDS: hydrOXYzine HCL 25 MG TAB PO PRN (04:40)
[2024-06-11 04:42] VITALS: PULSE 85; RESP 16; TEMP 98.1
[2024-06-11 10:28] VITALS: BP 131/83
--- NOTE | 2024-06-11 17:27 | P.DS ---
Providers Date of admission: 06/04/24 22:17 Expected date of discharge: 06/11/24 Attending physician: Celia Gurrola MD Consults: 06/04/24 22:37 Consult Physician Routine Consulting Provider: Marci Murrieta Consult Reason/Comments: For H & P for Medical Follow Up Do you want consulting provider notified?: Yes Primary care physician: [facility] Hospital Course: Admission HPI: Admission note was completed by "HPI: Per EPS Assessment: "Pt presents voluntary to EC /c c/o suicidal ideation /c a plan to overdose on methamphetamine "if I don't get help." Pt denies HI and no delusional thoughts verbalized. Pt states he does have visual hallucinations; "I see red lights and ghosts." Pt states "I'm having paranoia, anxiety and psychomotor agitation. I feel like I'm having grief on steroids. I'm having suicidal thoughts because of my symptoms of withdrawal. If I don't get help my only options are committing suicide or relapsing on meth and dying. Using meth is exacerbating my mental health symptoms and it's scary." Pt states he cannot contract for safety if discharged from EC. Pt is willing to sign in AFV." Piotr Niño is a 33 year old man with a history of borderline personality disorder, methamphetamine abuse, history of alcohol use disorder, and history of bipolar disorder who presented to the ER with suicidal ideation. Mr. Niño sh ared that he has been withdrawing from methamphetamine since his last use on 05/31/2024 and has experienced an increase in depression, anxiety, and paranoia during that time. The intensity of the symptoms was worsening which contributed to the suicidal ideation that he had on presentation and led him to come into the emergency department. His longest period of sobriety was 5 months and took place this year following inpatient treatment in [place] ([facility]; 30 day program) and was discharged on 12/09/23 to a three-quarter house in [place]. He left that program after one month but remained in [place]. [place] and subsequently relapsed and returned to daily methamphetamine use. He reports using approximately 1 g of methamphetamine per day. He denies current use of other illicit substances or drinking alcohol but alcohol has been an issue in the past, and of note, April [facility] note suggests he was drinking 1 pint every 2-3 days. He smokes 2 packs of cigarettes per day. Regarding his symptoms he notes having difficulty sleeping feeling lots of guilty feelings, decreased energy, increased appetite, and hallucinations. Hallucinations tend to occur during withdrawal and he reports experiencing auditory and visual hallucinations, though he did not want to elaborate on the details. In addition to the symptoms he describes having nightmares and intrusive thoughts of previously distressing experiences. He does at times feel he is re-experiencing previous traumas. He has had several panic attacks in the last few days and describes experiencing anxiety which for him is restlessness, rumination, and over thinking. Per review of [facility] records he has previously had a history of manic symptoms where he was "productive, restless, and impulsive." Mr. Niño has previously found the combination of Zyprexa and Remeron helpful. While he did experience weight gain on Zyprexa he felt that it has been most effective in addressing the paranoia that he experiences during withdrawal and at times after. Additionally he was on Wellbutrin at 1 point but this medication made him feel more anxious. And we discussed that he found more benefit from clonidine than he did propranolol. He has not been on his medication recently. He is still engaged with [facility] his last appointment there was in April 2024. PAST PSYCHIATRIC HISTORY: Patient has a history of borderline personality disorder, bipolar disorder, methamphetamine abuse, alcohol use disorder. Multiple prior inpatient admissions, last at this hospital was in October 2022 follo wing an intentional overdose with acetaminophen. He has had four total suicide attempts (3 intentional OD and 1 hanging; this was interrupted). He is presently engaged in care through [facility], last seen on 04/26/24. Recently prescribed Rexulti and Clonidine but discontinued the Rexulti due to not being effective and has not been taking clonidine. Feels olanzapine, mirtazapine, and clonidine are helpful. Wellbutrin contributed to more anxiety. Has previously been in CBT and DBT and found therapy helpful. PMH: Denies having any chronic medical problems. CHEMICAL DEPENDENCY HISTORY: Methamphetamine (1 gram/day), tobacco (2ppd), alcohol (denies current use but April 2024 [facility] note suggests 1 pint every 2-3 days) FAMILY PSYCHIATRIC/SUBSTANCE USE HISTORY: Denies family history of suicide. SOCIAL HISTORY: Completed 10th grade and a cosmetology program. Presently resides with his grandparents and works part-time at [employer]. Briefly worked in the [employer] industry. Currently from partner who resides in [place]. Patient has a history of charges related to IPV in [place] and was deported, unable to return. Denies having access to firearms. MENTAL STATUS EXAM: General Appearance: Patient appears to be stated age is alert, directable, and attempts to cooperate. Patient appears to have fair hygiene and grooming. Very little eye contact; eyes remain closed during visit. Wearing glasses. Multiple tattoos on extremities. Behavior: Patient is seated without any aggressive behavior. Some fidgeting and restlessness, psychomotor agitation. Speech: Patient's speech is fluent and nonpressured. Mood/Affect: Patient reports their mood is "depressed, anxious, paranoid", affect is congruent and constricted. Suicidality/Homicidality: Patient denies having any homicidal ideation, intent, or plan. Denies any suicidal ideation, intent, or plan at present. Perceptions: Patient endorses visual hallucinations and auditory hallucinations Though content/process: There is no evidence of any overtly delusional thought content and thought process is linear and goal-directed. Memory and concentration: AOX3, grossly intact for the purposes of this session. Able to recall recent and remote events with reasonable accuracy. Judgment and insight: Impaired STRENGTHS/WEAKNESSES: strength is that patient is resilient. Weakness is that patient has poor judgment and is impulsive INTELLECT: Average IMPRESSIONS: Piotr Niño is a 33 year old man with a history of methamphetamine abuse, borderline PD, bipolar disorder, and prior suicide attempts who presented to the ER with suicidal ideation and worsening mood/anxiety symptoms in the context of methamphetamine withdrawal. He last used several days ago and has been off psychiatric medication for an extended period of time. We discussed his experiences with medication and identified a plan of care to adequately address his current symptoms. Additionally, we will continue to explore inpatient rehab, though at present Mr. Niño desires to return home after this admission. Will continue to evaluate. - Borderline personality disorder - Unspecified bipolar disorder - Stimulant use disorder, severe, amphetamine type - History of alcohol use disorder - Nicotine dependence -Patient is admitted under voluntary status to MHU for stabilization of psychiatric symptoms and safety. Patient has signed adult voluntary form and medication consent and is placed in patient's chart. -Medications : - Olanzapine 5 mg daily for paranoia and mood stability - Mirtazapine 15 mg at bedtime for depression/anxiety - Clonidine 0.1 mg BID for agitation related to withdrawal; will monitor BP -Ativan and Olanzapine PRN for agitation/aggression -Patient was counselled on substance abuse and desired to cut back on use -Will offer patient subtance use rehab -Patient was informed of the risks, benefits and side effects of the medication and patient verbally consented to taking the medications. Patient signed med consent form and was placed in chart. -Internal Medicine consult to perform medical evaluation and physical. -NRT -nicotine patch ordered - on board for discharge planning. Encourage patient to participate in groups to work on coping skills. Patient presently plans to return home after discharge." Hospital course: Upon admission to the unit patient was directable and agreeable to commence treatment and signed adult voluntary form. Patient got along well with other patients on the unit and followed unit protocol. Patient was compliant with the medications and denied any side effects throughout hospital course. Patient was started on Olanzapine, Mirtazepine and Clonidine. Patient spoke of his stressors and engaged in therapy both group and individual. Patient was also seen by medical team for history and physical exam. Throughout the course of the hospitalization patient gradually improved with regards to [mood, anxiety], sleep and [returned back to their baseline level of functioning]and [became more future oriented with improved insight and judgment]. On the day of discharge patient denied any suicidal or homicidal ideations intent or plan denied any auditory or visual hallucinations. Patient endorsed wanting to live for [his health and family.] The patient denied any access to guns or weapons. Patient denied any paranoia and did not endorse any delusions. Patient does have a significant history of substance abuse [and] was counseled on abstaining from all substances including stimulants, alcohol and marijuana. Patient was offered however declined inpatient substance-abuse rehab. Patient elected to do outpatient substance use treatment program through [facility].] Patient was also counseled on the medications and need for regular compliance and was encouraged to follow-up with their outpatient appointment for mental health and also for primary care. Prior to discharge a family meeting will be arranged by social worker assistant to answer any questions and ensure safety upon discharge. Mental status exam: General Appearance: Patient appears to be stated age is alert, pleasant, and cooperative. Patient is in no acute distress and has improved hygiene and grooming Behavior: Patient is calmly seated without any agitated behavior. Speech: Patient's speech is fluent and nonpressured. Mood/Affect: Patient reports their mood is "[better]", affect is congruent and euthymic. Suicidality/Homicidality: Patient denies having any suicidal or homicidal ideation intent or plan. Perceptions: Patient denies any auditory or visual hallucinations. Though content/process: There is no evidence of any delusional thought content and thought process is linear and goal-directed. [more future oriented] Memory and concentration: AOX3, grossly intact for the purposes of this session. Can spell "WORLD" backwards correctly. Judgment and insight: chronically poor, however has improved with guarded prognosis Impression: - Borderline personality disorder - Unspecified bipolar disorder - Stimulant use disorder, severe, amphetamine type - History of alcohol use disorder - Nicotine dependence Plan: -Continue with discharge today as patient has improved and stabilized psychiatrically and is not currently an imminent threat to himself and/or others. Patient will remain at chronically elevated risk for harm to self and/or others due to his impulsivity and polysubstance abuse. -Continue medications: Olanzapine 5 mg at bedtime for paranoia and mood stability Mirtazapine 30 mg at bedtime for depression/anxiety Clonidine 0.2 mg TID for agitation/anxiety related to stimulant withdrawal. Monitor BP. Hydroxyzine 25 mg TID PRN anxiety; -Patient was counseled on the need for medication compliance and appropriate follow-up at mental health and also primary care for medical issues. Patient verbalized understanding and agreed. -Social work to arrange for and conduct family meeting to ensure safety upon discharge and answer any questions/concerns. Social work also to arrange for patients follow up appointments with [facility] for psychiatric care along with follow up with primary care provider. -Patient counseled on abstaining from recreational drugs and marijuana and alcohol. Was informed/educated on the adverse effects on their physical and mental health. [Patient verbally agreed and understood]. [Patient was offered substance abuse treatment however declined at this time.] -Patient was instructed to return to the hospital or seek immediate medical care if their psychiatric or medical symptoms do worsen or reoccur. Laboratory Results WBC 9.7 k/uL (3.8-10.6) 06/04/24 13:10 RBC 5.08 m/uL (4.30-5.90) 06/04/24 13:10 Hgb 16.0 gm/dL (13.0-17.5) 06/04/24 13:10 Hct 47.7 % (39.0-53.0) 06/04/24 13:10 MCV 94.0 fL (80.0-100.0) 06/04/24 13:10 MCH 31.5 pg (25.0-35.0) 06/04/24 13:10 MCHC 33.6 g/dL (31.0-37.0) 06/04/24 13:10 RDW 12.4 % (11.5-15.5) 06/04/24 13:10 Plt Count 291 k/uL (150-450) 06/04/24 13:10 MPV 7.4 06/04/24 13:10 Neutrophils % 71 % 06/04/24 13:10 Lymphocytes % 16 % 06/04/24 13:10 Monocytes % 4 % 06/04/24 13:10 Eosinophils % 8 % 06/04/24 13:10 Basophils % 1 % 06/04/24 13:10 Neutrophils # 6.9 k/uL (1.3-7.7) 06/04/24 13:10 Lymphocytes # 1.6 k/uL (1.0-4.8) 06/04/24 13:10 Monocytes # 0.4 k/uL (0-1.0) 06/04/24 13:10 Eosinophils # 0.7 k/uL (0-0.7) 06/04/24 13:10 Basophils # 0.1 k/uL (0-0.2) 06/04/24 13:10 Sodium 136 mmol/L (137-145) L 06/04/24 13:10 Potassium 4.1 mmol/L (3.5-5.1) 06/04/24 13:10 Chloride 103 mmol/L (98-107) 06/04/24 13:10 Carbon Dioxide 25 mmol/L (22-30) 06/04/24 13:10 Anion Gap 8 mmol/L 06/04/24 13:10 BUN 13 mg/dL (9-20) 06/04/24 13:10 Creatinine 0.83 mg/dL (0.66-1.25) 06/04/24 13:10 Est GFR (CKD-EPI)AfAm >90 (>60 ml/min/1.73 sqM) 06/04/24 13:10 Est GFR (CKD-EPI)NonAf >90 (>60 ml/min/1.73 sqM) 06/04/24 13:10 Glucose 128 mg/dL (74-99) H 06/04/24 13:[address] Glu mg/dL 114 mg/dL 06/05/24 09:30 Hemoglobin A1c 5.6 % (<=6.0) 06/05/24 09:30 Calcium 9.4 mg/dL (8.4-10.2) 06/04/24 13:10 Total Bilirubin 0.3 mg/dL (0.2-1.3) 06/05/24 09:30 Conjugated Bilirubin 0.0 mg/dL (0.0-0.3) 06/05/24 09:30 Unconjugated Bilirubin 0.3 mg/dL (0.0-1.1) 06/05/24 09:30 Delta Bilirubin 0.0 mg/dL (0.0-0.2) 06/05/24 09:30 AST 29 U/L (17-59) 06/05/24 09:30 ALT 31 U/L (4-49) 06/05/24 09:30 Alkaline Phosphatase 58 U/L (38-126) 06/05/24 09:30 Total Protein 6.4 g/dL (6.3-8.2) 06/05/24 09:30 Albumin 4.2 g/dL (3.5-5.0) 06/05/24 09:30 Triglycerides 157.00 mg/dL (0.00-149.00) H 06/05/24 09:30 Cholesterol 227.00 mg/dL (0.00-200.00) H 06/05/24 09:30 LDL Cholesterol, Calc 133.8 mg/dL (0.0-131.0) H 06/05/24 09:30 VLDL Cholesterol, Calc 31.40 mg/dL (5.00-40.00) 06/05/24 09:30 HDL Cholesterol 61.80 mg/dL (40.00-60.00) H 06/05/24 09:30 Cholesterol/HDL Ratio 3.67 Ratio 06/05/24 09:30 TSH 0.749 mIU/L (0.465-4.680) 06/05/24 09:30 Urine Color Colorless 06/04/24 22:49 Urine Appearance Clear (Clear) 06/04/24 22:49 Urine pH 6.5 (5.0-8.0) 06/04/24 22:49 Ur Specific [place] 1.011 (1.001-1.035) 06/04/24 22:49 Urine Protein Negative (Negative) 06/04/24 22:49 Urine Glucose (UA) Negative (Negative) 06/04/24 22:49 Urine Ketones Negative (Negative) 06/04/24 22:49 Urine Blood Negative (Negative) 06/04/24 22:49 Urine Nitrite Negative (Negative) 06/04/24 22:49 Urine Bilirubin Negative (Negative) 06/04/24 22:49 Urine Urobilinogen <2.0 mg/dL (<2.0) 06/04/24 22:49 Ur Leukocyte Esterase Negative (Negative) 06/04/24 22:49 Urine Opiates Screen Not Detected (NotDetected) 06/04/24 13:37 Ur Oxycodone Screen Not Detected (NotDetected) 06/04/24 13:37 Urine Methadone Screen Not Detected (NotDetected) 06/04/24 13:37 Ur Barbiturates Screen Not Detected (NotDetected) 06/04/24 13:37 U Tricyclic Antidepress Not Detected (NotDetected) 06/04/24 13:37 Ur Phencyclidine Scrn Not Detected (NotDetected) 06/04/24 13:37 Ur Amphetamines Screen Detected (NotDetected) H 06/04/24 13:37 U Methamphetamines Scrn Detected (NotDetected) H 06/04/24 13:37 U Benzodiazepines Scrn Not Detected (NotDetected) 06/04/24 13:37 Urine Cocaine Screen Not Detected (NotDetected) 06/04/24 13:37 U Marijuana (THC) Screen Not Detected (NotDetected) 06/04/24 13:37 SARS-CoV-2 (PCR) Not Detected (Not Detectd) 06/04/24 21:14 Vital Signs (72 hours) 0106/09/24 06/09/24 20:05 06:57 09:19 Temperature 98.2 F Pulse Rate [ 87 86 82 Left] Pulse Rate [ Right] Respiratory Rate Blood Pressure 111/72 119/75 [Left Arm] Blood Pressure 126/79 [Right Arm] O2 Sat by Pulse 100 94 L Oximetry 06/09/24 06/10/24 06/10/24 15:16 06:50 09:15 Temperature Pulse Rate [ 84 91 Left] Pulse Rate [ 101 H Right] Respiratory 20 Rate Blood Pressure 111/67 122/88 106/65 [Left Arm] Blood Pressure [Right Arm] O2 Sat by Pulse Oximetry 06/10/24 06/10/24 06/11/24 16:28 20:08 04:42 Temperature 98.1 F Pulse Rate [ 113 H Left] Pulse Rate [ 85 Right] Respiratory 20 16 Rate Blood Pressure 104/64 110/73 119/80 [Left Arm] Blood Pressure [Right Arm] O2 Sat by Pulse 98 Oximetry 06/11/24 10:28 Temperature Pulse Rate [ 85 Left] Pulse Rate [ Right] Respiratory Rate Blood Pressure 131/83 [Left Arm] Blood Pressure [Right Arm] O2 Sat by Pulse Oximetry Patient Condition at Discharge: Stable Plan - Discharge Summary Discharge Rx Participant: Yes New Discharge Prescriptions: New cloNIDine HCL [Catapres] 0.2 mg PO TID 30 Days #90 tab Mirtazapine [Remeron] 30 mg PO HS 30 Days #60 tab Artificial Tears-Hypromellose [Artificial Tear Drops] 2 drops BOTH EYES TID PRN 30 Days #1 pack PRN Reason: Dry Eye(S) hydrOXYzine HCL [Atarax] 25 mg PO TID PRN 30 Days #90 tab PRN Reason: Anxiety traZODone HCL [Desyrel] 50 mg PO HS PRN 30 Days #30 tab PRN Reason: Insomnia Nicotine 14Mg/24Hr Patch [Habitrol] 1 patch TRANSDERM DAILY 30 Days #30 patch Hydrocortisone Cream [Hydrocortisone 1% Cream] 1 applic TOPICAL BID PRN 7 Days #56 gram PRN Reason: Skin Irritation Albuterol Inhaler [Ventolin Hfa Inhaler] 2 puff INHALATION RT-QID PRN 30 Days #1 each PRN Reason: Shortness Of Breath Or Wheezing OLANZapine [ZyPREXA] 5 mg PO HS 30 Days #30 tab Continue Cetirizine HCl [Zyrtec] 10 mg PO DAILY Discontinued cloNIDine HCL [Catapres] 0.1 mg PO DAILY PRN PRN Reason: Anxiety Discharge Medication List Cetirizine HCl [Zyrtec] 10 mg PO DAILY 06/04/24 [History] Albuterol Inhaler [Ventolin Hfa Inhaler] 2 puff INHALATION RT-QID PRN 30 Days #1 each 06/11/24 [Rx] Artificial Tears-Hypromellose [Artificial Tear Drops] 2 drops BOTH EYES TID PRN 30 Days #1 pack 06/11/24 [Rx] Hydrocortisone Cream [Hydrocortisone 1% Cream] 1 applic TOPICAL BID PRN 7 Days #56 gram 06/11/24 [Rx] Mirtazapine [Remeron] 30 mg PO HS 30 Days #60 tab 06/11/24 [Rx] Nicotine 14Mg/24Hr Patch [Habitrol] 1 patch TRANSDERM DAILY 30 Days #30 patch 06/11/24 [Rx] OLANZapine [ZyPREXA] 5 mg PO HS 30 Days #30 tab 06/11/24 [Rx] cloNIDine HCL [Catapres] 0.2 mg PO TID 30 Days #90 tab 06/11/24 [Rx] hydrOXYzine HCL [Atarax] 25 mg PO TID PRN 30 Days #90 tab 06/11/24 [Rx] traZODone HCL [Desyrel] 50 mg PO HS PRN 30 Days #30 tab 06/11/24 [Rx] Follow up Appointment(s)/Referral(s): [facility] [Outside] - 06/12/24 6:00 pm (06/12/2024 6:00PM - 7:00PM SHANIA CANTU 06/15/2024 10:30AM - 11:00AM TISH LEON ) [facility] [REFERRING] - 1 Week Patient Instructions/Handouts: How to Stop Smoking (DC), Bipolar Disorder (DC), Methamphetamine Abuse (ED), Borderline Personality Disorder (DC) Activity/Diet/Wound Care/Special Instructions: [facility] Discharge Info Avoid the use of street drugs and alcohol. Take all medications as prescribed. When you are in need of refills on your medications, please contact your outpatient medical provider and/or outpatient psychiatrist. Please go to your scheduled outpatient appointments for aftercare treatment. If symptoms return or become worse, call the crisis line at or and/or visit the nearest emergency room for assistance. National Suicide and Crisis Lifeline - call or text 647
== END 2024-06-11 13:49 | disposition home or self-care (01) | DRG 753 ==
LOC: EC 11:09 → 3MHU 22:17
PROVIDERS: ADMIT Psychiatry & Neurology Psychiatry; ATTEND Psychiatry & Neurology Psychiatry
DX: F31.9 Bipolar disorder, unspecified (principal); F60.3 Borderline personality disorder; F15.23 Other stimulant dependence with withdrawal; F10.10 Alcohol abuse, uncomplicated; F17.210 Nicotine dependence, cigarettes, uncomplicated; R45.851 Suicidal ideations; F43.10 Post-traumatic stress disorder, unspecified; F41.0 Panic disorder [episodic paroxysmal anxiety]; J45.909 Unspecified asthma, uncomplicated; F90.9 Attention-deficit hyperactivity disorder, unspecified type; Z91.51 Personal history of suicidal behavior; Z79.899 Other long term (current) drug therapy; Z88.8 Allergy status to other drugs, medicaments and biological substances; Z87.11 Personal history of peptic ulcer disease; Z91.010 Allergy to peanuts
CPT/HCPCS: 36415; 80053; 80061; 80306; 81003; 82075; 82248; 83036; 84443; 85025; 87635; 99285

== ENCOUNTER 2024-09-07 13:59 | Emergency (ER) | payer OTHER ==
--- NOTE | 2024-09-07 15:03 | ED ---
General Adult HPI - General Chief complaint: Recheck/Abnormal Lab/Rx Stated complaint: can't control arms Time Seen by Provider: 09/07/24 14:58 Source: patient, RN notes reviewed Mode of arrival: ambulatory - History of Present Illness Initial comments: 33-year-old male presenting for increased muscle movement x 1 week. 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 Since then, he has had twitching in his arms, legs, and mouth. States he feels like his speech is garbled. He is taking several psychiatric medications including Remeron. He was seen at [facility] yesterday for similar symptoms and was diagnosed with tardive dyskinesia and discharged with Klonopin. States he continues to have worsening symptoms. States he has a history of serotonin syndrome and states this feels similar. States he has not taken any drugs since his relapse with meth last week. - Related Data Home Medications Medication Instructions Recorded Confirmed Cetirizine HCl [Zyrtec] 10 mg PO DAILY 06/04/24 06/04/24 Previous Rx's Medication Instructions Recorded Albuterol Inhaler [Ventolin Hfa 2 puff INHALATION RT-QID PRN 30 06/11/24 Inhaler] Days #1 each Artificial Tears-Hypromellose 2 drops BOTH EYES TID PRN 30 Days 06/11/24 [Artificial Tear Drops] #1 pack Hydrocortisone Cream 1 applic TOPICAL BID PRN 7 Days 06/11/24 [Hydrocortisone 1% Cream] #56 gram Mirtazapine [Remeron] 30 mg PO HS 30 Days #60 tab 06/11/24 Nicotine 14Mg/24Hr Patch [Habitrol] 1 patch TRANSDERM DAILY 30 Days 06/11/24 #30 patch OLANZapine [ZyPREXA] 5 mg PO HS 30 Days #30 tab 06/11/24 cloNIDine HCL [Catapres] 0.2 mg PO TID 30 Days #90 tab 06/11/24 hydrOXYzine HCL [Atarax] 25 mg PO TID PRN 30 Days #90 tab 06/11/24 traZODone HCL [Desyrel] 50 mg PO HS PRN 30 Days #30 tab 06/11/24 clonazePAM [KlonoPIN] 0.5 mg PO BID 2 Days #4 tab 09/07/24 Allergies Allergy/AdvReac Type Severity Reaction Status Date / Time lamotrigine [From Lamictal] Allergy Unknown Rash/Hives Verified 09/07/24 14:14 ziprasidone [From Geodon] Allergy Unknown Rash/Hives Verified 09/07/24 14:14 peanut Allergy Rash/Hives Verified 09/07/24 14:14 egg AdvReac Nausea & Verified 09/07/24 14:14 Vomiting & Diarrhea haloperidol [From Haldol] AdvReac tardive Verified 09/07/24 14:14 dyskinesia Review of Systems ROS Statement: Those systems with pertinent positive or pertinent negative responses have been documented in the HPI. ROS Other: All systems not noted in ROS Statement are negative. Past Medical History Past Medical History: Asthma, GERD/Reflux, Pneumonia, Skin Disorder Additional Past Medical History / Comment(s): Other HX: Eczema, hayfever, left cornea ulcer healed, gastric ulcer History of Any Multi-Drug Resistant Organisms: None Reported Past Surgical History: No Surgical Hx Reported Additional Past Surgical History / Comment(s): EGD, corneal biopsy left - Past Anesthesia/Blood Transfusion Reactions: No Reported Reaction Past Psychological History: ADD/ADHD, Anxiety, Bipolar, Depression, Panic Disorder, PTSD Smoking Status: Current every day smoker Past Alcohol Use History: None Reported Past Drug Use History: None Reported - Past Family History Father Additional Family Medical History / Comment(s): Father is alive with history of alcoholism and drug addiction. Patient does not have any relationship with him. grandfather diabetic. mom and grandfather have HTN. brother htn Mother Additional Family Medical History / Comment(s): She has history of coronary artery disease with previous NC, bipolar disorder and borderline personality. Patient has no contact with his mother. Brother(s) Additional Family Medical History / Comment(s): Patient has 1 brother and one sister; both have anxiety. Patient does not have any children. General Exam General appearance: alert, in no apparent distress, other (Patient is hyperactive with involuntary movements in the bilateral upper and lower extremities with involuntary muscle spasms) Head exam: Present: atraumatic, normocephalic, normal inspection Eye exam: Present: normal appearance, PERRL, EOMI. Absent: scleral icterus, conjunctival injection, periorbital swelling ENT exam: Present: normal exam, mucous membranes moist Respiratory exam: Present: normal lung sounds bilaterally. Absent: respiratory distress, wheezes, rales, rhonchi, stridor Cardiovascular Exam: Present: regular rate, normal rhythm, normal heart sounds. Absent: systolic murmur, diastolic murmur, rubs, gallop, clicks Neurological exam: Present: alert, oriented X3 Psychiatric exam: Present: normal affect, normal mood. Absent: homicidal ideation, suicidal ideation Skin exam: Present: warm, dry, intact, normal color. Absent: rash Course Vital Signs 09/07/24 09/07/24 14:10 17:12 Temperature 98.1 F 98.2 F Pulse Rate 94 90 Respiratory 18 16 Rate Blood Pressure 115/82 112/76 O2 Sat by Pulse 96 97 Oximetry EKG Findings - EKG Results: EKG: interpreted by TERA (EKG reveals normal sinus rhythm with no acute ST changes. Ventricular rate 63 bpm, NH interval 171, QRS duration 105, QT/QTc 402/410) Medical Decision Making - Medical Decision Making Was pt. sent in by a medical professional or institution (, PA, UNDERWRITER, urgent care, hospital, or custodial...) When possible be specific @ -No Did you speak to anyone other than the patient for history (EMS, parent, family, police, friend...)? What history was obtained from this source @ -No Did you review nursing and triage notes (agree or disagree)? Why? @ -I reviewed and agree with nursing and triage notes Were old charts reviewed (outside hosp., previous admission, EMS record, old EKG, old radiological studies, urgent care reports/EKG's, custodial records)? Report findings @ -No old charts were reviewed Differential Diagnosis (chest pain, altered mental status, abdominal pain women, abdominal pain men, vaginal bleeding, weakness, fever, dyspnea, syncope, headache, dizziness, GI bleed, back pain, seizure, CVA, palpatations, mental health, musculoskeletal)? @ -Tardive dyskinesia, electrolyte abnormality, serotonin syndrome, neuroleptic malignant syndrome EKG interpreted by me (3pts min.). @ -As above X-rays interpreted by me (1pt min.). @ -None done CT interpreted by me (1pt min.). @ -None done U/S interpreted by me (1pt. min.). @ -None done What testing was considered but not performed or refused? (CT, X-rays, U/S, labs)? Why? @ -None What meds were considered but not given or refused? Why? @ -None Did you discuss the management of the patient with other professionals (professionals i.e. , KINDRA, UNDERWRITER, lab, RT, psych nurse, professor of social work, automatic nailing machine operator, teacher, psychological operations officer, mental health case manager)? Give summary @ -No Was smoking cessation discussed for >3mins.? @ -No Was critical care preformed (if so, how long)? @ -No Were there social determinants of health that impacted care today? How? (Homelessness, low income, unemployed, alcoholism, drug addiction, transport ation, low edu. Level, literacy, decrease access to med. care, fci, rehab)? @ -No Was there de-escalation of care discussed even if they declined (Discuss DNR or withdrawal of care, Hospice)? DNR status @ -No What co-morbidities impacted this encounter? (DM, HTN, Smoking, COPD, CAD, Cancer, CVA, ARF, Chemo, Hep., AIDS, mental health diagnosis, sleep apnea, morbid obesity)? @ -None Was patient admitted / discharged? Hospital course, mention meds given and route, prescriptions, significant lab abnormalities, going to OR and other pertinent info. @ -Discharge. 33-year-old male presenting for increased involuntary muscle movement x 1 week after meth relapse 1 week ago. Patient is also taking several psych medications including mirtazapine. Vital signs within acceptable limits. Patient is afebrile and nontachycardic. Patient is hyperactive on physical examination with involuntary muscle movements in the bilateral upper and lower extremities. Patient was provided with dose of IV Ativan and IV fluids. EKG reveals normal sinus rhythm with no acute ST changes. Lab work including CBC, CMP, CK, magnesium, alcohol negative. Urine drug screen negative. Upon reevaluation, patient reports significant symptom improvement. Our mental health case manager Clementine was able to get a hold of [facility] and schedule an outpatient appointment for Tuesday at 1:30 PM. Discussed with patient symptoms likely caused by tardive dyskinesia which will be managed by adjusting/laminated psych medications. Patient states that he was prescribed Klonopin at [facility] yesterday and was given 3 tablets. States that the Klonopin has helped significantly with the muscle spasms and is requesting a prescription for this to get him through to this appointment on Tuesday. Patient was prescribed a total of 4 Klonopin to take twice daily over the next 2 days. Maps reviewed. Appropriate return precautions and importance of follow-up care discussed. Case was discussed with my ED attending Dr. Forman. Undiagnosed new problem with uncertain prognosis? @ -No Drug Therapy requiring intensive monitoring for toxicity (Heparin, Nitro, Insulin, Cardizem)? @ -No Were any procedures done? @ -No Diagnosis/symptom? @ -Tardive dyskinesia Acute, or Chronic, or Acute on Chronic? @ -Acute Uncomplicated (without systemic symptoms) or Complicated (systemic symptoms)? @ -Complicated Side effects of treatment? @ -No Exacerbation, Progression, or Severe Exacerbation? @ -No Poses a threat to life or bodily function? How? (Chest pain, USA, NC, pneumonia, PE, COPD, DKA, ARF, appy, cholecystitis, CVA, Diverticulitis, Homicidal, S uicidal, threat to staff... and all critical care pts) @ -Not at this time - Lab Data Result diagrams: 09/07/24 15:05 09/07/24 15:05 Lab Results 09/07/24 09/07/24 09/07/24 Range/Units 15:05 15:05 15:05 WBC 6.7 (3.8-10.6) k/uL RBC 5.25 (4.30-5.90) m/uL Hgb 16.1 (13.0-17.5) gm/dL Hct 47.7 (39.0-53.0) % MCV 90.8 (80.0-100.0) fL MCH 30.7 (25.0-35.0) pg MCHC 33.7 (31.0-37.0) g/dL RDW 11.9 (11.5-15.5) % Plt Count 251 (150-450) k/uL MPV 8.0 Neutrophils % 59 % Lymphocytes % 29 % Monocytes % 6 % Eosinophils % 3 % Basophils % 1 % Neutrophils # 4.0 (1.3-7.7) k/uL Lymphocytes # 1.9 (1.0-4.8) k/uL Monocytes # 0.4 (0-1.0) k/uL Eosinophils # 0.2 (0-0.7) k/uL Basophils # 0.1 (0-0.2) k/uL Sodium 135 L (137-145) mmol/L Potassium 4.5 (3.5-5.1) mmol/L Chloride 101 (98-107) mmol/L Carbon Dioxide 27 (22-30) mmol/L Anion Gap 7 mmol/L BUN 13 (9-20) mg/dL Creatinine 1.09 (0.66-1.25) mg/dL Est GFR (CKD-EPI)AfAm >90 (>60 ml/min/1.73 sqM) Est GFR (CKD-EPI)NonAf 88 (>60 ml/min/1.73 sqM) Glucose 77 (74-99) mg/dL Calcium 9.7 (8.4-10.2) mg/dL Magnesium 1.9 (1.6-2.3) mg/dL Total Bilirubin 0.5 (0.2-1.3) mg/dL AST 26 (17-59) U/L ALT 33 (4-49) U/L Alkaline Phosphatase 67 (38-126) U/L Creatine Kinase 48 L (55-170) U/L Total Protein 6.7 (6.3-8.2) g/dL Albumin 4.3 (3.5-5.0) g/dL Urine Color Urine Appearance (Clear) Urine pH (5.0-8.0) Ur Specific [place] (1.001-1.035) Urine Protein (Negative) Urine Glucose (UA) (Negative) Urine Ketones (Negative) Urine Blood (Negative) Urine Nitrite (Negative) Urine Bilirubin (Negative) Urine Urobilinogen (<2.0) mg/dL Ur Leukocyte Esterase (Negative) Urine Opiates Screen Not Detected (NotDetected) Ur Oxycodone Screen Not Detected (NotDetected) Urine Methadone Screen Not Detected (NotDetected) Ur Barbiturates Screen Not Detected (NotDetected) U Tricyclic Antidepress Not Detected (NotDetected) Ur Phencyclidine Scrn Not Detected (NotDetected) Ur Amphetamines Screen Not Detected (NotDetected) U Methamphetamines Scrn Not Detected (NotDetected) U Benzodiazepines Scrn Not Detected (NotDetected) Urine Cocaine Screen Not Detected (NotDetected) U Marijuana (THC) Screen Not Detected (NotDetected) Serum Alcohol <10 mg/dL 09/07/24 Range/Units 15:05 WBC (3.8-10.6) k/uL RBC (4.30-5.90) m/uL Hgb (13.0-17.5) gm/dL Hct (39.0-53.0) % MCV (80.0-100.0) fL MCH (25.0-35.0) pg MCHC (31.0-37.0) g/dL RDW (11.5-15.5) % Plt Count (150-450) k/uL MPV Neutrophils % % Lymphocytes % % Monocytes % % Eosinophils % % Basophils % % Neutrophils # (1.3-7.7) k/uL Lymphocytes # (1.0-4.8) k/uL Monocytes # (0-1.0) k/uL Eosinophils # (0-0.7) k/uL Basophils # (0-0.2) k/uL Sodium (137-145) mmol/L Potassium (3.5-5.1) mmol/L Chloride (98-107) mmol/L Carbon Dioxide (22-30) mmol/L Anion Gap mmol/L BUN (9-20) mg/dL Creatinine (0.66-1.25) mg/dL Est GFR (CKD-EPI)AfAm (>60 ml/min/1.73 sqM) Est GFR (CKD-EPI)NonAf (>60 ml/min/1.73 sqM) Glucose (74-99) mg/dL Calcium (8.4-10.2) mg/dL Magnesium (1.6-2.3) mg/dL Total Bilirubin (0.2-1.3) mg/dL AST (17-59) U/L ALT (4-49) U/L Alkaline Phosphatase (38-126) U/L Creatine Kinase (55-170) U/L Total Protein (6.3-8.2) g/dL Albumin (3.5-5.0) g/dL Urine Color Colorless Urine Appearance Clear (Clear) Urine pH 7.0 (5.0-8.0) Ur Specific [place] 1.010 (1.001-1.035) Urine Protein Negative (Negative) Urine Glucose (UA) Negative (Negative) Urine Ketones Negative (Negative) Urine Blood Negative (Negative) Urine Nitrite Negative (Negative) Urine Bilirubin Negative (Negative) Urine Urobilinogen <2.0 (<2.0) mg/dL Ur Leukocyte Esterase Negative (Negative) Urine Opiates Screen (NotDetected) Ur Oxycodone Screen (NotDetected) Urine Methadone Screen (NotDetected) Ur Barbiturates Screen (NotDetected) U Tricyclic Antidepress (NotDetected) Ur Phencyclidine Scrn (NotDetected) Ur Amphetamines Screen (NotDetected) U Methamphetamines Scrn (NotDetected) U Benzodiazepines Scrn (NotDetected) Urine Cocaine Screen (NotDetected) U Marijuana (THC) Screen (NotDetected) Serum Alcohol mg/dL Disposition Clinical Impression: Tardive dyskinesia Disposition: HOME SELF-CARE Condition: Stable Additional Instructions: Follow-up with [facility] at 1:30 PM on Tuesday. Please return to the [facility] if symptoms worsen or any other concerns. Prescriptions: clonazePAM [KlonoPIN] 0.5 mg PO BID 2 Days #4 tab Is patient prescribed a controlled substance at d/c from ED?: Yes When asked, does pt state using other controlled substances?: No If prescribed controlled substance>3 days was MAPS reviewed?: Prescribed <3 Days If opioid is for acute pain is fill amount 7 days or less?: Yes Referrals: None,Stated [Primary Care Provider] - 1-2 days [facility] [NON-STAFF] - 09/10/24 1:30 pm Forms: [facility] PCPs Time of Disposition: 17:10
[2024-09-07] MEDS: SODIUM CHLORIDE 0.9% 1,000 ML IV STA (15:09)
[2024-09-07] MEDS: LORazepam 2 MG/ML INJ IV STA (15:13)
[2024-09-07 15:24] LABS: Basophils # (A) 0.1 k/uL (0-0.2); Basophils % (A) 1 %; Eosinophils # (A) 0.2 k/uL (0-0.7); Eosinophils % (A) 3 %; HCT 47.7 % (39.0-53.0); HGB 16.1 gm/dL (13.0-17.5); Lymphocytes # (A) 1.9 k/uL (1.0-4.8); Lymphocytes % (A) 29 %; MCH 30.7 pg (25.0-35.0); MCHC 33.7 g/dL (31.0-37.0); MCV 90.8 fL (80.0-100.0); Monocytes # (A) 0.4 k/uL (0-1.0); Monocytes % (A) 6 %; Neutrophils % (A) 59 %; Platelet Count 251 k/uL (150-450); RBC 5.25 m/uL (4.30-5.90); RDW 11.9 % (11.5-15.5); WBC 6.7 k/uL (3.8-10.6)
[2024-09-07 15:25] LABS: Appearance,Urine Clear (Clear); Bilirubin,Urine Negative (Negative); Blood,Urine Negative (Negative); Color,Urine Colorless; Glucose,Urine (UA) Negative (Negative); Ketones,Urine Negative (Negative); Leukocyte Esterase,Urine Negative (Negative); Nitrite,Urine Negative (Negative); Protein,Urine Negative (Negative); Urobilinogen,Urine <2.0 mg/dL (<2.0)
[2024-09-07 15:38] LABS: Amphetamine Screen,Urine Not Detected (NotDetected); Barbiturate Screen,Urine Not Detected (NotDetected); Benzodiazepines Screen,Urine Not Detected (NotDetected); Cocaine Screen,Urine Not Detected (NotDetected); Methadone Screen, Urine Not Detected (NotDetected); Opiate Screen,Urine Not Detected (NotDetected); Oxycodone Screen, Urine Not Detected (NotDetected); Phencyclidine Screen,Urine Not Detected (NotDetected); Tricyclic Antidepressant,Urine Not Detected (NotDetected); Urn Cannabinoid Scrn Not Detected (NotDetected)
[2024-09-07 15:49] LABS: ALT 33 U/L (4-49); AST 26 U/L (17-59); African American GFR (CKD) >90 (>60 ml/min/1.73 sqM); Albumin 4.3 g/dL (3.5-5.0); Alcohol <10 mg/dL; Alkaline Phosphatase 67 U/L (38-126); Anion Gap 7 mmol/L; Blood Urea Nitrogen 13 mg/dL (9-20); Calcium 9.7 mg/dL (8.4-10.2); Carbon Dioxide 27 mmol/L (22-30); Chloride 101 mmol/L (98-107); Creatine Kinase 48 U/L (55-170); Glucose 77 mg/dL (74-99); Magnesium 1.9 mg/dL (1.6-2.3); Non-African American GFR(CKD) 88 (>60 ml/min/1.73 sqM); Potassium 4.5 mmol/L (3.5-5.1); Sodium 135 mmol/L (137-145); Total Bilirubin 0.5 mg/dL (0.2-1.3); Total Protein 6.7 g/dL (6.3-8.2)
[2024-09-07 17:13] VITALS: BP 112/76; PULSE 90; RESP 16; TEMP 98.2
== END 2024-09-07 17:13 | disposition home or self-care (01) ==
LOC: EC 13:59
DX: G24.01 Drug induced subacute dyskinesia (principal); F17.200 Nicotine dependence, unspecified, uncomplicated; Z91.010 Allergy to peanuts; Z91.012 Allergy to eggs; Z88.8 Allergy status to other drugs, medicaments and biological substances
CPT/HCPCS: 36415; 93005; 80053; 82550; 83735; 85025; 81003; 80306; 99283; 96374; 96361; G0480; J2060; 80320

== ENCOUNTER 2024-09-09 18:04 | Emergency (ER) | payer OTHER ==
[2024-09-09 18:41] LABS: Appearance,Urine Clear (Clear); Bilirubin,Urine Negative (Negative); Blood,Urine Negative (Negative); Color,Urine Colorless; Glucose,Urine (UA) Negative (Negative); Ketones,Urine Negative (Negative); Leukocyte Esterase,Urine Negative (Negative); Nitrite,Urine Negative (Negative); Protein,Urine Negative (Negative); Specific Gravity,Urine 1.001 (1.001-1.035); Urobilinogen,Urine <2.0 mg/dL (<2.0)
[2024-09-09 18:53] LABS: Amphetamine Screen,Urine Not Detected (NotDetected); Barbiturate Screen,Urine Not Detected (NotDetected); Benzodiazepines Screen,Urine Not Detected (NotDetected); Cocaine Screen,Urine Not Detected (NotDetected); Methadone Screen, Urine Not Detected (NotDetected); Opiate Screen,Urine Not Detected (NotDetected); Oxycodone Screen, Urine Not Detected (NotDetected); Phencyclidine Screen,Urine Not Detected (NotDetected); Tricyclic Antidepressant,Urine Not Detected (NotDetected); Urn Cannabinoid Scrn Not Detected (NotDetected)
[2024-09-09] MEDS: LORazepam 2 MG/ML INJ IV STA (18:57)
[2024-09-09 19:00] LABS: Basophils # (A) 0.1 k/uL (0-0.2); Basophils % (A) 1 %; Eosinophils # (A) 0.2 k/uL (0-0.7); Eosinophils % (A) 3 %; HCT 51.3 % (39.0-53.0); HGB 17.2 gm/dL (13.0-17.5); Lymphocytes # (A) 1.9 k/uL (1.0-4.8); Lymphocytes % (A) 28 %; MCH 30.5 pg (25.0-35.0); MCHC 33.6 g/dL (31.0-37.0); MCV 90.8 fL (80.0-100.0); Mean Platelet Volume 8.1; Monocytes # (A) 0.4 k/uL (0-1.0); Monocytes % (A) 5 %; Neutrophils # (A) 4.1 k/uL (1.3-7.7); Neutrophils % (A) 61 %; Platelet Count 269 k/uL (150-450); RBC 5.65 m/uL (4.30-5.90); WBC 6.7 k/uL (3.8-10.6)
[2024-09-09] MEDS: SODIUM CHLORIDE 0.9% 1,000 ML IV SCH (19:00)
[2024-09-09 19:09] LABS: ALT 39 U/L (4-49); African American GFR (CKD) >90 (>60 ml/min/1.73 sqM); Anion Gap 12 mmol/L; Blood Urea Nitrogen 12 mg/dL (9-20); Calcium 10.3 mg/dL (8.4-10.2); Carbon Dioxide 21 mmol/L (22-30); Chloride 109 mmol/L (98-107); Creatine Kinase 86 U/L (55-170); Glucose 88 mg/dL (74-99); Non-African American GFR(CKD) >90 (>60 ml/min/1.73 sqM); Sodium 142 mmol/L (137-145); Total Bilirubin 0.7 mg/dL (0.2-1.3)
--- NOTE | 2024-09-09 19:10 | ED ---
Alcohol HPI - General Chief Complaint: Alcohol Stated Complaint: ETOH Time Seen by Provider: 09/09/24 18:14 Source: patient, EMS Mode of arrival: EMS Limitations: altered mental status - History of Present Illness Initial Comments: 33-year-old male presenting for alcohol intoxication. Patient has been experiencing tardive dyskinesia. He is currently on olanzapine and Remeron. He states that this has been ongoing for over a week. Is causing him a lot of mental distress. He has made comments saying "I wish I was ". He has no plan to end his life. He is tearful and anxious while obtaining the history. He has drinking a pint of vodka today. - Related Data Home Medications Medication Instructions Recorded Confirmed Cetirizine HCl [Zyrtec] 10 mg PO DAILY 06/04/24 06/04/24 Previous Rx's Medication Instructions Recorded Albuterol Inhaler [Ventolin Hfa 2 puff INHALATION RT-QID PRN 30 06/11/24 Inhaler] Days #1 each Artificial Tears-Hypromellose 2 drops BOTH EYES TID PRN 30 Days 06/11/24 [Artificial Tear Drops] #1 pack Hydrocortisone Cream 1 applic TOPICAL BID PRN 7 Days 06/11/24 [Hydrocortisone 1% Cream] #56 gram Mirtazapine [Remeron] 30 mg PO HS 30 Days #60 tab 06/11/24 Nicotine 14Mg/24Hr Patch [Habitrol] 1 patch TRANSDERM DAILY 30 Days 06/11/24 #30 patch OLANZapine [ZyPREXA] 5 mg PO HS 30 Days #30 tab 06/11/24 cloNIDine HCL [Catapres] 0.2 mg PO TID 30 Days #90 tab 06/11/24 hydrOXYzine HCL [Atarax] 25 mg PO TID PRN 30 Days #90 tab 06/11/24 traZODone HCL [Desyrel] 50 mg PO HS PRN 30 Days #30 tab 06/11/24 clonazePAM [KlonoPIN] 0.5 mg PO BID 2 Days #4 tab 09/07/24 Allergies Allergy/AdvReac Type Severity Reaction Status Date / Time lamotrigine [From Lamictal] Allergy Unknown Rash/Hives Verified 09/07/24 14:14 ziprasidone [From Geodon] Allergy Unknown Rash/Hives Verified 09/07/24 14:14 peanut Allergy Rash/Hives Verified 09/07/24 14:14 egg AdvReac Nausea & Verified 09/07/24 14:14 Vomiting & Diarrhea haloperidol [From Haldol] AdvReac tardive Verified 09/07/24 14:14 dyskinesia Review of Systems ROS Statement: Those systems with pertinent positive or pertinent negative responses have been documented in the HPI. ROS Other: All systems not noted in ROS Statement are negative. Past Medical History Past Medical History: Asthma, GERD/Reflux, Pneumonia, Skin Disorder Additional Past Medical History / Comment(s): Other HX: Eczema, hayfever, left cornea ulcer healed, gastric ulcer. Tardive Dyskinesia History of Any Multi-Drug Resistant Organisms: None Reported Past Surgical History: No Surgical Hx Reported Additional Past Surgical History / Comment(s): EGD, corneal biopsy left - Past Anesthesia/Blood Transfusion Reactions: No Reported Reaction Past Psychological History: ADD/ADHD, Anxiety, Bipolar, Depression, Panic Disorder, PTSD Smoking Status: Current every day smoker Past Alcohol Use History: Occasional Past Drug Use History: None Reported - Past Family History Father Additional Family Medical History / Comment(s): Father is alive with history of alcoholism and drug addiction. Patient does not have any relationship with him. grandfather diabetic. mom and grandfather have HTN. brother htn Mother Additional Family Medical History / Comment(s): She has history of coronary artery disease with previous MT, bipolar disorder and borderline personality. Patient has no contact with his mother. Brother(s) Additional Family Medical History / Comment(s): Patient has 1 brother and one sister; both have anxiety. Patient does not have any children. General Exam Limitations: altered mental status General appearance: alert, anxious, in distress Head exam: Present: atraumatic, normocephalic Eye exam: Present: normal appearance Neck exam: Present: normal inspection. Absent: meningismus Respiratory exam: Absent: respiratory distress Cardiovascular Exam: Present: regular rate Neurological exam: Present: alert, altered Psychiatric exam: Present: anxious Skin exam: Present: warm, dry, intact Course Vital Signs 09/09/24 09/10/24 18:09 01:48 Temperature 98.8 F 98.7 F Pulse Rate 95 89 Respiratory 16 18 Rate Blood Pressure 137/87 121/77 O2 Sat by Pulse 97 98 Oximetry Medical Decision Making - Medical Decision Making Was pt. sent in by a medical professional or institution (KINDRA Celis, BUSINESS ATTORNEY, urgent c are, hospital, or penitentiary...) When possible be specific @ -No Did you speak to anyone other than the patient for history (EMS, parent, family, police, friend...)? What history was obtained from this source @ -No Did you review nursing and triage notes (agree or disagree)? Why? @ -I reviewed and agree with nursing and triage notes Were old charts reviewed (outside hosp., previous admission, EMS record, old EKG, old radiological studies, urgent care reports/EKG's, penitentiary records)? Report findings @ -No old charts were reviewed Differential Diagnosis (chest pain, altered mental status, abdominal pain women, abdominal pain men, vaginal bleeding, weakness, fever, dyspnea, syncope, headache, dizziness, GI bleed, back pain, seizure, CVA, palpatations, mental health, musculoskeletal)? @ -Differential Mental Health Depression, anxiety, bipolar, psychosis, schizophrenia, borderline personality, situational depression, adjustment disorder, behavioral disorder, brain tumor, malingering, substance abuse, encephalopathy, medication reaction, dementia, hypothyroidism, degenerative neurologic disorder, lupus.... This is not meant to be all-inclusive list EKG interpreted by me (3pts min.). @ -As above X-rays interpreted by me (1pt min.). @ -None done CT interpreted by me (1pt min.). @ -None done U/S interpreted by me (1pt. min.). @ -None done What testing was considered but not performed or refused? (CT, X-rays, U/S, labs)? Why? @ -None What meds were considered but not given or refused? Why? @ -None Did you discuss the management of the patient with other professionals (professionals i.e. KINDRA Celis, BUSINESS ATTORNEY, lab, RT, psych nurse, social studies department chair, sales performance analyst, teacher, escrow officer, patient case coordinator)? Give summary @ -Spoke with the EPS nurse who recommends follow-up with [facility] Was smoking cessation discussed for >3mins.? @ -No Was critical care preformed (if so, how long)? @ -No Were there social determinants of health that impacted care today? How? (Homelessness, low income, unemployed, alcoholism, drug addiction, transportation, low edu. Level, literacy, decrease access to med. care, prison, rehab)? @ -No Was there de-escalation of care discussed even if they declined (Discuss DNR or withdrawal of care, Hospice)? DNR status @ -No What co-morbidities impacted this encounter? (DM, HTN, Smoking, COPD, CAD, Cancer, CVA, ARF, Chemo, Hep., AIDS, mental health diagnosis, sleep apnea, morbid obesity)? @ -None Was patient admitted / discharged? Hospital course, mention meds given and route, prescriptions, significant lab abnormalities, going to OR and other pertinent info. @ -33-year-old male presenting for mental health evaluation. Patient has history of tardive dyskinesia. He was drinking today and had difficulty coping with his symptoms on his own at home. Patient is evaluated here and medically cleared. Once the patient is sober he is evaluated by EPS. Patient states that he was just very emotional at that time he has no intentions of harming himself or any plans to do so. He has a follow-up appointment at [facility] coming up this week. EPS recommends discharge and forms a safety plan with the patient. Follow-up with PCP. Report back to ER with any new or worsening symptoms. Discussed return parameters and answered all questions. Patient conveyed verbal understanding and agreed to the plan. I discussed this case in detail with my attending Dr. Sol Undiagnosed new problem with uncertain prognosis? @ -No Drug Therapy requiring intensive monitoring for toxicity (Heparin, Nitro, Insulin, Cardizem)? @ -No Were any procedures done? @ -No Diagnosis/symptom? @ -Tardive dyskinesia Acute, or Chronic, or Acute on Chronic? @ -Acute on chronic Uncomplicated (without systemic symptoms) or Complicated (systemic symptoms)? @ -Uncomplicated Side effects of treatment? @ -No Exacerbation, Progression, or Severe Exacerbation? @ -No Poses a threat to life or bodily function? How? (Chest pain, USA, MT, pneumonia, PE, COPD, DKA, ARF, appy, cholecystitis, CVA, Diverticulitis, Homicidal, Suicidal, threat to staff... and all critical care pts) @ -Unlikely - Lab Data Result diagrams: 09/09/24 18:53 09/09/24 18:53 Lab Results 09/09/24 09/09/24 09/09/24 Range/Units 18:37 18:53 18:53 WBC 6.7 (3.8-10.6) k/uL RBC 5.65 (4.30-5.90) m/uL Hgb 17.2 (13.0-17.5) gm/dL Hct 51.3 (39.0-53.0) % MCV 90.8 (80.0-100.0) fL MCH 30.5 (25.0-35.0) pg MCHC 33.6 (31.0-37.0) g/dL RDW 12.0 (11.5-15.5) % Plt Count 269 (150-450) k/uL MPV 8.1 Neutrophils % 61 % Lymphocytes % 28 % Monocytes % 5 % Eosinophils % 3 % Basophils % 1 % Neutrophils # 4.1 (1.3-7.7) k/uL Lymphocytes # 1.9 (1.0-4.8) k/uL Monocytes # 0.4 (0-1.0) k/uL Eosinophils # 0.2 (0-0.7) k/uL Basophils # 0.1 (0-0.2) k/uL Sodium 142 (137-145) mmol/L Potassium 5.4 H (3.5-5.1) mmol/L Chloride 109 H (98-107) mmol/L Carbon Dioxide 21 L (22-30) mmol/L Anion Gap 12 mmol/L BUN 12 (9-20) mg/dL Creatinine 0.71 (0.66-1.25) mg/dL Est GFR (CKD-EPI)AfAm >90 (>60 ml/min/1.73 sqM) Est GFR (CKD-EPI)NonAf >90 (>60 ml/min/1.73 sqM) Glucose 88 (74-99) mg/dL Calcium 10.3 H (8.4-10.2) mg/dL Total Bilirubin 0.7 (0.2-1.3) mg/dL AST 35 (17-59) U/L ALT 39 (4-49) U/L Alkaline Phosphatase 68 (38-126) U/L Creatine Kinase 86 (55-170) U/L Total Protein 8.0 (6.3-8.2) g/dL Albumin 5.0 (3.5-5.0) g/dL Urine Color Colorless Urine Appearance Clear (Clear) Urine pH 6.0 (5.0-8.0) Ur Specific [place] 1.001 (1.001-1.035) Urine Protein Negative (Negative) Urine Glucose (UA) Negative (Negative) Urine Ketones Negative (Negative) Urine Blood Negative (Negative) Urine Nitrite Negative (Negative) Urine Bilirubin Negative (Negative) Urine Urobilinogen <2.0 (<2.0) mg/dL Ur Leukocyte Esterase Negative (Negative) Urine Opiates Screen Not Detected (NotDetected) Ur Oxycodone Screen Not Detected (NotDetected) Urine Methadone Screen Not Detected (NotDetected) Ur Barbiturates Screen Not Detected (NotDetected) U Tricyclic Antidepress Not Detected (NotDetected) Ur Phencyclidine Scrn Not Detected (NotDetected) Ur Amphetamines Screen Not Detected (NotDetected) U Methamphetamines Scrn Not Detected (NotDetected) U Benzodiazepines Scrn Not Detected (NotDetected) Urine Cocaine Screen Not Detected (NotDetected) U Marijuana (THC) Screen Not Detected (NotDetected) Serum Alcohol 218 H* mg/dL Disposition Clinical Impression: Tardive dyskinesia, Alcohol intoxication Disposition: HOME SELF-CARE Condition: Good Instructions (If sedation given, give patient instructions): Alcohol In toxication (ED) Additional Instructions: Follow-up with PCP and [facility]. Report back to ER with any new or worsening symptoms. Is patient prescribed a controlled substance at d/c from ED?: No Referrals: None,Stated [Primary Care Provider] - 1-2 days Forms: Area PCPs Time of Disposition: 02:49
[2024-09-09 19:14] LABS: AST 35 U/L (17-59); Alcohol 218 mg/dL; Alkaline Phosphatase 68 U/L (38-126); Potassium 5.4 mmol/L (3.5-5.1)
[2024-09-10] MEDS: LORazepam 1 MG TAB PO STA (01:27)
[2024-09-10 01:50] VITALS: BP 121/77; PULSE 89; RESP 18; TEMP 98.7
== END 2024-09-10 03:02 | disposition home or self-care (01) ==
LOC: EC 18:04
DX: G24.01 Drug induced subacute dyskinesia (principal); F10.129 Alcohol abuse with intoxication, unspecified; Y90.7 Blood alcohol level of 200-239 mg/100 ml; F17.200 Nicotine dependence, unspecified, uncomplicated; Z88.8 Allergy status to other drugs, medicaments and biological substances; Z91.012 Allergy to eggs; Z91.010 Allergy to peanuts
CPT/HCPCS: 82075; 36415; 80053; 82550; 85025; 81003; 80306; 99285; 96374; 96361 ×2; G0480; J2060; 80320

== ENCOUNTER 2024-09-18 15:05 | Emergency (ER) | payer OTHER ==
--- NOTE | 2024-09-18 15:45 | ED ---
General Adult HPI - General Chief complaint: Seizure Stated complaint: Possible Seizure Time Seen by Provider: 09/18/24 15:20 Source: patient Mode of arrival: ambulatory Limitations: no limitations - History of Present Illness Initial comments: Patient is a 33-year-old gentleman with a past medical history of alcohol use disorder, methamphetamine abuse, bipolar disorder, borderline personality disorder presenting today for what he was concern for seizure and abnormal movements. Recently diagnosed with tardive dyskinesia. On clonidine and amantadine. Was in the bathtub today, states that he lost a period of time for a few minutes and started getting out of the bathtub and realized what he was doing until he started getting out of the bath. He did not wake up underwater and was laying down at the time so did not fall or hit his head. Last me thamphetamine use was August 28, last alcohol use was Tuesday. History of alcohol withdrawal seizures. States that the TD like symptoms have been ongoing for a few months however acutely worsened after using meth in August. - Related Data Home Medications Medication Instructions Recorded Confirmed Cetirizine HCl [Zyrtec] 10 mg PO DAILY 06/04/24 06/04/24 Previous Rx's Medication Instructions Recorded Albuterol Inhaler [Ventolin Hfa 2 puff INHALATION RT-QID PRN 30 06/11/24 Inhaler] Days #1 each Artificial Tears-Hypromellose 2 drops BOTH EYES TID PRN 30 Days 06/11/24 [Artificial Tear Drops] #1 pack Hydrocortisone Cream 1 applic TOPICAL BID PRN 7 Days 06/11/24 [Hydrocortisone 1% Cream] #56 gram Mirtazapine [Remeron] 30 mg PO HS 30 Days #60 tab 06/11/24 Nicotine 14Mg/24Hr Patch [Habitrol] 1 patch TRANSDERM DAILY 30 Days 06/11/24 #30 patch OLANZapine [ZyPREXA] 5 mg PO HS 30 Days #30 tab 06/11/24 cloNIDine HCL [Catapres] 0.2 mg PO TID 30 Days #90 tab 06/11/24 hydrOXYzine HCL [Atarax] 25 mg PO TID PRN 30 Days #90 tab 06/11/24 traZODone HCL [Desyrel] 50 mg PO HS PRN 30 Days #30 tab 06/11/24 clonazePAM [KlonoPIN] 0.5 mg PO BID 2 Days #4 tab 09/07/24 Allergies Allergy/AdvReac Type Severity Reaction Status Date / Time lamotrigine [From Lamictal] Allergy Unknown Rash/Hives Verified 09/18/24 15:09 ziprasidone [From Geodon] Allergy Unknown Rash/Hives Verified 09/18/24 15:09 peanut Allergy Rash/Hives Verified 09/18/24 15:09 egg AdvReac Nausea & Verified 09/18/24 15:09 Vomiting & Diarrhea haloperidol [From Haldol] AdvReac tardive Verified 09/18/24 15:09 dyskinesia Review of Systems ROS Statement: Those systems with pertinent positive or pertinent negative responses have been documented in the HPI. ROS Other: All systems not noted in ROS Statement are negative. Past Medical History Past Medical History: Asthma, GERD/Reflux, Pneumonia, Skin Disorder Additional Past Medical History / Comment(s): Other HX: Eczema, hayfever, left cornea ulcer healed, gastric ulcer. Tardive Dyskinesia History of Any Multi-Drug Resistant Organisms: None Reported Past Surgical History: No Surgical Hx Reported Additional Past Surgical History / Comment(s): EGD, corneal biopsy left - Past Anesthesia/Blood Transfusion Reactions: No Reported Reaction Past Psychological History: ADD/ADHD, Anxiety, Bipolar, Depression, Panic Disorder, PTSD Smoking Status: Current every day smoker Past Alcohol Use History: Occasional Past Drug Use History: None Reported - Past Family History Father Additional Family Medical History / Comment(s): Father is alive with history of alcoholism and drug addiction. Patient does not have any relationship with him. grandfather diabetic. mom and grandfather have HTN. brother htn Mother Additional Family Medical History / Comment(s): She has history of coronary artery disease with previous MS, bipolar disorder and borderline personality. Patient has no contact with his mother. Brother(s) Additional Family Medical History / Comment(s): Patient has 1 brother and one sister; both have anxiety. Patient does not have any children. General Exam - General Exam Comments Initial Comments: PE: CONSTITUTIONAL: No apparent distress, well appearing, unable to sit still, frequent erratic hand and, leg movements, SKIN: Warm, dry, no jaundice, hives or petechiae EYES: Pupils are equally round, extraocular movements intact without nystagmus, clear conjunctiva, non-icteric sclera HENT: Normocephalic, atraumatic, dry mucus membranes, oropharynx clear without exudates NECK: , Full range of motion, normal appearance PULMONARY: Clear to auscultation without wheezes, rhonchi, or rales, normal excursion, no accessory muscle use and no stridor CARDIOVASCULAR: Regular rate, rhythm, normal S1 and S2. No appreciated murmurs, rubs or gallops. Strong radial pulses with intact distal perfusion. No lower extremity edema GASTROINTESTINAL: Soft, active bowel sounds throughout, non-tender, non- distended, no palpable masses, no rebound or guarding. No hepatosplenomegaly GENITOURINARY: MUSCULOSKELETAL: Extremities have no gross deformity, no edema, redness, or swelling. No calf swelling NEUROLOGIC:_a/o x 3, GCS 15, normal mentation and speech. Moves all extremities x 4 without motor or sensory deficit, no clonus or rigidity PSYCHIATRIC:_Tearful and anxious mood and affect, thought process is clear and linear Limitations: no limitations Course Vital Signs 09/18/24 09/18/24 09/18/24 15:07 16:11 19:32 Temperature 98.9 F 98.9 F 98.3 F Pulse Rate 97 71 65 Respiratory 20 19 17 Rate Blood Pressure 164/103 133/98 127/86 O2 Sat by Pulse 100 97 100 Oximetry EKG Findings - EKG Comments: EKG Findings:: Sinus rhythm, rate 74 bpm intervals within normal limits, no ST elevations or depressions, no arrhythmia, no ischemic changes Medical Decision Making - Medical Decision Making Was pt. sent in by a medical professional or institution (, PA, BIKE TECHNICIAN, urgent care, hospital, or senior care...) When possible be specific @ -No Did you speak to anyone other than the patient for history (EMS, parent, family, police, friend...)? What history was obtained from this source @ -No Did you review nursing and triage notes (agree or disagree)? Why? @ -I reviewed and agree with nursing and triage notes Were old charts reviewed (outside hosp., previous admission, EMS record, old EKG, old radiological studies, urgent care reports/EKG's, senior care records)? Report findings @ -Medical records reviewed-patient recently here for alcohol use and suicidal ideationOf note on review of ED visit on 09/09/2024 patient states that he was on olanzapine and Remeron, noted tardive dyskinesia at that time as well was seen here on 09/07/2024 for increased movements for 1 week., Described symptoms per that note, similar to today, with twitching of his arms legs and mouth with garbled speech Differential Diagnosis (chest pain, altered mental status, abdominal pain women, abdominal pain men, vaginal bleeding, weakness, fever, dyspnea, syncope, headache, dizziness, GI bleed, back pain, seizure, CVA, palpatations, mental health, musculoskeletal)? Differential diagnosis remains broad however top considerations include TD, chorea, anxiety, benzodiazipine withdrawal, alcohol withdrawal, methamphetamine withdrawal, drug intoxication, seizure, intracranial hemorrhage, abscess or tu mor, electrolyte abnormality, malingering this is not an all inclusive list EKG interpreted by me (3pts min.). @ -As above X-rays interpreted by me (1pt min.). @ -None done CT interpreted by me (1pt min.). @I personally reviewed CT brain, I see no evidence of hemorrhage of mass effect, agree with radiologist interpretation U/S interpreted by me (1pt. min.). @ -None done What testing was considered but not performed or refused? (CT, X-rays, U/S, labs)? Why? @ -None What meds were considered but not given or refused? Why? @ -None Did you discuss the management of the patient with other professionals (professionals i.e. , PA, BIKE TECHNICIAN, lab, RT, psych nurse, social media senior associate, peach grower, teacher, promotions officer, immigration case manager)? Give summary @ -No Was smoking cessation discussed for >3mins.? @ -No Was critical care preformed (if so, how long)? @ -No Were there social determinants of health that impacted care today? How? (Homelessness, low income, unemployed, alcoholism, drug addiction, transportation, low edu. Level, literacy, decrease access to med. care, skilled nursing, rehab)? History alcohol and methamphetamine abuse in recovery Was there de-escalation of care discussed even if they declined (Discuss DNR or withdrawal of care, Hospice)? @ -No What co-morbidities impacted this encounter? (DM, HTN, Smoking, COPD, CAD, Cancer, CVA, ARF, Chemo, Hep., AIDS, mental health diagnosis, sleep apnea, morbid obesity)? @bipolar disorder, borderline personality disorder Was patient admitted / discharged? Hospital course, mention meds given and route, prescriptions, significant lab abnormalities, going to OR and other pertinent info. Discharged- Patient is a pleasant 33 y/o male presenting today for frequent abnormal movements ongoing for a few months but worse since last meth use in August. Pt is hypertensive on arrival otherwise vital signs within acceptable limits. Exam significant for no focal neurologic deficits or seizure activity however frequent uncontrolled hand, leg and facial movements are noted. His presentation is most consistent with TD however pt has not yet had any imaging of his head as of yet since these movements started so will obtain CT brain, additional differential as noted above, will obtain comprehensive labs, EKG and administer ativan . Pt agreeable with POC. Labs and imaging reviewed. Grossly within normal limits. Abnormal values not concerning for acute pathology related to presenting complaint. Patient's symptoms did improve after Ativan administration. I did consider discharge home with oral Xanax, however unable to submit through [facility] at this time due to technical difficulties. Additionally, on review of [facility], patient has had multiple klonipin prescriptions over the last few weeks, the most recent of which was about one week ago for 7 days. I discussed with pt that I was unable to send xanax script at this time however I also discussed with him findings on [facility], and that at this time he should call his primary provider (who most recently prescribed his latest klonipin script) in the morning for watermaster presciption of klonipin or xanax. Additionally, though symptoms are most likely attributed to TD, since there was concern for possible seizure he was advised that due to [facility] Law, he cannot drive for 6 months. Patient was understanding of this and will be given one additional dose xanax prior to discharge so that he is able to rest tonight until follow up with his PCP. In my medical judgment there is currently no evidence of an immediate life- threatening or surgical condition. Discharge is therefore indicated at this time. Discharge treatment instructions, follow up instructions, and appropriate emergency department return precautions were discussed with the patient and/or medical decision maker. Patient and/or medical decision maker expressed understanding of and agreed with the treatment plan, follow up instructions, and emergency department return precaution. All patient's and/or medical decision maker's questions were answered. The patient was instructed to return to the ED for any changes in symptoms, persistent symptoms, inability to obtain proper follow-up or for any further concerns. Patient received verbal and written instructions for this condition. Undiagnosed new problem with uncertain prognosis? @ -No Drug Therapy requiring intensive monitoring for toxicity (Heparin, Nitro, Insulin, Cardizem)? @ -No Were any procedures done? @ -No Diagnosis/symptom? @Tardive dyskinesia Acute, or Chronic, or Acute on Chronic? @ acute Uncomplicated (without systemic symptoms) or Complicated (systemic symptoms)? @uncomplicated Side effects of treatment? @ -No Exacerbation, Progression, or Severe Exacerbation? @ -No Poses a threat to life or bodily function? How? (Chest pain, USA, MS, pneumonia, PE, COPD, DKA, ARF, appy, cholecystitis, CVA, Diverticulitis, Homicidal, Suicidal, threat to staff... and all critical care pts) @ -No - Lab Data Result diagrams: 09/18/24 15:54 09/18/24 15:54 Lab Results 09/18/24 09/18/24 09/18/24 Range/Units 15:54 15:54 16:09 WBC 5.76 (4.50-10.00) 10*3/uL RBC 5.23 (4.40-5.60) 10*6/uL Hgb 16.5 (13.0-17.0) g/dL Hct 45.8 (39.6-50.0) % MCV 87.6 (80.0-97.0) fL MCH 31.5 (27.0-32.0) pg MCHC 36.0 (32.0-37.0) g/dL Plt Count 308 (140-440) 10*3/uL MPV 10.4 (9.5-12.2) fL Immature Gran % (Auto) 0.2 % Neutrophils % 60.4 % Lymphocytes % 23.6 % Monocytes % 7.6 % Eosinophils % 6.8 % Basophils % 1.4 % Immature Gran # 0.01 (0.00-0.04) 10*3/uL Neutrophils # 3.48 (1.80-7.70) 10*3/uL Lymphocytes # 1.36 (0.90-5.00) 10*3/uL Monocytes # 0.44 (0.20-1.00) 10*3/uL Eosinophils # 0.39 H (0.04-0.35) 10*3/uL Basophils # 0.08 (0.00-0.10) 10*3/uL Sodium 136 L (137-145) mmol/L Potassium 4.1 (3.5-5.1) mmol/L Chloride 104 (98-107) mmol/L Carbon Dioxide 24 (22-30) mmol/L Anion Gap 8 mmol/L BUN 10 (9-20) mg/dL Creatinine 0.89 (0.66-1.25) mg/dL Est GFR (CKD-EPI)AfAm >90 (>60 ml/min/1.73 sqM) Est GFR (CKD-EPI)NonAf >90 (>60 ml/min/1.73 sqM) Glucose 85 (74-99) mg/dL POC Glucose (mg/dL) (70-110) mg/dL POC Glu Classroom Assistant ID Calcium 10.3 H (8.4-10.2) mg/dL Magnesium 1.9 (1.6-2.3) mg/dL Total Bilirubin 0.7 (0.2-1.3) mg/dL AST 23 (17-59) U/L ALT 19 (4-49) U/L Alkaline Phosphatase 80 (38-126) U/L Creatine Kinase 94 (55-170) U/L Total Protein 7.4 (6.3-8.2) g/dL Albumin 4.8 (3.5-5.0) g/dL Urine Color Colorless Urine Appearance Clear (Clear) Urine pH 6.5 (5.0-8.0) Ur Specific [place] 1.008 (1.001-1.035) Urine Protein Negative (Negative) Urine Glucose (UA) Negative (Negative) Urine Ketones Negative (Negative) Urine Blood Negative (Negative) Urine Nitrite Negative (Negative) Urine Bilirubin Negative (Negative) Urine Urobilinogen <2.0 (<2.0) mg/dL Ur Leukocyte Esterase Negative (Negative) Salicylates <1.0 mg/dL Urine Opiates Screen Not Detected (NotDetected) Ur Oxycodone Screen Not Detected (NotDetected) Urine Methadone Screen Not Detected (NotDetected) Acetaminophen <10.0 ug/mL Ur Barbiturates Screen Not Detected (NotDetected) U Tricyclic Antidepress Not Detected (NotDetected) Ur Phencyclidine Scrn Not Detected (NotDetected) Ur Amphetamines Screen Not Detected (NotDetected) U Methamphetamines Scrn Not Detected (NotDetected) U Benzodiazepines Scrn Not Detected (NotDetected) Urine Cocaine Screen Not Detected (NotDetected) U Marijuana (THC) Screen Not Detected (NotDetected) Serum Alcohol <10 mg/dL 09/18/24 Range/Units 16:13 WBC (4.50-10.00) 10*3/uL RBC (4.40-5.60) 10*6/uL Hgb (13.0-17.0) g/dL Hct (39.6-50.0) % MCV (80.0-97.0) fL MCH (27.0-32.0) pg MCHC (32.0-37.0) g/dL Plt Count (140-440) 10*3/uL MPV (9.5-12.2) fL Immature Gran % (Auto) % Neutrophils % % Lymphocytes % % Monocytes % % Eosinophils % % Basophils % % Immature Gran # (0.00-0.04) 10*3/uL Neutrophils # (1.80-7.70) 10*3/uL Lymphocytes # (0.90-5.00) 10*3/uL Monocytes # (0.20-1.00) 10*3/uL Eosinophils # (0.04-0.35) 10*3/uL Basophils # (0.00-0.10) 10*3/uL Sodium (137-145) mmol/L Potassium (3.5-5.1) mmol/L Chloride (98-107) mmol/L Carbon Dioxide (22-30) mmol/L Anion Gap mmol/L BUN (9-20) mg/dL Creatinine (0.66-1.25) mg/dL Est GFR (CKD-EPI)AfAm (>60 ml/min/1.73 sqM) Est GFR (CKD-EPI)NonAf (>60 ml/min/1.73 sqM) Glucose (74-99) mg/dL POC Glucose (mg/dL) 94 (70-110) mg/dL POC Glu Classroom Assistant ID Nunez Arnaldo Calcium (8.4-10.2) mg/dL Magnesium (1.6-2.3) mg/dL Total Bilirubin (0.2-1.3) mg/dL AST (17-59) U/L ALT (4-49) U/L Alkaline Phosphatase (38-126) U/L Creatine Kinase (55-170) U/L Total Protein (6.3-8.2) g/dL Albumin (3.5-5.0) g/dL Urine Color Urine Appearance (Clear) Urine pH (5.0-8.0) Ur Specific [place] (1.001-1.035) Urine Protein (Negative) Urine Glucose (UA) (Negative) Urine Ketones (Negative) Urine Blood (Negative) Urine Nitrite (Negative) Urine Bilirubin (Negative) Urine Urobilinogen (<2.0) mg/dL Ur Leukocyte Esterase (Negative) Salicylates mg/dL Urine Opiates Screen (NotDetected) Ur Oxycodone Screen (NotDetected) Urine Methadone Screen (NotDetected) Acetaminophen ug/mL Ur Barbiturates Screen (NotDetected) U Tricyclic Antidepress (NotDetected) Ur Phencyclidine Scrn (NotDetected) Ur Amphetamines Screen (NotDetected) U Methamphetamines Scrn (NotDetected) U Benzodiazepines Scrn (NotDetected) Urine Cocaine Screen (NotDetected) U Marijuana (THC) Screen (NotDetected) Serum Alcohol mg/dL Disposition Clinical Impression: Tardive dyskinesia Disposition: HOME SELF-CARE Condition: Good Instructions (If sedation given, give patient instructions): Seizure/Epilepsy Discharge Instructions & Follow-Up Additional Instructions: [facility] law states that you are unable to drive or operate heavy machinery for 6 months after seizure or syncopal event. Please follow-up with your PCP for clearance. Every disease is a spectrum and a small chance still exists that a serious condition could develop, for this reason, please monitor yourself closely for new, changing or worsening symptoms, symptoms that do not improve within one week, stroke like symptoms (sudden changes in vision, slurred speech, sudden wea kness or numbess), fever, inability to tolerate/keep down fluids or your medications, inability to follow up with outpatient providers as instructed and should you experience these symptoms or should you have any further concerns for your wellbeing please return to the ED or call 911 immediately. Please follow-up with your neurologist soon as possible. PLEASE call your primary care physician as soon as possible to arrange / discuss plan for followup appointment. Appointment in the next 1-3 days is strongly encouraged if possible. PLEASE let us know here before you leave if there is anything further we can do to be of any assistance. Take care and feel Better! Is patient prescribed a controlled substance at d/c from ED?: No Referrals: None,Stated [Primary Care Provider] - 1-2 days
[2024-09-18 16:00] LABS: Basophils # (A) 0.08 10*3/uL (0.00-0.10); Basophils % (A) 1.4 %; Eosinophils # (A) 0.39 10*3/uL (0.04-0.35); Eosinophils % (A) 6.8 %; HCT 45.8 % (39.6-50.0); HGB 16.5 g/dL (13.0-17.0); Lymphocytes # (A) 1.36 10*3/uL (0.90-5.00); Lymphocytes % (A) 23.6 %; MCH 31.5 pg (27.0-32.0); MCV 87.6 fL (80.0-97.0); Mean Platelet Volume 10.4 fL (9.5-12.2); Monocytes # (A) 0.44 10*3/uL (0.20-1.00); Monocytes % (A) 7.6 %; Neutrophils # (A) 3.48 10*3/uL (1.80-7.70); Neutrophils % (A) 60.4 %; Platelet Count 308 10*3/uL (140-440); RBC 5.23 10*6/uL (4.40-5.60); RDW 11.3 % (11.5-14.5); WBC 5.76 10*3/uL (4.50-10.00)
[2024-09-18 16:15] LABS: Glucose,Whole Blood 94 mg/dL (70-110)
[2024-09-18 16:18] LABS: ALT 19 U/L (4-49); AST 23 U/L (17-59); Acetaminophen <10.0 ug/mL; African American GFR (CKD) >90 (>60 ml/min/1.73 sqM); Albumin 4.8 g/dL (3.5-5.0); Alcohol <10 mg/dL; Alkaline Phosphatase 80 U/L (38-126); Anion Gap 8 mmol/L; Blood Urea Nitrogen 10 mg/dL (9-20); Calcium 10.3 mg/dL (8.4-10.2); Carbon Dioxide 24 mmol/L (22-30); Chloride 104 mmol/L (98-107); Creatine Kinase 94 U/L (55-170); Glucose 85 mg/dL (74-99); Magnesium 1.9 mg/dL (1.6-2.3); Non-African American GFR(CKD) >90 (>60 ml/min/1.73 sqM); Potassium 4.1 mmol/L (3.5-5.1); Salicylate <1.0 mg/dL; Sodium 136 mmol/L (137-145); Total Bilirubin 0.7 mg/dL (0.2-1.3); Total Protein 7.4 g/dL (6.3-8.2)
[2024-09-18] MEDS: LORazepam 2 MG/ML INJ IM STA (16:18)
[2024-09-18] MEDS: SODIUM CHLORIDE 0.9% 1,000 ML IV STA (16:18)
[2024-09-18 16:36] LABS: Appearance,Urine Clear (Clear); Bilirubin,Urine Negative (Negative); Blood,Urine Negative (Negative); Color,Urine Colorless; Glucose,Urine (UA) Negative (Negative); Ketones,Urine Negative (Negative); Leukocyte Esterase,Urine Negative (Negative); Nitrite,Urine Negative (Negative); PH, Urine 6.5 (5.0-8.0); Protein,Urine Negative (Negative); Specific Gravity,Urine 1.008 (1.001-1.035); Urobilinogen,Urine <2.0 mg/dL (<2.0)
[2024-09-18 16:55] LABS: Amphetamine Screen,Urine Not Detected (NotDetected); Barbiturate Screen,Urine Not Detected (NotDetected); Benzodiazepines Screen,Urine Not Detected (NotDetected); Cocaine Screen,Urine Not Detected (NotDetected); Methadone Screen, Urine Not Detected (NotDetected); Opiate Screen,Urine Not Detected (NotDetected); Oxycodone Screen, Urine Not Detected (NotDetected); Phencyclidine Screen,Urine Not Detected (NotDetected); Tricyclic Antidepressant,Urine Not Detected (NotDetected); Urn Cannabinoid Scrn Not Detected (NotDetected)
[2024-09-18] MEDS: LORazepam 2 MG/ML INJ IV STA (17:58)
--- NOTE | 2024-09-18 18:26 | CT ---
EXAMINATION TYPE: CT brain wo con DATE OF EXAM: 09/18/2024 6:19 PM COMPARISON: None available.. CLINICAL INDICATION: Male, 33 years old with history of seizure activity, seizure TECHNIQUE: Brain: Axial CT images of the brain were obtained with coronal and sagittal reformats created and rev iewed. Contrast used: None. Oral contrast used: None. CT DLP: 1180.2 mGycm, Automated exposure control for dose reduction was used. FINDINGS: Brain: Extra-axial spaces: No abnormal extra-axial fluid collections. Ventricular system: Within normal limits Cerebral parenchyma: No acute intraparenchymal hemorrhage or mass effect. The pedraza-white junction is well differentiated. Cerebellum: Unremarkable. Mass effect: No evidence of midline shift. Intracranial vasculature: unremarkable Soft tissues: Normal. Calvarium/osseous structures: No depressed skull fracture. Paranasal sinuses and mastoid air cells: Mild scattered paranasal sinus disease. Visualized orbits: Orbital contents are intact. IMPRESSION: No acute intracranial process. [facility], , 09/18/2024 6:24 PM
[2024-09-18 19:36] VITALS: BP 127/86; PULSE 65; RESP 17; TEMP 98.3
[2024-09-18] MEDS: ALPRAZolam 0.25 MG TAB PO STA (20:01)
== END 2024-09-18 20:06 | disposition home or self-care (01) ==
LOC: EC 15:05
DX: G24.01 Drug induced subacute dyskinesia (principal); F31.9 Bipolar disorder, unspecified; F60.3 Borderline personality disorder; F10.129 Alcohol abuse with intoxication, unspecified; F15.10 Other stimulant abuse, uncomplicated; F17.200 Nicotine dependence, unspecified, uncomplicated; Z91.010 Allergy to peanuts; Z91.012 Allergy to eggs; Z88.8 Allergy status to other drugs, medicaments and biological substances; Y90.9 Presence of alcohol in blood, level not specified
CPT/HCPCS: 36415; 93005; 80053; 82550; 83735; 85025; 81003; 80306; 80143; 80179; 70450; 99285; 96374; 96361; 96372; G0480; J2060; 80320

== ENCOUNTER 2024-10-05 14:33 | Emergency (ER) | payer OTHER ==
[2024-10-05 14:55] VITALS: RESP 18
[2024-10-05 16:37] LABS: Basophils # (A) 0.06 10*3/uL (0.00-0.10); Basophils % (A) 0.7 %; Eosinophils # (A) 0.42 10*3/uL (0.04-0.35); Eosinophils % (A) 5.1 %; HCT 42.8 % (39.6-50.0); HGB 15.7 g/dL (13.0-17.0); Lymphocytes # (A) 1.81 10*3/uL (0.90-5.00); Lymphocytes % (A) 21.9 %; MCHC 36.7 g/dL (32.0-37.0); MCV 87.2 fL (80.0-97.0); Mean Platelet Volume 10.4 fL (9.5-12.2); Monocytes # (A) 0.74 10*3/uL (0.20-1.00); Neutrophils % (A) 63.1 %; Platelet Count 311 10*3/uL (140-440); RBC 4.91 10*6/uL (4.40-5.60); RDW 11.7 % (11.5-14.5); WBC 8.25 10*3/uL (4.50-10.00)
[2024-10-05 16:41] LABS: Appearance,Urine Clear (Clear); Bilirubin,Urine Negative (Negative); Blood,Urine Negative (Negative); Color,Urine Colorless; Glucose,Urine (UA) Negative (Negative); Ketones,Urine Negative (Negative); Leukocyte Esterase,Urine Negative (Negative); Nitrite,Urine Negative (Negative); Protein,Urine Negative (Negative); Specific Gravity,Urine 1.002 (1.001-1.035); Urobilinogen,Urine <2.0 mg/dL (<2.0)
[2024-10-05 16:51] LABS: Amphetamine Screen,Urine Not Detected (NotDetected); Barbiturate Screen,Urine Not Detected (NotDetected); Benzodiazepines Screen,Urine Not Detected (NotDetected); Cocaine Screen,Urine Not Detected (NotDetected); Methadone Screen, Urine Not Detected (NotDetected); Opiate Screen,Urine Not Detected (NotDetected); Oxycodone Screen, Urine Not Detected (NotDetected); Phencyclidine Screen,Urine Not Detected (NotDetected); Tricyclic Antidepressant,Urine Not Detected (NotDetected); Urn Cannabinoid Scrn Not Detected (NotDetected)
[2024-10-05 17:07] LABS: ALT 18 U/L (4-49); African American GFR (CKD) >90 (>60 ml/min/1.73 sqM); Albumin 4.3 g/dL (3.5-5.0); Anion Gap 11 mmol/L; Blood Urea Nitrogen 7 mg/dL (9-20); Carbon Dioxide 23 mmol/L (22-30); Chloride 105 mmol/L (98-107); Glucose 78 mg/dL (74-99); Non-African American GFR(CKD) >90 (>60 ml/min/1.73 sqM); Sodium 139 mmol/L (137-145); Total Bilirubin 0.6 mg/dL (0.2-1.3); Total Protein 6.8 g/dL (6.3-8.2)
[2024-10-05 17:09] LABS: AST 31 U/L (17-59); Alkaline Phosphatase 68 U/L (38-126); Potassium 4.3 mmol/L (3.5-5.1)
--- NOTE | 2024-10-05 17:10 | XR ---
EXAMINATION TYPE: XR chest 2V DATE OF EXAM: 10/05/2024 4:48 PM COMPARISON: Chest radiographs 11/03/2018.. CLINICAL INDICATION: Male, 33 years old with history of Rash, hx of IV drugs; [facility] TECHNIQUE: XR chest 2V Frontal and lateral views of the chest. FINDINGS: Lungs/Pleura: There is no evidence of pleural effusion, focal consolidation, or pneumothorax. Pulmonary vascularity: Unremarkable. Heart/mediastinum: Cardiomediastinal silhouette is unremarkable. Musculoskeletal: No acute osseous pathology. Other findings: None IMPRESSION: No acute cardiopulmonary disease/process. [facility], , 10/05/2024 5:07 PM
[2024-10-05] MEDS: LORazepam 1 MG TAB PO STA (17:18)
--- NOTE | 2024-10-05 17:23 | ED ---
Skin/Abscess/FB HPI - General Chief complaint: Skin/Abscess/Foreign Body Stated complaint: infection Time Seen by Provider: 10/05/24 17:19 Source: patient, RN notes reviewed Mode of arrival: ambulatory Limitations: no limitations - History of Present Illness Initial comments: 33-year-old male presenting for rash on bilateral arms x 5 days. States he re lapsed on IV meth on Tuesday (5 days ago) with injection sites to ventral aspect of bilateral arms. States since then he has had a red, itchy rash spreading up his arms. Denies chest pain, shortness of breath, fevers, nausea, vomiting. - Related Data Home Medications Medication Instructions Recorded Confirmed Cetirizine HCl [Zyrtec] 10 mg PO DAILY 06/04/24 06/04/24 Previous Rx's Medication Instructions Recorded Albuterol Inhaler [Ventolin Hfa 2 puff INHALATION RT-QID PRN 30 06/11/24 Inhaler] Days #1 each Artificial Tears-Hypromellose 2 drops BOTH EYES TID PRN 30 Days 06/11/24 [Artificial Tear Drops] #1 pack Hydrocortisone Cream 1 applic TOPICAL BID PRN 7 Days 06/11/24 [Hydrocortisone 1% Cream] #56 gram Mirtazapine [Remeron] 30 mg PO HS 30 Days #60 tab 06/11/24 Nicotine 14Mg/24Hr Patch [Habitrol] 1 patch TRANSDERM DAILY 30 Days 06/11/24 #30 patch OLANZapine [ZyPREXA] 5 mg PO HS 30 Days #30 tab 06/11/24 cloNIDine HCL [Catapres] 0.2 mg PO TID 30 Days #90 tab 06/11/24 hydrOXYzine HCL [Atarax] 25 mg PO TID PRN 30 Days #90 tab 06/11/24 traZODone HCL [Desyrel] 50 mg PO HS PRN 30 Days #30 tab 06/11/24 clonazePAM [KlonoPIN] 0.5 mg PO BID 2 Days #4 tab 09/07/24 Nystatin 100,000 Unit/ml Susp 5 ml PO QID #70 ml 10/05/24 [Mycostatin Oral Susp] Sulfamethox-Tmp 800-160Mg [Bactrim 1 each PO Q12HR 7 Days #14 tab 10/05/24 Ds] Allergies Allergy/AdvReac Type Severity Reaction Status Date / Time lamotrigine [From Lamictal] Allergy Unknown Rash/Hives Verified 09/18/24 15:09 ziprasidone [From Geodon] Allergy Unknown Rash/Hives Verified 09/18/24 15:09 peanut Allergy Rash/Hives Verified 09/18/24 15:09 egg AdvReac Nausea & Verified 09/18/24 15:09 Vomiting & Diarrhea haloperidol [From Haldol] AdvReac tardive Verified 09/18/24 15:09 dyskinesia Review of Systems ROS Statement: Those systems with pertinent positive or pertinent negative responses have been documented in the HPI. ROS Other: All systems not noted in ROS Statement are negative. Past Medical History Past Medical History: Asthma, GERD/Reflux, Pneumonia, Skin Disorder Additional Past Medical History / Comment(s): Other HX: Eczema, hayfever, left cornea ulcer healed, gastric ulcer. Tardive Dyskinesia History of Any Multi-Drug Resistant Organisms: None Reported Past Surgical History: No Surgical Hx Reported Additional Past Surgical History / Comment(s): EGD, corneal biopsy left - Past Anesthesia/Blood Transfusion Reactions: No Reported Reaction Past Psychological History: ADD/ADHD, Anxiety, Bipolar, Depression, Panic Disorder, PTSD Smoking Status: Current every day smoker Past Alcohol Use History: Occasional Past Drug Use History: None Reported - Past Family History Father Additional Family Medical History / Comment(s): Father is alive with history of alcoholism and drug addiction. Patient does not have any relationship with him. grandfather diabetic. mom and grandfather have HTN. brother htn Mother Additional Family Medical History / Comment(s): She has history of coronary artery disease with previous NV, bipolar disorder and borderline personality. Patient has no contact with his mother. Brother(s) Additional Family Medical History / Comment(s): Patient has 1 brother and one sister; both have anxiety. Patient does not have any children. General Exam Limitations: no limitations General appearance: alert, in no apparent distress Head exam: Present: atraumatic, normocephalic, normal inspection Respiratory exam: Present: normal lung sounds bilaterally. Absent: respiratory distress, wheezes, rales, rhonchi, stridor Cardiovascular Exam: Present: regular rate, normal rhythm, normal heart sounds. Absent: systolic murmur, diastolic murmur, rubs, gallop, clicks GI/Abdominal exam: Present: soft, normal bowel sounds. Absent: distended, tenderness, guarding, rebound, rigid Neurological exam: Present: alert, oriented X3 Psychiatric exam: Present: normal affect, agitated, anxious. Absent: homicidal ideation, suicidal ideation Skin exam: Present: warm, dry, intact, normal color, rash (There is a raised, macular rash present on bilateral upper extremities with no purulence or drainage. No streaking) Course Vital Signs 10/05/24 10/05/24 14:53 17:25 Temperature 98.3 F 98.1 F Pulse Rate 99 88 Respiratory 18 18 Rate Blood Pressure 142/47 136/69 O2 Sat by Pulse 94 L 96 Oximetry Medical Decision Making - Medical Decision Making Was pt. sent in by a medical professional or institution (KINDRA Celis, CLIENT SERVICES REPRESENTATIVE, urgent care, hospital, or detention...) When possible be specific @ -No Did you speak to anyone other than the patient for history (EMS, parent, family, police, friend...)? What history was obtained from this source @ -No Did you review nursing and triage notes (agree or disagree)? Why? @ -I reviewed and agree with nursing and triage notes Were old charts reviewed (outside hosp., previous admission, EMS record, old EKG, old radiological studies, urgent care reports/EKG's, detention records)? Report findings @ -No old charts were reviewed Differential Diagnosis (chest pain, altered mental status, abdominal pain women, abdominal pain men, vaginal bleeding, weakness, fever, dyspnea, syncope, headache, dizziness, GI bleed, back pain, seizure, CVA, palpatations, mental health, musculoskeletal)? @ -Cellulitis, dermatitis, eczema, allergic reaction, endocarditis EKG interpreted by me (3pts min.). @ -As above X-rays interpreted by me (1pt min.). @ -Chest x-ray reveals no acute process CT interpreted by me (1pt min.). @ -None done U/S interpreted by me (1pt. min.). @ -None done What testing was considered but not performed or refused? (CT, X-rays, U/S, labs)? Why? @ -None What meds were considered but not given or refused? Why? @-Recommended updating Tdap, patient declines Did you discuss the management of the patient with other professionals (professionals i.e. , PA, CLIENT SERVICES REPRESENTATIVE, lab, RT, psych nurse, school social worker, global account director, teacher, recruitment officer, upper caser)? Give summary @ -No Was smoking cessation discussed for >3mins.? @ -No Was critical care preformed (if so, how long)? @ -No Were there social determinants of health that impacted care today? How? (Homelessness, low income, unemployed, alcoholism, drug addiction, transportation, low edu. Level, literacy, decrease access to med. care, retirement, rehab)? @ -No Was there de-escalation of care discussed even if they declined (Discuss DNR or withdrawal of care, Hospice)? DNR status @ -No What co-morbidities impacted this encounter? (DM, HTN, Smoking, COPD, CAD, Cancer, CVA, ARF, Chemo, Hep., AIDS, mental health diagnosis, sleep apnea, morbid obesity)? @ -None Was patient admitted / discharged? Hospital course, mention meds given and route, prescriptions, significant lab abnormalities, going to OR and other pertinent info. @ - discharge. 33-year-old male with history of IV drug use presenting for bilateral upper extremity rash. Patient appears very anxious on physical examination. He is afebrile. Physical examination remarkable for a macular erythematous rash in bilateral upper extremities with no purulence or drainage. Patient is continuously scratching at rash. Lab work including CBC, CMP, lactic unremarkable. ESR sent out. EKG reveals sinus bradycardia with no acute ST changes. Chest x-ray reveals no acute process. Urinalysis negative. Urine drug screen negative. Discussed negative results with patient. Rash appears to be allergic in nature however patient was provided with outpatient course of Bactrim. Upon discharge, patient is also requesting medicine for thrush as he has noticed white on his tongue over the past 2 days as well. I am agreeable to sending nystatin however advised patient close follow-up with PCP and strict return precautions. Patient is agreeable to plan. Case was discussed with my ED attending Dr. Aldridge. Undiagnosed new problem with uncertain prognosis? @ -No Drug Therapy requiring intensive monitoring for toxicity (Heparin, Nitro, Insulin, Cardizem)? @ -No Were any procedures done? @ -No Diagnosis/symptom? @ -Atopic dermatitis Acute, or Chronic, or Acute on Chronic? @ -Acute Uncomplicated (without systemic symptoms) or Complicated (systemic symptoms)? @ -Uncomplicated Side effects of treatment? @ -No Exacerbation, Progression, or Severe Exacerbation? @ -No Poses a threat to life or bodily function? How? (Chest pain, USA, NV, pneumonia, PE, COPD, DKA, ARF, appy, cholecystitis, CVA, Diverticulitis, Homicidal, Suicidal, threat to staff... and all critical care pts) @ -No - Lab Data Result diagrams: 10/05/24 16:25 10/05/24 16: Lab Results 10/05/24 10/05/24 10/05/24 Range/Units 16:25 16:: WBC 8.25 (4.50-10.00) 10*3/uL RBC 4.91 (4.40-5.60) 10*6/uL Hgb 15.7 (13.0-17.0) g/dL Hct 42.8 (39.6-50.0) % MCV 87.2 (80.0-97.0) fL MCH 32.0 (27.0-32.0) pg MCHC 36.7 (32.0-37.0) g/dL Plt Count 311 (140-440) 10*3/uL MPV 10.4 (9.5-12.2) fL Immature Gran % (Auto) 0.2 % Neutrophils % 63.1 % Lymphocytes % 21.9 % Monocytes % 9.0 % Eosinophils % 5.1 % Basophils % 0.7 % Immature Gran # 0.02 (0.00-0.04) 10*3/uL Neutrophils # 5.20 (1.80-7.70) 10*3/uL Lymphocytes # 1.81 (0.90-5.00) 10*3/uL Monocytes # 0.74 (0.20-1.00) 10*3/uL Eosinophils # 0.42 H (0.04-0.35) 10*3/uL Basophils # 0.06 (0.00-0.10) 10*3/uL Sodium 139 (137-145) mmol/L Potassium 4.3 (3.5-5.1) mmol/L Chloride 105 (98-107) mmol/L Carbon Dioxide 23 (22-30) mmol/L Anion Gap 11 mmol/L BUN 7 L (9-20) mg/dL Creatinine 0.74 (0.66-1.25) mg/dL Est GFR (CKD-EPI)AfAm >90 (>60 ml/min/1.73 sqM) Est GFR (CKD-EPI)NonAf >90 (>60 ml/min/1.73 sqM) Glucose 78 (74-99) mg/dL Calcium 10.0 (8.4-10.2) mg/dL Total Bilirubin 0.6 (0.2-1.3) mg/dL AST 31 (17-59) U/L ALT 18 (4-49) U/L Alkaline Phosphatase 68 (38-126) U/L Total Protein 6.8 (6.3-8.2) g/dL Albumin 4.3 (3.5-5.0) g/dL Urine Color Colorless Urine Appearance Clear (Clear) Urine pH 7.0 (5.0-8.0) Ur Specific [place] 1.002 (1.001-1.035) Urine Protein Negative (Negative) Urine Glucose (UA) Negative (Negative) Urine Ketones Negative (Negative) Urine Blood Negative (Negative) Urine Nitrite Negative (Negative) Urine Bilirubin Negative (Negative) Urine Urobilinogen <2.0 (<2.0) mg/dL Ur Leukocyte Esterase Negative (Negative) Urine Opiates Screen Not Detected (NotDetected) Ur Oxycodone Screen Not Detected (NotDetected) Urine Methadone Screen Not Detected (NotDetected) Ur Barbiturates Screen Not Detected (NotDetected) U Tricyclic Antidepress Not Detected (NotDetected) Ur Phencyclidine Scrn Not Detected (NotDetected) Ur Amphetamines Screen Not Detected (NotDetected) U Methamphetamines Scrn Not Detected (NotDetected) U Benzodiazepines Scrn Not Detected (NotDetected) Urine Cocaine Screen Not Detected (NotDetected) U Marijuana (THC) Screen Not Detected (NotDetected) - EKG Data -: EKG Interpreted by Me EKG Comments: Sinus bradycardia with no ST changes. Ventricular rate 59 bpm, IA interval 152, QRS duration 102, QT/QTc 405/404 Disposition Clinical Impression: Atopic dermatitis Disposition: HOME SELF-CARE Condition: Stable Additional Instructions: Take antibiotic as prescribed. Follow-up with your PCP. Please return to the Emergency Department if symptoms worsen or any other concerns. Prescriptions: Sulfamethox-Tmp 800-160Mg [Bactrim Ds] 1 each PO Q12HR 7 Days #14 tab Nystatin 100,000 Unit/ml Susp [Mycostatin Oral Susp] 5 ml PO QID #70 ml Is patient prescribed a controlled substance at d/c from ED?: No Referrals: None,Stated [Primary Care Provider] - 1-2 days Forms: Area PCPs Time of Disposition: 17:52
[2024-10-05 17:59] VITALS: BP 132/76; PULSE 84; TEMP 98
[2024-10-06 02:09] LABS: Erythrocyte Sedimentation Rate 6 mm/Hr (0-15)
== END 2024-10-05 18:00 | disposition home or self-care (01) ==
LOC: EC 14:33
DX: L20.9 Atopic dermatitis, unspecified (principal); R00.1 Bradycardia, unspecified; F17.200 Nicotine dependence, unspecified, uncomplicated; Z88.8 Allergy status to other drugs, medicaments and biological substances; Z91.012 Allergy to eggs; Z91.010 Allergy to peanuts
CPT/HCPCS: 36415; 71046; 80053; 80306; 81003; 85025; 85652; 93005; 99284

== ENCOUNTER 2024-12-05 13:01 | Inpatient (IN) | payer MEDICAID, OTHER ==
[2024-12-05] MEDS ORDERED: MAGNESIUM HYDROXIDE 2,400 MG/30 ML CUP PO PRN (13:28)
[2024-12-05] MEDS ORDERED: IBUPROFEN 600 MG TAB PO PRN (13:28)
[2024-12-05] MEDS ORDERED: flUPHENAZine 2.5 MG/ML (MDV) 10 ML VIAL IM PRN (13:28)
[2024-12-05] MEDS ORDERED: MAG HYDROX/AL HYDROX/SIMETH 355 ML BOTTLE PO PRN (13:28)
[2024-12-05] MEDS ORDERED: ACETAMINOPHEN TAB 325 MG TAB PO PRN (13:28)
[2024-12-05] MEDS: NICOTINE 21MG/24HR PATCH TRANSDERM SCH (18:01)
[2024-12-05] MEDS: LORazepam 1 MG TAB PO PRN (18:03)
[2024-12-06] MEDS: MULTIVITAMINS, THERA 1 EACH TAB PO SCH (08:59)
[2024-12-06] MEDS: THIAMINE 100 MG TAB PO SCH (09:00)
[2024-12-06] MEDS ORDERED: NICOTINE 14MG/24HR PATCH TRANSDERM SCH (09:00)
[2024-12-06] MEDS: FOLIC ACID 1 MG TAB PO SCH (09:00)
[2024-12-06] MEDS: LORazepam 1 MG TAB PO PRN ×2 (12:48→21:01)
[2024-12-06] MEDS ORDERED: ALBUTEROL INHALER 60 PUFF/8 GM INHALER (MHU) INHALATION PRN (13:46)
--- NOTE | 2024-12-06 14:03 | P.HP ---
Psychiatric H&P - . H&P Date: 12/06/24 History & Physical: Allergies Allergy/AdvReac Type Severity Reaction Status Date / Time lamotrigine from Lamictal Allergy Unknown Rash/Hives Verified 09/18/24 15:09 ziprasidone from Geodon Allergy Unknown Rash/Hives Verified 09/18/24 15:09 peanut Allergy Rash/Hives Verified 09/18/24 15:09 egg AdvReac Nausea & Verified 09/18/24 15:09 Vomiting & Diarrhea haloperidol from Haldol AdvReac tardive Verified 09/18/24 15:09 dyskinesia Vital Signs Temp 97.4 F L 12/06/24 09:00 Pulse 117 H 12/06/24 09:00 Resp 16 12/06/24 09:00 BP 159/92 12/06/24 09:00 Pulse Ox 98 12/06/24 09:00 FiO2 Intake & Output 12/05/24 12/06/24 12/06/24 18:59 06:59 18:59 Weight 81.737 kg IDENTIFYING DATA: Patient is a 34-year-old male, he currently lives with his grandparents in a house, he is unemployed. HPI: Patient presented to the hospital as a transfer from [facility]. as per EPS transfer note "Patient presented to [facility] related to alcohol intoxication and suicidal ideations. Patient was evaluated by [facility] related to suicidal thoughts. Patient during evaluation expressed suicidal ideation with a plan to overdose either on all old prescript ions at his home or overdose on alcohol and meth. Patient noted to have history of suicide attempts by overdose, unknown last occurence. Patient also noted by [facility] to be experiencing paranoia, as well as A/V hallucinations. Patient unable to safety plan at this time. Patient BAL 190.4, UDS+Amph. Spoke to patient CLINIC SCHEDULER and states patient has been calm and cooperative in ER. No PRNs for agitation/behaviors. Patient noted to have an allergic reaction r/t eating a sandwich with dias on it, noted to have a rash and received Benadryl. States patient has had no further symptoms and is resting calmly. RN states patient expressed history of alcohol withdrawal seizures. Patient noted to be drinking between 1 pint to a fifth daily per RN. Patient has history of meth use, last use one week ago." Patient was seen today laying in bed agreeable to speak to tech writer in the office. He had his eyes closed, claims that he has been feeling more depressed lately. Claims that he has been smoking methamphetamine more lately. Claims that he believes that it is causing more "profuse damage" however did not elaborate as to why he believes this. He claims that he feels that he is terrified of "everything". He claims that he has been hearing voices and believes that he is seeing things at times. He claims that he has been drinking alcohol to help suppress his depression and anxiety. Claims that he h as been drinking about 1/5 of alcohol a day. Claims that his last drink was about 2 days ago. Claims that he believes that he is having some minor withdrawal symptoms, no shakes at this time. Claims that he has poor finances at this time, claims that he is not able to work, claims he is still dealing with a "failed marriage". Claims that his depression and anxiety have been increasing. He is claiming that he is having suicidal thoughts no plan at this time or intent. Denies any homicidal ideations. She is admitting to auditory and visual hallucinations. Patient denies any flight of ideas racing thoughts and increased in goal directed behavior. Patient admits to using methamphetamine about 1 to 2 g a day, also claims that he is drinking alcohol as noted above. Claims that he also smokes cigarettes. PAST PSYCHIATRIC HISTORY: Patient has a history of bipolar disorder, borderline personality disorder, PTSD and substance abuse. Patient has been on several different medications in the past including Risperdal, Zyprexa, Seroquel, was previously on clonidine Remeron and Zoloft, now is currently not taking any medications. His last psychiatric hospitalization was in June 2024. Patient denies any psychiatric outpatient follow-up, claims that his case at [facility] has been closed. Patient has had several suicide attempts in the past. PMH: as per ER note ALLERGIES: as per EMR CHEMICAL DEPENDENCY HISTORY: as per HPI FAMILY PSYCHIATRIC/SUBSTANCE USE HISTORY: Denies family history SOCIAL HISTORY: Completed 10th grade and a cosmetology program. Presently resides with his grandparents and he is unemployed. 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 Currently from partner who resides in [place]. Patient has a history of charges related to IPV in [place] and was deported, unable to return. Denies having access to firearms. MENTAL STATUS EXAM: General Appearance: Patient appears to be thin, short hair, several tattoos and piercings, stated age is alert, directable, and attempts to cooperate. Patient appears to have poor hygiene and grooming. Behavior: Patient is seated without any agitated behavior. Poor eye contact, appeared anxious Speech: Patient's speech is fluent and nonpressured. Hesitant at times Mood/Affect: Patient reports their mood is depressed and anxious, affect is congruent Suicidality/Homicidality: Patient denies having any homicidal ideation intent or plan. Admits to suicidal thoughts no specific plan or intent Perceptions: Patient admits to auditory and visual hallucinations, not being able to describe what they are. Though content/process: There is no evidence of any delusional thought content and thought process is linear and goal-directed. Preoccupied with his physical wellbeing. Memory and concentration: AOX3, grossly intact for the purposes of this session. Can spell "WORLD" backwards Judgment and insight: Poor STRENGTHS/WEAKNESSES: strength is that patient is resilient. Weakness is that patient has poor judgment and is impulsive and history of substance abuse INTELLECT: Average IMPRESSIONS: Bipolar disorder, current episode depressed Personality disorder History of PTSD Methamphetamine use disorder severe Alcohol use disorder Nicotine dependence PLAN: -Patient is admitted under voluntary status to [facility] for stabilization of psychiatric symptoms and safety. Patient has signed adult voluntary form and has signed medication consent and is placed in patient's chart. -Medications : Seroquel 50 mg nightly [place] mood stabilization/psychosis/insomnia, Zoloft 50 mg daily for mood/anxiety, Remeron 15 mg nightly for insomnia/mood. Librium 10 mg 4 times daily for alcohol withdrawal plan to taper down. -Ativan and Haldol PRN for agitation/aggression -Started thiamine, MVM for etoh use -WA protocol with Ativan PRN for ETOH withdrawal. -ordered cbc with differential, comprehensive panel, TSH, HIV testing with patients verbal permission as patient is concerned about his past IV drug use and beleives he is developing infections. -Patient was counselled on substance abuse and desired to cut back on use. Will offer patient subtance use rehab -Patient was informed of the risks, benefits and side effects of the medications and patient verbally consented to taking the medications. Patient signed med consent form and was placed in chart. Patient was offered medication information and declined it -Internal Medicine consult to perform medical evaluation and physical. -NRT -nicotine patch -SW on board for discharge planning. Encourage patient to participate in groups to work on coping skills 12/06/24 13:58
[2024-12-06] MEDS: SERTRALINE 50 MG TAB PO SCH (14:10)
[2024-12-06] MEDS: LORATADINE 10 MG TAB PO SCH (14:11)
--- NOTE | 2024-12-06 14:36 | P.MDCNMH ---
History of Present Illness H&P Date: 12/06/24 Patient is a 34-year-old male with past medical history of depression, suicidal attempts, ideation, alcohol use disorder, eczema, who was transferred from [facility] and now is admitted in the [facility] for suicidal ideations, alcohol intoxication. [facility] physicians consulted for medical management. Patient complains of eczema flare, he was started on prednisone taper as outpatient but only took 2 days. He says that his whole body is affected. He also complains of nausea with episodic vomiting, he has no abdominal pain, he states that he is stool is foul-smelling and difficult to flush. Concern for chronic pancreatitis Pertinent positives and negatives as discussed in HPI, a complete review of systems was performed and all other systems are negative. Patient seen and examined at bedside. Vital signs reviewed General: nontoxic, no distress, appears at stated age Derm: Eczematous changes Head: atraumatic, normocephalic, symmetric Eyes: EOMI, no lid lag, anicteric sclera, pupils equal round reactive to light ENT: Nose and ears atraumatic Neck: No thyromegaly, supple Mouth: no lip lesion, mucus membranes moist Cardiovascular: S1S2 reg, no murmur, no edema Lungs: clear to auscultation bilateral, no rhonchi, no rales, no wheeze, no accessory muscle use Abdominal: soft, nontender to palpation, no guarding, no appreciable organomegaly Ext: no gross muscle atrophy, muscle strength muscle strength 5 out of 5 in all 4 extremities, no contractures Neuro: CN II-XII grossly intact Psych: Alert, oriented, Assessment/Plan: Alcohol use disorder, alcohol withdrawal Eczema flare -Will provide with prednisone taper, hydrocortisone 1% topical cream as needed -Agree with HIV test - Continue folic acid 1 mg p.o. daily, thiamine 100 mg p.o. daily, CIWA with Ativan Possible chronic alcohol induced pancreatitis -Will check lipase, provide with pancreatic enzymes, CMP ordered by primary team asthma, not in exacerbation: Continue albuterol as needed GERD: Not on medications, declined history of ADD/ADHD Continued ongoing nicotine use Suicidal ideation History of bipolar/borderline personality disorder History of anxiety/depression Methamphetamine abuse -Management per primary psychiatric team Past Medical History Past Medical History: Asthma, GERD/Reflux, Pneumonia, Skin Disorder Additional Past Medical History / Comment(s): Other HX: Eczema, hayfever, left cornea ulcer healed, gastric ulcer. Tardive Dyskinesia History of Any Multi-Drug Resistant Organisms: None Reported Past Surgical History: No Surgical Hx Reported Additional Past Surgical History / Comment(s): EGD, corneal biopsy left - Past Anesthesia/Blood Transfusion Reactions: No Reported Reaction Past Psychological History: ADD/ADHD, Anxiety, Bipolar, Depression, Panic Disorder, PTSD Additional Psychological History / Comment(s): Bipolar Disorder. Borderline personality disorder. He lives with his grandparents. He is normally independent. He drives. Smoking Status: Current every day smoker Past Alcohol Use History: Occasional Additional Past Alcohol Use History / Comment(s): Pt states "I used to be an alcoholic but now my drug addiction overrides the alcohol. Past Drug Use History: None Reported Additional Drug Use History / Comment(s): hx of marajuana, heroin, and cocaine. UDS +methamphetamines and amphetamines. Pt states he injects methamphetamine. Track nuñez and scarring noted on left forearm. - Past Family History Father Additional Family Medical History / Comment(s): Father is alive with history of alcoholism and drug addiction. Patient does not have any relationship with him. grandfather diabetic. mom and grandfather have HTN. brother htn Mother Additional Family Medical History / Comment(s): She has history of coronary artery disease with previous AK, bipolar disorder and borderline personality. Patient has no contact with his mother. Brother(s) Additional Family Medical History / Comment(s): Patient has 1 brother and one sister; both have anxiety. Patient does not have any children. Medications and Allergies Home Medications Medication Instructions Recorded Confirmed Type Cetirizine HCl [Zyrtec] 10 mg PO DAILY 06/04/24 06/04/24 History Albuterol Inhaler [Ventolin Hfa 2 puff INHALATION RT-QID PRN 30 06/11/24 Rx Inhaler] Days #1 each Artificial Tears-Hypromellose 2 drops BOTH EYES TID PRN 30 Days 06/11/24 Rx [Artificial Tear Drops] #1 pack Hydrocortisone Cream 1 applic TOPICAL BID PRN 7 Days 06/11/24 Rx [Hydrocortisone 1% Cream] #56 gram Mirtazapine [Remeron] 30 mg PO HS 30 Days #60 tab 06/11/24 Rx Nicotine 14Mg/24Hr Patch [Habitrol] 1 patch TRANSDERM DAILY 30 Days 06/11/24 Rx #30 patch OLANZapine [ZyPREXA] 5 mg PO HS 30 Days #30 tab 06/11/24 Rx cloNIDine HCL [Catapres] 0.2 mg PO TID 30 Days #90 tab 06/11/24 Rx hydrOXYzine HCL [Atarax] 25 mg PO TID PRN 30 Days #90 tab 06/11/24 Rx traZODone HCL [Desyrel] 50 mg PO HS PRN 30 Days #30 tab 06/11/24 Rx clonazePAM [KlonoPIN] 0.5 mg PO BID 2 Days #4 tab 09/07/24 Rx Nystatin 100,000 Unit/ml Susp 5 ml PO QID #70 ml 10/05/24 Rx [Mycostatin Oral Susp] Sulfamethox-Tmp 800-160Mg [Bactrim 1 each PO Q12HR 7 Days #14 tab 10/05/24 Rx Ds] Allergies Allergy/AdvReac Type Severity Reaction Status Date / Time lamotrigine [From Lamictal] Allergy Unknown Rash/Hives Verified 09/18/24 15:09 ziprasidone [From Geodon] Allergy Unknown Rash/Hives Verified 09/18/24 15:09 peanut Allergy Rash/Hives Verified 09/18/24 15:09 egg AdvReac Nausea & Verified 09/18/24 15:09 Vomiting & Diarrhea haloperidol [From Haldol] AdvReac tardive Verified 09/18/24 15:09 dyskinesia Physical Exam Vitals: Vital Signs Temp Pulse Resp BP Pulse Ox 12/06/24 09:00 97.4 F L 117 H 16 159/92 98 12/05/24 22:22 97.6 F 79 16 143/87 97 12/05/24 17:45 98.7 F 89 18 130/83 96 Intake and Output 12/05/24 12/06/24 12/06/24 22:59 06:59 14:59 Other: Weight 81.737 kg Cranial Nerve Examination - Cranial Nerves Cranial Nerve II- Optic: Intact Cranial Nerve III- Oculomotor: Intact Cranial Nerve IV- Trochlear: Intact Cranial Nerve V- Trigeminal: Intact Cranial Nerve - Abducens: Intact Cranial Nerve VII- Facial: Intact Cranial Nerve VIII- Auditory: Intact Cranial Nerve IX- Glossopharyngeal: Intact Cranial Nerve X- Vagus: Intact Cranial Nerve XI- Accessory: Intact Cranial Nerve XII- Hypoglossal: Intact
[2024-12-06] MEDS: NYSTATIN 100,000 UNIT/GM POWD 15 GM TOPICAL SCH (14:39)
[2024-12-06] MEDS: NYSTATIN 100,000 UNIT/ML SUSP 500,000 UNIT/5 ML CUP PO SCH (14:40)
[2024-12-06] MEDS: predniSONE 10 MG TAB PO SCH (14:58)
[2024-12-06 16:51] LABS: Basophils # (A) 0.05 10*3/uL (0.00-0.10); Basophils % (A) 0.5 %; Eosinophils # (A) 0.12 10*3/uL (0.04-0.35); Eosinophils % (A) 1.3 %; HCT 46.5 % (39.6-50.0); HGB 16.8 g/dL (13.0-17.0); Lymphocytes # (A) 1.40 10*3/uL (0.90-5.00); Lymphocytes % (A) 14.7 %; MCH 32.2 pg (27.0-32.0); MCHC 36.1 g/dL (32.0-37.0); MCV 89.3 fL (80.0-97.0); Monocytes # (A) 0.51 10*3/uL (0.20-1.00); Monocytes % (A) 5.3 %; Neutrophils # (A) 7.40 10*3/uL (1.80-7.70); Neutrophils % (A) 77.6 %; Platelet Count 379 10*3/uL (140-440); RBC 5.21 10*6/uL (4.40-5.60); RDW 11.8 % (11.5-14.5); WBC 9.54 10*3/uL (4.50-10.00)
[2024-12-06 17:12] LABS: ALT 22 U/L (4-49); AST 21 U/L (17-59); African American GFR (CKD) >90 (>60 ml/min/1.73 sqM); Albumin 4.1 g/dL (3.5-5.0); Alkaline Phosphatase 90 U/L (38-126); Anion Gap 9 mmol/L; Blood Urea Nitrogen 20 mg/dL (9-20); Calcium 9.9 mg/dL (8.4-10.2); Carbon Dioxide 24 mmol/L (22-30); Chloride 103 mmol/L (98-107); Glucose 96 mg/dL (74-99); Non-African American GFR(CKD) >90 (>60 ml/min/1.73 sqM); Potassium 4.7 mmol/L (3.5-5.1); Sodium 136 mmol/L (137-145); Total Protein 6.5 g/dL (6.3-8.2)
[2024-12-06] MEDS: LIPASE 20,000/PROTEASE 63,000/AMYLASE 84,000 PO SCH (18:14)
[2024-12-06] MEDS: MIRTAZAPINE 15 MG TAB PO SCH (20:22)
[2024-12-06] MEDS: QUEtiapine 50 MG TAB PO SCH (20:22)
[2024-12-06 21:03] LABS: HIV 2 AB Non-Reactive (Non-Reactive); HIV AB P24 Non-Reactive (Non-Reactive); HIV P24 AG Non-Reactive (Non-Reactive)
[2024-12-07 02:45] LABS: Cholesterol 216.00 mg/dL (0.00-200.00); HDL Cholesterol 53.80 mg/dL (40.00-60.00); LDL Cholesterol,Calculated 113.4 mg/dL (0.0-131.0); Triglycerides 244.00 mg/dL (0.00-149.00); VLDL Calculation 48.80 mg/dL (5.00-40.00)
--- NOTE | 2024-12-07 11:20 | P.PN ---
Progress Note - Text Progress Note Date: 12/07/24 Interval history: Patient was seen today for psychiatric follow-up. He was laying in bed judy strange to speak to bid writer in the office. Claims that he found it difficult to sleep last night because interning is a Prolixin and lorazepam as needed. He was requesting to have his Zoloft and also his Seroquel increased. We spoke about the test results. HIV test came back negative. He claims that he is feeling a bit better overall, claims that he nystatin has been helping a fungal infections and has been taking it regularly. He claims that he is still feeling minor withdrawal symptoms at this time. Claims that he has been mainly keeping himself in his room, claims that his depression anxiety been mildly improving since yesterday. He was less tearful today, claims that he hates therapy. Denies any auditory or visual hallucinations denies any suicidal or homicidal ideations intent or plan. Not reporting any side effects from the medications MENTAL STATUS EXAM: General Appearance: Patient appears to be thin, short hair, several tattoos and piercings, stated age is alert, directable, and attempts to cooperate. Patient appears to have mildly improving hygiene and grooming. Behavior: Patient is seated without any agitated behavior. Poor eye contact, appeared anxious, Speech: Patient's speech is fluent and nonpressured. Less hesitant at times Mood/Affect: Patient reports their mood is depressed and anxious, affect is congruent Suicidality/Homicidality: Patient denies having any homicidal ideation intent or plan. Denies any suicidal thoughts no specific plan or intent Perceptions: Patient denies any auditory and visual hallucinations Though content/process: There is no evidence of any delusional thought content and thought process is linear and goal-directed. Memory and concentration: AOX3, grossly intact for the purposes of this session Judgment and insight: Poor, improving mildly IMPRESSIONS: Bipolar disorder, current episode depressed Personality disorder History of PTSD Methamphetamine use disorder severe Alcohol use disorder Nicotine dependence PLAN: -Patient is admitted under voluntary status to MHU for stabilization of psychiatric symptoms and safety. Patient has signed adult voluntary form and has signed medication consent and is placed in patient's chart. -Medications : increase Seroquel 100 mg nightly [place] mood stabilization/psychosis/insomnia, increase Zoloft 100 mg daily for mood/anxiety, Remeron 15 mg nightly for insomnia/mood. decrease/taper Librium 10 mg 3 times daily for alcohol withdrawal plan to taper down. -Ativan and Haldol PRN for agitation/aggression -Started thiamine, MVM for etoh use -CIWA protocol with Ativan PRN for ETOH withdrawal. - Command And Control Systems Integrator reviewed cbc with differential, comprehensive panel, TSH, HIV. HIV test came back negative. He is denying any other lesions, ulcers or signs/symptoms of STDs and does not want further testing. -Patient was counselled on substance abuse and desired to cut back on use. Will offer patient subtance use rehab -NRT -nicotine patch -SW on board for discharge planning. Encourage patient to participate in groups to work on coping skills.
[2024-12-07] MEDS: HYDROCORTISONE 1% CREAM 30 GM TUBE TOPICAL PRN (16:57)
[2024-12-07] MEDS: QUEtiapine 100 MG TAB PO SCH (22:13)
[2024-12-08] MEDS: SERTRALINE 100 MG TAB PO SCH (08:23)
--- NOTE | 2024-12-08 12:49 | P.PN ---
Progress Note - Text Progress Note Date: 12/08/24 Chief complaint: Suicidal thoughts Interval History: Patient was seen sleeping in bed but easily awake able and was directable and agreeable to speak with medical underwriter in the office. The patient had trouble sitting still and was moving constantly during the interview. He notes that he still in active withdrawal. He notes the increased dose of Seroquel did help a little bit with sleep but he only got 4 hours. He notes no side effects with the increased dose of Zoloft. He denied any active suicidal thoughts but notes that he is mildly paranoid. He feels that his energy and appetite are good. He is struggling with his concentration. Mental Status Exam: General Appearance: Patient appears to be stated age is alert, directable, and cooperative. Behavior: The patient was constantly fidgeting and appeared uncomfortable Speech: Patient's speech is fluent and nonpressured. Mood/Affect: Mood is improving mildly, affect is congruent and constricted. Suicidality/Homicidality: Patient denies having any suicidal or homicidal ideation intent or plan. Perceptions: Patient denies any visual hallucinations and denies any auditory hallucinations Though content/process: Patient had described some paranoid feelings Memory and concentration: AOX3, grossly intact for the purposes of this session Judgment and insight: Improving mildly IMPRESSIONS: Bipolar disorder, current episode depressed Personality disorder History of PTSD Methamphetamine use disorder severe Alcohol use disorder Nicotine dependence Assessment: The patient appears to be in active withdrawal. He cannot stop moving and is sleeping excessively. No changes with current medications with the exception of giving him vitamin B12 to help with neuronal preservation related to the meth use and energy. PLAN: -Patient is admitted under voluntary status to MHU for stabilization of psychiatric symptoms and safety. Patient has signed adult voluntary form and has signed medication consent and is placed in patient's chart. -Medications : Continue Seroquel 100 mg nightly for mood stabilization/psychosis/insomnia Zoloft 100 mg daily for mood/anxiety Remeron 15 mg nightly for insomnia/mood taper Librium 10 mg 3 times daily for alcohol withdrawal plan to taper down Once Vitamin B12 1000 mcg IM once for methamphetamine use and neuronal preservation -Ativan and Haldol PRN for agitation/aggression - Continue thiamine, MVM for etoh use -CIWA protocol with Ativan PRN for ETOH withdrawal. - Marketing Project Lead reviewed cbc with differential, comprehensive panel, TSH, HIV. HIV test came back negative. He is denying any other lesions, ulcers or signs/symptoms of STDs and does not want further testing. -Patient was counselled on substance abuse and desired to cut back on use. Will offer patient subtance use rehab -NRT -nicotine patch -SW on board for discharge planning. Encourage patient to participate in groups to work on coping skills.
[2024-12-08] MEDS: CYANOCOBALAMIN 1,000 MCG/ML 1 ML VIAL IM ONE (13:20)
--- NOTE | 2024-12-09 08:17 | P.PN ---
Progress Note - Text Progress Note Date: 12/09/24 Chief complaint: Suicidal thoughts Interval History: Patient was seen wandering the hallways and was directable and agreeable to speak with feature writer in the office. The patient notes that he is doing better he describes his withdrawal as 0/10. He notes that the vitamin B12 injection has been helpful. He notes that his sleep is gone from 4 hours to 5 to 6 hours. He notes that he has no suicidal thoughts or ongoing paranoia. He denies any auditory hallucinations. He notes that he has no depression and only mild anxiety. He feels that his energy level is increasing. He denies any problems with appetite or concentration. Mental Status Exam: General Appearance: Patient appears to be stated age is alert, directable, and cooperative. Behavior: Patient is calmly seated without any agitated behavior. Speech: Patient's speech is fluent and nonpressured. Mood/Affect: Mood is improving mildly, affect is congruent and constricted. Suicidality/Homicidality: Patient denies having any suicidal or homicidal ideation intent or plan. Perceptions: Patient denies any visual hallucinations and denies any auditory hallucinations Though content/process: There is no evidence of any delusional thought content and thought process is linear and goal-directed. Memory and concentration: AOX3, grossly intact for the purposes of this session Judgment and insight: Improving mildly Diagnosis: Bipolar disorder, current episode depressed Personality disorder History of PTSD Methamphetamine use disorder severe Alcohol use disorder Nicotine dependence Assessment: There was a significant reduction in the patient's fidgety and restless behavior. Additionally, the patient's energy level is increasing and he lacks any paranoid thinking today. Will hold off on any further taper of the Librium until his primary returns tomorrow. Continue hospitalization to finish stabilization and relapse prevention. PLAN: -Patient is admitted under voluntary status to MHU for stabilization of psychiatric symptoms and safety. Patient has signed adult voluntary form and has signed medication consent and is placed in patient's chart. -Medications : Continue Seroquel 100 mg nightly for mood stabilization/psychosis/insomnia Zoloft 100 mg daily for mood/anxiety Remeron 15 mg nightly for insomnia/mood taper Librium 10 mg 3 times daily for alcohol withdrawal plan to taper down -Ativan and Haldol PRN for agitation/aggression - Continue thiamine, MVM for etoh use -CIWA protocol with Ativan PRN for ETOH withdrawal. - Sql Developer reviewed cbc with differential, comprehensive panel, TSH, HIV. HIV test came back negative. He is denying any other lesions, ulcers or signs/symptoms of STDs and does not want further testing. -Patient was counselled on substance abuse and desired to cut back on use. Will offer patient subtance use rehab -NRT -nicotine patch -SW on board for discharge planning. Encourage patient to participate in groups to work on coping skills.
--- NOTE | 2024-12-10 11:00 | P.PN ---
Progress Note - Text Progress Note Date: 12/10/24 Interval History: Patient was seen wandering the hallways and was directable and agreeable to elisa guerra with web content writer in the office. The patient notes that he is doing better today overall. Claims that he has been feeling less anxious. Has been going to some groups in the afternoon. I endorsing any delusions or paranoia. States that he will likely be going to rehab a few days after he comes home. States that he knows that his substance use problem is an issue for him. He claims that he was sleeping the better last night, claims that his mood has also improved. At this time he is denying any suicidal or homicidal ideations intent or plan denying any auditory or visual hallucinations. Not reporting any side effects of the medications. Mental Status Exam: General Appearance: Patient appears to be stated age is alert, directable, and cooperative. Behavior: Patient is calmly seated without any agitated behavior. Speech: Patient's speech is fluent and nonpressured. Mood/Affect: Mood is improving mildly, affect is congruent and constricted. Suicidality/Homicidality: Patient denies having any suicidal or homicidal ideation intent or plan. Perceptions: Patient denies any visual hallucinations and denies any auditory hallucinations Though content/process: There is no evidence of any delusional thought content and thought process is linear and goal-directed. More future oriented today Memory and concentration: AOX3, grossly intact for the purposes of this session Judgment and insight: Improving mildly Diagnosis: Bipolar disorder, current episode depressed Personality disorder History of PTSD Methamphetamine use disorder severe Alcohol use disorder Nicotine dependence PLAN: -Patient is admitted under voluntary status to MHU for stabilization of psychiatric symptoms and safety. Patient has signed adult voluntary form and has signed medication consent and is placed in patient's chart. -Medications : Seroquel 100 mg nightly for mood stabilization/psychosis/insomnia Zoloft 100 mg daily for mood/anxiety Remeron 15 mg nightly for insomnia/mood decrease/taper off Librium 10 mg 2 times daily for alcohol withdrawal plan to taper down -Ativan and Haldol PRN for agitation/aggression - Continue thiamine, MVM for etoh use -CIWA protocol with Ativan PRN for ETOH withdrawal. -NRT -nicotine patch -SW on board for discharge planning. Encourage patient to participate in groups to work on coping skills. Likely discharge tomorrow back home, patient states that he will need a few days back home and then will try to get himself back into [facility] for inpatient rehab.
[2024-12-10 19:41] VITALS: RESP 16
[2024-12-11 09:56] VITALS: BP 143/101; PULSE 112; TEMP 97.3
--- NOTE | 2024-12-11 10:28 | P.DS ---
Providers Date of admission: 12/05/24 17:19 Expected date of discharge: 12/11/24 Attending physician: Chung Norton MD Consults: 12/05/24 13:28 Consult Physician Routine Consulting Provider: Merlin Anglin Consult Reason/Comments: History and Physical, New Admission Do you want consulting provider notified?: Yes Primary care physician: Gino Zapata, DO - Discharge Diagnosis(es) (1) Bipolar disorder current episode depressed Current Visit: Yes Status: Acute Priority: High (2) Personality disorder Current Visit: Yes Status: Acute Priority: Medium (3) History of posttraumatic stress disorder (PTSD) Current Visit: Yes Status: Acute Priority: Medium (4) Methamphetamine use disorder, severe Current Visit: Yes Status: Acute Priority: High (5) Alcohol use disorder Current Visit: Yes Status: Acute Priority: High (6) Nicotine dependence Current Visit: Yes Status: Acute Priority: Low Hospital Course: Admission HPI: Admission note was completed by story writer "Patient is a 34-year-old male, he currently lives with his grandparents in a house, he is unemployed. Patient presented to the hospital as a transfer from [facility]. as per EPS transfer note "Patient presented to [facility] related to alcohol intoxication and suicidal ideations. Patient was evaluated by [facility] related to suicidal thoughts. Patient during evaluation expressed suicidal ideation with a plan to overdose either on all old prescriptions at his home or overdose on alcohol and meth. Patient noted to have history of suicide attempts by overdose, unknown last occurence. Patient also noted by [facility] to be experiencing paranoia, as well as A/V hallucinations. Patient unable to safety plan at this time. Patient BAL 190.4, UDS+Amph. Spoke to patient [employer]OR and [facility] patient has been calm and cooperative in ER. No PRNs for agitation/behaviors. Patient noted to have an allergic reaction r/t eating a sandwich with dias on it, noted to have a rash and received Benadryl. States patient has had no further symptoms and is resting calmly. RN states patient expressed history of alcohol withdrawal seizures. Patient noted to be drinking between 1 pint to a fifth daily per RN. Patient has history of meth use, last use one week ago." Patient was seen today laying in bed agreeable to speak to story writer in the office. He had his eyes closed, claims that he has been feeling more depressed lately. Claims that he has been smoking methamphetamine more lately. Claims that he believes that it is causing more "profuse damage" however did not elaborate as to why he believes this. He claims that he feels that he is terrified of "everything". He claims that he has been hearing voices and believes that he is seeing things at times. He claims that he has been drinking alcohol to help suppress his depression and anxiety. Claims that he has been drinking about 1/5 of alcohol a day. Claims that his last drink was about 2 days ago. Claims that he believes that he is having some minor withdrawal symptoms, no shakes at this time. Claims that he has poor finances at this time, claims that he is not able to work, claims he is still dealing with a "failed marriage". Claims that his depression and anxiety have been increasing. He is claiming that he is having suicidal thoughts no plan at this time or intent. Denies any homicidal ideations. She is admitting to auditory and visual hallucinations. Patient denies any flight of ideas racing thoughts and increased in goal directed behavior. Patient admits to using methamphetamine about 1 to 2 g a day, also claims that he is drinking alcohol as noted above. Claims that he also smokes cigarettes." Hospital course: Upon admission to the unit patient was directable and agreeable to commence treatment and signed adult voluntary form. Patient was initially depressed, anxious and psychotic however with time and treatment patient got along well with other patients on the unit and followed unit protocol. Patient was compliant with the medications and denied any side effects throughout hospital course. Patient was started on Zoloft increased to a dose of 100 mg daily for mood/anxiety, Seroquel 100 mg nightly for mood stabilization/psychosis/insomnia. Remeron 15 mg nightly for insomnia/mood, Librium was gradually tapered down for alcohol withdrawal. Patient spoke of his stressors and engaged in therapy both group/activity therapy. Patient was also seen by medical team for history and physical exam. Patient was on [facility] protocol with as needed Ativan for alcohol withdrawal. Throughout the course of the hospitalization patient gradually improved with regards to mood, anxiety, psychosis, sleep and became more future oriented with improved insight and judgment. On the day of discharge patient denied any suicidal or homicidal ideations intent or plan denied any auditory or visual hallucinations. Patient endorsed wanting to live for their health and family. The patient denied any access to guns or weapons. Patient denied any paranoia and did not endorse any delusions. Patient does have a significant history of substance abuse and was counseled on abstaining from all substances including alcohol and marijuana. Patient was offered however declined inpatient substance-abuse rehab. Patient elected to do outpatient substance use treatment program through their outpatient provider. Patient claims that he will consider inpatient rehab in the next week or 2 after he goes home and gets established with [facility]. Patient was also counseled on the medications and need for regular compliance and was encouraged to follow-up with their outpatient appointment for mental health and also for primary care. Prior to discharge a family meeting will be arranged by psychotherapist social worker to answer any questions and ensure safety upon discharge incuding making sure that guns/weapons are either removed from the home or locked away. Mental status exam: General Appearance: Patient appears to be thin, several tattoos and facial piercings, stated age is alert, pleasant, and cooperative. Patient is in no acute distress and has improved hygiene and grooming Behavior: Patient is calmly seated without any agitated behavior. Speech: Patient's speech is fluent and nonpressured. Mood/Affect: Patient reports their mood is "good", affect is congruent and euthymic. Suicidality/Homicidality: Patient denies having any suicidal or homicidal ideation intent or plan. Perceptions: Patient denies any auditory or visual hallucinations. Though content/process: There is no evidence of any delusional thought content and thought process is linear and goal-directed. More future oriented Memory and concentration: AOX3, grossly intact for the purposes of this session. Can spell "WORLD" backwards correctly. Judgment and insight: Chronically poor, however has improved with guarded prognosis Impression: Bipolar disorder current episode depressed Personality disorder History of PTSD Methamphetamine use disorder severe Alcohol use disorder Nicotine dependence Plan: -Continue with discharge today as patient has improved and stabilized psychiatrically and is not currently an imminent threat to themself and/or others. Patient will remain at chronically elevated risk for harm to self and/or others due to their impulsivity and substance abuse. -Continue medications: Seroquel 100 mg nightly for mood stabilization/psychosis/insomnia schedule. We will give 14 days of Seroquel 100 mg nightly as needed for insomnia/severe anxiety. Zoloft 100 mg daily for mood/anxiety, Remeron 15 mg nightly for insomnia/mood -Patient was counseled on the need for medication compliance and appropriate follow-up at mental health and also primary care for medical issues. Patient verbalized understanding and agreed. -Social work to help coordinate patients discharge today. also to ensure safe home environment that guns/weapons are either removed from the home or locked away. Social work also to arrange for patients follow up appointments with [facility] for psychiatric care along with follow up with primary care provider. -Patient counseled on abstaining from recreational drugs and marijuana and alcohol. Was informed/educated on the adverse effects on their physical and mental health. Patient verbally agreed and understood. Patient was offered substance abuse treatment however declined at this time and claims that he will consider it in the next week or 2 close discharge. -Patient was instructed to return to the hospital or seek immediate medical care if their psychiatric or medical symptoms do worsen or reoccur. Allergies Allergy/AdvReac Type Severity Reaction Status Date / Time lamotrigine [From Lamictal] Allergy Unknown Rash/Hives Verified 09/18/24 15:09 ziprasidone [From Geodon] Allergy Unknown Rash/Hives Verified 09/18/24 15:09 peanut Allergy Rash/Hives Verified 09/18/24 15:09 egg AdvReac Nausea & Verified 09/18/24 15:09 Vomiting & Diarrhea haloperidol [From Haldol] AdvReac tardive Verified 09/18/24 15:09 dyskinesia Laboratory Results WBC 9.54 10*3/uL (4.50-10.00) 12/06/24 16:34 RBC 5.21 10*6/uL (4.40-5.60) 12/06/24 16:34 Hgb 16.8 g/dL (13.0-17.0) 12/06/24 16:34 Hct 46.5 % (39.6-50.0) 12/06/24 16:34 MCV 89.3 fL (80.0-97.0) 12/06/24 16:34 MCH 32.2 pg (27.0-32.0) H 12/06/24 16:34 MCHC 36.1 g/dL (32.0-37.0) 12/06/24 16:34 Plt Count 379 10*3/uL (140-440) 12/06/24 16:34 MPV 10.1 fL (9.5-12.2) 12/06/24 16:34 Immature Gran % (Auto) 0.6 % 12/06/24 16:34 Neutrophils % 77.6 % 12/06/24 16:34 Lymphocytes % 14.7 % 12/06/24 16:34 Monocytes % 5.3 % 12/06/24 16:34 Eosinophils % 1.3 % 12/06/24 16:34 Basophils % 0.5 % 12/06/24 16:34 Immature Gran # 0.06 10*3/uL (0.00-0.04) H 12/06/24 16:34 Neutrophils # 7.40 10*3/uL (1.80-7.70) 12/06/24 16:34 Lymphocytes # 1.40 10*3/uL (0.90-5.00) 12/06/24 16:34 Monocytes # 0.51 10*3/uL (0.20-1.00) 12/06/24 16:34 Eosinophils # 0.12 10*3/uL (0.04-0.35) 12/06/24 16:34 Basophils # 0.05 10*3/uL (0.00-0.10) 12/06/24 16:34 Sodium 136 mmol/L (137-145) L 12/06/24 16:34 Potassium 4.7 mmol/L (3.5-5.1) 12/06/24 16:34 Chloride 103 mmol/L (98-107) 12/06/24 16:34 Carbon Dioxide 24 mmol/L (22-30) 12/06/24 16:34 Anion Gap 9 mmol/L 12/06/24 16:34 BUN 20 mg/dL (9-20) 12/06/24 16:34 Creatinine 0.84 mg/dL (0.66-1.25) 12/06/24 16:34 Est GFR (CKD-EPI)AfAm >90 (>60 ml/min/1.73 sqM) 12/06/24 16:34 Est GFR (CKD-EPI)NonAf >90 (>60 ml/min/1.73 sqM) 12/06/24 16:34 Glucose 96 mg/dL (74-99) 12/06/24 16:[address] Glu mg/dL 105 mg/dL 12/06/24 16:34 Hemoglobin A1c 5.3 % (<=6.0) 12/06/24 16:34 Calcium 9.9 mg/dL (8.4-10.2) 12/06/24 16:34 Total Bilirubin 0.4 mg/dL (0.2-1.3) 12/06/24 16:34 AST 21 U/L (17-59) 12/06/24 16:34 ALT 22 U/L (4-49) 12/06/24 16:34 Alkaline Phosphatase 90 U/L (38-126) 12/06/24 16:34 Total Protein 6.5 g/dL (6.3-8.2) 12/06/24 16:34 Albumin 4.1 g/dL (3.5-5.0) 12/06/24 16:34 Triglycerides 244.00 mg/dL (0.00-149.00) H 12/06/24 16:34 Cholesterol 216.00 mg/dL (0.00-200.00) H 12/06/24 16:34 LDL Cholesterol, Calc 113.4 mg/dL (0.0-131.0) 12/06/24 16:34 VLDL Cholesterol, Calc 48.80 mg/dL (5.00-40.00) H 12/06/24 16:34 HDL Cholesterol 53.80 mg/dL (40.00-60.00) 12/06/24 16:34 Cholesterol/HDL Ratio 4.01 Ratio 12/06/24 16:34 TSH 0.484 mIU/L (0.465-4.680) 12/06/24 16:34 HIV-1 Antibody Non-Reactive (Non-Reactive) 12/06/24 16:34 HIV Ag/Ab Interpret 12/06/24 16:34 HIV p24 Antibody Non-Reactive (Non-Reactive) 12/06/24 16:34 HIV-2 Antibody Non-Reactive (Non-Reactive) 12/06/24 16:34 HIV P24 Antigen Non-Reactive (Non-Reactive) 12/06/24 16:34 Vital Signs Temp 97.3 F L 12/11/24 09:00 Pulse 112 H 12/11/24 09:00 Resp 16 12/11/24 09:00 BP 143/101 12/11/24 09:00 Pulse Ox 95 12/11/24 09:00 FiO2 Patient Condition at Discharge: Stable Plan - Discharge Summary New Discharge Prescriptions: New Folic Acid 1 mg PO DAILY tab Nicotine 21Mg/24Hr Patch [Habitrol] 1 patch TRANSDERM DAILY 14 Days #14 patch Multivitamins, Thera [Multivitamin (formulary)] 1 each PO DAILY tab Nystatin 100,000 Unit/gm Powd [Mycostatin Powder] 1 applic TOPICAL BID 14 Days #14 each Mirtazapine [Remeron] 15 mg PO HS 30 Days #30 tab QUEtiapine [SEROquel] 100 mg PO HS 30 Days #30 tab QUEtiapine [SEROquel] 100 mg PO HS PRN 14 Days #14 tablet PRN Reason: insomnia/severe anxiety Thiamine [Vitamin B-1] 100 mg PO DAILY tab Ibuprofen [Motrin] 600 mg PO Q6HR PRN tab PRN Reason: Moderate Pain (Scale 4 To 6) predniSONE 20 mg PO DAILY 2 Days #4 tab Acetaminophen Tab [Tylenol] 650 mg PO Q4HR PRN tab PRN Reason: Mild Pain (Scale 1 To 3) Lipase/Protease/Amylase [Zenpep Dr 20,000 Unit Capsule] 2 each PO TID-W/MEALS 30 Days #60 cap Sertraline [Zoloft] 100 mg PO DAILY 30 Days #30 tab Continue Cetirizine HCl [Zyrtec] 10 mg PO DAILY Artificial Tears-Hypromellose [Artificial Tear Drops] 2 drops BOTH EYES TID PRN 30 Days #1 pack PRN Reason: Dry Eye(S) Hydrocortisone Cream [Hydrocortisone 1% Cream] 1 applic TOPICAL BID PRN 7 Days #56 gram PRN Reason: Skin Irritation Nystatin 100,000 Unit/ml Susp [Mycostatin Oral Susp] 5 ml PO QID 14 Days #14 ml Albuterol Inhaler [Ventolin Hfa Inhaler] 2 puff INHALATION RT-QID PRN 30 Days #1 each PRN Reason: Shortness Of Breath Or Wheezing Discontinued cloNIDine HCL [Catapres] 0.2 mg PO TID 30 Days #90 tab Mirtazapine [Remeron] 30 mg PO HS 30 Days #60 tab hydrOXYzine HCL [Atarax] 25 mg PO TID PRN 30 Days #90 tab PRN Reason: Anxiety traZODone HCL [Desyrel] 50 mg PO HS PRN 30 Days #30 tab PRN Reason: Insomnia Nicotine 14Mg/24Hr Patch [Habitrol] 1 patch TRANSDERM DAILY 30 Days #30 patch OLANZapine [ZyPREXA] 5 mg PO HS 30 Days #30 tab clonazePAM [KlonoPIN] 0.5 mg PO BID 2 Days #4 tab Sulfamethox-Tmp 800-160Mg [Bactrim Ds] 1 each PO Q12HR 7 Days #14 tab Discharge Medication List Cetirizine HCl [Zyrtec] 10 mg PO DAILY 06/04/24 [History] Artificial Tears-Hypromellose [Artificial Tear Drops] 2 drops BOTH EYES TID PRN 30 Days #1 pack 06/11/24 [Rx] Hydrocortisone Cream [Hydrocortisone 1% Cream] 1 applic TOPICAL BID PRN 7 Days #56 gram 06/11/24 [Rx] Acetaminophen Tab [Tylenol] 650 mg PO Q4HR PRN tab 12/11/24 [Rx] Albuterol Inhaler [Ventolin Hfa Inhaler] 2 puff INHALATION RT-QID PRN 30 Days #1 each 12/11/24 [Rx] Folic Acid 1 mg PO DAILY tab 12/11/24 [Rx] Ibuprofen [Motrin] 600 mg PO Q6HR PRN tab 12/11/24 [Rx] Lipase/Protease/Amylase [Zenpep Dr 20,000 Unit Capsule] 2 each PO TID-W/MEALS 30 Days #60 cap 12/11/24 [Rx] Mirtazapine [Remeron] 15 mg PO HS 30 Days #30 tab 12/11/24 [Rx] Multivitamins, Thera [Multivitamin (formulary)] 1 each PO DAILY tab 12/11/24 [Rx] Nicotine 21Mg/24Hr Patch [Habitrol] 1 patch TRANSDERM DAILY 14 Days #14 patch 12/11/24 [Rx] Nystatin 100,000 Unit/gm Powd [Mycostatin Powder] 1 applic TOPICAL BID 14 Days #14 each 12/11/24 [Rx] Nystatin 100,000 Unit/ml Susp [Mycostatin Oral Susp] 5 ml PO QID 14 Days #14 ml 12/11/24 [Rx] QUEtiapine [SEROquel] 100 mg PO HS 30 Days #30 tab 12/11/24 [Rx] QUEtiapine [SEROquel] 100 mg PO HS PRN 14 Days #14 tablet 12/11/24 [Rx] Sertraline [Zoloft] 100 mg PO DAILY 30 Days #30 tab 12/11/24 [Rx] Thiamine [Vitamin B-1] 100 mg PO DAILY tab 12/11/24 [Rx] predniSONE 20 mg PO DAILY 2 Days #4 tab 12/11/24 [Rx] Follow up Appointment(s)/Referral(s): [facility] [NON-STAFF] - 1 Week Patient Instructions/Handouts: How to Stop Smoking (DC), Bipolar Disorder (DC), Post Traumatic Stress Disorder (DC), Methamphetamine Abuse (DC), Alcohol Use Disorder (DC) Activity/Diet/Wound Care/Special Instructions: [facility] Discharge Info Avoid the use of street drugs and alcohol. Take all medications as prescribed. When you are in need of refills on your medications, please contact your outpatient medical provider and/or outpatient psychiatrist. Please go to your scheduled outpatient appointments for aftercare treatment. If symptoms return or become worse, call the crisis line at or and/or visit the nearest emergency room for assistance. [place] Suicide and Crisis Lifeline - call or text 524. Discharge Disposition: HOME SELF-CARE
== END 2024-12-11 13:00 | disposition home or self-care (01) | DRG 753 ==
LOC: 3MHU 17:19
PROVIDERS: ADMIT Psychiatry & Neurology Psychiatry; ATTEND Psychiatry & Neurology Psychiatry
DX: F31.30 Bipolar disorder, current episode depressed, mild or moderate severity, unspecified (principal); F41.9 Anxiety disorder, unspecified; F43.10 Post-traumatic stress disorder, unspecified; F60.3 Borderline personality disorder; G47.00 Insomnia, unspecified; J45.909 Unspecified asthma, uncomplicated; K86.0 Alcohol-induced chronic pancreatitis; K21.9 Gastro-esophageal reflux disease without esophagitis; F22 Delusional disorders; L30.9 Dermatitis, unspecified; R45.851 Suicidal ideations; Y90.6 Blood alcohol level of 120-199 mg/100 ml; F10.129 Alcohol abuse with intoxication, unspecified; F41.0 Panic disorder [episodic paroxysmal anxiety]; F90.9 Attention-deficit hyperactivity disorder, unspecified type; G24.01 Drug induced subacute dyskinesia; F10.139 Alcohol abuse with withdrawal, unspecified; F15.20 Other stimulant dependence, uncomplicated; F17.200 Nicotine dependence, unspecified, uncomplicated; Z55.5 Less than a high school diploma; Z79.899 Other long term (current) drug therapy; Z87.11 Personal history of peptic ulcer disease; Z91.51 Personal history of suicidal behavior; Z87.01 Personal history of pneumonia (recurrent); Z71.41 Alcohol abuse counseling and surveillance of alcoholic; Z71.51 Drug abuse counseling and surveillance of drug abuser; Z88.8 Allergy status to other drugs, medicaments and biological substances; Z91.012 Allergy to eggs; Z91.010 Allergy to peanuts; Z63.5 Disruption of family by separation and divorce
CPT/HCPCS: 80053; 80061; 83036; 84443; 85025; 87390

== ENCOUNTER 2024-12-11 18:33 | Observation (INO) | payer OTHER ==
[2024-12-11] MEDS: SODIUM CHLORIDE 0.9% 1,000 ML IV STA (19:03)
[2024-12-11 19:13] LABS: Basophils # (A) 0.02 10*3/uL (0.00-0.10); Basophils % (A) 0.3 %; Eosinophils # (A) 0.00 10*3/uL (0.04-0.35); Eosinophils % (A) 0.0 %; HCT 44.8 % (39.6-50.0); HGB 15.8 g/dL (13.0-17.0); Lymphocytes # (A) 0.84 10*3/uL (0.90-5.00); Lymphocytes % (A) 11.3 %; MCH 32.2 pg (27.0-32.0); MCHC 35.3 g/dL (32.0-37.0); MCV 91.2 fL (80.0-97.0); Monocytes # (A) 0.11 10*3/uL (0.20-1.00); Monocytes % (A) 1.5 %; Neutrophils # (A) 6.39 10*3/uL (1.80-7.70); Neutrophils % (A) 85.8 %; Platelet Count 390 10*3/uL (140-440); RBC 4.91 10*6/uL (4.40-5.60); RDW 11.9 % (11.5-14.5); WBC 7.44 10*3/uL (4.50-10.00)
[2024-12-11 21:34] LABS: ALT 18 U/L (4-49); Acetaminophen <10.0 ug/mL; African American GFR (CKD) >90 (>60 ml/min/1.73 sqM); Anion Gap 16 mmol/L; Blood Urea Nitrogen 7 mg/dL (9-20); Chloride 124 mmol/L (98-107); Glucose 88 mg/dL (74-99); Lipase 736 U/L (23-300); Non-African American GFR(CKD) >90 (>60 ml/min/1.73 sqM); Salicylate <1.0 mg/dL; Sodium 149 mmol/L (137-145)
[2024-12-11] MEDS ORDERED: NALOXONE 0.4 MG/ML 1 ML VIAL IV PRN (21:36)
--- NOTE | 2024-12-11 21:36 | ED ---
Overdose HPI - General Chief Complaint: Overdose Stated Complaint: alcohol withdrawal Time Seen by Provider: 12/11/24 18:40 Source: patient, family Mode of arrival: wheelchair Limitations: no limitations - History of Present Illness Initial Comments: 34-year-old male with past medical history of eczema, depression who presents emergency department with altered mental status. Grandfather is at bedside and provides a history. States the patient was just discharged from [facility] earlier today. After they left they went to the grocery store. He did not see the patient buy any alcohol however when they got home the patient started acting aggressive and belligerent. He found several alcohol bottles around the patient. He is unsure if he used any other drugs or took any of his medications. Patient combative and will provide minimal history to me. When answering the patient questions such as if he drink to hurt himself he responds "fuck yeah". Remainder of HPI is limited due to the patient's current condition - Related Data Home Medications Medication Instructions Recorded Confirmed Cetirizine HCl [Zyrtec] 10 mg PO DAILY 06/04/24 12/12/24 Lipase/Protease/Amylase [Zenpep Dr 2 cap PO TID-W/MEALS 12/12/24 12/12/24 20,000 Unit Capsule] Multivitamins, Thera [Multivitamin 1 cap PO DAILY 12/12/24 12/12/24 (formulary)] Previous Rx's Medication Instructions Recorded Artificial Tears-Hypromellose 2 drops BOTH EYES TID PRN 30 Days 06/11/24 [Artificial Tear Drops] #1 pack Hydrocortisone Cream 1 applic TOPICAL BID PRN 7 Days 06/11/24 [Hydrocortisone 1% Cream] #56 gram Acetaminophen Tab [Tylenol] 650 mg PO Q4HR PRN tab 12/11/24 Albuterol Inhaler [Ventolin Hfa 2 puff INHALATION RT-QID PRN 30 12/11/24 Inhaler] Days #1 each Folic Acid 1 mg PO DAILY tab 12/11/24 Ibuprofen [Motrin] 600 mg PO Q6HR PRN tab 12/11/24 Mirtazapine [Remeron] 15 mg PO HS 30 Days #30 tab 12/11/24 Nicotine 21Mg/24Hr Patch [Habitrol] 1 patch TRANSDERM DAILY 14 Days 12/11/24 #14 patch Nystatin 100,000 Unit/gm Powd 1 applic TOPICAL BID 14 Days #14 12/11/24 [Mycostatin Powder] each Nystatin 100,000 Unit/ml Susp 5 ml PO QID 14 Days #14 ml 12/11/24 [Mycostatin Oral Susp] QUEtiapine [SEROquel] 100 mg PO HS 30 Days #30 tab 12/11/24 QUEtiapine [SEROquel] 100 mg PO HS PRN 14 Days #14 tablet 12/11/24 Sertraline [Zoloft] 100 mg PO DAILY 30 Days #30 tab 12/11/24 Thiamine [Vitamin B-1] 100 mg PO DAILY tab 12/11/24 predniSONE 20 mg PO DAILY 2 Days #4 tab 12/11/24 Allergies Allergy/AdvReac Type Severity Reaction Status Date / Time lamotrigine [From Lamictal] Allergy Unknown Rash/Hives Verified 09/18/24 15:09 ziprasidone [From Geodon] Allergy Unknown Rash/Hives Verified 09/18/24 15:09 peanut Allergy Rash/Hives Verified 09/18/24 15:09 egg AdvReac Nausea & Verified 09/18/24 15:09 Vomiting & Diarrhea haloperidol [From Haldol] AdvReac tardive Verified 09/18/24 15:09 dyskinesia Review of Systems ROS Statement: Those systems with pertinent positive or pertinent negative responses have been documented in the HPI. ROS Other: All systems not noted in ROS Statement are negative. Past Medical History Past Medical History: Asthma, GERD/Reflux, Pneumonia, Skin Disorder Additional Past Medical History / Comment(s): Other HX: Eczema, hayfever, left cornea ulcer healed, gastric ulcer. Tardive Dyskinesia History of Any Multi-Drug Resistant Organisms: None Reported Past Surgical History: No Surgical Hx Reported Additional Past Surgical History / Comment(s): EGD, corneal biopsy left - Past Anesthesia/Blood Transfusion Reactions: No Reported Reaction Past Psychological History: ADD/ADHD, Anxiety, Bipolar, Depression, Panic Disorder, PTSD Smoking Status: Current every day smoker Past Alcohol Use History: Occasional Past Drug Use History: None Reported - Past Family History Father Additional Family Medical History / Comment(s): Father is alive with history of alcoholism and drug addiction. Patient does not have any relationship with him. grandfather diabetic. mom and grandfather have HTN. brother htn Mother Additional Family Medical History / Comment(s): She has history of coronary artery disease with previous ME, bipolar disorder and borderline personality. Patient has no contact with his mother. Brother(s) Additional Family Medical History / Comment(s): Patient has 1 brother and one sister; both have anxiety. Patient does not have any children. General Exam Limitations: altered mental status General appearance: appears intoxicated Eye exam: Present: normal appearance, PERRL, EOMI. Absent: scleral icterus, conjunctival injection, periorbital swelling ENT exam: Present: normal exam, mucous membranes moist Neck exam: Present: normal inspection. Absent: tenderness, meningismus, lymphadenopathy Respiratory exam: Present: normal lung sounds bilaterally. Absent: respiratory distress, wheezes, rales, rhonchi, stridor Cardiovascular Exam: Present: tachycardia GI/Abdominal exam: Present: soft, normal bowel sounds. Absent: distended, tenderness, guarding, rebound, rigid Neurological exam: Present: altered Psychiatric exam: Present: depressed, agitated Skin exam: Present: other (eczema plaques on patients arms/legs/torso) Course Vital Signs 12/11/24 12/12/24 12/12/24 18:37 02:31 07:34 Temperature 98.9 F 97.9 F Pulse Rate 122 H 71 81 Respiratory 18 18 18 Rate Blood Pressure 123/67 151/102 141/91 O2 Sat by Pulse 94 L 96 97 Oximetry 12/12/24 12/12/24 09:59 11:20 Temperature Pulse Rate 99 Respiratory 16 16 Rate Blood Pressure 151/99 O2 Sat by Pulse 96 Oximetry Medical Decision Making - Medical Decision Making Was pt. sent in by a medical professional or institution (, PA, JUNIOR PROJECT MANAGER, urgent care, hospital, or fdc...) When possible be specific @ -No Did you speak to anyone other than the patient for history (EMS, parent, family, police, friend...)? What history was obtained from this source @ -Spoke with the grandfather for history Did you review nursing and triage notes (agree or disagree)? Why? @ -I reviewed and agree with nursing and triage notes Were old charts reviewed (outside hosp., previous admission, EMS record, old EKG, old radiological studies, urgent care reports/EKG's, fdc records)? Report findings @ -I reviewed the discharge summary from [facility] that occurred today Differential Diagnosis (chest pain, altered mental status, abdominal pain women, abdominal pain men, vaginal bleeding, weakness, fever, dyspnea, syncope, headache, dizziness, GI bleed, back pain, seizure, CVA, palpatations, mental health, musculoskeletal)? @ -Differential Mental Health Depression, anxiety, bipolar, psychosis, schizophrenia, borderline personality, situational depression, adjustment disorder, behavioral disorder, brain tumor, malingering, substance abuse, encephalopathy, medication reaction, dementia, hypothyroidism, degenerative neurologic disorder, lupus.... This is not meant to be all-inclusive list EKG interpreted by me (3pts min.). @ -Yes which demonstrates sinus tachycardia with a rate of 114. MI interval 156. QRS 100. QTc of 379. No acute ST segment elevations. Mild ST depression V4 through V6 X-rays interpreted by me (1pt min.). @ -None done CT interpreted by me (1pt min.). @ -Yes which demonstrates no acute process U/S interpreted by me (1pt. min.). @ -None done What testing was considered but not performed or refused? (CT, X-rays, U/S, labs)? Why? @ -None What meds were considered but not given or refused? Why? @ -None Did you discuss the management of the patient with other professionals (professionals i.e. , PA, JUNIOR PROJECT MANAGER, lab, RT, psych nurse, social media developer, projection printer, teacher, assault amphibious vehicle officer, bilingual patient support caseworker)? Give summary @ -Spoke with Randi from [facility] for admission Was smoking cessation discussed for >3mins.? @ -No Was critical care preformed (if so, how long)? @ -No Were there social determinants of health that impacted care today? How? (Homele ssness, low income, unemployed, alcoholism, drug addiction, transportation, low edu. Level, literacy, decrease access to med. care, alf, rehab)? @ -No Was there de-escalation of care discussed even if they declined (Discuss DNR or withdrawal of care, Hospice)? DNR status @ -No What co-morbidities impacted this encounter? (DM, HTN, Smoking, COPD, CAD, Cancer, CVA, ARF, Chemo, Hep., AIDS, mental health diagnosis, sleep apnea, morbid obesity)? @ -Bipolar disorder Was patient admitted / discharged? Hospital course, mention meds given and route, prescriptions, significant lab abnormalities, going to OR and other pertinent info. @ -Upon arrival patient seen and evaluated in trauma 3. Thorough history and physical exam was performed. Patient arrives combative with staff. He is altered. Grandfather states that the patient was drinking and possibly took pills. He is unsure if he is trying to do this to harm himself. IV was established. Laboratory studies are conducted. I did order a CT of the brain however this was delayed due to patient's combative nature. Patient will be admitted for altered mental status, alcohol intoxication, evaluation for possible depression and suicidal ideations Undiagnosed new problem with uncertain prognosis? @ -No Drug Therapy requiring intensive monitoring for toxicity (Heparin, Nitro, Insulin, Cardizem)? @ -No Were any procedures done? @ -No Diagnosis/symptom? @ -Acute toxic encephalopathy, acute alcohol intoxication Acute, or Chronic, or Acute on Chronic? @ -Acute Uncomplicated (without systemic symptoms) or Complicated (systemic symptoms)? @ -Complicated Side effects of treatment? @ -No Exacerbation, Progression, or Severe Exacerbation? @ -No Poses a threat to life or bodily function? How? (Chest pain, USA, ME, pneumonia, PE, COPD, DKA, ARF, appy, cholecystitis, CVA, Diverticulitis, Homicidal, Suicidal, threat to staff... and all critical care pts) @ -No - Lab Data Result diagrams: 12/12/24 06:13 12/12/24 06:13 Lab Results 12/11/24 12/11/24 Range/Units 18:55 19:40 WBC 7.44 (4.50-10.00) 10*3/uL RBC 4.91 (4.40-5.60) 10*6/uL Hgb 15.8 (13.0-17.0) g/dL Hct 44.8 (39.6-50.0) % MCV 91.2 (80.0-97.0) fL MCH 32.2 H (27.0-32.0) pg MCHC 35.3 (32.0-37.0) g/dL Plt Count 390 (140-440) 10*3/uL MPV 10.8 (9.5-12.2) fL Immature Gran % (Auto) 1.1 % Neutrophils % 85.8 % Lymphocytes % 11.3 % Monocytes % 1.5 % Eosinophils % 0.0 % Basophils % 0.3 % Immature Gran # 0.08 H (0.00-0.04) 10*3/uL Neutrophils # 6.39 (1.80-7.70) 10*3/uL Lymphocytes # 0.84 L (0.90-5.00) 10*3/uL Monocytes # 0.11 L (0.20-1.00) 10*3/uL Eosinophils # 0.00 L (0.04-0.35) 10*3/uL Basophils # 0.02 (0.00-0.10) 10*3/uL Sodium 149 H (137-145) mmol/L Potassium 3.9 (3.5-5.1) mmol/L Chloride 124 H (98-107) mmol/L Carbon Dioxide 9 L* (22-30) mmol/L Anion Gap 16 mmol/L BUN 7 L (9-20) mg/dL Creatinine 0.48 L (0.66-1.25) mg/dL Est GFR (CKD-EPI)AfAm >90 (>60 ml/min/1.73 sqM) Est GFR (CKD-EPI)NonAf >90 (>60 ml/min/1.73 sqM) Glucose 88 (74-99) mg/dL Calcium 6.2 L* (8.4-10.2) mg/dL Total Bilirubin 0.6 (0.2-1.3) mg/dL AST 30 (17-59) U/L ALT 18 (4-49) U/L Alkaline Phosphatase 82 (38-126) U/L Total Protein 5.3 L (6.3-8.2) g/dL Albumin 3.1 L (3.5-5.0) g/dL Lipase 736 H (23-300) U/L Salicylates <1.0 mg/dL Acetaminophen <10.0 ug/mL Serum Alcohol 249 H* mg/dL Disposition Clinical Impression: Alcohol intoxication Disposition: LEFT AGAINST MEDICAL ADVICE Condition: Stable Is patient prescribed a controlled substance at d/c from ED?: No Time of Disposition: 21:35 Decision to Admit Reason: Admit from EC Decision Date: 12/11/24 Decision Time: 21:35
[2024-12-11 21:40] LABS: Calcium 6.2 mg/dL (8.4-10.2); Carbon Dioxide 9 mmol/L (22-30)
[2024-12-11 21:41] LABS: AST 30 U/L (17-59); Albumin 3.1 g/dL (3.5-5.0); Alkaline Phosphatase 82 U/L (38-126); Potassium 3.9 mmol/L (3.5-5.1); Total Protein 5.3 g/dL (6.3-8.2)
[2024-12-11 22:30] LABS: Bilirubin,Urine Negative (Negative); Blood,Urine Negative (Negative); Color,Urine Colorless; Glucose,Urine (UA) Negative (Negative); Ketones,Urine Negative (Negative); Leukocyte Esterase,Urine Negative (Negative); Nitrite,Urine Negative (Negative); PH, Urine 6.0 (5.0-8.0); Protein,Urine Negative (Negative); Specific Gravity,Urine 1.013 (1.001-1.035); Urobilinogen,Urine <2.0 mg/dL (<2.0)
[2024-12-11 22:40] LABS: Barbiturate Screen,Urine Not Detected (NotDetected); Benzodiazepines Screen,Urine Detected (NotDetected); Opiate Screen,Urine Not Detected (NotDetected); Oxycodone Screen, Urine Not Detected (NotDetected); Phencyclidine Screen,Urine Not Detected (NotDetected); Tricyclic Antidepressant,Urine Not Detected (NotDetected); Urn Cannabinoid Scrn Not Detected (NotDetected)
[2024-12-11 22:57] LABS: ALT 24 U/L (4-49); AST 24 U/L (17-59); African American GFR (CKD) >90 (>60 ml/min/1.73 sqM); Albumin 4.3 g/dL (3.5-5.0); Albumin/Globulin Ratio 1.7; Alkaline Phosphatase 122 U/L (38-126); Anion Gap 14 mmol/L; Blood Urea Nitrogen 10 mg/dL (9-20); Calcium 8.8 mg/dL (8.4-10.2); Carbon Dioxide 21 mmol/L (22-30); Chloride 116 mmol/L (98-107); Globulin 2.5 g/dL; Glucose 146 mg/dL (74-99); Non-African American GFR(CKD) >90 (>60 ml/min/1.73 sqM); Potassium 4.2 mmol/L (3.5-5.1); Sodium 151 mmol/L (137-145); Total Protein 6.8 g/dL (6.3-8.2)
[2024-12-12] MEDS: SODIUM CHLORIDE 0.9% 1,000 ML IV SCH (02:18)
--- NOTE | 2024-12-12 04:16 | CT ---
EXAM: CT Head Without Intravenous Contrast CLINICAL HISTORY: ITS.REASON CT Reason: altered, head injury TECHNIQUE: Axial computed tomography images of the head/brain without intravenous contrast. CTDI is 45.2 mGy and DLP is 1007 mGy-cm. This CT exam was performed using one or more of the following dose reduction techniques: automated exposure control, adjustment of the mA and/or kV according to patient size, and/or use of iterative reconstruction technique. COMPARISON: No relevant prior studies available. FINDINGS: Brain: No hemorrhage or mass effect. Ventricles: No hydrocephalus. Bones/joints: Unremarkable. Soft tissues: Unremarkable. Sinuses: No air fluid level. Mastoid air cells: Clear. IMPRESSION: No acute hemorrhage, hydrocephalus, or mass effect. EXAM: CT Cervical Spine Without Intravenous Contrast CLINICAL HISTORY: ITS.REASON CT Reason: altered, head injury TECHNIQUE: Axial computed tomography images of the cervical spine without intravenous contrast. CTDI is 6.4 mGy and DLP is 173.7 mGy-cm. This CT exam was performed using one or more of the following dose reduction techniques: automated exposure control, adjustment of the mA and/or kV according to patient size, and/or use of iterative reconstruction technique. COMPARISON: No relevant prior studies available. FINDINGS: Motion artifact limits evaluation Vertebrae: No acute fracture. Discs/spinal canal/neural foramina: Minimal degenerative changes. Soft tissues: No prevertebral swelling. IMPRESSION: No acute fracture or subluxation.
[2024-12-12 06:32] LABS: Basophils # (A) 0.04 10*3/uL (0.00-0.10); Basophils % (A) 0.3 %; Eosinophils # (A) 0.01 10*3/uL (0.04-0.35); Eosinophils % (A) 0.1 %; HCT 45.8 % (39.6-50.0); HGB 15.7 g/dL (13.0-17.0); Lymphocytes # (A) 2.34 10*3/uL (0.90-5.00); Lymphocytes % (A) 20.4 %; MCH 31.3 pg (27.0-32.0); MCHC 34.3 g/dL (32.0-37.0); MCV 91.2 fL (80.0-97.0); Monocytes # (A) 0.90 10*3/uL (0.20-1.00); Monocytes % (A) 7.8 %; Neutrophils # (A) 8.09 10*3/uL (1.80-7.70); Neutrophils % (A) 70.6 %; Platelet Count 330 10*3/uL (140-440); RBC 5.02 10*6/uL (4.40-5.60); RDW 12.4 % (11.5-14.5); WBC 11.47 10*3/uL (4.50-10.00)
[2024-12-12 06:48] LABS: African American GFR (CKD) >90 (>60 ml/min/1.73 sqM); Anion Gap 13 mmol/L; Blood Urea Nitrogen 7 mg/dL (9-20); Calcium 8.7 mg/dL (8.4-10.2); Carbon Dioxide 22 mmol/L (22-30); Chloride 110 mmol/L (98-107); Glucose 79 mg/dL (74-99); Non-African American GFR(CKD) >90 (>60 ml/min/1.73 sqM); Potassium 3.8 mmol/L (3.5-5.1); Sodium 145 mmol/L (137-145)
[2024-12-12 07:37] VITALS: TEMP 97.9
[2024-12-12 10:00] VITALS: RESP 16
[2024-12-12] MEDS: ACETAMINOPHEN TAB 325 MG TAB PO PRN (11:19)
[2024-12-12 11:25] VITALS: BP 151/99; PULSE 99
[2024-12-12] MEDS ORDERED: ONDANSETRON 4 MG/2 ML VIAL IVP PRN (12:35)
[2024-12-12] MEDS ORDERED: LORazepam 1 MG/0.5 ML VIAL IV PRN ×3 (12:36)
[2024-12-12] MEDS ORDERED: QUEtiapine 100 MG TAB PO PRN (12:37)
[2024-12-12] MEDS ORDERED: ARTIFICIAL TEARS-HYPROMELLOSE DROPS 15 ML BTL BOTH EYES PRN (12:37)
[2024-12-12] MEDS ORDERED: HYDROCORTISONE 1% CREAM 30 GM TUBE TOPICAL PRN (12:37)
[2024-12-12] MEDS ORDERED: ALBUTEROL NEBULIZED 2.5 MG/3 ML INHALATION PRN (12:37)
[2024-12-12] MEDS ORDERED: NICOTINE 21MG/24HR PATCH TRANSDERM SCH (12:45)
[2024-12-12] MEDS ORDERED: THIAMINE 100 MG TAB PO SCH (12:45)
[2024-12-12] MEDS ORDERED: SERTRALINE 100 MG TAB PO SCH (12:45)
[2024-12-12] MEDS ORDERED: PANTOPRAZOLE 40 MG/10 ML VIAL IVP SCH (12:45)
[2024-12-12] MEDS ORDERED: FOLIC ACID 1 MG TAB PO SCH (12:45)
[2024-12-12] MEDS ORDERED: NYSTATIN 100,000 UNIT/GM POWD 15 GM TOPICAL SCH (12:45)
[2024-12-12] MEDS ORDERED: MULTIVITAMINS, THERA 1 EACH TAB PO SCH (12:45)
[2024-12-12] MEDS ORDERED: NYSTATIN 100,000 UNIT/ML SUSP 500,000 UNIT/5 ML CUP PO SCH (13:00)
[2024-12-12] MEDS ORDERED: chlordiazePOXIDE 25 MG CAP PO SCH (16:00)
[2024-12-12] MEDS ORDERED: LIPASE 20,000/PROTEASE 63,000/AMYLASE 84,000 PO SCH (17:30)
--- NOTE | 2024-12-12 20:46 | P.CN ---
Psychiatric Consult - . Consult date: 12/12/24 Consult:: 12/12/24 13:15 IDENTIFYING DATA: Patient is a 34-year-old male, he currently lives with his grandparents in a house, he is unemployed. Reason for consultation "possible intentional overdose" HPI: Patient presented to the hospital yesterday evening as he was brought to the ED after being belligerent and intoxicated at home. patient was just discharged from 3 yesterday afternoon and was picked up by his grandfather taken home. Patient apparently claims that he went home and states that he "felt bored" and asked his grandfather to take him to the grocery store. he states that there he bought etoh bottles and drank them at home and was aggressive with his family. he states that he blakced out and made a "dumb decision" to buy the etoh. he admantly explains that he is not suicidal or hearing any voices and dont know why he did that and he appologized. he denies any withdrawal sx at this time.denies any depression or anxiety. Denies any homicidal ideations. denies any auditory and visual hallucinations. Patient denies any flight of ideas racing thoughts and increased in goal directed behavior. Patient admits to using methamphetamine about 1 to 2 g a day last use was before being admitted to , also claims that he is drinking alcohol as noted above. Claims that he also smokes cigarettes. gag writer spoke with patients grandfather Wm over the phone who corrobrated the story however states that he did not know htat patient picked up etoh from the store. he states that he didnt know hwat to do bu t to bring him back to the hispital. he deniesany reservations about having his back home today and states that if his condition worsens then he ll bring him back. claims that the guns/weapons are locked away and confirms patient [facility]. PAST PSYCHIATRIC HISTORY: Patient has a history of bipolar disorder, borderline personality disorder, PTSD and substance abuse. Patient has been on several different medications in the past including Risperdal, Zyprexa, Seroquel, was previously on clonidine Remeron and Zoloft, now is currently not taking any medications. His last psychiatric hospitalization was in discharged yesterday from . Patient denies any psychiatric outpatient follow-up, claims that his case at [facility] has been closed, he has been reopened with [facility] and has an appt on december 17. Patient has had several suicide attempts in the past. PMH: as per ER note ALLERGIES: as per EMR CHEMICAL DEPENDENCY HISTORY: as per HPI FAMILY PSYCHIATRIC/SUBSTANCE USE HISTORY: Denies family history SOCIAL HISTORY: Completed 10th grade and a cosmetology program. Presently resides with his grandparents and he is unemployed. 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 Currently from partner who resides in [place]. Patient has a history of charges related to IPV in [place] and was deported, unable to return. Denies having access to firearms. MENTAL STATUS EXAM: General Appearance: Patient appears to be thin, short hair, several tattoos and piercings, stated age is alert, directable, and attempts to cooperate. Patient appears to have fair hygiene and grooming. Behavior: Patient is seated without any agitated behavior. appologetic. Speech: Patient's speech is fluent and nonpressured. Mood/Affect: Patient reports their mood is anxious, affect is congruent Suicidality/Homicidality: Patient denies having any homicidal ideation intent or plan. denies any suicidal thoughts no specific plan or intent Perceptions: Patient denies any auditory and visual hallucinations Though content/process: There is no evidence of any delusional thought content and thought process is linear and goal-directed. appologetic Memory and concentration: AOX3, grossly intact for the purposes of this session Judgment and insight: Pchronically poor/impulsive IMPRESSIONS: Alcohol intoxication/abuse Bipolar disorder Personality disorder History of PTSD Methamphetamine use disorder Nicotine dependence PLAN: -At this time patient DOES [NOT] meet criteria for inpatient psychiatric admission. -Would recommend the following medication changes/additions: can continue with current medications as perscribed. patient just picked up his psychiatric medications yesterday from the pharmacy after discharge from [facility] [-CIWA protocol with PRN Ativan for alcohol withdrawal. Continue to monitor vital signs.] [-grease rack worker to provide patient with outpatient mental health/psychiatry resources for appropriate follow up upon discharge]. patient has an upcoming [facility] appointment for mental health. [-Lap Layer spoke with patient about substance abuse and the harmful effects on medical and mental health, patient verbally understood and agreed.] [-grease rack worker to provide patient substance use treatment resources including AA/NA meetings in the community.] [-grease rack worker to provide patient with access line number to call for inpatient substance rehab] -patient states that he is on the waitlist for rehab and will try to call them again when he returns home. [-Communicated plan to patient's nurse] [-Psychiatry will sign off at this time] -Please contact with any questions. 12/12/24 20:35
[2024-12-12] MEDS ORDERED: MIRTAZAPINE 15 MG TAB PO SCH (21:00)
[2024-12-12] MEDS ORDERED: QUEtiapine 100 MG TAB PO SCH (21:00)
[2024-12-13] MEDS ORDERED: LORATADINE 10 MG TAB PO SCH (09:00)
--- NOTE | 2024-12-14 14:34 | P.HPIM ---
History of Present Illness H&P Date: 12/12/24 Your to auscultation, no wheezing or crackles. ABDOMEN: Soft, thin, nontender, nondistended, normoactive bowel sounds. No palpable organomegaly. MUSCULOSKELETAL: No joint swelling or deformity. EXTREMITIES: No cyanosis, clubbing, or pedal edema. NEUROLOGICAL: Gross neurological examination did not reveal any focal deficits. Steady gait SKIN: No rashes. Assessment: Alcohol intoxication, on admission History of severe alcohol abuse History of asthma, not in exacerbation GERD ADD/ADHD/anxiety/bipolar/depression. History of PTSD Continued ongoing nicotine abuse Polypharmacy abuse including heroin, marijuana, cocaine, methamphetamines and amphetamines Noncompliance GI prophylaxis DVT prophylaxis Full code Plan: Patient was admitted with alcohol intoxication with psychiatry and evaluation and does not meet inpatient criteria recommending outpatient follow-up with [facility] as patient was just discharged from [facility] yesterday. Patient apparently left and obtained multiple bottles of alcohol and became intoxicated. Patient reportedly said some things that he was to intentionally trying to hurt himself although on exam this morning patient is alert and oriented x 3 and denies thoughts of wanting to harm himself or others. Patient reports "I was blackout drunk and said some stupid shit". Patient does not appear to be withdrawing and gait is steady. Patient will be discharged today The impression and plan of care has been dictated by Randi Pak, Nurse Practitioner as directed. Dr. Geoff MD I have performed a history and examination and MDM of this patient, discussed the same with the dictator, and agree with the dictator's assessment and plan as written ,documented as a scribe. Based on total visit time, I have performed more than 50% of the visit. Past Medical History Past Medical History: Asthma, GERD/Reflux, Pneumonia, Skin Disorder Additional Past Medical History / Comment(s): Other HX: Eczema, hayfever, left cornea ulcer healed, gastric ulcer. Tardive Dyskinesia History of Any Multi-Drug Resistant Organisms: None Reported Past Surgical History: No Surgical Hx Reported Additional Past Surgical History / Comment(s): EGD, corneal biopsy left - Past Anesthesia/Blood Transfusion Reactions: No Reported Reaction Past Psychological History: ADD/ADHD, Anxiety, Bipolar, Depression, Panic Disorder, PTSD Smoking Status: Current every day smoker Past Alcohol Use History: Occasional Past Drug Use History: None Reported - Past Family History Father Additional Family Medical History / Comment(s): Father is alive with history of alcoholism and drug addiction. Patient does not have any relationship with him. grandfather diabetic. mom and grandfather have HTN. brother htn Mother Additional Family Medical History / Comment(s): She has history of coronary artery disease with previous [place], bipolar disorder and borderline personality. Patient has no contact with his mother. Brother(s) Additional Family Medical History / Comment(s): Patient has 1 brother and one sister; both have anxiety. Patient does not have any children. Medications and Allergies Home Medications Medication Instructions Recorded Confirmed Type Cetirizine HCl [Zyrtec] 10 mg PO DAILY 06/04/24 12/12/24 History Artificial Tears-Hypromellose 2 drops BOTH EYES TID PRN 30 Days 06/11/24 12/12/24 Rx [Artificial Tear Drops] #1 pack Hydrocortisone Cream 1 applic TOPICAL BID PRN 7 Days 06/11/24 12/12/24 Rx [Hydrocortisone 1% Cream] #56 gram Acetaminophen Tab [Tylenol] 650 mg PO Q4HR PRN tab 12/11/24 12/12/24 Rx Albuterol Inhaler [Ventolin Hfa 2 puff INHALATION RT-QID PRN 30 12/11/24 12/12/24 Rx Inhaler] Days #1 each Folic Acid 1 mg PO DAILY tab 12/11/24 12/12/24 Rx Ibuprofen [Motrin] 600 mg PO Q6HR PRN tab 12/11/24 12/12/24 Rx Mirtazapine [Remeron] 15 mg PO HS 30 Days #30 tab 12/11/24 12/12/24 Rx Nicotine 21Mg/24Hr Patch [Habitrol] 1 patch TRANSDERM DAILY 14 Days 12/11/24 12/12/24 Rx #14 patch Nystatin 100,000 Unit/gm Powd 1 applic TOPICAL BID 14 Days #14 12/11/24 12/12/24 Rx [Mycostatin Powder] each Nystatin 100,000 Unit/ml Susp 5 ml PO QID 14 Days #14 ml 12/11/24 12/12/24 Rx [Mycostatin Oral Susp] QUEtiapine [SEROquel] 100 mg PO HS 30 Days #30 tab 12/11/24 12/12/24 Rx QUEtiapine [SEROquel] 100 mg PO HS PRN 14 Days #14 tablet 12/11/24 12/12/24 Rx Sertraline [Zoloft] 100 mg PO DAILY 30 Days #30 tab 12/11/24 12/12/24 Rx Thiamine [Vitamin B-1] 100 mg PO DAILY tab 12/11/24 12/12/24 Rx predniSONE 20 mg PO DAILY 2 Days #4 tab 12/11/24 12/12/24 Rx Lipase/Protease/Amylase [Zenpep Dr 2 cap PO TID-W/MEALS 12/12/24 12/12/24 History 20,000 Unit Capsule] Multivitamins, Thera [Multivitamin 1 cap PO DAILY 12/12/24 12/12/24 History (formulary)] Allergies Allergy/AdvReac Type Severity Reaction Status Date / Time lamotrigine [From Lamictal] Allergy Unknown Rash/Hives Verified 09/18/24 15:09 ziprasidone [From Geodon] Allergy Unknown Rash/Hives Verified 09/18/24 15:09 peanut Allergy Rash/Hives Verified 09/18/24 15:09 egg AdvReac Nausea & Verified 09/18/24 15:09 Vomiting & Diarrhea haloperidol [From Haldol] AdvReac tardive Verified 09/18/24 15:09 dyskinesia Physical Exam Vitals: Vital Signs Temp Pulse Resp BP Pulse Ox 12/12/24 11:20 99 16 151/99 96 12/12/24 09:59 16 12/12/24 07:34 97.9 F 81 18 141/91 97 12/12/24 02:31 71 18 151/102 96 12/11/24 18:37 98.9 F 122 H 18 123/67 94 L Results CBC & Chem 7: 12/12/24 06:13 12/12/24 06:13 Labs: Abnormal Lab Results - Last 24 Hours (Table) 12/11/24 12/11/24 12/11/24 Range/Units 18:55 19:40 22:12 WBC (4.50-10.00) 10*3/uL MCH 32.2 H (27.0-32.0) pg Immature Gran # 0.08 H (0.00-0.04) 10*3/uL Neutrophils # (1.80-7.70) 10*3/uL Lymphocytes # 0.84 L (0.90-5.00) 10*3/uL Monocytes # 0.11 L (0.20-1.00) 10*3/uL Eosinophils # 0.00 L (0.04-0.35) 10*3/uL Sodium 149 H (137-145) mmol/L Chloride 124 H (98-107) mmol/L Carbon Dioxide 9 L* (22-30) mmol/L BUN 7 L (9-20) mg/dL Creatinine 0.48 L (0.66-1.25) mg/dL Glucose (74-99) mg/dL Calcium 6.2 L* (8.4-10.2) mg/dL Total Protein 5.3 L (6.3-8.2) g/dL Albumin 3.1 L (3.5-5.0) g/dL Lipase 736 H (23-300) U/L U Benzodiazepines Scrn Detected H (NotDetected) Serum Alcohol 249 H* mg/dL 12/11/24 12/12/24 12/12/24 Range/Units 22:19 06:13 06:13 WBC 11.47 H (4.50-10.00) 10*3/uL MCH (27.0-32.0) pg Immature Gran # 0.09 H (0.00-0.04) 10*3/uL Neutrophils # 8.09 H (1.80-7.70) 10*3/uL Lymphocytes # (0.90-5.00) 10*3/uL Monocytes # (0.20-1.00) 10*3/uL Eosinophils # 0.01 L (0.04-0.35) 10*3/uL Sodium 151 H (137-145) mmol/L Chloride 116 H 110 H (98-107) mmol/L Carbon Dioxide 21 L (22-30) mmol/L BUN 7 L (9-20) mg/dL Creatinine 0.60 L (0.66-1.25) mg/dL Glucose 146 H (74-99) mg/dL Calcium (8.4-10.2) mg/dL Total Protein (6.3-8.2) g/dL Albumin (3.5-5.0) g/dL Lipase (23-300) U/L U Benzodiazepines Scrn (NotDetected) Serum Alcohol mg/dL
--- NOTE | 2024-12-14 14:41 | P.HPIM ---
History of Present Illness H&P Date: 12/12/24 This is a 34-year-old male who was recently discharged from [facility] and apparently went home with grandfather who he resides with and drank heavily and was noted to be intoxicated and brought here for further evaluation. Patient reportedly said some things indicative of intentionally wanting to hurt himself by drinking. Patient does not have a primary care provider currently and is noncompliant with outpatient follow-up and care. Patient has a past medical history of severe alcohol abuse, polysubstance and polypharmacy abuse including marijuana, heroin, cocaine, methamphetamines, amphetamines, GERD, asthma, ADD/ADHD with bipolar depression and PTSD, continued ongoing nicotine use. Patient was admitted with alcohol intoxication and alcohol level was noted to be 249 on admission. Psychiatry was also consulted with concerns of possible intentional overdose. On exam patient denies wanting to hurt himself and reports he may have said he was attempting to hurt himself, but also reports he was blackout drunk and not sure what he actually said. Review Of Systems: Constitutional: No fever, no chills, no night sweats. No weight change. No weakness, fatigue or lethargy. No daytime sleepiness. EENT: No headache. No blurred vision or double vision, no loss of vision. No loss of Hearing, no ringing in the ears, no dizziness. No nasal drainage or congestion. No epistaxis. No sore throat. Lungs: No shortness of breath, cough, no sputum production. No wheezing. Cardiovascular: No chest pain, no lower extremity edema. No palpitations. No paroxysmal nocturnal dyspnea. No orthopnea. No lightheadedness or dizziness. No syncopal episodes. Abdominal: No abdominal pain. Reports nausea with no vomiting. No diarrhea. No constipation. No bloody or tarry stools.. No loss of appetite. Genitourinary: No dysuria, increased frequency, urgency. No urinary retention. Musculoskeletal: No myalgias. No muscle weakness, no gait dysfunction, no frequent falls. No back pain. No neck pain. Integumentary: No wounds, no lesions. No rash or pruritus. No unusual bruising. No change in hair or nails. Neurologic: No aphasia. No facial droop. No change in mentation. No head injury. No headache. No paralysis. No paresthesia. Psychiatric: No depression. No anxiety. No mood swings. Endocrine: No abnormal blood sugars. No weight change. No excessive sweating or thirst. No cold intolerance. Physical exam: Gen: This is a 34-year-old male who is awake, alert and oriented x 3, well- developed, thin built HEENT: Head is atraumatic, normocephalic. Pupils equal, round. Sclerae is anicteric. NECK: Supple. No JVD. No lymphadenopathy. No thyromegaly. LUNGS: Clear to auscultation. No wheezes or rhonchi. No intercostal retractions. HEART: Regular rate and rhythm. No murmur. ABDOMEN: Soft. Bowel sounds are present. No masses. No tenderness. EXTREMITIES: No pedal edema. No calf tenderness. NEUROLOGICAL: Patient is awake, alert and oriented x3. Cranial nerves 2 through 12 are grossly intact. Gait steady on exam Assessment: Alcohol intoxication, on admission History of severe alcohol abuse History of asthma, not in exacerbation GERD ADD/ADHD/anxiety/bipolar/depression. History of PTSD Continued ongoing nicotine abuse Polypharmacy abuse including heroin, marijuana, cocaine, methamphetamines and amphetamines Noncompliance GI prophylaxis DVT prophylaxis Full code Plan: Patient was admitted with alcohol intoxication with psychiatry and evaluation and does not meet inpatient criteria recommending outpatient follow-up with [facility] as patient was just discharged from [facility] yesterday. Patient apparently left and obtained multiple bottles of alcohol and became intoxicated. Patient reportedly said some things that he was to intentionally trying to hurt himself although on exam this morning patient is alert and oriented x 3 and denies thoughts of wanting to harm himself or others. Patient reports "I was blackout drunk and said some stupid shit". Patient does not appear to be withdrawing and gait is steady. Patient will be discharged today The impression and plan of care has been dictated by Randi Pak Nurse Practitioner as directed. Dr. Geoff MD I have performed a history and examination and MDM of this patient, discussed the same with the dictator, and agree with the dictator's assessment and plan as written ,documented as a scribe. Based on total visit time, I have performed more than 50% of the visit. Past Medical History Past Medical History: Asthma, GERD/Reflux, Pneumonia, Skin Disorder Additional Past Medical History / Comment(s): Other HX: Eczema, hayfever, left cornea ulcer healed, gastric ulcer. Tardive Dyskinesia History of Any Multi-Drug Resistant Organisms: None Reported Past Surgical History: No Surgical Hx Reported Additional Past Surgical History / Comment(s): EGD, corneal biopsy left - Past Anesthesia/Blood Transfusion Reactions: No Reported Reaction Past Psychological History: ADD/ADHD, Anxiety, Bipolar, Depression, Panic Disorder, PTSD Smoking Status: Current every day smoker Past Alcohol Use History: Occasional Past Drug Use History: None Reported - Past Family History Father Additional Family Medical History / Comment(s): Father is alive with history of alcoholism and drug addiction. Patient does not have any relationship with him. grandfather diabetic. mom and grandfather have HTN. brother htn Mother Additional Family Medical History / Comment(s): She has history of coronary artery disease with previous [place], bipolar disorder and borderline personality. Patient has no contact with his mother. Brother(s) Additional Family Medical History / Comment(s): Patient has 1 brother and one sister; both have anxiety. Patient does not have any children. Medications and Allergies Home Medications Medication Instructions Recorded Confirmed Type Cetirizine HCl [Zyrtec] 10 mg PO DAILY 06/04/24 12/12/24 History Artificial Tears-Hypromellose 2 drops BOTH EYES TID PRN 30 Days 06/11/24 12/12/24 Rx [Artificial Tear Drops] #1 pack Hydrocortisone Cream 1 applic TOPICAL BID PRN 7 Days 06/11/24 12/12/24 Rx [Hydrocortisone 1% Cream] #56 gram Acetaminophen Tab [Tylenol] 650 mg PO Q4HR PRN tab 12/11/24 12/12/24 Rx Albuterol Inhaler [Ventolin Hfa 2 puff INHALATION RT-QID PRN 30 12/11/24 12/12/24 Rx Inhaler] Days #1 each Folic Acid 1 mg PO DAILY tab 12/11/24 12/12/24 Rx Ibuprofen [Motrin] 600 mg PO Q6HR PRN tab 12/11/24 12/12/24 Rx Mirtazapine [Remeron] 15 mg PO HS 30 Days #30 tab 12/11/24 12/12/24 Rx Nicotine 21Mg/24Hr Patch [Habitrol] 1 patch TRANSDERM DAILY 14 Days 12/11/24 12/12/24 Rx #14 patch Nystatin 100,000 Unit/gm Powd 1 applic TOPICAL BID 14 Days #14 12/11/24 12/12/24 Rx [Mycostatin Powder] each Nystatin 100,000 Unit/ml Susp 5 ml PO QID 14 Days #14 ml 12/11/24 12/12/24 Rx [Mycostatin Oral Susp] QUEtiapine [SEROquel] 100 mg PO HS 30 Days #30 tab 12/11/24 12/12/24 Rx QUEtiapine [SEROquel] 100 mg PO HS PRN 14 Days #14 tablet 12/11/24 12/12/24 Rx Sertraline [Zoloft] 100 mg PO DAILY 30 Days #30 tab 12/11/24 12/12/24 Rx Thiamine [Vitamin B-1] 100 mg PO DAILY tab 12/11/24 12/12/24 Rx predniSONE 20 mg PO DAILY 2 Days #4 tab 12/11/24 12/12/24 Rx Lipase/Protease/Amylase [Zenpep Dr 2 cap PO TID-W/MEALS 12/12/24 12/12/24 History 20,000 Unit Capsule] Multivitamins, Thera [Multivitamin 1 cap PO DAILY 12/12/24 12/12/24 History (formulary)] Allergies Allergy/AdvReac Type Severity Reaction Status Date / Time lamotrigine [From Lamictal] Allergy Unknown Rash/Hives Verified 09/18/24 15:09 ziprasidone [From Geodon] Allergy Unknown Rash/Hives Verified 09/18/24 15:09 peanut Allergy Rash/Hives Verified 09/18/24 15:09 egg AdvReac Nausea & Verified 09/18/24 15:09 Vomiting & Diarrhea haloperidol [From Haldol] AdvReac tardive Verified 09/18/24 15:09 dyskinesia Results CBC & Chem 7: 12/12/24 06:13 12/12/24 06:13
--- NOTE | 2024-12-14 14:44 | P.DS ---
Providers Date of admission: 12/11/24 21:39 Expected date of discharge: 12/12/24 Attending physician: Dustin Nolasco Consults: 12/11/24 21:36 Consult Physician Urgent Consulting Provider: Psychiatry - [facility] Psychiatry Consult Reason/Comments: possible intentional overdose Do you want consulting provider notified?: Yes Primary care physician: Stated None Hospital Course: Final diagnosis Alcohol intoxication, on admission History of severe alcohol abuse History of asthma, not in exacerbation GERD ADD/ADHD/anxiety/bipolar/depression. History of PTSD Continued ongoing nicotine abuse Polypharmacy abuse including heroin, marijuana, cocaine, methamphetamines and amphetamines Noncompliance GI prophylaxis DVT prophylaxis Full code Discharge disposition Patient is being discharged in a stable condition with guarded prognosis to home. Patient will follow-up with community mental health in the outpatient setting upon discharge. Patient is to establish with an outpatient primary care provider. Total time taken is greater than 35 minutes. Hospital course This is a 34-year-old male who was recently admitted with alcohol intoxication and brought to the ER for further evaluation by grandfather. Patient apparently was just discharged from [address] and went to the grocery store with grandfather and obtained multiple bottles of liquor. Patient started acting bizarre behavior and very agitated and aggressive and sent here for further evaluation. Grandfather later found multiple empty bottles of liquor in patient's possession. Patient was admitted with alcohol intoxication with psychiatry and evaluation and does not meet inpatient criteria recommending outpatient follow-up with [facility] as patient was just discharged from [facility] [address] yesterday. Patient apparently left and obtained multiple bottles of alcohol and became intoxicated. Patient reportedly said some things that he was to intentionally trying to hurt himself although on exam this morning patient is alert and oriented x 3 and denies thoughts of wanting to harm himself or others. Patient reports "I was blackout drunk and said some stupid shit". Patient does not appear to be withdrawing and gait is steady. Patient will be discharged today Please refer to medication reconciliation sheet for a list of medications. Patient did leave without getting discharge paperwork from the emergency department while awaiting a bed on [facility]. Gait was steady. The impression and plan of care has been dictated by Randi Pak, Nurse Practitioner as directed. Dr. Geoff MD I have performed a history and examination and MDM of this patient, discussed the same with the dictator, and agree with the dictator's assessment and plan as written ,documented as a scribe. Based on total visit time, I have performed more than 50% of the visit. Okay thank you I will Patient Condition at Discharge: Stable Plan - Discharge Summary New Discharge Prescriptions: No Action Cetirizine HCl [Zyrtec] 10 mg PO DAILY Folic Acid 1 mg PO DAILY tab Nicotine 21Mg/24Hr Patch [Habitrol] 1 patch TRANSDERM DAILY 14 Days #14 patch Nystatin 100,000 Unit/gm Powd [Mycostatin Powder] 1 applic TOPICAL BID 14 Days #14 each Mirtazapine [Remeron] 15 mg PO HS 30 Days #30 tab QUEtiapine [SEROquel] 100 mg PO HS 30 Days #30 tab QUEtiapine [SEROquel] 100 mg PO HS PRN 14 Days #14 tablet PRN Reason: insomnia/severe anxiety Thiamine [Vitamin B-1] 100 mg PO DAILY tab Artificial Tears-Hypromellose [Artificial Tear Drops] 2 drops BOTH EYES TID PRN 30 Days #1 pack PRN Reason: Dry Eye(S) Hydrocortisone Cream [Hydrocortisone 1% Cream] 1 applic TOPICAL BID PRN 7 Days #56 gram PRN Reason: Skin Irritation Ibuprofen [Motrin] 600 mg PO Q6HR PRN tab PRN Reason: Moderate Pain (Scale 4 To 6) predniSONE 20 mg PO DAILY 2 Days #4 tab Acetaminophen Tab [Tylenol] 650 mg PO Q4HR PRN tab PRN Reason: Mild Pain (Scale 1 To 3) Sertraline [Zoloft] 100 mg PO DAILY 30 Days #30 tab Nystatin 100,000 Unit/ml Susp [Mycostatin Oral Susp] 5 ml PO QID 14 Days #14 ml Albuterol Inhaler [Ventolin Hfa Inhaler] 2 puff INHALATION RT-QID PRN 30 Days #1 each PRN Reason: Shortness Of Breath Or Wheezing Lipase/Protease/Amylase [Zenpep Dr 20,000 Unit Capsule] 2 cap PO TID-W/MEALS Multivitamins, Thera [Multivitamin (formulary)] 1 cap PO DAILY Discharge Medication List Cetirizine HCl [Zyrtec] 10 mg PO DAILY 06/04/24 [History] Artificial Tears-Hypromellose [Artificial Tear Drops] 2 drops BOTH EYES TID PRN 30 Days #1 pack 06/11/24 [Rx] Hydrocortisone Cream [Hydrocortisone 1% Cream] 1 applic TOPICAL BID PRN 7 Days #56 gram 06/11/24 [Rx] Acetaminophen Tab [Tylenol] 650 mg PO Q4HR PRN tab 12/11/24 [Rx] Albuterol Inhaler [Ventolin Hfa Inhaler] 2 puff INHALATION RT-QID PRN 30 Days #1 each 12/11/24 [Rx] Folic Acid 1 mg PO DAILY tab 12/11/24 [Rx] Ibuprofen [Motrin] 600 mg PO Q6HR PRN tab 12/11/24 [Rx] Mirtazapine [Remeron] 15 mg PO HS 30 Days #30 tab 12/11/24 [Rx] Nicotine 21Mg/24Hr Patch [Habitrol] 1 patch TRANSDERM DAILY 14 Days #14 patch 12/11/24 [Rx] Nystatin 100,000 Unit/gm Powd [Mycostatin Powder] 1 applic TOPICAL BID 14 Days #14 each 12/11/24 [Rx] Nystatin 100,000 Unit/ml Susp [Mycostatin Oral Susp] 5 ml PO QID 14 Days #14 ml 12/11/24 [Rx] QUEtiapine [SEROquel] 100 mg PO HS 30 Days #30 tab 12/11/24 [Rx] QUEtiapine [SEROquel] 100 mg PO HS PRN 14 Days #14 tablet 12/11/24 [Rx] Sertraline [Zoloft] 100 mg PO DAILY 30 Days #30 tab 12/11/24 [Rx] Thiamine [Vitamin B-1] 100 mg PO DAILY tab 12/11/24 [Rx] predniSONE 20 mg PO DAILY 2 Days #4 tab 12/11/24 [Rx] Lipase/Protease/Amylase [Zenpep Dr 20,000 Unit Capsule] 2 cap PO TID-W/MEALS 12/12/24 [History] Multivitamins, Thera [Multivitamin (formulary)] 1 cap PO DAILY 12/12/24 [History] Follow up Appointment(s)/Referral(s): None,Stated [Primary Care Provider] - 1-2 days Discharge Disposition: HOME SELF-CARE
== END 2024-12-12 15:19 | disposition home or self-care (01) ==
LOC: EC 18:33 → 5NMEDONC 21:39
PROVIDERS: ADMIT Hospitalist; ATTEND Hospitalist
DX: F10.129 Alcohol abuse with intoxication, unspecified (principal); F19.10 Other psychoactive substance abuse, uncomplicated; F17.200 Nicotine dependence, unspecified, uncomplicated; F31.9 Bipolar disorder, unspecified; F41.0 Panic disorder [episodic paroxysmal anxiety]; F43.10 Post-traumatic stress disorder, unspecified; F60.3 Borderline personality disorder; F90.9 Attention-deficit hyperactivity disorder, unspecified type; K21.9 Gastro-esophageal reflux disease without esophagitis; J45.909 Unspecified asthma, uncomplicated; Y90.8 Blood alcohol level of 240 mg/100 ml or more; Z79.899 Other long term (current) drug therapy; Z91.199 Patient's noncompliance with other medical treatment and regimen due to unspecified reason; Z91.51 Personal history of suicidal behavior; Z79.52 Long term (current) use of systemic steroids; Z88.8 Allergy status to other drugs, medicaments and biological substances
CPT/HCPCS: 96360; 99285; 36415; 93005; 80053; 80048; 83690; 85025 ×2; 81003; 80306; 80143; 80320; 80179; 72125; 70450; G0378 ×2

== ENCOUNTER 2024-12-26 13:09 | Emergency (ER) | payer OTHER ==
[2024-12-26 13:17] VITALS: TEMP 97.8
--- NOTE | 2024-12-26 14:01 | ED ---
Skin/Abscess/FB HPI - General Chief complaint: Skin/Abscess/Foreign Body Stated complaint: Skin Rash Time Seen by Provider: 12/26/24 13:24 Source: patient, RN notes reviewed Mode of arrival: ambulatory Limitations: no limitations - History of Present Illness Initial comments: This is a 34-year-old male with history of asthma, GERD and drug/alcohol abuse presenting for allergic reaction occurring this morning. Patient endorses diffuse rash with associated itching following use of new spray and increased stress after her first night spent at [facility]. Patient endorses use of Benadryl with minimal relief. Denies swelling of lips, tongue, throat, dyspnea/shortness of breath, dizziness, nausea/vomiting. MD complaint: rash Onset/Timin -: hour(s) Location: generalized Associated symptoms: denies other symptoms Treatments Prior to Arrival: Benadryl - Related Data Home Medications Medication Instructions Recorded Confirmed Cetirizine HCl [Zyrtec] 10 mg PO DAILY 06/04/24 12/12/24 Lipase/Protease/Amylase [Zenpep Dr 2 cap PO TID-W/MEALS 12/12/24 12/12/24 20,000 Unit Capsule] Multivitamins, Thera [Multivitamin 1 cap PO DAILY 12/12/24 12/12/24 (formulary)] Previous Rx's Medication Instructions Recorded Artificial Tears-Hypromellose 2 drops BOTH EYES TID PRN 30 Days 06/11/24 [Artificial Tear Drops] #1 pack Hydrocortisone Cream 1 applic TOPICAL BID PRN 7 Days 06/11/24 [Hydrocortisone 1% Cream] #56 gram Acetaminophen Tab [Tylenol] 650 mg PO Q4HR PRN tab 12/11/24 Albuterol Inhaler [Ventolin Hfa 2 puff INHALATION RT-QID PRN 30 12/11/24 Inhaler] Days #1 each Folic Acid 1 mg PO DAILY tab 12/11/24 Ibuprofen [Motrin] 600 mg PO Q6HR PRN tab 12/11/24 Mirtazapine [Remeron] 15 mg PO HS 30 Days #30 tab 12/11/24 Nicotine 21Mg/24Hr Patch [Habitrol] 1 patch TRANSDERM DAILY 14 Days 12/11/24 #14 patch Nystatin 100,000 Unit/gm Powd 1 applic TOPICAL BID 14 Days #14 12/11/24 [Mycostatin Powder] each Nystatin 100,000 Unit/ml Susp 5 ml PO QID 14 Days #14 ml 12/11/24 [Mycostatin Oral Susp] QUEtiapine [SEROquel] 100 mg PO HS 30 Days #30 tab 12/11/24 QUEtiapine [SEROquel] 100 mg PO HS PRN 14 Days #14 tablet 12/11/24 Sertraline [Zoloft] 100 mg PO DAILY 30 Days #30 tab 12/11/24 Thiamine [Vitamin B-1] 100 mg PO DAILY tab 12/11/24 predniSONE 20 mg PO DAILY 2 Days #4 tab 12/11/24 Triamcinolone 0.1% Cream [Kenalog 1 applicatio TOPICAL BID #22 gram 12/26/24 0.1% Cream] predniSONE 10 mg PO DIRECTED #20 tab 12/26/24 Allergies Allergy/AdvReac Type Severity Reaction Status Date / Time lamotrigine [From Lamictal] Allergy Unknown Rash/Hives Verified 12/26/24 13:17 ziprasidone [From Geodon] Allergy Unknown Rash/Hives Verified 12/26/24 13:17 peanut Allergy Rash/Hives Verified 12/26/24 13:17 egg AdvReac Nausea & Verified 12/26/24 13:17 Vomiting & Diarrhea haloperidol [From Haldol] AdvReac tardive Verified 12/26/24 13:17 dyskinesia Review of Systems ROS Statement: Those systems with pertinent positive or pertinent negative responses have been documented in the HPI. ROS Other: All systems not noted in ROS Statement are negative. Past Medical History Past Medical History: Asthma, GERD/Reflux, Pneumonia, Skin Disorder Additional Past Medical History / Comment(s): Other HX: Eczema, hayfever, left cornea ulcer healed, gastric ulcer. Tardive Dyskinesia History of Any Multi-Drug Resistant Organisms: None Reported Past Surgical History: No Surgical Hx Reported Additional Past Surgical History / Comment(s): EGD, corneal biopsy left - Past Anesthesia/Blood Transfusion Reactions: No Reported Reaction Past Psychological History: ADD/ADHD, Anxiety, Bipolar, Depression, Panic Disorder, PTSD Smoking Status: Current every day smoker Past Alcohol Use History: Occasional Past Drug Use History: None Reported - Past Family History Father Additional Family Medical History / Comment(s): Father is alive with history of alcoholism and drug addiction. Patient does not have any relationship with him. grandfather diabetic. mom and grandfather have HTN. brother htn Mother Additional Family Medical History / Comment(s): She has history of coronary artery disease with previous [place], bipolar disorder and borderline personality. Patient has no contact with his mother. Brother(s) Additional Family Medical History / Comment(s): Patient has 1 brother and one sister; both have anxiety. Patient does not have any children. General Exam Limitations: no limitations General appearance: alert, in no apparent distress Head exam: Present: atraumatic, normocephalic, normal inspection Eye exam: Present: normal appearance, PERRL, EOMI. Absent: scleral icterus, conjunctival injection, periorbital swelling ENT exam: Present: normal exam, normal oropharynx (Negative lip, oropharyngeal or glossal edema), mucous membranes moist Neck exam: Present: normal inspection. Absent: tenderness, meningismus, lymphadenopathy Respiratory exam: Present: normal lung sounds bilaterally, wheezes (Mild expiratory wheezing auscultated in bilateral lower lobes). Absent: respiratory distress, rales, rhonchi, stridor, accessory muscle use, decreased breath sounds, prolonged expiratory Cardiovascular Exam: Present: regular rate, normal rhythm, normal heart sounds. Absent: systolic murmur, diastolic murmur, rubs, gallop, clicks GI/Abdominal exam: Present: soft, normal bowel sounds. Absent: distended, tenderness, guarding, rebound, rigid Extremities exam: Present: normal inspection, full ROM, normal capillary refill. Absent: tenderness, pedal edema, joint swelling, calf tenderness Back exam: Present: normal inspection Neurological exam: Present: alert, oriented X3, CN II-XII intact Psychiatric exam: Present: normal affect, normal mood Skin exam: Present: warm, dry, intact, normal color, rash, urticaria (Diffuse rash/urticaria over entirety of body, especially around neck and upper chest where body spray was focused.), other (Negative blistering, vesicles, excoriations, papules.) Course Vital Signs 12/26/24 12/26/24 13:14 15:40 Temperature 97.8 F Pulse Rate 122 H 116 H Respiratory 17 18 Rate Blood Pressure 153/87 132/93 O2 Sat by Pulse 95 96 Oximetry Medical Decision Making - Medical Decision Making Was pt. sent in by a medical professional or institution ([facility], [employer], urgent care, hospital, or skilled nursing...) When possible be specific @ -[facility] Did you speak to anyone other than the patient for history (EMS, parent, family, police, friend...)? What history was obtained from this source @ -No Did you review nursing and triage notes (agree or disagree)? Why? @ -I reviewed and agree with nursing and triage notes Were old charts reviewed (outside hosp., previous admission, EMS record, old EKG, old radiological studies, urgent care reports/EKG's, skilled nursing records)? Report findings @ -No old charts were reviewed Differential Diagnosis (chest pain, altered mental status, abdominal pain women, abdominal pain men, vaginal bleeding, weakness, fever, dyspnea, syncope, headache, dizziness, GI bleed, back pain, seizure, CVA, palpatations, mental health, musculoskeletal)? @ -Allergic urticaria, contact dermatitis, anaphylaxis, atopic dermatitis, pityriasis rosea, this is not an exhaustive list EKG interpreted by me (3pts min.). @ -Not done X-rays interpreted by me (1pt min.). @ -None done CT interpreted by me (1pt min.). @ -None done U/S interpreted by me (1pt. min.). @ -None done What testing was considered but not performed or refused? (CT, X-rays, U/S, labs)? Why? @ -None What meds were considered but not given or refused? Why? @ -None Did you discuss the management of the patient with other professionals (professionals i.e. [facility]INDRA Celis, [employer], lab, RT, psych nurse, social security benefits interviewer, retail district manager, teacher, budget officer, case monitor)? Give summary @ -No Was smoking cessation discussed for >3mins.? @ -No Was critical care preformed (if so, how long)? @ -No Were there social determinants of health that impacted care today? How? (Homelessness, low income, unemployed, alcoholism, drug addiction, transportation, low edu. Level, literacy, decrease access to med. care, prison, rehab)? @ -No Was there de-escalation of care discussed even if they declined (Discuss DNR or withdrawal of care, Hospice)? DNR status @ -No What co-morbidities impacted this encounter? (DM, HTN, Smoking, COPD, CAD, Cancer, CVA, ARF, Chemo, Hep., AIDS, mental health diagnosis, sleep apnea, morbid obesity)? @ -None Was patient admitted / discharged? Hospital course, mention meds given and route, prescriptions, significant lab abnormalities, going to OR and other pertinent info. @ -No signs or indications of anaphylaxis. Patient provided IM Solu-Medrol and Benadryl with prednisone taper and triamcinolone cream sent to pharmacy. Advised return to ER if experiencing swelling of throat or difficulty breathing. Discussed patient with Dr. Forman. Undiagnosed new problem with uncertain prognosis? @ -No Drug Therapy requiring intensive monitoring for toxicity (Heparin, Nitro, Insulin, Cardizem)? @ -No Were any procedures done? @ -No Diagnosis/symptom? @ -Allergic urticaria Acute, or Chronic, or Acute on Chronic? @ -Acute Uncomplicated (without systemic symptoms) or Complicated (systemic symptoms)? @ -Uncomplicated Side effects of treatment? @ -No Exacerbation, Progression, or Severe Exacerbation? @ -No Poses a threat to life or bodily function? How? (Chest pain, [place], [place], pneumonia, PE, COPD, DKA, ARF, appy, cholecystitis, CVA, Diverticulitis, Homicidal, Suicidal, threat to staff... and all critical care pts) @ -No Disposition Clinical Impression: Urticaria Disposition: HOME SELF-CARE Condition: Good Instructions (If sedation given, give patient instructions): Urticaria (ED) Additional Instructions: Return to ER if experiencing worsening difficulty breathing, swelling of lips, tongue, throat, altered mental status, altered level of consciousness, dizziness, nausea/vomiting. Continue [id number] Benadryl every 4-6 hours for at least the next 72 hours. Prescriptions: Triamcinolone 0.1% Cream [Kenalog 0.1% Cream] 1 applicatio TOPICAL BID #22 gram predniSONE 10 mg PO DIRECTED #20 tab Is patient prescribed a controlled substance at d/c from ED?: No Referrals: None,Stated [Primary Care Provider] - 1-2 days Roger Reed MD [STAFF PHYSICIAN] - 1-2 days Time of Disposition: 14:00
[2024-12-26] MEDS: diphenhydrAMINE 50 MG/ML 1 ML VIAL IM STA (14:09)
[2024-12-26] MEDS: methylPREDNISolone SOD SUCCI 125 MG/2 ML VIAL IM ONE (14:09)
[2024-12-26 15:42] VITALS: BP 132/93; PULSE 116; RESP 18
== END 2024-12-26 15:43 | disposition home or self-care (01) ==
LOC: EC 13:09
DX: L50.9 Urticaria, unspecified (principal); F17.200 Nicotine dependence, unspecified, uncomplicated; Z91.012 Allergy to eggs; Z91.010 Allergy to peanuts; Z88.8 Allergy status to other drugs, medicaments and biological substances
CPT/HCPCS: 99282; 96372 ×2; J1200; J2919

== ENCOUNTER 2025-01-04 12:32 | Emergency (ER) | payer OTHER ==
--- NOTE | 2025-01-04 13:22 | ED ---
Psych HPI - General Source: patient, RN notes reviewed Mode of arrival: ambulatory Limitations: no limitations - History of Present Illness MD Complaint: suicidal ideation, feels depressed <Karen Sams - Last Filed: 01/04/25 16:02> <Jabari Fernandez - Last Filed: 01/04/25 16:02> - General Chief Complaint: Psychiatric Symptoms Stated Complaint: Mental health eval Time Seen by Provider: 01/04/25 13:00 - History of Present Illness Initial Comments: This is a 34-year-old male who presents to the emergency department for psychiatric evaluation. Patient states that he has been sober of meth and alcohol for the last 2 to 3 weeks and just completed a treatment program for th is a couple of days ago. However, states that his depression has been worsening substantially over the last several days. He does report suicidal ideations, but states that this almost occurs daily, even if he feels like his mood is doing better. Denies any plans with regards to the suicidal ideations. Denies any homicidal ideations or auditory/visual hallucinations. He is currently taking Zoloft and Remeron, but does not believe they are effective. He is established with [facility] counseling but is not actively going. (Karen Sams) - Related Data Home Medications Medication Instructions Recorded Confirmed Cetirizine HCl [Zyrtec] 10 mg PO DAILY 06/04/24 12/12/24 Lipase/Protease/Amylase [Zenpep Dr 2 cap PO TID-W/MEALS 12/12/24 12/12/24 20,000 Unit Capsule] Multivitamins, Thera [Multivitamin 1 cap PO DAILY 12/12/24 12/12/24 (formulary)] Previous Rx's Medication Instructions Recorded Artificial Tears-Hypromellose 2 drops BOTH EYES TID PRN 30 Days 06/11/24 [Artificial Tear Drops] #1 pack Hydrocortisone Cream 1 applic TOPICAL BID PRN 7 Days 06/11/24 [Hydrocortisone 1% Cream] #56 gram Acetaminophen Tab [Tylenol] 650 mg PO Q4HR PRN tab 12/11/24 Albuterol Inhaler [Ventolin Hfa 2 puff INHALATION RT-QID PRN 30 12/11/24 Inhaler] Days #1 each Folic Acid 1 mg PO DAILY tab 12/11/24 Ibuprofen [Motrin] 600 mg PO Q6HR PRN tab 12/11/24 Mirtazapine [Remeron] 15 mg PO HS 30 Days #30 tab 12/11/24 Nicotine 21Mg/24Hr Patch [Habitrol] 1 patch TRANSDERM DAILY 14 Days 12/11/24 #14 patch Nystatin 100,000 Unit/gm Powd 1 applic TOPICAL BID 14 Days #14 12/11/24 [Mycostatin Powder] each Nystatin 100,000 Unit/ml Susp 5 ml PO QID 14 Days #14 ml 12/11/24 [Mycostatin Oral Susp] QUEtiapine [SEROquel] 100 mg PO HS 30 Days #30 tab 12/11/24 QUEtiapine [SEROquel] 100 mg PO HS PRN 14 Days #14 tablet 12/11/24 Sertraline [Zoloft] 100 mg PO DAILY 30 Days #30 tab 12/11/24 Thiamine [Vitamin B-1] 100 mg PO DAILY tab 12/11/24 predniSONE 20 mg PO DAILY 2 Days #4 tab 12/11/24 Triamcinolone 0.1% Cream [Kenalog 1 applicatio TOPICAL BID #22 gram 12/26/24 0.1% Cream] predniSONE 10 mg PO DIRECTED #20 tab 12/26/24 Allergies Allergy/AdvReac Type Severity Reaction Status Date / Time lamotrigine [From Lamictal] Allergy Unknown Rash/Hives Verified 01/04/25 12:51 ziprasidone [From Geodon] Allergy Unknown Rash/Hives Verified 01/04/25 12:51 peanut Allergy Rash/Hives Verified 01/04/25 12:51 egg AdvReac Nausea & Verified 01/04/25 12:51 Vomiting & Diarrhea haloperidol [From Haldol] AdvReac tardive Verified 01/04/25 12:51 dyskinesia Review of Systems ROS Other: All systems not noted in ROS Statement are negative. <Karen Sams - Last Filed: 01/04/25 16:02> ROS Other: All systems not noted in ROS Statement are negative. <Jabari Fernandez - Last Filed: 01/04/25 16:02> ROS Statement: Those systems with pertinent positive or pertinent negative responses have been documented in the HPI. Past Medical History Past Medical History: Asthma, GERD/Reflux, Pneumonia, Skin Disorder Additional Past Medical History / Comment(s): Other HX: Eczema, hayfever, left cornea ulcer healed, gastric ulcer. Tardive Dyskinesia History of Any Multi-Drug Resistant Organisms: None Reported Past Surgical History: No Surgical Hx Reported Additional Past Surgical History / Comment(s): EGD, corneal biopsy left - Past Anesthesia/Blood Transfusion Reactions: No Reported Reaction Past Psychological History: ADD/ADHD, Anxiety, Bipolar, Depression, Panic Disorder, PTSD Smoking Status: Current every day smoker Past Alcohol Use History: Daily, Occasional Past Drug Use History: None Reported, Methamphetamine - Past Family History Father Additional Family Medical History / Comment(s): Father is alive with history of alcoholism and drug addiction. Patient does not have any relationship with him. grandfather diabetic. mom and grandfather have HTN. brother htn Mother Additional Family Medical History / Comment(s): She has history of coronary artery disease with previous [place], bipolar disorder and borderline personality. Patient has no contact with his mother. Brother(s) Additional Family Medical History / Comment(s): Patient has 1 brother and one sister; both have anxiety. Patient does not have any children. <Karen Sams - Last Filed: 01/04/25 16:02> General Exam Limitations: no limitations General appearance: alert, in no apparent distress Head exam: Present: atraumatic, normocephalic, normal inspection Respiratory exam: Present: normal lung sounds bilaterally. Absent: respiratory distress, wheezes, rales, rhonchi, stridor Cardiovascular Exam: Present: regular rate, normal rhythm Neurological exam: Present: alert, oriented X3, CN II-XII intact Psychiatric exam: Present: depressed, anxious, suicidal ideation. Absent: homicidal ideation Skin exam: Present: warm, dry, intact, normal color. Absent: rash <Karen Sams - Last Filed: 01/04/25 16:02> Course Vital Signs 01/04/25 12:47 Temperature 97.8 F Pulse Rate 87 Respiratory 18 Rate Blood Pressure 125/86 O2 Sat by Pulse 97 Oximetry Medical Decision Making - Lab Data Result diagrams: 01/04/25 14:51 01/04/25 14:51 <Karen Sams - Last Filed: 01/04/25 16:02> - Lab Data Result diagrams: 01/04/25 14:51 01/04/25 14:51 <Jabari Fernandez - Last Filed: 01/04/25 16:02> - Medical Decision Making This is a 34-year-old male who presents to the emergency department for psychiatric evaluation. Was pt. sent in by a medical professional or institution? @ -No Did you speak to anyone other than the patient for history? @ -No Did you review nursing and triage notes? @ -Yes, and I agree, it is accurate with regards to the patient's symptoms. Were old charts reviewed? @ -No Differential Diagnosis? @ -Differential Mental Health Depression, anxiety, bipolar, psychosis, schizophrenia, borderline personality, situational depression, adjustment disorder, behavioral disorder, brain tumor, malingering, substance abuse, encephalopathy, medication reaction, dementia, hypothyroidism, degenerative neurologic disorder, lupus.... This is not meant to be all-inclusive list EKG interpreted by me (3pts min.)? @ -Not obtained X-rays interpreted by me (1pt min.)? @ -Not obtained CT interpreted by me (1pt min.)? @ -Not obtained U/S interpreted by me (1pt. min.)? @ -Not obtained What testing was considered but not performed? (CT, X-rays, U/S, labs)? Why? @ -None What meds were considered but not given? Why? @ -None Did you discuss the management of the patient with other professionals? @ -No Did you reconcile home meds? @ -No Was smoking cessation discussed for >3mins.? @ -No Was critical care preformed (if so, how long)? @ -No Were there social determinants of health that impacted care today? How? (Homelessness, low income, unemployed, alcoholism, drug addiction, transporta tion, low edu. Level, literacy, decrease access to med. care, shelter, rehab)? @ -No Was there de-escalation of care discussed even if they declined? (Discuss DNR or withdrawal of care, Hospice)? @ -No What co-morbidities impacted this encounter? (DM, HTN, Smoking, COPD, CAD, Cancer, CVA, Hep., AIDS, mental health diagnosis, sleep apnea, morbid obesity)? @ -Psychiatric illness Was patient admitted / discharged? @ -Patient's BAT was 0.0 and he was cleared for EPS evaluation. EPS evaluated the patient and advised that he meets criteria for inpatient psychiatric hospitalization due to active suicidal ideations and worsening depression. However, patient was requesting transfer to [facility]. Patient subsequently petitioned by EPS and clinical CERT was completed by ED attending. Laboratory studies were ordered per transfer requirements and found to be unremarkable. Patient was ultimately accepted as a transfer to [facility] and was transferred via EMS in stable condition. Case discussed with ED attending Dr. Fernandez. Undiagnosed new problem with uncertain prognosis? @ -None Drug Therapy requiring intensive monitoring for toxicity (Heparin, Nitro, Insuli n, Cardizem)? @ -None Were any procedures done? @ -None Diagnosis/symptom? @ -Suicidal ideation Acute, or Chronic, or Acute on Chronic? @ -Acute Uncomplicated (without systemic symptoms) or Complicated (systemic symptoms)? @ -Complicated Side effects of treatment? @ -None Exacerbation, Progression, or Severe Exacerbation] @ -Not applicable Poses a threat to life or bodily function? @ -Yes, can lead to (Karen Sams) I saw the patient, and did perform brief history and physical and completed clinical certificate. (Jabari Fernandez) - Lab Data Lab Results 01/04/25 01/04/25 01/04/25 Range/Units 13:28 14:51 14:51 WBC 6.90 (4.50-10.00) 10*3/uL RBC 5.16 (4.40-5.60) 10*6/uL Hgb 16.6 (13.0-17.0) g/dL Hct 46.8 (39.6-50.0) % MCV 90.7 (80.0-97.0) fL MCH 32.2 H (27.0-32.0) pg MCHC 35.5 (32.0-37.0) g/dL Plt Count 343 (140-440) 10*3/uL MPV 10.4 (9.5-12.2) fL Immature Gran % (Auto) 0.4 % Neutrophils % 66.1 % Lymphocytes % 21.6 % Monocytes % 7.7 % Eosinophils % 3.5 % Basophils % 0.7 % Immature Gran # 0.03 (0.00-0.04) 10*3/uL Neutrophils # 4.56 (1.80-7.70) 10*3/uL Lymphocytes # 1.49 (0.90-5.00) 10*3/uL Monocytes # 0.53 (0.20-1.00) 10*3/uL Eosinophils # 0.24 (0.04-0.35) 10*3/uL Basophils # 0.05 (0.00-0.10) 10*3/uL Sodium 138 (137-145) mmol/L Potassium 4.3 (3.5-5.1) mmol/L Chloride 104 (98-107) mmol/L Carbon Dioxide 25 (22-30) mmol/L Anion Gap 9 mmol/L BUN 8 L (9-20) mg/dL Creatinine 0.68 (0.66-1.25) mg/dL Est GFR (CKD-EPI)AfAm >90 (>60 ml/min/1.73 sqM) Est GFR (CKD-EPI)NonAf >90 (>60 ml/min/1.73 sqM) Glucose 82 (74-99) mg/dL Calcium 10.1 (8.4-10.2) mg/dL Total Bilirubin 0.5 (0.2-1.3) mg/dL AST 23 (17-59) U/L ALT 21 (4-49) U/L Alkaline Phosphatase 86 (38-126) U/L Total Protein 7.1 (6.3-8.2) g/dL Albumin 4.7 (3.5-5.0) g/dL Influenza Type A (PCR) Not Detected (Not Detectd) Influenza Type B (PCR) Not Detected (Not Detectd) RSV (PCR) Not Detected (Not Detectd) SARS-CoV-2 (PCR) Not Detected (Not Detectd) Disposition <Karen Sams - Last Filed: 01/04/25 16:02> <Jabari Fernandez - Last Filed: 01/04/25 16:02> Clinical Impression: Suicidal ideations, Uncontrolled depression Disposition: TRANSFER TO PSYCH HOSP/UNIT Referrals: None,Stated [Primary Care Provider] - 1-2 days
[2025-01-04 15:04] LABS: RSV Not Detected (Not Detectd)
[2025-01-04 15:11] LABS: Basophils # (A) 0.05 10*3/uL (0.00-0.10); Basophils % (A) 0.7 %; Eosinophils # (A) 0.24 10*3/uL (0.04-0.35); Eosinophils % (A) 3.5 %; HCT 46.8 % (39.6-50.0); HGB 16.6 g/dL (13.0-17.0); Lymphocytes # (A) 1.49 10*3/uL (0.90-5.00); Lymphocytes % (A) 21.6 %; MCH 32.2 pg (27.0-32.0); MCHC 35.5 g/dL (32.0-37.0); MCV 90.7 fL (80.0-97.0); Monocytes # (A) 0.53 10*3/uL (0.20-1.00); Monocytes % (A) 7.7 %; Neutrophils # (A) 4.56 10*3/uL (1.80-7.70); Neutrophils % (A) 66.1 %; Platelet Count 343 10*3/uL (140-440); RBC 5.16 10*6/uL (4.40-5.60); RDW 11.9 % (11.5-14.5); WBC 6.90 10*3/uL (4.50-10.00)
[2025-01-04 15:32] LABS: ALT 21 U/L (4-49); AST 23 U/L (17-59); African American GFR (CKD) >90 (>60 ml/min/1.73 sqM); Albumin 4.7 g/dL (3.5-5.0); Alkaline Phosphatase 86 U/L (38-126); Anion Gap 9 mmol/L; Blood Urea Nitrogen 8 mg/dL (9-20); Calcium 10.1 mg/dL (8.4-10.2); Carbon Dioxide 25 mmol/L (22-30); Chloride 104 mmol/L (98-107); Glucose 82 mg/dL (74-99); Non-African American GFR(CKD) >90 (>60 ml/min/1.73 sqM); Potassium 4.3 mmol/L (3.5-5.1); Sodium 138 mmol/L (137-145); Total Protein 7.1 g/dL (6.3-8.2)
[2025-01-04] MEDS: hydrOXYzine HCL 25 MG TAB PO STA (16:07)
[2025-01-04 16:58] VITALS: BP 123/86; PULSE 71; RESP 19; TEMP 98.3
[2025-01-04 17:08] LABS: Barbiturate Screen,Urine Not Detected (NotDetected); Benzodiazepines Screen,Urine Detected (NotDetected); Opiate Screen,Urine Not Detected (NotDetected); Oxycodone Screen, Urine Not Detected (NotDetected); Phencyclidine Screen,Urine Not Detected (NotDetected); Tricyclic Antidepressant,Urine Not Detected (NotDetected); Urn Cannabinoid Scrn Not Detected (NotDetected)
== END 2025-01-04 16:46 ==
LOC: EC 12:32
DX: R45.851 Suicidal ideations (principal); F32.A Depression, unspecified; F17.200 Nicotine dependence, unspecified, uncomplicated; Z11.52 Encounter for screening for COVID-19; Z91.012 Allergy to eggs; Z91.010 Allergy to peanuts; Z88.8 Allergy status to other drugs, medicaments and biological substances
CPT/HCPCS: 36415; 80053; 80306; 82075; 85025; 87636; 99285